=== PATIENT | female | born 1935 | race Caucasian/White ===

== ENCOUNTER 2016-06-13 18:17 | Inpatient (IN) | payer MEDICARE, MEDICAID ==
[~2016-06-13] VITALS: Ht 154.9 cm; Wt 51.2 kg
[~2016-06-13 18:17] MED LIST: ASPI-231 PO; DOCU-94 PO; FLUT110A INH; GABA250S2 PO; LEVA1NEB5 NEB; LEVAAER4 IN; LISI-275 PO; LORA-655 PO; METO-169 PO; OMEP20CA5 PO; SIMV-8 PO
[2016-06-13 19:48] LABS: Basophils # (auto) 0.1 uL; Basophils % (auto) 0.9 % (0.0-2.0); Eosinophils # (auto) 0.6 uL; Eosinophils % (auto) 7.8 % (0.0-7.0); Hematocrit 38.5 % (36.0-46.0); Hemoglobin 12.6 g/dL (12.2-16.2); Lymphocytes # (auto) 1.8 uL; Lymphocytes % (auto) 22.6 % (10.0-50.0); Mean Corpuscular Hgb Conc. 32.9 g/dL (32.0-36.0); Mean Corpuscular Volume 94.3 fL (80.0-100.0); Mean Platelet Volume 8.4 fL (7.4-10.4); Monocytes # (auto) 0.8 uL; Monocytes % (auto) 10.3 % (0.0-12.0); Neutrophils # (auto) 4.7 uL; Neutrophils % (auto) 58.4 % (37.0-80.0); Platelet Count (auto) 281 10^3/uL (140-450)
[2016-06-13] MEDS ORDERED: methylPREDNISolone SOD SUCC 125 MG/2 ML VL IV ONE (20:00)
[2016-06-13 20:02] LABS: Albumin 3.4 g/dL (3.4-5.0); BUN/Creatinine Ratio 13.3; Bilirubin, Total 0.2 mg/dL (0.2-1.0); Calcium 9.2 mg/dL (8.5-10.1); Magnesium 1.9 mg/dL (1.6-2.6); Potassium 3.6 mmol/L (3.5-5.1); Total Protein 6.1 g/dL (6.4-8.2)
[2016-06-13] MEDS: IPRATROPIUM BROM 0.5 MG/2.5ML INH SOL NEB ONE (20:40)
[2016-06-13 20:55] LABS: B-Type Natriuretic Peptide 25.88 pg/mL (0-100)
[2016-06-13 20:57] LABS: Temperature: 22.3 C (20.0-25.0)
[2016-06-13 21:13] LABS: INR 1.02 (0.9-1.15); Partial Thromboplastin Time 27.8 sec (22.64-33.71); Prothrombin Time 10.5 sec (9.37-12.3)
[2016-06-14] VITALS (8 sets, daily range): BP systolic 130–150; BP diastolic 65–81
[2016-06-14] MEDS: IPRATROPIUM BROM 0.5 MG/2.5ML INH SOL NEB ONE
[2016-06-14] MEDS ORDERED: LORazepam 0.5 MG TAB PO ONE (01:00)
[2016-06-14] MEDS ORDERED: cloNIDine HCL 0.1 MG TAB PO PRN (01:30)
[2016-06-14] MEDS ORDERED: IPRATROPIUM BROM 0.5 MG/2.5ML INH SOL NEB PRN (01:30)
[2016-06-14] MEDS ORDERED: AZITHROMYCIN 500MG/D5W 250ML 250 ML IV ONE (01:45)
[2016-06-14] MEDS ORDERED: NITROGLYCERIN 0.4 MG SL TAB SL PRN (01:45)
[2016-06-14] MEDS ORDERED: MORPHINE SULF INJ 2 MG/ML SYRINGE 1ML IV PRN (01:45)
[2016-06-14] MEDS: SODIUM CHLOR 0.9% PF (SALINE LOCK) 10ML VIAL IV SCH ×3 (05:31→22:08)
[2016-06-14] MEDS: GABAPENTIN 300 MG CAP PO SCH ×3 (05:55→22:00)
[2016-06-14] MEDS: cefTRIAXone 1GM/50ML D5W 50 ML IV SCH ×2 (06:44→19:06)
[2016-06-14] MEDS: LEVALBUTEROL HCL 1.25 MG/3 ML NEB NEB SCH ×3 (08:00→22:25)
[2016-06-14] MEDS ORDERED: cefTRIAXone 1GM/50ML D5W 50 ML IV SCH (09:00)
[2016-06-14] MEDS: BISACODYL 5 MG EC TAB PO SCH ×2 (10:08→22:07)
[2016-06-14] MEDS: methylPREDNISolone SOD SUCC 125 MG/2 ML VL IV SCH ×2 (10:08→22:10)
[2016-06-14] MEDS: PANTOPRAZOLE SODIUM 40 MG/10 ML VIAL IV SCH (10:08)
[2016-06-14] MEDS: ASPirin 81 mg TAB PO SCH (10:08)
[2016-06-14] MEDS: FLUoxetine HCL 20 MG CAP PO SCH (10:08)
[2016-06-14] MEDS: METOPROLOL TARTRATE 50 MG TAB PO SCH ×2 (10:09→22:08)
[2016-06-14] MEDS: ENOXAPARIN SOD 30 MG/0.3 ML SYRINGE SC SCH (10:10)
[2016-06-14] MEDS: LISINOPRIL 20 MG TAB PO SCH (10:10)
[2016-06-14] MEDS: LORazepam 0.5 MG TAB PO PRN ×2 (13:59→22:07)
[2016-06-14] MEDS: ATORVASTATIN 20 MG TAB PO SCH (22:08)
[2016-06-15] MEDS ORDERED: AZITHROMYCIN 500MG/D5W 250ML 250 ML IV SCH (02:00)
[2016-06-15 05:25] VITALS: BP 125/65
[2016-06-15 05:43] LABS: Basophils # (auto) 0 uL; Eosinophils # (auto) 0 uL; Hematocrit 36.7 % (36.0-46.0); Hemoglobin 11.9 g/dL (12.2-16.2); Lymphocytes # (auto) 0.6 uL; Lymphocytes % (auto) 5.5 % (10.0-50.0); Mean Corpuscular Hemoglobin 30.6 pg (28.0-32.0); Mean Corpuscular Hgb Conc. 32.4 g/dL (32.0-36.0); Mean Corpuscular Volume 94.6 fL (80.0-100.0); Monocytes # (auto) 0.2 uL; Monocytes % (auto) 2.3 % (0.0-12.0); Neutrophils # (auto) 9.6 uL; Neutrophils % (auto) 92.2 % (37.0-80.0); Platelet Count (auto) 310 10^3/uL (140-450); Red Cell Distribution Width 13.1 % (11.6-16.0); White Blood Cell 10.4 10^3/uL (4.4-10.8)
[2016-06-15] MEDS: SODIUM CHLOR 0.9% PF (SALINE LOCK) 10ML VIAL IV SCH ×3 (05:52→21:33)
[2016-06-15] MEDS: GABAPENTIN 300 MG CAP PO SCH (05:52)
[2016-06-15] MEDS: LEVALBUTEROL HCL 1.25 MG/3 ML NEB NEB SCH ×3 (06:00→22:10)
[2016-06-15 06:07] LABS: Albumin 3.1 g/dL (3.4-5.0); Bilirubin, Total 0.3 mg/dL (0.2-1.0); Potassium 3.7 mmol/L (3.5-5.1); Total Protein 5.8 g/dL (6.4-8.2)
[2016-06-15] MEDS: cefTRIAXone 1GM/50ML D5W 50 ML IV SCH (06:34)
[2016-06-15 08:00] VITALS: BP 120/57
[2016-06-15] MEDS: ENOXAPARIN SOD 30 MG/0.3 ML SYRINGE SC SCH (10:18)
[2016-06-15] MEDS: ASPirin 81 mg TAB PO SCH (10:18)
[2016-06-15] MEDS: methylPREDNISolone SOD SUCC 125 MG/2 ML VL IV SCH ×2 (10:18→21:32)
[2016-06-15] MEDS: PANTOPRAZOLE SODIUM 40 MG/10 ML VIAL IV SCH (10:18)
[2016-06-15] MEDS: FLUoxetine HCL 20 MG CAP PO SCH (10:18)
[2016-06-15] MEDS: BISACODYL 5 MG EC TAB PO SCH ×2 (10:18→21:32)
[2016-06-15] MEDS: METOPROLOL TARTRATE 50 MG TAB PO SCH ×2 (10:19→21:33)
[2016-06-15] MEDS: LISINOPRIL 20 MG TAB PO SCH (10:19)
[2016-06-15 12:00] VITALS: BP 132/72
[2016-06-15 16:00] VITALS: BP 144/72
[2016-06-15] MEDS: ATORVASTATIN 20 MG TAB PO SCH (21:32)
[2016-06-15] MEDS: LORazepam 0.5 MG TAB PO PRN (21:32)
[2016-06-15 21:38] VITALS: BP 146/72
[2016-06-15] MEDS: IPRATROPIUM BROM 0.5 MG/2.5ML INH SOL NEB SCH (22:10)
[2016-06-15] MEDS: BUDESONIDE (INHALATION) 0.5 MG/2 ML NEB NEB SCH (22:10)
[2016-06-16 04:45] VITALS: BP 137/81
[2016-06-16] MEDS: SODIUM CHLOR 0.9% PF (SALINE LOCK) 10ML VIAL IV SCH ×3 (05:55→22:01)
[2016-06-16] MEDS: LEVALBUTEROL HCL 1.25 MG/3 ML NEB NEB SCH ×4 (06:55→19:21)
[2016-06-16] MEDS: IPRATROPIUM BROM 0.5 MG/2.5ML INH SOL NEB SCH ×4 (06:55→19:21)
[2016-06-16] MEDS: BUDESONIDE (INHALATION) 0.5 MG/2 ML NEB NEB SCH ×2 (06:55→19:21)
[2016-06-16 08:00] VITALS: BP 157/77
[2016-06-16] MEDS: LORazepam 0.5 MG TAB PO PRN ×2 (08:53→22:01)
[2016-06-16] MEDS: FLUoxetine HCL 20 MG CAP PO SCH (10:00)
[2016-06-16] MEDS: GABAPENTIN 300 MG CAP PO SCH ×2 (10:00→10:37)
[2016-06-16] MEDS: AZITHROMYCIN 250 MG TAB PO SCH (10:32)
[2016-06-16] MEDS: PANTOPRAZOLE SODIUM 40 MG/10 ML VIAL IV SCH (10:32)
[2016-06-16] MEDS: methylPREDNISolone SOD SUCC 125 MG/2 ML VL IV SCH ×2 (10:32→22:00)
[2016-06-16] MEDS: BISACODYL 5 MG EC TAB PO SCH ×2 (10:33→22:01)
[2016-06-16] MEDS: ASPirin 81 mg TAB PO SCH (10:33)
[2016-06-16] MEDS: METOPROLOL TARTRATE 50 MG TAB PO SCH ×2 (10:34→22:00)
[2016-06-16] MEDS: LISINOPRIL 20 MG TAB PO SCH (10:34)
[2016-06-16] MEDS: ENOXAPARIN SOD 30 MG/0.3 ML SYRINGE SC SCH (10:34)
[2016-06-16 12:00] VITALS: BP 159/70
[2016-06-16 16:00] VITALS: BP 150/74
[2016-06-16] MEDS: ASCORBIC ACID 500 MG TAB PO SCH (17:09)
[2016-06-16] MEDS: MULTIPLE VITAMIN TAB PO SCH (17:09)
[2016-06-16] MEDS: BOOST 8 ounces PO SCH (17:10)
[2016-06-16] MEDS: ACETYLCYSTEINE 10 %(100MG/ML) SOL 4ML NEB SCH (19:21)
[2016-06-16 21:30] VITALS: BP 146/72
[2016-06-16] MEDS: ATORVASTATIN 20 MG TAB PO SCH (22:00)
[2016-06-17] MEDS: LEVALBUTEROL HCL 1.25 MG/3 ML NEB NEB SCH ×4 (01:02→19:45)
[2016-06-17] MEDS: IPRATROPIUM BROM 0.5 MG/2.5ML INH SOL NEB SCH ×4 (01:02→19:45)
[2016-06-17] MEDS: ACETYLCYSTEINE 10 %(100MG/ML) SOL 4ML NEB SCH ×4 (01:02→19:45)
[2016-06-17 02:19] VITALS: BP 150/74
[2016-06-17 05:00] VITALS: BP 143/68
[2016-06-17] MEDS: BUDESONIDE (INHALATION) 0.5 MG/2 ML NEB NEB SCH ×2 (06:23→19:45)
[2016-06-17] MEDS: SODIUM CHLOR 0.9% PF (SALINE LOCK) 10ML VIAL IV SCH ×3 (06:42→22:00)
[2016-06-17] MEDS: BOOST 8 ounces PO SCH ×2 (08:00→18:26)
[2016-06-17 08:44] VITALS: BP 145/78
[2016-06-17] MEDS: LISINOPRIL 20 MG TAB PO SCH (10:00)
[2016-06-17] MEDS: FLUoxetine HCL 20 MG CAP PO SCH (10:00)
[2016-06-17] MEDS: BISACODYL 5 MG EC TAB PO SCH ×2 (10:00→21:36)
[2016-06-17] MEDS: PANTOPRAZOLE SODIUM 40 MG/10 ML VIAL IV SCH (10:45)
[2016-06-17] MEDS: ENOXAPARIN SOD 30 MG/0.3 ML SYRINGE SC SCH (10:46)
[2016-06-17] MEDS: methylPREDNISolone SOD SUCC 125 MG/2 ML VL IV SCH (10:46)
[2016-06-17] MEDS: METOPROLOL TARTRATE 50 MG TAB PO SCH ×2 (10:47→22:00)
[2016-06-17] MEDS: ASCORBIC ACID 500 MG TAB PO SCH (10:47)
[2016-06-17] MEDS: AZITHROMYCIN 250 MG TAB PO SCH (10:48)
[2016-06-17] MEDS: MULTIPLE VITAMIN TAB PO SCH (10:48)
[2016-06-17] MEDS: GABAPENTIN 300 MG CAP PO SCH (10:48)
[2016-06-17] MEDS: ASPirin 81 mg TAB PO SCH (10:50)
[2016-06-17 13:00] VITALS: BP 146/68
[2016-06-17] MEDS: LORazepam 0.5 MG TAB PO PRN ×2 (13:35→21:45)
[2016-06-17] MEDS ORDERED: IBUPROFEN 400 MG TAB PO PRN (14:30)
[2016-06-17] MEDS ORDERED: OSELTAMIVIR 75 MG CAP PO ONE (14:45)
[2016-06-17 17:00] VITALS: BP 150/75
[2016-06-17] MEDS: ATORVASTATIN 20 MG TAB PO SCH (21:44)
[2016-06-17 22:00] VITALS: BP 144/68
[2016-06-17] MEDS ORDERED: OSELTAMIVIR 75 MG CAP PO SCH (22:00)
[2016-06-18] MEDS: ACETYLCYSTEINE 10 %(100MG/ML) SOL 4ML NEB SCH ×3 (01:05→12:00)
[2016-06-18] MEDS: LEVALBUTEROL HCL 1.25 MG/3 ML NEB NEB SCH ×3 (01:05→12:34)
[2016-06-18] MEDS: IPRATROPIUM BROM 0.5 MG/2.5ML INH SOL NEB SCH ×3 (01:05→12:00)
[2016-06-18 05:30] VITALS: BP 136/71
[2016-06-18] MEDS: SODIUM CHLOR 0.9% PF (SALINE LOCK) 10ML VIAL IV SCH ×2 (06:03→14:00)
[2016-06-18] MEDS: BOOST 8 ounces PO SCH (08:00)
[2016-06-18 09:00] VITALS: BP 147/77
[2016-06-18] MEDS ORDERED: predniSONE 20 MG TAB PO SCH (10:00)
[2016-06-18] MEDS: FLUoxetine HCL 20 MG CAP PO SCH (10:00)
[2016-06-18] MEDS: BUDESONIDE (INHALATION) 0.5 MG/2 ML NEB NEB SCH (10:00)
[2016-06-18] MEDS: MULTIPLE VITAMIN TAB PO SCH (11:06)
[2016-06-18] MEDS: ENOXAPARIN SOD 30 MG/0.3 ML SYRINGE SC SCH (11:06)
[2016-06-18] MEDS: PANTOPRAZOLE SODIUM 40 MG/10 ML VIAL IV SCH (11:06)
[2016-06-18] MEDS: GABAPENTIN 300 MG CAP PO SCH (11:06)
[2016-06-18] MEDS: ASPirin 81 mg TAB PO SCH (11:06)
[2016-06-18] MEDS: ASCORBIC ACID 500 MG TAB PO SCH (11:07)
[2016-06-18] MEDS: BISACODYL 5 MG EC TAB PO SCH (11:07)
[2016-06-18] MEDS: AZITHROMYCIN 250 MG TAB PO SCH (11:07)
[2016-06-18] MEDS: LISINOPRIL 20 MG TAB PO SCH (11:11)
[2016-06-18] MEDS: METOPROLOL TARTRATE 50 MG TAB PO SCH (11:11)
[2016-06-18 12:47] VITALS: BP 146/84
[2016-06-18 13:40] VITALS: BP 146/84
== END 2016-06-18 14:50 | disposition home or self-care (01) | DRG 189 ==
LOC: EDBD 18:17 → EDUNIT# 18:17 → ER 18:22 → TELE 18:23 → TELE-WESTW 06-14 02:10 → WEST WING 06-17 11:33
PROVIDERS: ADMIT Family Medicine; ATTEND Internal Medicine Pulmonary Disease
DX: J96.00 Acute respiratory failure, unspecified whether with hypoxia or hypercapnia (principal); J44.0 Chronic obstructive pulmonary disease with (acute) lower respiratory infection; E44.0 Moderate protein-calorie malnutrition; J44.1 Chronic obstructive pulmonary disease with (acute) exacerbation; J20.9 Acute bronchitis, unspecified; I11.9 Hypertensive heart disease without heart failure; K21.9 Gastro-esophageal reflux disease without esophagitis; E78.5 Hyperlipidemia, unspecified; E86.0 Dehydration; K44.9 Diaphragmatic hernia without obstruction or gangrene; F32.9 Major depressive disorder, single episode, unspecified; F41.9 Anxiety disorder, unspecified; I25.10 Atherosclerotic heart disease of native coronary artery without angina pectoris; I50.9 Heart failure, unspecified; M19.90 Unspecified osteoarthritis, unspecified site; Z82.3 Family history of stroke; Z87.11 Personal history of peptic ulcer disease; Z86.73 Personal history of transient ischemic attack (TIA), and cerebral infarction without residual deficits; Z90.49 Acquired absence of other specified parts of digestive tract; I25.2 Old myocardial infarction; Z95.5 Presence of coronary angioplasty implant and graft; Z98.890 Other specified postprocedural states; Z82.49 Family history of ischemic heart disease and other diseases of the circulatory system; Z83.6 Family history of other diseases of the respiratory system; Z80.9 Family history of malignant neoplasm, unspecified; Z68.21 Body mass index [BMI] 21.0-21.9, adult
CPT/HCPCS: 36415; 71010; 80053; 80061; 83735; 83880; 85025; 85049; 85379; 85610; 85730; 87040; 87070; 87081; 87205; 87400; 93005; 94640; 96374; C9113; J0696

== ENCOUNTER → 2016-07-25 | Outpatient (CLI) | payer MEDICARE, MEDICAID ==
[~2016-07-25] MED LIST changes: +FLUO10CA15 PO
[2016-07-25 12:42] LABS: Albumin 3.6 g/dL (3.4-5.0); Basophils # (auto) 0 uL; Basophils % (auto) 0.2 % (0.0-2.0); Bilirubin, Total 0.4 mg/dL (0.2-1.0); Calcium 9.7 mg/dL (8.5-10.1); Eosinophils # (auto) 0.1 uL; Eosinophils % (auto) 0.7 % (0.0-7.0); Hematocrit 41.4 % (36.0-46.0); Hemoglobin 13.4 g/dL (12.2-16.2); Lymphocytes # (auto) 1.5 uL; Mean Corpuscular Hemoglobin 30.9 pg (28.0-32.0); Mean Corpuscular Hgb Conc. 32.3 g/dL (32.0-36.0); Mean Corpuscular Volume 95.7 fL (80.0-100.0); Mean Platelet Volume 8.2 fL (7.4-10.4); Monocytes # (auto) 0.6 uL; Monocytes % (auto) 4.1 % (0.0-12.0); Neutrophils # (auto) 12.9 uL; Platelet Count (auto) 453 10^3/uL (140-450); Potassium 3.7 mmol/L (3.5-5.1); Red Cell Distribution Width 14.6 % (11.6-16.0); Total Protein 6.5 g/dL (6.4-8.2); White Blood Cell 15.2 10^3/uL (4.4-10.8)
== END | disposition home or self-care (01) ==
LOC: LAB 10:52
DX: Z79.899 Other long term (current) drug therapy (principal); M81.0 Age-related osteoporosis without current pathological fracture; M25.50 Pain in unspecified joint; D64.9 Anemia, unspecified; I10 Essential (primary) hypertension; M19.90 Unspecified osteoarthritis, unspecified site; E03.9 Hypothyroidism, unspecified
CPT/HCPCS: 36415; 80053; 84443; 85025; 85652; 86141

== ENCOUNTER 2016-08-20 12:08 | Observation (INO) | payer MEDICARE, MEDICAID ==
[~2016-08-20] VITALS: Ht 154.9 cm; Wt 44.0 kg
[2016-08-20] MEDS ORDERED: SODIUM CHLORIDE 0.9% 1,000 ML IV ONE (14:06)
[2016-08-20 16:05] VITALS: BP 150/77
[2016-08-20 16:45] LABS: Albumin 3.5 g/dL (3.4-5.0); BUN/Creatinine Ratio 14.1; Magnesium 1.9 mg/dL (1.6-2.6); Potassium 4.1 mmol/L (3.5-5.1)
[2016-08-20 16:48] LABS: Basophils # (auto) 0.1 uL; Bilirubin, Total 0.6 mg/dL (0.2-1.0); Eosinophils # (auto) 0.2 uL; Eosinophils % (auto) 1.9 % (0.0-7.0); Hematocrit 38.5 % (36.0-46.0); Hemoglobin 12.9 g/dL (12.2-16.2); Lymphocytes # (auto) 1.8 uL; Lymphocytes % (auto) 17.3 % (10.0-50.0); Mean Corpuscular Hgb Conc. 33.4 g/dL (32.0-36.0); Mean Corpuscular Volume 92.8 fL (80.0-100.0); Monocytes % (auto) 9.6 % (0.0-12.0); Neutrophils # (auto) 7.3 uL; Neutrophils % (auto) 70.2 % (37.0-80.0); Platelet Count (auto) 378 10^3/uL (140-450); Red Cell Distribution Width 15.3 % (11.6-16.0); SUSPECT VIEW TRANSMISSION; Total Protein 6.6 g/dL (6.4-8.2); White Blood Cell 10.3 10^3/uL (4.4-10.8)
[2016-08-20 17:24] LABS: Platelet Estimate Adequate; RBC Morphology Normal
== END 2016-08-20 18:29 | disposition home or self-care (01) | DRG 603 ==
LOC: ER 12:08 → OVERFLOW 12:09 → UNDOADMOB 12:09 → UNDODISOB 18:29 → OVERFLOW 18:29 → ER 18:29
PROVIDERS: ADMIT Emergency Medicine; ATTEND Emergency Medicine
DX: L03.115 Cellulitis of right lower limb (principal); I11.0 Hypertensive heart disease with heart failure; I50.9 Heart failure, unspecified; I25.10 Atherosclerotic heart disease of native coronary artery without angina pectoris; F41.9 Anxiety disorder, unspecified; J44.9 Chronic obstructive pulmonary disease, unspecified; Z85.9 Personal history of malignant neoplasm, unspecified; Z86.73 Personal history of transient ischemic attack (TIA), and cerebral infarction without residual deficits; F32.9 Major depressive disorder, single episode, unspecified; K21.9 Gastro-esophageal reflux disease without esophagitis; E78.5 Hyperlipidemia, unspecified; I25.2 Old myocardial infarction; Z87.11 Personal history of peptic ulcer disease; Z98.890 Other specified postprocedural states; Z79.899 Other long term (current) drug therapy; Z79.82 Long term (current) use of aspirin
CPT/HCPCS: 36415; 80053; 83735; 85025; 93971; 96360; 96361; G0378

== ENCOUNTER 2016-09-07 12:36 | Emergency (ER) | payer MEDICARE, MEDICAID ==
[~2016-09-07] VITALS: Ht 154.9 cm; Wt 45.4 kg
[2016-09-07] MEDS ORDERED: SODIUM CHLORIDE 0.9% 250 ML IV ONE (13:24)
[2016-09-07] MEDS ORDERED: KETOROLAC TROMETH 30 MG/ML 1ML VIAL IV ONE (13:30)
[2016-09-07] MEDS ORDERED: ALBUTEROL SULF 2.5 MG/0.5ML(0.5%) NEB SOLN NEB ONE (13:30)
[2016-09-07] MEDS ORDERED: ONDANSETRON HCL 4 MG/2 ML VIAL IV ONE (13:30)
[2016-09-07] MEDS ORDERED: IPRATROPIUM BROM 0.5 MG/2.5ML INH SOL NEB ONE (13:30)
[2016-09-07 14:07] LABS: Basophils # (auto) 0.1 uL; Eosinophils # (auto) 0.3 uL; Eosinophils % (auto) 3.7 % (0.0-7.0); Hematocrit 37.7 % (36.0-46.0); Hemoglobin 12.3 g/dL (12.2-16.2); Lymphocytes # (auto) 1.6 uL; Lymphocytes % (auto) 22.5 % (10.0-50.0); Mean Corpuscular Hemoglobin 30.6 pg (28.0-32.0); Mean Corpuscular Hgb Conc. 32.5 g/dL (32.0-36.0); Mean Corpuscular Volume 94.1 fL (80.0-100.0); Mean Platelet Volume 7.9 fL (7.4-10.4); Monocytes # (auto) 0.6 uL; Neutrophils # (auto) 4.6 uL; Neutrophils % (auto) 63.8 % (37.0-80.0); Platelet Count (auto) 395 10^3/uL (140-450); Red Cell Distribution Width 14.9 % (11.6-16.0); White Blood Cell 7.2 10^3/uL (4.4-10.8)
[2016-09-07 14:25] LABS: Albumin 3.6 g/dL (3.4-5.0); BUN/Creatinine Ratio 12.4; Bilirubin, Total 0.6 mg/dL (0.2-1.0); Calcium 9.2 mg/dL (8.5-10.1); Potassium 3.9 mmol/L (3.5-5.1); Total Protein 6.4 g/dL (6.4-8.2)
[2016-09-07 15:12] LABS: Urine Bilirubin Negative (Negative); Urine Blood Negative /uL (Negative); Urine Color Yellow (Yellow); Urine Glucose Normal (Normal); Urine Ketone Negative (Negative); Urine Nitrite Negative (Negative); Urine RBC <1 /hpf (0 - 4); Urine Squamous Epithelial Cell FEW /hpf (<5); Urine Urobilinogen Normal (Negative); Urine pH 6.5 (5.0-8.0)
[2016-09-07 15:46] VITALS: BP 143/67
[2016-09-07] MEDS ORDERED: ACETAMINOPHEN 325 MG TAB PO ONE (17:00)
[2016-09-07] MEDS ORDERED: LORazepam 0.5 MG TAB PO ONE (17:00)
== END 2016-09-07 17:17 | disposition home or self-care (01) ==
LOC: EDUNIT# 12:36 → EDBD 12:36 → ER 12:45
DX: J44.9 Chronic obstructive pulmonary disease, unspecified (principal); F41.9 Anxiety disorder, unspecified; I11.0 Hypertensive heart disease with heart failure; I50.9 Heart failure, unspecified; E11.9 Type 2 diabetes mellitus without complications; M19.90 Unspecified osteoarthritis, unspecified site; K21.9 Gastro-esophageal reflux disease without esophagitis; E78.5 Hyperlipidemia, unspecified; I25.2 Old myocardial infarction; I25.810 Atherosclerosis of coronary artery bypass graft(s) without angina pectoris; Z95.1 Presence of aortocoronary bypass graft; Z98.61 Coronary angioplasty status
CPT/HCPCS: 36415; 71020; 80053; 81001; 83735; 85025; 93005; 94761; 96374; 99285; J1885; J7050

== ENCOUNTER 2016-10-24 17:41 | Emergency (ER) | payer MEDICARE, MEDICAID ==
[~2016-10-24] VITALS: Ht 172.7 cm; Wt 40.8 kg
[2016-10-24 17:57] VITALS: BP 168/74
[2016-10-24 18:49] LABS: Basophils # (auto) 0.1 uL; Basophils % (auto) 1.2 % (0.0-2.0); Eosinophils # (auto) 0.3 uL; Eosinophils % (auto) 4.1 % (0.0-7.0); Hematocrit 41.2 % (36.0-46.0); Hemoglobin 13.5 g/dL (12.2-16.2); Lymphocytes # (auto) 1.7 uL; Lymphocytes % (auto) 27.2 % (10.0-50.0); Mean Corpuscular Hemoglobin 30.5 pg (28.0-32.0); Mean Corpuscular Hgb Conc. 32.7 g/dL (32.0-36.0); Mean Corpuscular Volume 93.2 fL (80.0-100.0); Mean Platelet Volume 7.8 fL (7.4-10.4); Monocytes # (auto) 0.7 uL; Monocytes % (auto) 10.3 % (0.0-12.0); Neutrophils # (auto) 3.6 uL; Neutrophils % (auto) 57.2 % (37.0-80.0); Platelet Count (auto) 369 10^3/uL (140-450); Red Cell Distribution Width 13.6 % (11.6-16.0); White Blood Cell 6.4 10^3/uL (4.4-10.8)
[2016-10-24 19:26] LABS: Albumin 3.7 g/dL (3.4-5.0); BUN/Creatinine Ratio 16.1; Bilirubin, Total 0.2 mg/dL (0.2-1.0); Calcium 9.5 mg/dL (8.5-10.1); Potassium 3.8 mmol/L (3.5-5.1); Total Protein 6.9 g/dL (6.4-8.2)
[2016-10-24] MEDS ORDERED: LORazepam 0.5 MG TAB PO ONE (19:30)
[2016-10-24] MEDS ORDERED: cloNIDine HCL 0.1 MG TAB PO ONE (19:30)
== END 2016-10-24 20:47 | disposition home or self-care (01) ==
LOC: EDBD 17:41 → ER 17:50
DX: I11.0 Hypertensive heart disease with heart failure (principal); F41.9 Anxiety disorder, unspecified; I50.9 Heart failure, unspecified; M19.90 Unspecified osteoarthritis, unspecified site; J44.9 Chronic obstructive pulmonary disease, unspecified; F32.9 Major depressive disorder, single episode, unspecified; K21.9 Gastro-esophageal reflux disease without esophagitis; E78.5 Hyperlipidemia, unspecified; I25.2 Old myocardial infarction; Z87.11 Personal history of peptic ulcer disease; Z90.89 Acquired absence of other organs; Z95.1 Presence of aortocoronary bypass graft; Z98.61 Coronary angioplasty status; Z88.1 Allergy status to other antibiotic agents; Z88.8 Allergy status to other drugs, medicaments and biological substances
CPT/HCPCS: 36415; 80053; 85025; 93005

== ENCOUNTER 2016-12-12 23:07 | Inpatient (IN) | payer MEDICARE, MEDICAID ==
[~2016-12-12] VITALS: Ht 154.9 cm; Wt 50.5 kg
[~2016-12-12 23:07] MED LIST changes: +CLON0.1T PO; -DOCU-94 PO; -FLUO10CA15 PO; +GABA-497 PO; -GABA250S2 PO; -OMEP20CA5 PO; +OMEP20CA74 PO
[2016-12-13 00:24] LABS: Basophils # (auto) 0.1 uL; Basophils % (auto) 1.3 % (0.0-2.0); Eosinophils # (auto) 0.3 uL; Hemoglobin 12.4 g/dL (12.2-16.2); Mean Corpuscular Hemoglobin 30.3 pg (28.0-32.0); Mean Corpuscular Hgb Conc. 33.3 g/dL (32.0-36.0); Mean Corpuscular Volume 90.7 fL (80.0-100.0); Mean Platelet Volume 7.8 fL (7.4-10.4); Monocytes # (auto) 0.9 uL; Monocytes % (auto) 11.7 % (0.0-12.0); Neutrophils # (auto) 4.1 uL; Platelet Count (auto) 337 10^3/uL (140-450); Red Cell Distribution Width 14.6 % (11.6-16.0); White Blood Cell 7.4 10^3/uL (4.4-10.8)
[2016-12-13 00:38] LABS: Albumin 3.3 g/dL (3.4-5.0); Anion Gap 8 (5-15); Aspartate Aminotransferase 15 U/L (15-37); BUN/Creatinine Ratio 20.7; Blood Urea Nitrogen 18 mg/dL (7-18); Calcium 8.8 mg/dL (8.5-10.1); Carbon Dioxide 25 mmol/L (21-32); Chloride 108 mmol/L (98-107); GFR African American 80 mL/min; GFR Non-African American 66 mL/min; Glucose 85 mg/dL (74-106); Magnesium 1.9 mg/dL (1.6-2.6); Potassium 3.6 mmol/L (3.5-5.1); Sodium 141 mmol/L (136-145)
[2016-12-13 00:42] LABS: Alkaline Phosphatase 83 U/L (45-117); Bilirubin, Total 0.3 mg/dL (0.2-1.0); Total Protein 6.2 g/dL (6.4-8.2)
[2016-12-13 00:49] LABS: B-Type Natriuretic Peptide 26.2 pg/mL (0-100)
[2016-12-13] MEDS ORDERED: NITROGLYCERIN 0.4 MG SL TAB SL PRN (06:30)
[2016-12-13] MEDS ORDERED: ONDANSETRON HCL 4 MG/2 ML VIAL IV PRN (06:30)
[2016-12-13] MEDS ORDERED: ASPirin 81 mg TAB PO ONE (06:30)
[2016-12-13] MEDS ORDERED: cloNIDine HCL 0.1 MG TAB PO PRN (06:30)
[2016-12-13] MEDS ORDERED: MORPHINE SULF INJ 2 MG/ML SYRINGE 1ML IV PRN (06:30)
[2016-12-13] MEDS ORDERED: HYDROmorphone HCL 2 MG/ML VL IV PRN (06:30)
[2016-12-13] MEDS ORDERED: LACTULOSE 20Gm/30ML SOLN PO PRN (06:30)
[2016-12-13] MEDS: SODIUM CHLORIDE 0.9% 1,000 ML IV SCH ×2 (06:57→17:31)
[2016-12-13 08:54] VITALS: BP 146/80
[2016-12-13] MEDS ORDERED: PANTOPRAZOLE SODIUM 40 MG/10 ML VIAL IV SCH (10:00)
[2016-12-13] MEDS ORDERED: GABAPENTIN 300 MG CAP PO SCH (10:00)
[2016-12-13] MEDS: PANTOPRAZOLE 40 MG TAB PO SCH (11:01)
[2016-12-13] MEDS: METOPROLOL TARTRATE 25 MG TAB PO SCH ×2 (11:01→21:30)
[2016-12-13] MEDS: ENALAPRIL MALEATE 10 MG TAB PO SCH (11:02)
[2016-12-13] MEDS: ENOXAPARIN SOD 30 MG/0.3 ML SYRINGE SC SCH (11:03)
[2016-12-13 13:00] VITALS: BP 134/65
[2016-12-13] MEDS: LEVALBUTEROL HCL 1.25 MG/3 ML NEB NEB SCH ×2 (13:22→19:18)
[2016-12-13 16:50] VITALS: BP 125/62
[2016-12-13] MEDS: LORazepam 0.5 MG TAB PO PRN (20:28)
[2016-12-13 21:05] VITALS: BP 141/79
[2016-12-13] MEDS: ATORVASTATIN 20 MG TAB PO SCH (21:30)
[2016-12-13] MEDS ORDERED: FLUO20CA19 PO (21:47)
[2016-12-13] MEDS: TEMAZEPAM 15 MG CAP PO PRN (22:29)
[2016-12-13] MEDS ORDERED: GABAPENTIN 300 MG CAP PO ONE (22:30)
[2016-12-14] MEDS: LEVALBUTEROL HCL 1.25 MG/3 ML NEB NEB SCH ×5 (00:51→23:36)
[2016-12-14 05:00] VITALS: BP 127/58
[2016-12-14 05:31] LABS: Basophils # (auto) 0.1 uL; Basophils % (auto) 1.6 % (0.0-2.0); CONDITION Y; Eosinophils # (auto) 0.4 uL; Eosinophils % (auto) 8.1 % (0.0-7.0); Hematocrit 36.7 % (36.0-46.0); Hemoglobin 12.1 g/dL (12.2-16.2); Lymphocytes # (auto) 1.6 uL; Lymphocytes % (auto) 31.9 % (10.0-50.0); Mean Corpuscular Hemoglobin 30.8 pg (28.0-32.0); Mean Corpuscular Hgb Conc. 33.1 g/dL (32.0-36.0); Mean Corpuscular Volume 93.2 fL (80.0-100.0); Mean Platelet Volume 8.2 fL (7.4-10.4); Monocytes # (auto) 0.5 uL; Monocytes % (auto) 10.4 % (0.0-12.0); Neutrophils # (auto) 2.4 uL; Platelet Count (auto) 320 10^3/uL (140-450); Red Cell Distribution Width 15.4 % (11.6-16.0); White Blood Cell 5.1 10^3/uL (4.4-10.8)
[2016-12-14 06:04] LABS: Albumin 3.1 g/dL (3.4-5.0); BUN/Creatinine Ratio 18.6; Bilirubin, Total 0.5 mg/dL (0.2-1.0); Calcium 9.4 mg/dL (8.5-10.1); Potassium 3.6 mmol/L (3.5-5.1); Total Protein 5.8 g/dL (6.4-8.2)
[2016-12-14] MEDS: SODIUM CHLORIDE 0.9% 1,000 ML IV SCH ×2 (07:17→20:39)
[2016-12-14 08:54] VITALS: BP 115/60
[2016-12-14 09:48] VITALS: BP 115/60
[2016-12-14] MEDS: ASPirin 81 mg TAB PO SCH (10:00)
[2016-12-14] MEDS: ENOXAPARIN SOD 30 MG/0.3 ML SYRINGE SC SCH (10:00)
[2016-12-14] MEDS: ENALAPRIL MALEATE 10 MG TAB PO SCH (10:15)
[2016-12-14] MEDS: METOPROLOL TARTRATE 25 MG TAB PO SCH ×2 (10:16→22:18)
[2016-12-14] MEDS: PANTOPRAZOLE 40 MG TAB PO SCH (10:17)
[2016-12-14 10:53] LABS: INR 0.99 (0.9-1.15); Partial Thromboplastin Time 28.5 sec (22.64-33.71); Prothrombin Time 10.8 sec (9.37-12.3)
[2016-12-14] MEDS ORDERED: IOHEXOL 350 MG/ML 100ML IJ ONE (10:56)
[2016-12-14 12:24] VITALS: BP 105/51
[2016-12-14] MEDS ORDERED: ACETAMINOPHEN 500 MG TAB PO PRN (16:15)
[2016-12-14 16:56] VITALS: BP 108/61
[2016-12-14] MEDS: LORazepam 0.5 MG TAB PO PRN (20:39)
[2016-12-14 22:00] VITALS: BP 127/77
[2016-12-14] MEDS: ATORVASTATIN 20 MG TAB PO SCH (22:18)
[2016-12-14] MEDS: GABAPENTIN 300 MG CAP PO SCH (22:18)
[2016-12-15 04:00] VITALS: BP 126/58
[2016-12-15] MEDS: SODIUM CHLORIDE 0.9% 1,000 ML IV SCH ×2 (06:25→21:02)
[2016-12-15] MEDS: LEVALBUTEROL HCL 1.25 MG/3 ML NEB NEB SCH ×4 (06:41→23:59)
[2016-12-15] MEDS ORDERED: LIDOCAINE 2%HCL (LOCAL ANESTH.) INJ 20ML MDV ONE (07:41)
[2016-12-15] MEDS ORDERED: IOHEXOL 350 MG/ML 100ML IJ ONE (07:41)
[2016-12-15 08:17] VITALS: BP 129/67
[2016-12-15] MEDS: PANTOPRAZOLE 40 MG TAB PO SCH (09:50)
[2016-12-15] MEDS: METOPROLOL TARTRATE 25 MG TAB PO SCH ×2 (09:51→21:30)
[2016-12-15] MEDS: ENALAPRIL MALEATE 10 MG TAB PO SCH (09:51)
[2016-12-15] MEDS: ASPirin 81 mg TAB PO SCH (09:52)
[2016-12-15] MEDS: ENOXAPARIN SOD 30 MG/0.3 ML SYRINGE SC SCH (09:52)
[2016-12-15 12:11] VITALS: BP 110/54
[2016-12-15] MEDS ORDERED: MIDAZOLAM HCL 1MG/1ML-2 ML VIAL ONE (14:04)
[2016-12-15] MEDS ORDERED: fentaNYL CITRATE 100 MCG/2 ML VL ONE (14:04)
[2016-12-15] MEDS ORDERED: ANGIOMAX 250 MG VIAL IV ONE (14:04)
[2016-12-15] MEDS ORDERED: EPTIFIBATIDE INJ (2MG/ML) 10ML VIAL IV ONE (14:05)
[2016-12-15] MEDS ORDERED: SODIUM CHL 0.9% 0 ML ONE (14:05)
[2016-12-15 16:55] VITALS: BP 134/86
[2016-12-15 20:00] VITALS: BP 130/66
[2016-12-15] MEDS: SODIUM CHLOR 0.9% PF (SALINE LOCK) 10ML VIAL IV SCH (21:25)
[2016-12-15] MEDS: ATORVASTATIN 20 MG TAB PO SCH (21:30)
[2016-12-15] MEDS: GABAPENTIN 300 MG CAP PO SCH (21:30)
[2016-12-15] MEDS: TEMAZEPAM 15 MG CAP PO PRN (21:35)
[2016-12-15 22:00] VITALS: BP 130/66
[2016-12-16 05:00] VITALS: BP 110/60
[2016-12-16] MEDS: SODIUM CHLOR 0.9% PF (SALINE LOCK) 10ML VIAL IV SCH ×2 (05:15→14:31)
[2016-12-16] MEDS: LEVALBUTEROL HCL 1.25 MG/3 ML NEB NEB SCH ×2 (05:58→11:15)
[2016-12-16 09:00] VITALS: BP 108/54
[2016-12-16] MEDS: SODIUM CHLORIDE 0.9% 1,000 ML IV SCH (09:01)
[2016-12-16] MEDS: METOPROLOL TARTRATE 25 MG TAB PO SCH (09:31)
[2016-12-16] MEDS: ENALAPRIL MALEATE 10 MG TAB PO SCH (09:32)
[2016-12-16] MEDS: PANTOPRAZOLE 40 MG TAB PO SCH (09:32)
[2016-12-16] MEDS: ASPirin 81 mg TAB PO SCH (09:32)
[2016-12-16 13:00] VITALS: BP 121/68
[2016-12-16 13:07] VITALS: BP 108/54
[2016-12-16 13:27] VITALS: BP 121/68
[2016-12-16] MEDS: LORazepam 0.5 MG TAB PO PRN (15:29)
[2016-12-16 16:47] VITALS: BP 135/77
== END 2016-12-16 17:30 | disposition home or self-care (01) | DRG 287 ==
LOC: EDBD 23:07 → ER 23:20 → TELE 23:21 → TELE-E-ADS 12-13 08:22 → TELE-CENTR 12-13 10:31
PROVIDERS: ADMIT Family Medicine; ATTEND Internal Medicine
PROC: B2111ZZ Fluoroscopy of Multiple Coronary Arteries using Low Osmolar Contrast (ICD-10-PCS; principal; 2016-12-15)
PROC: 4A023N7 Measurement of Cardiac Sampling and Pressure, Left Heart, Percutaneous Approach (ICD-10-PCS; 2016-12-15)
PROC: B2131ZZ Fluoroscopy of Multiple Coronary Artery Bypass Grafts using Low Osmolar Contrast (ICD-10-PCS; 2016-12-15)
PROC: B2151ZZ Fluoroscopy of Left Heart using Low Osmolar Contrast (ICD-10-PCS; 2016-12-15)
DX: I25.10 Atherosclerotic heart disease of native coronary artery without angina pectoris (principal); J96.10 Chronic respiratory failure, unspecified whether with hypoxia or hypercapnia; J98.11 Atelectasis; I13.0 Hypertensive heart and chronic kidney disease with heart failure and stage 1 through stage 4 chronic kidney disease, or unspecified chronic kidney disease; K21.9 Gastro-esophageal reflux disease without esophagitis; J44.9 Chronic obstructive pulmonary disease, unspecified; M81.0 Age-related osteoporosis without current pathological fracture; F32.9 Major depressive disorder, single episode, unspecified; F41.9 Anxiety disorder, unspecified; M19.90 Unspecified osteoarthritis, unspecified site; N18.2 Chronic kidney disease, stage 2 (mild); I70.0 Atherosclerosis of aorta; I73.9 Peripheral vascular disease, unspecified; K44.9 Diaphragmatic hernia without obstruction or gangrene; Z82.3 Family history of stroke; Z82.49 Family history of ischemic heart disease and other diseases of the circulatory system; Z82.5 Family history of asthma and other chronic lower respiratory diseases; Z82.62 Family history of osteoporosis; Z87.11 Personal history of peptic ulcer disease; Z86.73 Personal history of transient ischemic attack (TIA), and cerebral infarction without residual deficits; Z87.891 Personal history of nicotine dependence; Z95.1 Presence of aortocoronary bypass graft; Z95.5 Presence of coronary angioplasty implant and graft; Z84.89 Family history of other specified conditions; Z80.1 Family history of malignant neoplasm of trachea, bronchus and lung; Z88.6 Allergy status to analgesic agent; Z88.1 Allergy status to other antibiotic agents; Z88.5 Allergy status to narcotic agent; Z88.8 Allergy status to other drugs, medicaments and biological substances; Z90.49 Acquired absence of other specified parts of digestive tract; Z90.89 Acquired absence of other organs
CPT/HCPCS: 36415; 71010; 71275; 80053; 80061; 83735; 83880; 84443; 84484; 85025; 85379; 85610; 85730; 86850; 86900; 86901; 87081; 93005; 93459; 94640; 96361; 96372; 99152; J2250

== ENCOUNTER 2017-01-03 08:12 | Emergency (ER) | payer MEDICARE, MEDICAID ==
[~2017-01-03] VITALS: Ht 154.9 cm; Wt 44.9 kg
[~2017-01-03 08:12] MED LIST changes: +FLUO20CA19 PO
[2017-01-03] MEDS ORDERED: SODIUM CHLORIDE 0.9% 1,000 ML IV ONE (08:57)
[2017-01-03] MEDS ORDERED: METOPROLOL TARTRATE 50 MG TAB PO ONE (09:30)
[2017-01-03] MEDS ORDERED: LISINOPRIL 10 MG TAB PO ONE (09:30)
[2017-01-03 09:35] LABS: Basophils # (auto) 0.1 uL; CONDITION Y; Eosinophils # (auto) 0.2 uL; Eosinophils % (auto) 4.6 % (0.0-7.0); Hemoglobin 13.9 g/dL (12.2-16.2); Lymphocytes # (auto) 1.4 uL; Lymphocytes % (auto) 25.7 % (10.0-50.0); Mean Corpuscular Hemoglobin 32.2 pg (28.0-32.0); Mean Corpuscular Hgb Conc. 33.9 g/dL (32.0-36.0); Mean Corpuscular Volume 95.1 fL (80.0-100.0); Mean Platelet Volume 8.3 fL (7.4-10.4); Monocytes # (auto) 0.6 uL; Neutrophils # (auto) 3.1 uL; Neutrophils % (auto) 57.7 % (37.0-80.0); Platelet Count (auto) 328 10^3/uL (140-450); Red Cell Distribution Width 15.8 % (11.6-16.0); White Blood Cell 5.3 10^3/uL (4.4-10.8)
[2017-01-03 10:03] LABS: Magnesium 2.4 mg/dL (1.6-2.6)
[2017-01-03 10:17] LABS: Albumin 3.5 g/dL (3.4-5.0); Alkaline Phosphatase 79 U/L (45-117); Anion Gap 7 (5-15); Aspartate Aminotransferase 19 U/L (15-37); Bilirubin, Total 0.5 mg/dL (0.2-1.0); Blood Urea Nitrogen 15 mg/dL (7-18); Carbon Dioxide 26 mmol/L (21-32); Chloride 106 mmol/L (98-107); GFR African American 79 mL/min; GFR Non-African American 65 mL/min; Glucose 82 mg/dL (74-106); Potassium 3.9 mmol/L (3.5-5.1); Sodium 139 mmol/L (136-145); Total Protein 6.7 g/dL (6.4-8.2)
[2017-01-03] MEDS ORDERED: ACETAMINOPHEN 500 MG TAB PO ONE (10:45)
[2017-01-03 12:32] LABS: Urine Bilirubin Negative (Negative); Urine Blood Negative /uL (Negative); Urine Color Yellow (Yellow); Urine Glucose Normal (Normal); Urine Ketone Negative (Negative); Urine Nitrite Negative (Negative); Urine RBC <1 /hpf (0 - 4); Urine Urobilinogen Normal (Negative); Urine pH 6.5 (5.0-8.0)
[2017-01-03 13:15] VITALS: BP 143/66
== END 2017-01-03 14:14 | disposition home or self-care (01) ==
LOC: ER 08:12 → EDBD 08:12 → ER 14:14
DX: K40.90 Unilateral inguinal hernia, without obstruction or gangrene, not specified as recurrent (principal); K57.90 Diverticulosis of intestine, part unspecified, without perforation or abscess without bleeding; M19.90 Unspecified osteoarthritis, unspecified site; J44.9 Chronic obstructive pulmonary disease, unspecified; I13.0 Hypertensive heart and chronic kidney disease with heart failure and stage 1 through stage 4 chronic kidney disease, or unspecified chronic kidney disease; I50.9 Heart failure, unspecified; N18.9 Chronic kidney disease, unspecified; K21.9 Gastro-esophageal reflux disease without esophagitis; E78.5 Hyperlipidemia, unspecified; I25.810 Atherosclerosis of coronary artery bypass graft(s) without angina pectoris; Z95.1 Presence of aortocoronary bypass graft; Z95.0 Presence of cardiac pacemaker; Z88.8 Allergy status to other drugs, medicaments and biological substances; Z88.1 Allergy status to other antibiotic agents; Z79.82 Long term (current) use of aspirin; Z79.899 Other long term (current) drug therapy; Z90.49 Acquired absence of other specified parts of digestive tract; Z87.891 Personal history of nicotine dependence
CPT/HCPCS: 36415; 74176; 80053; 81001; 83690; 83735; 84484; 85025; 93005

== ENCOUNTER → 2017-03-10 | Outpatient (CLI) | payer MEDICARE, MEDICAID ==
[2017-03-10 16:24] LABS: BUN/Creatinine Ratio 16.2; Calcium 9.6 mg/dL (8.5-10.1); Potassium 3.6 mmol/L (3.5-5.1)
== END | disposition home or self-care (01) ==
LOC: LAB 16:01
PROVIDERS: ATTEND Internal Medicine
DX: K59.00 Constipation, unspecified (principal); I25.10 Atherosclerotic heart disease of native coronary artery without angina pectoris; J44.9 Chronic obstructive pulmonary disease, unspecified; I13.0 Hypertensive heart and chronic kidney disease with heart failure and stage 1 through stage 4 chronic kidney disease, or unspecified chronic kidney disease; I50.9 Heart failure, unspecified; N18.9 Chronic kidney disease, unspecified; Z95.1 Presence of aortocoronary bypass graft
CPT/HCPCS: 36415; 80048; 84439; 84443

== ENCOUNTER → 2017-04-16 | Outpatient (CLI) | payer MEDICARE, MEDICAID ==
[~2017-04-16] MED LIST changes: +LEVO25TA6 PO
[2017-04-16 14:34] LABS: Allen Test No; Base Excess -0.9 mmol/L (-2.0-2.0); Blood 02Sat 90.4 % (96-100); Blood COHb 0.2 % (0.5-1.5); Blood MetHb 0.4 % (0.0-1.5); HCO3 23.5 mmol/L (22-26.0); HHb 9.5 % (0.0-5.0); MODE ROOM AIR; O2Hb 89.9 % (94.0-97.0); PCO2 38.6 mmHg (35.0-45.0); PCO2(T) 38.6 mmHg (35.0-45.0); PO2 60.4 mmHg (80.0-100.0); PO2(T) 60.4 mmHg (80.0-100.0); Sample Type Arterial; pH 7.403 (7.350-7.450)
== END | disposition home or self-care (01) ==
LOC: RT 14:12
PROVIDERS: ATTEND Internal Medicine Pulmonary Disease
DX: J44.9 Chronic obstructive pulmonary disease, unspecified (principal)
CPT/HCPCS: 36600; 82805

== ENCOUNTER 2017-04-27 11:27 | Emergency (ER) | payer MEDICARE, MEDICAID ==
[~2017-04-27] VITALS: Ht 157.5 cm; Wt 44.5 kg
[2017-04-27 12:07] VITALS: BP 133/86
[2017-04-27] MEDS ORDERED: diphenhdrAMINE HCL 50 MG/1 ML VL IM ONE (12:30)
[2017-04-27] MEDS ORDERED: methylPREDNISolone SOD SUCC 125 MG/2 ML VL IM ONE (12:30)
== END 2017-04-27 13:03 | disposition home or self-care (01) ==
LOC: ER 11:27
DX: T78.1XXA Other adverse food reactions, not elsewhere classified, initial encounter (principal); M19.90 Unspecified osteoarthritis, unspecified site; J44.9 Chronic obstructive pulmonary disease, unspecified; K21.9 Gastro-esophageal reflux disease without esophagitis; I13.0 Hypertensive heart and chronic kidney disease with heart failure and stage 1 through stage 4 chronic kidney disease, or unspecified chronic kidney disease; I50.9 Heart failure, unspecified; N18.9 Chronic kidney disease, unspecified; E78.5 Hyperlipidemia, unspecified; I25.2 Old myocardial infarction; I25.810 Atherosclerosis of coronary artery bypass graft(s) without angina pectoris; Z90.49 Acquired absence of other specified parts of digestive tract; Z95.1 Presence of aortocoronary bypass graft; Z95.0 Presence of cardiac pacemaker; Z88.1 Allergy status to other antibiotic agents; Z88.8 Allergy status to other drugs, medicaments and biological substances; Z79.82 Long term (current) use of aspirin; Z87.891 Personal history of nicotine dependence
CPT/HCPCS: 96372; 99284; J1200; J2930

== ENCOUNTER 2017-05-19 10:08 | Emergency (ER) | payer MEDICARE, MEDICAID ==
[~2017-05-19] VITALS: Ht 152.4 cm; Wt 44.5 kg
[2017-05-19 10:49] LABS: Basophils # (auto) 0 uL; Basophils % (auto) 0.7 % (0.0-2.0); Eosinophils # (auto) 0.3 uL; Eosinophils % (auto) 4.2 % (0.0-7.0); Hematocrit 41.8 % (36.0-46.0); Hemoglobin 13.8 g/dL (12.2-16.2); Lymphocytes # (auto) 1.4 uL; Mean Corpuscular Hemoglobin 32.3 pg (28.0-32.0); Mean Corpuscular Hgb Conc. 33.1 g/dL (32.0-36.0); Mean Corpuscular Volume 97.6 fL (80.0-100.0); Monocytes # (auto) 0.6 uL; Monocytes % (auto) 9.1 % (0.0-12.0); Neutrophils # (auto) 4.2 uL; Nucleated Red Blood Cells % 0.1 %; Platelet Count (auto) 324 10^3/uL (140-450); Red Cell Distribution Width 14.1 % (11.8-14.3); White Blood Cell 6.5 10^3/uL (4.4-10.8)
[2017-05-19] MEDS ORDERED: IPRATROPIUM BROM 0.5 MG/2.5ML INH SOL NEB ONE (11:00)
[2017-05-19] MEDS ORDERED: ALBUTEROL SULF 2.5 MG/0.5ML(0.5%) NEB SOLN NEB ONE (11:00)
[2017-05-19 11:16] LABS: Albumin 3.6 g/dL (3.4-5.0); Alkaline Phosphatase 55 U/L (45-117); Anion Gap 8 (5-15); Aspartate Aminotransferase 19 U/L (15-37); BUN/Creatinine Ratio 13.3; Bilirubin, Total 0.7 mg/dL (0.2-1.0); Blood Urea Nitrogen 12 mg/dL (7-18); Carbon Dioxide 25 mmol/L (21-32); Chloride 107 mmol/L (98-107); GFR African American 77 mL/min; GFR Non-African American 64 mL/min; Glucose 85 mg/dL (74-106); Potassium 3.9 mmol/L (3.5-5.1); Sodium 140 mmol/L (136-145); Total Protein 6.4 g/dL (6.4-8.2)
[2017-05-19 12:18] LABS: Urine RBC None Seen /hpf (0 - 4)
[2017-05-19 12:29] VITALS: BP 132/61
[2017-05-19 12:44] LABS: Urine Bilirubin Negative (Negative); Urine Blood Negative /uL (Negative); Urine Color Yellow (Yellow); Urine Glucose Normal (Normal); Urine Ketone Negative (Negative); Urine Nitrite Negative (Negative); Urine Squamous Epithelial Cell FEW /hpf (<5); Urine Urobilinogen Normal (Negative)
== END 2017-05-19 14:14 | disposition home or self-care (01) ==
LOC: EDBD 10:08 → ER 10:08
DX: J44.1 Chronic obstructive pulmonary disease with (acute) exacerbation (principal); J45.901 Unspecified asthma with (acute) exacerbation; K21.9 Gastro-esophageal reflux disease without esophagitis; I50.9 Heart failure, unspecified; I11.0 Hypertensive heart disease with heart failure; I25.10 Atherosclerotic heart disease of native coronary artery without angina pectoris; I25.2 Old myocardial infarction; E78.5 Hyperlipidemia, unspecified; Z87.11 Personal history of peptic ulcer disease; Z86.73 Personal history of transient ischemic attack (TIA), and cerebral infarction without residual deficits; Z87.891 Personal history of nicotine dependence; Z95.1 Presence of aortocoronary bypass graft; Z95.0 Presence of cardiac pacemaker
CPT/HCPCS: 36415; 71020; 80053; 81001; 84484; 85025; 93005; 94640

== ENCOUNTER 2017-06-09 11:38 | Emergency (ER) | payer MEDICARE, MEDICAID ==
[~2017-06-09] VITALS: Ht 154.9 cm; Wt 89.8 kg
[~2017-06-09 11:38] MED LIST changes: -GABA-497 PO; +GABA300C10 PO
[2017-06-09 13:30] VITALS: BP 125/80
== END 2017-06-09 13:55 | disposition home or self-care (01) ==
LOC: EDBD 11:38 → ER 11:38
DX: S83.92XA Sprain of unspecified site of left knee, initial encounter (principal); J44.9 Chronic obstructive pulmonary disease, unspecified; I25.10 Atherosclerotic heart disease of native coronary artery without angina pectoris; I13.0 Hypertensive heart and chronic kidney disease with heart failure and stage 1 through stage 4 chronic kidney disease, or unspecified chronic kidney disease; N18.9 Chronic kidney disease, unspecified; I50.9 Heart failure, unspecified; K21.9 Gastro-esophageal reflux disease without esophagitis; I25.2 Old myocardial infarction; Z86.73 Personal history of transient ischemic attack (TIA), and cerebral infarction without residual deficits; Z95.1 Presence of aortocoronary bypass graft; Z87.891 Personal history of nicotine dependence; Z79.82 Long term (current) use of aspirin; Z88.1 Allergy status to other antibiotic agents; Z88.8 Allergy status to other drugs, medicaments and biological substances; X58.XXXA Exposure to other specified factors, initial encounter; Y93.89 Activity, other specified; Y92.89 Other specified places as the place of occurrence of the external cause; Y99.8 Other external cause status
CPT/HCPCS: 73562

== ENCOUNTER 2017-06-14 13:16 | Emergency (ER) | payer MEDICARE, MEDICAID ==
[~2017-06-14] VITALS: Ht 154.9 cm; Wt 40.8 kg
[2017-06-14 13:39] VITALS: BP 155/78
[2017-06-14 15:13] LABS: Alanine Aminotransferase 23 U/L (13-56); Albumin 3.5 g/dL (3.4-5.0); Alkaline Phosphatase 73 U/L (45-117); Anion Gap 8 (5-15); Aspartate Aminotransferase 19 U/L (15-37); BUN/Creatinine Ratio 19.1; Bilirubin, Total 0.3 mg/dL (0.2-1.0); Blood Urea Nitrogen 17 mg/dL (7-18); Carbon Dioxide 28 mmol/L (21-32); Chloride 105 mmol/L (98-107); GFR African American 78 mL/min; GFR Non-African American 64 mL/min; Glucose 65 mg/dL (74-106); Magnesium 2.2 mg/dL (1.6-2.6); Sodium 141 mmol/L (136-145); Total Protein 6.8 g/dL (6.4-8.2)
[2017-06-14 20:01] LABS: Basophils # (auto) 0.1 uL; Basophils % (auto) 1.1 % (0.0-2.0); Eosinophils # (auto) 0.3 uL; Eosinophils % (auto) 5.1 % (0.0-7.0); Hematocrit 42.8 % (36.0-46.0); Hemoglobin 14.3 g/dL (12.2-16.2); Lymphocytes # (auto) 1.6 uL; Lymphocytes % (auto) 27.6 % (10.0-50.0); Mean Corpuscular Hemoglobin 32.5 pg (28.0-32.0); Mean Corpuscular Hgb Conc. 33.4 g/dL (32.0-36.0); Mean Corpuscular Volume 97.3 fL (80.0-100.0); Monocytes # (auto) 0.5 uL; Monocytes % (auto) 8.4 % (0.0-12.0); Neutrophils # (auto) 3.3 uL; Neutrophils % (auto) 57.8 % (37.0-80.0); Platelet Count (auto) 333 10^3/uL (140-450); Red Cell Distribution Width 13.1 % (11.8-14.3); White Blood Cell 5.6 10^3/uL (4.4-10.8)
[2017-09-08] MEDS ORDERED: TIOT17SP IN (22:23)
== END 2017-06-14 15:07 | disposition left against medical advice (07) ==
LOC: EDBD 13:16 → ER 13:16
DX: R55 Syncope and collapse (principal); Z53.21 Procedure and treatment not carried out due to patient leaving prior to being seen by health care provider
CPT/HCPCS: 36415; 70450; 80053; 83735; 84484; 85025

== ENCOUNTER 2017-06-14 18:34 | Inpatient (IN) | payer MEDICARE, MEDICAID ==
[~2017-06-14] VITALS: Ht 152.4 cm; Wt 46.3 kg
[2017-06-15] MEDS ORDERED: ONDANSETRON HCL 4 MG/2 ML VIAL IV PRN (06:15)
[2017-06-15] MEDS ORDERED: HYDROcodone-ACET 5/325MG TAB PO PRN (06:15)
[2017-06-15] MEDS ORDERED: ACETAMINOPHEN 500 MG TAB PO PRN (06:15)
[2017-06-15 06:49] LABS: Basophils # (auto) 0.1 uL; Basophils % (auto) 1.5 % (0.0-2.0); Eosinophils # (auto) 0.4 uL; Eosinophils % (auto) 8.8 % (0.0-7.0); Hemoglobin 13.4 g/dL (12.2-16.2); Lymphocytes # (auto) 1.4 uL; Lymphocytes % (auto) 30.3 % (10.0-50.0); Mean Corpuscular Hemoglobin 32.3 pg (28.0-32.0); Mean Corpuscular Hgb Conc. 33.4 g/dL (32.0-36.0); Mean Corpuscular Volume 96.5 fL (80.0-100.0); Monocytes # (auto) 0.6 uL; Monocytes % (auto) 12.2 % (0.0-12.0); Neutrophils # (auto) 2.2 uL; Neutrophils % (auto) 47.2 % (37.0-80.0); Nucleated Red Blood Cells % 0.1 %; Platelet Count (auto) 309 10^3/uL (140-450); Red Blood Cells 4.15 10^6/uL (4.0-5.20); Red Cell Distribution Width 13.5 % (11.8-14.3); White Blood Cell 4.8 10^3/uL (4.4-10.8)
[2017-06-15 07:06] LABS: BUN/Creatinine Ratio 18.9; Calcium 8.6 mg/dL (8.5-10.1); Potassium 3.8 mmol/L (3.5-5.1)
[2017-06-15] MEDS ORDERED: LORazepam 0.5 MG TAB PO PRN (07:30)
[2017-06-15] MEDS ORDERED: FUROSEMIDE 20 MG/2 ML VIAL IV ONE (07:30)
[2017-06-15 08:38] VITALS: BP 117/56
[2017-06-15] MEDS: LISINOPRIL 10 MG TAB PO SCH (10:12)
[2017-06-15] MEDS ORDERED: ALBUTEROL SULF 2.5 MG/0.5ML(0.5%) NEB SOLN NEB SCH (12:00)
[2017-06-15 12:24] VITALS: BP 149/82
[2017-06-15] MEDS: LEVALBUTEROL HCL 1.25 MG/3 ML NEB IN SCH ×2 (13:53→19:19)
[2017-06-15] MEDS: IPRATROPIUM BROM 0.5 MG/2.5ML INH SOL NEB SCH ×2 (13:53→19:19)
[2017-06-15] MEDS ORDERED: LACTULOSE 20Gm/30ML SOLN PO PRN (15:00)
[2017-06-15] MEDS ORDERED: FUROSEMIDE 20 MG TAB PO ONE (15:00)
[2017-06-15] MEDS ORDERED: METOPROLOL SUCCINATE XL 50 MG TAB PO ONE (15:00)
[2017-06-15] MEDS ORDERED: POTASSIUM CHL 10 Meq TABLET PO ONE (15:00)
[2017-06-15] MEDS: GABAPENTIN 300 MG CAP PO SCH ×2 (15:24→21:48)
[2017-06-15 16:34] VITALS: BP 139/73
[2017-06-15 20:00] VITALS: BP 103/66
[2017-06-15] MEDS: ATORVASTATIN 20 MG TAB PO SCH (21:48)
[2017-06-15 22:00] VITALS: BP 103/66
[2017-06-16] MEDS: LEVALBUTEROL HCL 1.25 MG/3 ML NEB IN SCH ×5 (00:12→23:44)
[2017-06-16 05:00] VITALS: BP 107/53
[2017-06-16] MEDS: GABAPENTIN 300 MG CAP PO SCH ×3 (05:57→21:55)
[2017-06-16] MEDS: IPRATROPIUM BROM 0.5 MG/2.5ML INH SOL NEB SCH ×5 (06:00→23:44)
[2017-06-16] MEDS: LEVOTHYROXINE SODIUM 25 MCG TAB PO SCH (06:32)
[2017-06-16 08:00] VITALS: BP 97/54
[2017-06-16] MEDS: FLUoxetine HCL 20 MG CAP PO SCH (09:38)
[2017-06-16] MEDS: METOPROLOL SUCCINATE XL 50 MG TAB PO SCH ×2 (09:39→10:14)
[2017-06-16] MEDS: POTASSIUM CHL 10 Meq TABLET PO SCH (09:39)
[2017-06-16] MEDS: FUROSEMIDE 20 MG TAB PO SCH (09:39)
[2017-06-16] MEDS: ASPirin 81 mg TAB PO SCH (09:39)
[2017-06-16] MEDS: LISINOPRIL 10 MG TAB PO SCH (09:40)
[2017-06-16] MEDS: AZITHROMYCIN 250 MG TAB PO SCH (10:14)
[2017-06-16 12:00] VITALS: BP 91/55
[2017-06-16 16:23] VITALS: BP 101/59
[2017-06-16 20:00] VITALS: BP 108/59
[2017-06-16] MEDS: ATORVASTATIN 20 MG TAB PO SCH (21:55)
[2017-06-16 22:00] VITALS: BP 108/59
[2017-06-17 05:00] VITALS: BP 117/56
[2017-06-17] MEDS: IPRATROPIUM BROM 0.5 MG/2.5ML INH SOL NEB SCH ×2 (05:52→11:20)
[2017-06-17] MEDS: LEVALBUTEROL HCL 1.25 MG/3 ML NEB IN SCH ×2 (05:53→11:20)
[2017-06-17] MEDS: GABAPENTIN 300 MG CAP PO SCH (06:23)
[2017-06-17] MEDS: LEVOTHYROXINE SODIUM 25 MCG TAB PO SCH (06:32)
[2017-06-17 07:43] VITALS: BP 105/56
[2017-06-17 08:00] VITALS: BP 105/56
[2017-06-17] MEDS: AZITHROMYCIN 250 MG TAB PO SCH (09:57)
[2017-06-17] MEDS: LISINOPRIL 10 MG TAB PO SCH (09:57)
[2017-06-17] MEDS: ASPirin 81 mg TAB PO SCH (09:58)
[2017-06-17] MEDS: FUROSEMIDE 20 MG TAB PO SCH (09:58)
[2017-06-17] MEDS: POTASSIUM CHL 10 Meq TABLET PO SCH (09:58)
[2017-06-17] MEDS: FLUoxetine HCL 20 MG CAP PO SCH (09:58)
[2017-06-17] MEDS: METOPROLOL SUCCINATE XL 50 MG TAB PO SCH (09:59)
[2017-06-17 10:16] VITALS: BP 113/56
[2017-06-17 11:32] VITALS: BP 111/69
[2017-09-08] MEDS ORDERED: TIOT17SP IN (22:23)
== END 2017-06-17 11:50 | disposition home or self-care (01) | DRG 291 ==
LOC: ER 18:34 → EDBD 18:34 → TELE 18:35 → TELE-WESTW 06-15 08:27 → TELE-CENTR 06-15 12:25
PROVIDERS: ADMIT Nurse Practitioner Family; ATTEND Internal Medicine
DX: I13.0 Hypertensive heart and chronic kidney disease with heart failure and stage 1 through stage 4 chronic kidney disease, or unspecified chronic kidney disease (principal); I50.33 Acute on chronic diastolic (congestive) heart failure; J96.10 Chronic respiratory failure, unspecified whether with hypoxia or hypercapnia; J44.0 Chronic obstructive pulmonary disease with (acute) lower respiratory infection; J20.9 Acute bronchitis, unspecified; I16.1 Hypertensive emergency; J44.1 Chronic obstructive pulmonary disease with (acute) exacerbation; I67.2 Cerebral atherosclerosis; I25.10 Atherosclerotic heart disease of native coronary artery without angina pectoris; E78.5 Hyperlipidemia, unspecified; Z87.891 Personal history of nicotine dependence; F32.81 Premenstrual dysphoric disorder; F32.9 Major depressive disorder, single episode, unspecified; F41.9 Anxiety disorder, unspecified; K21.9 Gastro-esophageal reflux disease without esophagitis; M19.90 Unspecified osteoarthritis, unspecified site; N18.9 Chronic kidney disease, unspecified; Z79.51 Long term (current) use of inhaled steroids; Z79.899 Other long term (current) drug therapy; Z82.3 Family history of stroke; Z82.49 Family history of ischemic heart disease and other diseases of the circulatory system; Z82.5 Family history of asthma and other chronic lower respiratory diseases; Z82.62 Family history of osteoporosis; Z86.73 Personal history of transient ischemic attack (TIA), and cerebral infarction without residual deficits; Z87.11 Personal history of peptic ulcer disease; Z95.1 Presence of aortocoronary bypass graft; Z88.8 Allergy status to other drugs, medicaments and biological substances; Z88.1 Allergy status to other antibiotic agents; Z88.5 Allergy status to narcotic agent; Z90.49 Acquired absence of other specified parts of digestive tract
CPT/HCPCS: 36415; 70450; 71045; 80048; 80053; 83735; 83880; 84484; 85025; 93005; 94640; 97163; J2405

== ENCOUNTER 2017-07-01 17:52 | Emergency (ER) | payer MEDICARE, MEDICAID ==
[~2017-07-01] VITALS: Ht 154.9 cm; Wt 44.0 kg
[2017-07-01 18:48] LABS: Basophils # (auto) 0.1 uL; Basophils % (auto) 1.5 % (0.0-2.0); Eosinophils # (auto) 0.2 uL; Eosinophils % (auto) 2.1 % (0.0-7.0); Hematocrit 42.2 % (36.0-46.0); Lymphocytes # (auto) 2.2 uL; Lymphocytes % (auto) 22.1 % (10.0-50.0); Mean Corpuscular Hemoglobin 32.4 pg (28.0-32.0); Mean Corpuscular Hgb Conc. 33.1 g/dL (32.0-36.0); Mean Corpuscular Volume 97.8 fL (80.0-100.0); Monocytes # (auto) 0.8 uL; Monocytes % (auto) 8.2 % (0.0-12.0); Neutrophils # (auto) 6.6 uL; Neutrophils % (auto) 66.1 % (37.0-80.0); Platelet Count (auto) 348 10^3/uL (140-450); Red Blood Cells 4.32 10^6/uL (4.0-5.20); Red Cell Distribution Width 13.3 % (11.8-14.3)
[2017-07-01 19:02] LABS: Albumin 3.4 g/dL (3.4-5.0); Anion Gap 10 (5-15); Blood Urea Nitrogen 24 mg/dL (7-18); Calcium 9.5 mg/dL (8.5-10.1); Carbon Dioxide 25 mmol/L (21-32); Chloride 105 mmol/L (98-107); Glucose 72 mg/dL (74-106); Magnesium 1.9 mg/dL (1.6-2.6); Potassium 3.8 mmol/L (3.5-5.1); Sodium 140 mmol/L (136-145)
[2017-07-01 19:04] LABS: Alanine Aminotransferase 20 U/L (13-56); Aspartate Aminotransferase 18 U/L (15-37); BUN/Creatinine Ratio 25.8; GFR African American 74 mL/min; GFR Non-African American 61 mL/min
[2017-07-01 19:09] LABS: Alkaline Phosphatase 60 U/L (45-117); Bilirubin, Total 0.2 mg/dL (0.2-1.0); Total Protein 6.3 g/dL (6.4-8.2)
[2017-07-01 21:13] VITALS: BP 124/64
[2017-09-08] MEDS ORDERED: TIOT17SP IN (22:23)
== END 2017-07-01 22:46 | disposition home or self-care (01) ==
LOC: ER 17:52 → EDBD 17:52 → ER 22:46
DX: J44.1 Chronic obstructive pulmonary disease with (acute) exacerbation (principal); I13.0 Hypertensive heart and chronic kidney disease with heart failure and stage 1 through stage 4 chronic kidney disease, or unspecified chronic kidney disease; N18.9 Chronic kidney disease, unspecified; I50.9 Heart failure, unspecified; I25.2 Old myocardial infarction; Z90.89 Acquired absence of other organs; Z95.1 Presence of aortocoronary bypass graft; Z98.61 Coronary angioplasty status; Z87.891 Personal history of nicotine dependence
CPT/HCPCS: 36415; 71045; 80053; 83735; 83880; 84484; 85025; 93005

== ENCOUNTER 2017-07-17 11:09 | Inpatient (IN) | payer MEDICARE, MEDICAID ==
[~2017-07-17] VITALS: Ht 154.9 cm; Wt 53.0 kg
[2017-07-17 12:13] LABS: Basophils # (auto) 0 uL; Basophils % (auto) 0.3 % (0.0-2.0); Eosinophils # (auto) 0.1 uL; Eosinophils % (auto) 0.4 % (0.0-7.0); Hematocrit 42.2 % (36.0-46.0); Hemoglobin 13.8 g/dL (12.2-16.2); Lymphocytes # (auto) 0.8 uL; Lymphocytes % (auto) 5.8 % (10.0-50.0); Mean Corpuscular Hemoglobin 31.6 pg (28.0-32.0); Mean Corpuscular Hgb Conc. 32.7 g/dL (32.0-36.0); Mean Corpuscular Volume 96.9 fL (80.0-100.0); Monocytes # (auto) 0.6 uL; Monocytes % (auto) 4.2 % (0.0-12.0); Neutrophils % (auto) 89.3 % (37.0-80.0); Nucleated Red Blood Cells % 0.1 %; Platelet Count (auto) 284 10^3/uL (140-450); Red Blood Cells 4.36 10^6/uL (4.0-5.20); Red Cell Distribution Width 13.5 % (11.8-14.3); White Blood Cell 13.4 10^3/uL (4.4-10.8)
[2017-07-17 12:34] LABS: Albumin 3.5 g/dL (3.4-5.0); BUN/Creatinine Ratio 19.8; Potassium 3.4 mmol/L (3.5-5.1)
[2017-07-17 12:36] LABS: Bilirubin, Total 1.1 mg/dL (0.2-1.0); Total Protein 7.3 g/dL (6.4-8.2)
[2017-07-17] MEDS ORDERED: cefTRIAXone 1GM/10ml IVPUSH 10 ML IV ONE (13:30)
[2017-07-17] MEDS: SODIUM CHLORIDE 0.9% 1,000 ML IV SCH (13:48)
[2017-07-17] MEDS ORDERED: PROMETHAZINE HCL 25 MG/ML 1ML IV PRN (14:00)
[2017-07-17] MEDS ORDERED: ACETAMINOPHEN 500 MG TAB PO PRN (14:00)
[2017-07-17] MEDS ORDERED: LACTULOSE 20Gm/30ML SOLN PO PRN ×2 (14:00)
[2017-07-17] MEDS: CLINDAMYCIN 600MG IV 50 ML IV SCH ×2 (14:00→20:22)
[2017-07-17] MEDS ORDERED: ENOXAPARIN SOD 40 MG/0.4 ML SYRINGE SC SCH (14:30)
[2017-07-17 14:36] VITALS: BP 131/65
[2017-07-17 15:02] VITALS: BP 124/64
[2017-07-17 16:13] LABS: INR 0.93 (0.9-1.15); Prothrombin Time 10.1 sec (9.37-12.3)
[2017-07-17 17:00] VITALS: BP 124/64
[2017-07-17] MEDS: LEVALBUTEROL HCL 1.25 MG/3 ML NEB IN SCH (18:42)
[2017-07-17] MEDS: IPRATROPIUM BROM 0.5 MG/2.5ML INH SOL NEB SCH (18:42)
[2017-07-17] MEDS: ENOXAPARIN SOD 30 MG/0.3 ML SYRINGE SC SCH (18:51)
[2017-07-17 20:00] VITALS: BP 124/59
[2017-07-17 21:14] VITALS: BP 124/99
[2017-07-17 22:45] VITALS: BP 124/59
[2017-07-17] MEDS: TEMAZEPAM 15 MG CAP PO PRN (22:46)
[2017-07-18] MEDS: SODIUM CHLORIDE 0.9% 1,000 ML IV SCH (00:15)
[2017-07-18] MEDS: IPRATROPIUM BROM 0.5 MG/2.5ML INH SOL NEB SCH ×4 (00:31→19:06)
[2017-07-18] MEDS: LEVALBUTEROL HCL 1.25 MG/3 ML NEB IN SCH ×4 (00:32→19:06)
[2017-07-18 05:07] VITALS: BP 107/56
[2017-07-18 05:54] LABS: Basophils # (auto) 0 uL; Basophils % (auto) 0.7 % (0.0-2.0); Eosinophils # (auto) 0.3 uL; Eosinophils % (auto) 4.3 % (0.0-7.0); Hematocrit 36.3 % (36.0-46.0); Hemoglobin 12.1 g/dL (12.2-16.2); Lymphocytes # (auto) 0.8 uL; Lymphocytes % (auto) 12.4 % (10.0-50.0); Mean Corpuscular Hemoglobin 32.4 pg (28.0-32.0); Mean Corpuscular Hgb Conc. 33.4 g/dL (32.0-36.0); Mean Corpuscular Volume 97.2 fL (80.0-100.0); Monocytes # (auto) 0.5 uL; Neutrophils # (auto) 4.7 uL; Neutrophils % (auto) 74.6 % (37.0-80.0); Nucleated Red Blood Cells % 0.1 %; Platelet Count (auto) 241 10^3/uL (140-450); Red Blood Cells 3.73 10^6/uL (4.0-5.20); Red Cell Distribution Width 13.1 % (11.8-14.3); White Blood Cell 6.3 10^3/uL (4.4-10.8)
[2017-07-18] MEDS: CLINDAMYCIN 600MG IV 50 ML IV SCH ×3 (06:00→22:21)
[2017-07-18 06:22] LABS: Albumin 2.7 g/dL (3.4-5.0); BUN/Creatinine Ratio 21.1; Bilirubin, Total 0.8 mg/dL (0.2-1.0); Calcium 8.1 mg/dL (8.5-10.1); Potassium 3.2 mmol/L (3.5-5.1)
[2017-07-18 08:18] VITALS: BP 109/51
[2017-07-18] MEDS: ENOXAPARIN SOD 30 MG/0.3 ML SYRINGE SC SCH (09:40)
[2017-07-18] MEDS: cefTRIAXone 1GM/10ml IVPUSH 10 ML IV SCH (09:41)
[2017-07-18] MEDS ORDERED: POTASSIUM CHL 20 Meq TABLET PO ONE (10:15)
[2017-07-18] MEDS: LEVOTHYROXINE SODIUM 25 MCG TAB PO SCH (10:30)
[2017-07-18 11:42] VITALS: BP 111/63
[2017-07-18] MEDS: ASPirin 81 mg TAB PO SCH (12:07)
[2017-07-18] MEDS: MORPHINE SULFATE 4 MG/ML SYR/VIAL IV PRN ×2 (12:07→19:47)
[2017-07-18] MEDS: PANTOPRAZOLE 40 MG TAB PO SCH (12:08)
[2017-07-18] MEDS: LORazepam 0.5 MG TAB PO PRN (14:28)
[2017-07-18 16:54] VITALS: BP 129/67
[2017-07-18 20:00] VITALS: BP 121/66
[2017-07-18 22:05] VITALS: BP 121/66
[2017-07-18] MEDS: ATORVASTATIN 20 MG TAB PO SCH (22:21)
[2017-07-18] MEDS: TEMAZEPAM 15 MG CAP PO PRN (22:36)
[2017-07-19] MEDS: LEVALBUTEROL HCL 1.25 MG/3 ML NEB IN SCH ×4 (00:50→19:22)
[2017-07-19] MEDS: LORazepam 0.5 MG TAB PO PRN ×3 (01:07→21:40)
[2017-07-19 04:39] VITALS: BP 111/57
[2017-07-19] MEDS: CLINDAMYCIN 600MG IV 50 ML IV SCH ×3 (05:50→21:40)
[2017-07-19] MEDS: IPRATROPIUM BROM 0.5 MG/2.5ML INH SOL NEB SCH ×4 (05:58→19:22)
[2017-07-19] MEDS: LEVOTHYROXINE SODIUM 25 MCG TAB PO SCH (06:56)
[2017-07-19 07:29] LABS: BUN/Creatinine Ratio 12.5; Calcium 7.8 mg/dL (8.5-10.1)
[2017-07-19 07:30] LABS: Basophils # (auto) 0 uL; Basophils % (auto) 0.6 % (0.0-2.0); Eosinophils # (auto) 0.4 uL; Eosinophils % (auto) 8.8 % (0.0-7.0); Hematocrit 35.1 % (36.0-46.0); Hemoglobin 11.7 g/dL (12.2-16.2); Lymphocytes # (auto) 0.6 uL; Lymphocytes % (auto) 12.7 % (10.0-50.0); Mean Corpuscular Hemoglobin 32.2 pg (28.0-32.0); Mean Corpuscular Hgb Conc. 33.3 g/dL (32.0-36.0); Mean Corpuscular Volume 96.8 fL (80.0-100.0); Monocytes # (auto) 0.6 uL; Monocytes % (auto) 11.1 % (0.0-12.0); Neutrophils # (auto) 3.4 uL; Neutrophils % (auto) 66.8 % (37.0-80.0); Nucleated Red Blood Cells % 0.1 %; Platelet Count (auto) 292 10^3/uL (140-450); Red Blood Cells 3.63 10^6/uL (4.0-5.20); Red Cell Distribution Width 12.9 % (11.8-14.3)
[2017-07-19 07:46] VITALS: BP 106/59
[2017-07-19] MEDS: ASPirin 81 mg TAB PO SCH (10:39)
[2017-07-19] MEDS: PANTOPRAZOLE 40 MG TAB PO SCH (10:39)
[2017-07-19] MEDS: ENOXAPARIN SOD 30 MG/0.3 ML SYRINGE SC SCH (10:40)
[2017-07-19] MEDS: cefTRIAXone 1GM/10ml IVPUSH 10 ML IV SCH (10:40)
[2017-07-19 12:13] VITALS: BP 107/65
[2017-07-19] MEDS ORDERED: BISACODYL 10 MG RECT SUPP PR ONE (12:45)
[2017-07-19] MEDS: GABAPENTIN 100 MG CAP PO SCH ×2 (15:01→21:40)
[2017-07-19 16:31] VITALS: BP 135/70
[2017-07-19 20:00] VITALS: BP 113/59
[2017-07-19] MEDS: TEMAZEPAM 15 MG CAP PO PRN (21:40)
[2017-07-19] MEDS: ATORVASTATIN 20 MG TAB PO SCH (21:40)
[2017-07-19 22:06] VITALS: BP 113/59
[2017-07-20] MEDS: LEVALBUTEROL HCL 1.25 MG/3 ML NEB IN SCH ×4 (00:36→18:30)
[2017-07-20] MEDS: IPRATROPIUM BROM 0.5 MG/2.5ML INH SOL NEB SCH ×4 (00:36→18:30)
[2017-07-20 05:10] VITALS: BP 116/51
[2017-07-20] MEDS: CLINDAMYCIN 600MG IV 50 ML IV SCH ×3 (05:45→21:47)
[2017-07-20] MEDS: LEVOTHYROXINE SODIUM 25 MCG TAB PO SCH (06:57)
[2017-07-20 09:00] VITALS: BP 121/64
[2017-07-20 09:30] VITALS: BP 116/51
[2017-07-20] MEDS: MORPHINE SULFATE 4 MG/ML SYR/VIAL IV PRN ×4 (09:36→22:45)
[2017-07-20] MEDS: cefTRIAXone 1GM/10ml IVPUSH 10 ML IV SCH (09:46)
[2017-07-20] MEDS: PANTOPRAZOLE 40 MG TAB PO SCH (09:47)
[2017-07-20] MEDS: ASPirin 81 mg TAB PO SCH (09:47)
[2017-07-20] MEDS: GABAPENTIN 100 MG CAP PO SCH ×2 (09:48→21:47)
[2017-07-20] MEDS: ENOXAPARIN SOD 30 MG/0.3 ML SYRINGE SC SCH (09:49)
[2017-07-20 13:00] VITALS: BP 140/78
[2017-07-20 17:00] VITALS: BP 121/72
[2017-07-20 21:47] VITALS: BP 126/79
[2017-07-20] MEDS: ATORVASTATIN 20 MG TAB PO SCH (21:47)
[2017-07-20] MEDS: NITROGLYCERIN 0.4 MG SL TAB SL PRN (22:35)
[2017-07-21] MEDS: LEVALBUTEROL HCL 1.25 MG/3 ML NEB IN SCH ×5 (00:18→23:56)
[2017-07-21] MEDS: IPRATROPIUM BROM 0.5 MG/2.5ML INH SOL NEB SCH ×5 (00:18→23:55)
[2017-07-21] MEDS: LORazepam 0.5 MG TAB PO PRN ×2 (03:36→10:51)
[2017-07-21 05:00] VITALS: BP 145/75
[2017-07-21] MEDS: LEVOTHYROXINE SODIUM 25 MCG TAB PO SCH (06:23)
[2017-07-21] MEDS: CLINDAMYCIN 600MG IV 50 ML IV SCH (06:23)
[2017-07-21] MEDS: NITROGLYCERIN 0.4 MG SL TAB SL PRN (07:00)
[2017-07-21] MEDS: MORPHINE SULFATE 4 MG/ML SYR/VIAL IV PRN (07:47)
[2017-07-21 08:00] VITALS: BP 131/71
[2017-07-21 08:34] VITALS: BP 131/71
[2017-07-21] MEDS: cefTRIAXone 1GM/10ml IVPUSH 10 ML IV SCH (10:46)
[2017-07-21] MEDS: GABAPENTIN 100 MG CAP PO SCH ×2 (10:46→21:57)
[2017-07-21] MEDS: PANTOPRAZOLE 40 MG TAB PO SCH (10:47)
[2017-07-21] MEDS: ASPirin 81 mg TAB PO SCH (10:47)
[2017-07-21 12:25] VITALS: BP_SYST 118; BP_SYST 131; BP_DIAS 74
[2017-07-21] MEDS: CLINDAMYCIN HCL 150 MG CAP PO SCH ×2 (13:24→21:58)
[2017-07-21] MEDS: FLORASTOR (S. BOULARDII) 250 MG CAP PO SCH (13:24)
[2017-07-21 17:09] VITALS: BP 118/62
[2017-07-21] MEDS: HYDROcodone-ACET 5/325MG TAB PO PRN (21:58)
[2017-07-21] MEDS: TEMAZEPAM 15 MG CAP PO PRN (21:58)
[2017-07-21 22:00] VITALS: BP 136/69
[2017-07-21] MEDS: ATORVASTATIN 20 MG TAB PO SCH (22:00)
[2017-07-22 05:00] VITALS: BP 126/66
[2017-07-22] MEDS: LEVOTHYROXINE SODIUM 25 MCG TAB PO SCH (06:05)
[2017-07-22] MEDS: CLINDAMYCIN HCL 150 MG CAP PO SCH ×3 (06:05→21:45)
[2017-07-22] MEDS: LORazepam 0.5 MG TAB PO PRN (06:05)
[2017-07-22 07:10] LABS: Calcium 8.7 mg/dL (8.5-10.1); Potassium 4.2 mmol/L (3.5-5.1)
[2017-07-22] MEDS: LEVALBUTEROL HCL 1.25 MG/3 ML NEB IN SCH ×3 (07:40→19:37)
[2017-07-22] MEDS: IPRATROPIUM BROM 0.5 MG/2.5ML INH SOL NEB SCH ×3 (07:40→19:37)
[2017-07-22 09:00] VITALS: BP 119/66
[2017-07-22] MEDS: cefTRIAXone 1GM/10ml IVPUSH 10 ML IV SCH (09:47)
[2017-07-22] MEDS: FLORASTOR (S. BOULARDII) 250 MG CAP PO SCH (09:48)
[2017-07-22] MEDS: GABAPENTIN 100 MG CAP PO SCH ×2 (09:48→21:45)
[2017-07-22] MEDS: PANTOPRAZOLE 40 MG TAB PO SCH (09:48)
[2017-07-22] MEDS: ASPirin 81 mg TAB PO SCH (09:49)
[2017-07-22] MEDS: MORPHINE SULFATE 4 MG/ML SYR/VIAL IV PRN ×3 (12:34→22:45)
[2017-07-22 13:00] VITALS: BP_SYST 113; BP_SYST 130; BP_DIAS 104; BP_DIAS 69
[2017-07-22 17:00] VITALS: BP 124/96
[2017-07-22] MEDS: ATORVASTATIN 20 MG TAB PO SCH (21:45)
[2017-07-22] MEDS: TEMAZEPAM 15 MG CAP PO PRN (21:45)
[2017-07-22] MEDS: HYDROcodone-ACET 5/325MG TAB PO PRN (21:46)
[2017-07-22 21:51] VITALS: BP 146/77
[2017-07-23] VITALS (7 sets, daily range): BP systolic 103–145; BP diastolic 55–80
[2017-07-23] MEDS: LEVALBUTEROL HCL 1.25 MG/3 ML NEB IN SCH ×4 (00:43→19:00)
[2017-07-23] MEDS: MORPHINE SULFATE 4 MG/ML SYR/VIAL IV PRN ×3 (03:20→20:39)
[2017-07-23] MEDS: LEVOTHYROXINE SODIUM 25 MCG TAB PO SCH (05:39)
[2017-07-23] MEDS: CLINDAMYCIN HCL 150 MG CAP PO SCH (05:39)
[2017-07-23] MEDS: IPRATROPIUM BROM 0.5 MG/2.5ML INH SOL NEB SCH ×4 (06:58→18:00)
[2017-07-23 09:02] LABS: Basophils % (auto) 0.7 % (0.0-2.0); Eosinophils # (auto) 0.4 uL; Lymphocytes # (auto) 1.2 uL; Monocytes # (auto) 0.8 uL
[2017-07-23 09:03] LABS: Basophils # (auto) 0.1 uL; Eosinophils % (auto) 5.2 % (0.0-7.0); Hematocrit 38.8 % (36.0-46.0); Lymphocytes % (auto) 16.4 % (10.0-50.0); Mean Corpuscular Hemoglobin 32.2 pg (28.0-32.0); Mean Corpuscular Hgb Conc. 33.4 g/dL (32.0-36.0); Mean Corpuscular Volume 96.5 fL (80.0-100.0); Monocytes % (auto) 11.5 % (0.0-12.0); Neutrophils # (auto) 4.7 uL; Neutrophils % (auto) 66.2 % (37.0-80.0); Nucleated Red Blood Cells % 0.1 %; Platelet Count (auto) 474 10^3/uL (140-450); Red Blood Cells 4.02 10^6/uL (4.0-5.20); Red Cell Distribution Width 13.1 % (11.8-14.3); White Blood Cell 7.1 10^3/uL (4.4-10.8)
[2017-07-23] MEDS: cefTRIAXone 1GM/10ml IVPUSH 10 ML IV SCH (09:09)
[2017-07-23 09:14] LABS: BUN/Creatinine Ratio 9.9; Calcium 8.5 mg/dL (8.5-10.1)
[2017-07-23] MEDS: PANTOPRAZOLE 40 MG TAB PO SCH (09:54)
[2017-07-23] MEDS: ASPirin 81 mg TAB PO SCH (09:55)
[2017-07-23] MEDS: GABAPENTIN 100 MG CAP PO SCH ×2 (09:55→22:02)
[2017-07-23] MEDS: FLORASTOR (S. BOULARDII) 250 MG CAP PO SCH (09:55)
[2017-07-23] MEDS: LORazepam 0.5 MG TAB PO PRN ×2 (10:05→22:03)
[2017-07-23] MEDS: CLINDAMYCIN 600MG IV 50 ML IV SCH ×2 (14:27→22:03)
[2017-07-23] MEDS: BOOST PLUS 8 ounce PO SCH (18:27)
[2017-07-23] MEDS: ASCORBIC ACID 500 MG TAB PO SCH (22:03)
[2017-07-23] MEDS: ATORVASTATIN 20 MG TAB PO SCH (22:03)
[2017-07-23] MEDS: TEMAZEPAM 15 MG CAP PO PRN (22:03)
[2017-07-24] MEDS: LEVALBUTEROL HCL 1.25 MG/3 ML NEB IN SCH ×2 (00:40→06:56)
[2017-07-24 05:00] VITALS: BP 117/57
[2017-07-24] MEDS: CLINDAMYCIN 600MG IV 50 ML IV SCH ×2 (06:05→13:35)
[2017-07-24] MEDS: LEVOTHYROXINE SODIUM 25 MCG TAB PO SCH (06:50)
[2017-07-24] MEDS: IPRATROPIUM BROM 0.5 MG/2.5ML INH SOL NEB SCH ×2 (06:56)
[2017-07-24 08:00] VITALS: BP 102/52
[2017-07-24 08:27] VITALS: BP 102/52
[2017-07-24] MEDS: BOOST PLUS 8 ounce PO SCH ×2 (08:45→13:36)
[2017-07-24] MEDS: cefTRIAXone 1GM/10ml IVPUSH 10 ML IV SCH (08:46)
[2017-07-24] MEDS: ASPirin 81 mg TAB PO SCH (09:38)
[2017-07-24] MEDS: PANTOPRAZOLE 40 MG TAB PO SCH (09:39)
[2017-07-24] MEDS: FLORASTOR (S. BOULARDII) 250 MG CAP PO SCH (09:39)
[2017-07-24] MEDS: GABAPENTIN 100 MG CAP PO SCH (09:40)
[2017-07-24] MEDS: ASCORBIC ACID 500 MG TAB PO SCH (09:40)
[2017-07-24] MEDS ORDERED: MULTIPLE VITAMINS W/ MINERALS TAB PO SCH (10:00)
[2017-07-24] MEDS ORDERED: BISACODYL 10 MG RECT SUPP PR ONE ×2 (11:30→12:15)
[2017-07-24] MEDS ORDERED: BUDESONIDE (INHALATION) 0.5 MG/2 ML NEB ONE (11:44)
[2017-07-24 12:05] VITALS: BP 106/58
[2017-07-24 16:47] VITALS: BP 135/65
[2017-09-08] MEDS ORDERED: TIOT17SP IN (22:23)
== END 2017-07-24 17:25 | disposition home or self-care (01) | DRG 871 ==
LOC: ER 11:09 → TELE 11:10 → TELE-EAST 15:09
PROVIDERS: ADMIT Internal Medicine; ATTEND Internal Medicine
DX: A41.9 Sepsis, unspecified organism (principal); N17.0 Acute kidney failure with tubular necrosis; E44.0 Moderate protein-calorie malnutrition; J96.10 Chronic respiratory failure, unspecified whether with hypoxia or hypercapnia; I13.0 Hypertensive heart and chronic kidney disease with heart failure and stage 1 through stage 4 chronic kidney disease, or unspecified chronic kidney disease; L03.116 Cellulitis of left lower limb; I50.9 Heart failure, unspecified; N18.3 Chronic kidney disease, stage 3 (moderate); E78.5 Hyperlipidemia, unspecified; F41.9 Anxiety disorder, unspecified; I25.10 Atherosclerotic heart disease of native coronary artery without angina pectoris; F32.9 Major depressive disorder, single episode, unspecified; M19.90 Unspecified osteoarthritis, unspecified site; J44.9 Chronic obstructive pulmonary disease, unspecified; K59.00 Constipation, unspecified; K21.9 Gastro-esophageal reflux disease without esophagitis; Z82.3 Family history of stroke; Z82.49 Family history of ischemic heart disease and other diseases of the circulatory system; Z82.5 Family history of asthma and other chronic lower respiratory diseases; I25.2 Old myocardial infarction; Z82.62 Family history of osteoporosis; Z86.73 Personal history of transient ischemic attack (TIA), and cerebral infarction without residual deficits; Z87.11 Personal history of peptic ulcer disease; Z95.1 Presence of aortocoronary bypass graft; Z99.81 Dependence on supplemental oxygen; Z88.1 Allergy status to other antibiotic agents; Z88.8 Allergy status to other drugs, medicaments and biological substances; Z90.49 Acquired absence of other specified parts of digestive tract; Z87.891 Personal history of nicotine dependence
CPT/HCPCS: 36415; 73590; 80048; 80053; 82962; 83605; 85025; 85610; 85652; 87040; 87081; 93971; 94640; 94761; 96374; 97116; 97163; 97530; J3490

== ENCOUNTER 2017-08-25 14:46 | Emergency (ER) | payer MEDICARE, MEDICAID ==
[~2017-08-25] VITALS: Ht 154.9 cm; Wt 39.9 kg
[~2017-08-25 14:46] MED LIST changes: -FLUO20CA19 PO
[2017-08-25 16:45] LABS: Albumin 3.8 g/dL (3.4-5.0); Anion Gap 4 (5-15); BUN/Creatinine Ratio 24.2; Blood Urea Nitrogen 24 mg/dL (7-18); Calcium 9.8 mg/dL (8.5-10.1); Carbon Dioxide 28 mmol/L (21-32); Chloride 107 mmol/L (98-107); GFR African American 69 mL/min; GFR Non-African American 57 mL/min; Glucose 79 mg/dL (74-106); Potassium 3.9 mmol/L (3.5-5.1); Sodium 139 mmol/L (136-145)
[2017-08-25 16:53] LABS: Alanine Aminotransferase 24 U/L (13-56); Alkaline Phosphatase 72 U/L (45-117); Aspartate Aminotransferase 23 U/L (15-37); Bilirubin, Total 0.4 mg/dL (0.2-1.0); Total Protein 7.1 g/dL (6.4-8.2)
[2017-08-25 16:56] LABS: Basophils # (auto) 0.1 uL; Basophils % (auto) 1.3 % (0.0-2.0); Eosinophils # (auto) 0.4 uL; Hematocrit 42.9 % (36.0-46.0); Hemoglobin 14.4 g/dL (12.2-16.2); Lymphocytes # (auto) 1.9 uL; Mean Corpuscular Hemoglobin 32.5 pg (28.0-32.0); Mean Corpuscular Hgb Conc. 33.5 g/dL (32.0-36.0); Monocytes # (auto) 0.7 uL; Neutrophils # (auto) 5.1 uL; Neutrophils % (auto) 61.7 % (37.0-80.0); Nucleated Red Blood Cells % 0.1 %; Platelet Count (auto) 322 10^3/uL (140-450); Red Blood Cells 4.42 10^6/uL (4.0-5.20); Red Cell Distribution Width 13.9 % (11.8-14.3); White Blood Cell 8.3 10^3/uL (4.4-10.8)
[2017-08-25] MEDS ORDERED: LEVALBUTEROL HCL 1.25 MG/3 ML NEB NEB ONE (17:15)
[2017-08-25] MEDS ORDERED: XOPENEX IN ONE (17:15)
[2017-08-25 17:38] VITALS: BP 131/65
[2017-08-25 17:49] LABS: Urine Bacteria NONE SEEN /hpf (None Seen); Urine Blood Negative /uL (Negative); Urine Specific Gravity 1.015 (1.001-1.035); Urine WBC 5 /hpf (0 - 5)
[2017-08-25 17:57] LABS: INR 0.95 (0.9-1.15); Partial Thromboplastin Time 26.8 sec (22.64-33.71); Prothrombin Time 10.3 sec (9.37-12.3)
== END 2017-08-25 18:21 | disposition home or self-care (01) ==
LOC: ER 14:46 → EDUNIT# 14:46 → EDBD 14:46 → ER 18:21
DX: F41.9 Anxiety disorder, unspecified (principal); I13.0 Hypertensive heart and chronic kidney disease with heart failure and stage 1 through stage 4 chronic kidney disease, or unspecified chronic kidney disease; N18.9 Chronic kidney disease, unspecified; I50.9 Heart failure, unspecified; J44.9 Chronic obstructive pulmonary disease, unspecified; K21.9 Gastro-esophageal reflux disease without esophagitis; I25.2 Old myocardial infarction; Z86.73 Personal history of transient ischemic attack (TIA), and cerebral infarction without residual deficits; Z90.89 Acquired absence of other organs; Z95.1 Presence of aortocoronary bypass graft; Z95.0 Presence of cardiac pacemaker; Z79.899 Other long term (current) drug therapy; Z88.1 Allergy status to other antibiotic agents; Z88.8 Allergy status to other drugs, medicaments and biological substances
CPT/HCPCS: 36415; 71045; 80053; 81001; 83880; 84484; 85025; 85610; 85730; 93005; 94640; 99285; J7612

== ENCOUNTER 2017-09-26 17:06 | Emergency (ER) | payer MEDICARE, MEDICAID ==
[~2017-09-26] VITALS: Ht 157.5 cm; Wt 49.9 kg
[~2017-09-26 17:06] MED LIST changes: +TIOT17SP IN
[2017-09-26 17:33] VITALS: BP 176/88
[2017-09-26 19:13] LABS: Basophils # (auto) 0.2 uL; Eosinophils # (auto) 0.4 uL; Eosinophils % (auto) 4.2 % (0.0-7.0); Hematocrit 40.1 % (36.0-46.0); Hemoglobin 13.3 g/dL (12.2-16.2); Lymphocytes # (auto) 2.1 uL; Lymphocytes % (auto) 23.2 % (10.0-50.0); Mean Corpuscular Hemoglobin 31.5 pg (28.0-32.0); Mean Corpuscular Hgb Conc. 33.1 g/dL (32.0-36.0); Mean Corpuscular Volume 95.2 fL (80.0-100.0); Monocytes # (auto) 0.8 uL; Monocytes % (auto) 8.8 % (0.0-12.0); Neutrophils # (auto) 5.6 uL; Neutrophils % (auto) 61.8 % (37.0-80.0); Platelet Count (auto) 459 10^3/uL (140-450); Red Blood Cells 4.21 10^6/uL (4.0-5.20); Red Cell Distribution Width 13.3 % (11.8-14.3)
[2017-09-26 19:18] LABS: Albumin 3.6 g/dL (3.4-5.0); BUN/Creatinine Ratio 16.3; Potassium 3.3 mmol/L (3.5-5.1)
[2017-09-26 19:20] LABS: Bilirubin, Total 0.5 mg/dL (0.2-1.0)
== END 2017-09-27 01:12 | disposition left against medical advice (07) ==
LOC: ER 17:06 → EDBD 17:06 → ER 09-27 01:12
DX: I10 Essential (primary) hypertension (principal); Z53.21 Procedure and treatment not carried out due to patient leaving prior to being seen by health care provider
CPT/HCPCS: 36415; 71046; 80053; 83735; 85025; 85379; 93005

== ENCOUNTER 2017-12-23 10:48 | Inpatient (IN) | payer MEDICARE, MEDICAID ==
[~2017-12-23] VITALS: Ht 152.4 cm; Wt 53.8 kg
[2017-12-23] MEDS: LEVALBUTEROL HCL 1.25 MG/3 ML NEB NEB SCH ×2 (00:33→22:00)
[2017-12-23 11:44] LABS: Basophils # (auto) 0 uL; Basophils % (auto) 0.2 % (0.0-2.0); Eosinophils # (auto) 0.1 uL; Eosinophils % (auto) 0.4 % (0.0-7.0); Hematocrit 41.3 % (36.0-46.0); Hemoglobin 13.6 g/dL (12.2-16.2); Lymphocytes # (auto) 1.1 uL; Lymphocytes % (auto) 7.8 % (10.0-50.0); Mean Corpuscular Hemoglobin 30.7 pg (28.0-32.0); Monocytes # (auto) 1.4 uL; Monocytes % (auto) 10.3 % (0.0-12.0); Neutrophils # (auto) 11.2 uL; Neutrophils % (auto) 81.3 % (37.0-80.0); Platelet Count (auto) 400 10^3/uL (140-450); Red Blood Cells 4.44 10^6/uL (4.0-5.20); Red Cell Distribution Width 15.4 % (11.8-14.3); White Blood Cell 13.7 10^3/uL (4.4-10.8)
[2017-12-23 12:03] LABS: Alanine Aminotransferase 23 U/L (13-56); Albumin 3.1 g/dL (3.4-5.0); Alkaline Phosphatase 68 U/L (45-117); Anion Gap 8 (5-15); Aspartate Aminotransferase 17 U/L (15-37); BUN/Creatinine Ratio 15.3; Bilirubin, Total 1.4 mg/dL (0.2-1.0); Blood Urea Nitrogen 19 mg/dL (7-18); Calcium 9.3 mg/dL (8.5-10.1); Carbon Dioxide 26 mmol/L (21-32); Chloride 102 mmol/L (98-107); GFR African American 53 mL/min; GFR Non-African American 44 mL/min; Glucose 82 mg/dL (74-106); Potassium 3.7 mmol/L (3.5-5.1); Sodium 136 mmol/L (136-145); Total Protein 6.6 g/dL (6.4-8.2)
[2017-12-23] MEDS ORDERED: cefTRIAXone 1GM/10ml IVPUSH 10 ML IV ONE (16:15)
[2017-12-23] MEDS ORDERED: ACETAMINOPHEN 325 MG TAB PO ONE (16:15)
[2017-12-23] MEDS ORDERED: SODIUM CHLORIDE 0.9% 500 ML IVB ONE (16:49)
[2017-12-23] MEDS ORDERED: LORazepam 0.5 MG TAB PO PRN (18:00)
[2017-12-23] MEDS ORDERED: PROMETHAZINE HCL 25 MG/ML 1ML IV PRN (18:00)
[2017-12-23] MEDS ORDERED: VANCOMYCIN PER PHARMACY 0 MG IV SCH (18:00)
[2017-12-23] MEDS ORDERED: ACETAMINOPHEN 500 MG TAB PO PRN (18:00)
[2017-12-23] MEDS ORDERED: NITROGLYCERIN 0.4 MG SL TAB SL PRN (18:00)
[2017-12-23] MEDS ORDERED: MORPHINE SULF INJ 2 MG/ML SYRINGE 1ML IV PRN (18:00)
[2017-12-23] MEDS ORDERED: LACTULOSE 20Gm/30ML SOLN PO PRN (18:00)
[2017-12-23] MEDS ORDERED: FURO20TA3 PO (18:10)
[2017-12-23] MEDS ORDERED: CILO50TA PO (18:10)
[2017-12-23] MEDS ORDERED: PIPERACILLIN-TAZOB 2.25GM 50 ML IV ONE (18:45)
[2017-12-23] MEDS: SODIUM CHLORIDE 0.9% 1,000 ML IV SCH (18:46)
[2017-12-23] MEDS: IPRATROPIUM BROM 0.5 MG/2.5ML INH SOL NEB SCH (18:59)
[2017-12-23 19:27] VITALS: BP 116/52
[2017-12-23] MEDS ORDERED: LEVALBUTEROL TARTRATE IN SCH (19:45)
[2017-12-23] MEDS ORDERED: cloNIDine HCL 0.1 MG TAB PO PRN (19:45)
[2017-12-23] MEDS ORDERED: VANCOMYCIN 1GM/250ML 250 ML IV ONE (20:00)
[2017-12-23] MEDS: CILOSTAZOL 100 MG TAB PO SCH ×2 (20:30→22:21)
[2017-12-23 21:50] VITALS: BP 110/54
[2017-12-23 22:00] VITALS: BP 110/54
[2017-12-23] MEDS ORDERED: LEVALBUTEROL IN SCH (22:00)
[2017-12-23] MEDS: BUDESONIDE (INHALATION) 0.5 MG/2 ML NEB NEB SCH (22:00)
[2017-12-23] MEDS ORDERED: ASPirin-EC 81 mg tab PO SCH (22:00)
[2017-12-23] MEDS: ATORVASTATIN 20 MG TAB PO SCH (22:21)
[2017-12-23] MEDS: GABAPENTIN 300 MG CAP PO SCH (22:21)
[2017-12-24] MEDS: TEMAZEPAM 15 MG CAP PO PRN (00:26)
[2017-12-24] MEDS: PIPERACILLIN-TAZOB 2.25GM 50 ML IV SCH ×5 (00:27→23:47)
[2017-12-24] MEDS: IPRATROPIUM BROM 0.5 MG/2.5ML INH SOL NEB SCH ×4 (00:33→19:30)
[2017-12-24 05:00] VITALS: BP 101/50
[2017-12-24] MEDS: LEVOTHYROXINE SODIUM 25 MCG TAB PO SCH (06:55)
[2017-12-24] MEDS: SODIUM CHLORIDE 0.9% 1,000 ML IV SCH ×2 (06:55→18:06)
[2017-12-24 07:35] LABS: Basophils # (auto) 0.1 uL; Basophils % (auto) 0.9 % (0.0-2.0); Eosinophils # (auto) 0.4 uL; Hematocrit 36.5 % (36.0-46.0); Hemoglobin 11.9 g/dL (12.2-16.2); Lymphocytes # (auto) 0.9 uL; Mean Corpuscular Hemoglobin 30.4 pg (28.0-32.0); Mean Corpuscular Hgb Conc. 32.6 g/dL (32.0-36.0); Mean Corpuscular Volume 93.1 fL (80.0-100.0); Monocytes # (auto) 0.9 uL; Monocytes % (auto) 11.6 % (0.0-12.0); Neutrophils # (auto) 5.3 uL; Neutrophils % (auto) 70.5 % (37.0-80.0); Platelet Count (auto) 325 10^3/uL (140-450); Red Blood Cells 3.92 10^6/uL (4.0-5.20); Red Cell Distribution Width 15.4 % (11.8-14.3); White Blood Cell 7.6 10^3/uL (4.4-10.8)
[2017-12-24] MEDS: LEVALBUTEROL HCL 1.25 MG/3 ML NEB NEB SCH ×3 (07:37→22:51)
[2017-12-24 07:49] LABS: Albumin 2.4 g/dL (3.4-5.0); BUN/Creatinine Ratio 18.1; Calcium 7.7 mg/dL (8.5-10.1); Potassium 3.3 mmol/L (3.5-5.1)
[2017-12-24 07:51] LABS: Bilirubin, Total 0.5 mg/dL (0.2-1.0); Total Protein 5.2 g/dL (6.4-8.2)
[2017-12-24 08:03] VITALS: BP 99/51
[2017-12-24] MEDS ORDERED: LISINOPRIL 10 MG TAB PO SCH (10:00)
[2017-12-24] MEDS: BUDESONIDE (INHALATION) 0.5 MG/2 ML NEB NEB SCH ×2 (10:00→22:51)
[2017-12-24] MEDS ORDERED: PANTOPRAZOLE 40 MG TAB PO SCH (10:00)
[2017-12-24] MEDS ORDERED: METOPROLOL SUCCINATE XL 50 MG TAB PO SCH (10:00)
[2017-12-24] MEDS: ENOXAPARIN SOD 30 MG/0.3 ML SYRINGE SC SCH (10:11)
[2017-12-24] MEDS: CILOSTAZOL 100 MG TAB PO SCH ×2 (10:12→20:56)
[2017-12-24] MEDS: ASPirin 81 mg TAB PO SCH (10:13)
[2017-12-24] MEDS: GABAPENTIN 300 MG CAP PO SCH ×2 (10:13→20:56)
[2017-12-24] MEDS: MORPHINE SULF INJ 2 MG/ML SYRINGE 1ML IV PRN ×2 (11:45→20:57)
[2017-12-24 13:00] VITALS: BP 92/51
[2017-12-24] MEDS ORDERED: PANTOPRAZOLE 40 MG TAB PO ONE (13:00)
[2017-12-24] MEDS ORDERED: POTASSIUM CHL 20 Meq TABLET PO ONE (13:00)
[2017-12-24 16:11] VITALS: BP 95/47
[2017-12-24] MEDS ORDERED: MEPERIDINE HCL (50 MG/ML) 1 ML VIAL IV ONE (18:00)
[2017-12-24] MEDS: ATORVASTATIN 20 MG TAB PO SCH (20:56)
[2017-12-24] MEDS ORDERED: VANCOMYCIN 750 MG in D5W 5% 250 ML IV SCH (21:00)
[2017-12-24 21:30] VITALS: BP 115/58
[2017-12-24] MEDS: HYDROcodone-ACET 5/325MG TAB PO PRN (22:04)
[2017-12-25] MEDS: SODIUM CHLORIDE 0.9% 1,000 ML IV SCH (03:34)
[2017-12-25 05:00] VITALS: BP 110/60
[2017-12-25 06:10] LABS: Basophils # (auto) 0.1 uL; Basophils % (auto) 1.1 % (0.0-2.0); Eosinophils # (auto) 0.6 uL; Hematocrit 36.9 % (36.0-46.0); Hemoglobin 12.2 g/dL (12.2-16.2); Mean Corpuscular Hemoglobin 31.1 pg (28.0-32.0); Mean Corpuscular Hgb Conc. 33.1 g/dL (32.0-36.0); Monocytes # (auto) 0.8 uL; Monocytes % (auto) 11.1 % (0.0-12.0); Neutrophils # (auto) 4.6 uL; Neutrophils % (auto) 65.8 % (37.0-80.0); Platelet Count (auto) 371 10^3/uL (140-450); Red Blood Cells 3.93 10^6/uL (4.0-5.20); Red Cell Distribution Width 15.4 % (11.8-14.3)
[2017-12-25] MEDS: PIPERACILLIN-TAZOB 2.25GM 50 ML IV SCH ×4 (06:22→23:55)
[2017-12-25] MEDS: LEVOTHYROXINE SODIUM 25 MCG TAB PO SCH (06:22)
[2017-12-25] MEDS: MORPHINE SULF INJ 2 MG/ML SYRINGE 1ML IV PRN (06:23)
[2017-12-25 06:33] LABS: Calcium 7.8 mg/dL (8.5-10.1); Potassium 3.4 mmol/L (3.5-5.1)
[2017-12-25 06:35] LABS: BUN/Creatinine Ratio 9.3
[2017-12-25] MEDS: IPRATROPIUM BROM 0.5 MG/2.5ML INH SOL NEB SCH ×4 (07:06→17:45)
[2017-12-25] MEDS: LEVALBUTEROL HCL 1.25 MG/3 ML NEB NEB SCH ×3 (07:07→22:35)
[2017-12-25] MEDS: BUDESONIDE (INHALATION) 0.5 MG/2 ML NEB NEB SCH ×2 (07:09→22:34)
[2017-12-25 09:00] VITALS: BP 112/51
[2017-12-25] MEDS: PANTOPRAZOLE 40 MG TAB PO SCH (09:29)
[2017-12-25] MEDS: ENOXAPARIN SOD 30 MG/0.3 ML SYRINGE SC SCH (09:29)
[2017-12-25] MEDS: ASPirin 81 mg TAB PO SCH (09:30)
[2017-12-25] MEDS: CILOSTAZOL 100 MG TAB PO SCH ×2 (09:30→21:11)
[2017-12-25] MEDS: GABAPENTIN 300 MG CAP PO SCH ×2 (09:30→21:10)
[2017-12-25] MEDS: HYDROcodone-ACET 5/325MG TAB PO PRN (09:34)
[2017-12-25 13:00] VITALS: BP 120/60
[2017-12-25] MEDS ORDERED: POTASSIUM EFFERVESENT TAB 25 MEQ PO ONE (15:00)
[2017-12-25] MEDS ORDERED: ENOXAPARIN SOD 30 MG/0.3 ML SYRINGE SC ONE (15:00)
[2017-12-25] MEDS ORDERED: KETOROLAC TROMETH 30 MG/ML 1ML VIAL IV ONE (15:00)
[2017-12-25 16:41] VITALS: BP 111/67
[2017-12-25] MEDS: ATORVASTATIN 20 MG TAB PO SCH (21:09)
[2017-12-25] MEDS: TEMAZEPAM 15 MG CAP PO PRN (21:12)
[2017-12-25 22:15] VITALS: BP 106/53
[2017-12-26] VITALS (8 sets, daily range): BP systolic 97–120; BP diastolic 58–71
[2017-12-26] MEDS: IPRATROPIUM BROM 0.5 MG/2.5ML INH SOL NEB SCH ×6 (00:39→22:48)
[2017-12-26] MEDS: PIPERACILLIN-TAZOB 2.25GM 50 ML IV SCH ×3 (06:17→17:34)
[2017-12-26] MEDS: LEVOTHYROXINE SODIUM 25 MCG TAB PO SCH (06:18)
[2017-12-26 06:19] LABS: BUN/Creatinine Ratio 8.7; Calcium 7.9 mg/dL (8.5-10.1); Potassium 3.8 mmol/L (3.5-5.1)
[2017-12-26] MEDS: LEVALBUTEROL HCL 1.25 MG/3 ML NEB NEB SCH ×3 (07:02→22:46)
[2017-12-26] MEDS: BUDESONIDE (INHALATION) 0.5 MG/2 ML NEB NEB SCH ×2 (07:05→22:48)
[2017-12-26] MEDS ORDERED: VANCOMYCIN 1,000 MG in D5W 5% 250 ML IV SCH (10:00)
[2017-12-26] MEDS: GABAPENTIN 300 MG CAP PO SCH ×2 (10:08→21:32)
[2017-12-26] MEDS: CILOSTAZOL 100 MG TAB PO SCH ×2 (10:08→21:32)
[2017-12-26] MEDS: PANTOPRAZOLE 40 MG TAB PO SCH (10:08)
[2017-12-26] MEDS: ENOXAPARIN SOD 30 MG/0.3 ML SYRINGE SC SCH (10:09)
[2017-12-26] MEDS: ASPirin 81 mg TAB PO SCH (10:09)
[2017-12-26] MEDS: HYDROcodone-ACET 5/325MG TAB PO PRN (11:33)
[2017-12-26] MEDS ORDERED: diphenhdrAMINE HCL 50 MG/1 ML VL ONE (16:49)
[2017-12-26] MEDS ORDERED: diphenhdrAMINE HCL 50 MG/1 ML VL IM ONE (17:00)
[2017-12-26] MEDS ORDERED: diphenhdrAMINE HCL 50 MG/1 ML VL IV ONE (17:30)
[2017-12-26] MEDS: Ensure Enlive Chocolate 8oz Bottle PO SCH (18:19)
[2017-12-26] MEDS: methylPREDNISolone SOD SUCC 40 MG/ML VL IV SCH (20:00)
[2017-12-26] MEDS ORDERED: methylPREDNISolone SOD SUCC 40 MG/ML VL ONE (20:06)
[2017-12-26] MEDS ORDERED: VANCOMYCIN 1GM/250ML 250 ML IV SCH (21:00)
[2017-12-26] MEDS: KETOROLAC TROMETH 30 MG/ML 1ML VIAL IV PRN (21:31)
[2017-12-26] MEDS: ATORVASTATIN 20 MG TAB PO SCH (21:32)
[2017-12-26] MEDS: TEMAZEPAM 15 MG CAP PO PRN (23:04)
[2017-12-27] MEDS: methylPREDNISolone SOD SUCC 40 MG/ML VL IV SCH ×4 (01:16→06:48)
[2017-12-27] MEDS: PIPERACILLIN-TAZOB 2.25GM 50 ML IV SCH ×4 (01:17→18:05)
[2017-12-27 05:00] VITALS: BP 108/68
[2017-12-27] MEDS: LEVOTHYROXINE SODIUM 25 MCG TAB PO SCH (06:47)
[2017-12-27] MEDS: LEVALBUTEROL HCL 1.25 MG/3 ML NEB NEB SCH ×3 (06:56→18:52)
[2017-12-27] MEDS: Ensure Enlive Chocolate 8oz Bottle PO SCH ×2 (08:00→18:05)
[2017-12-27 09:14] VITALS: BP 123/69
[2017-12-27] MEDS: CILOSTAZOL 100 MG TAB PO SCH ×2 (09:49→21:54)
[2017-12-27] MEDS: PANTOPRAZOLE 40 MG TAB PO SCH (09:49)
[2017-12-27] MEDS: ASPirin 81 mg TAB PO SCH (09:50)
[2017-12-27] MEDS: ENOXAPARIN SOD 30 MG/0.3 ML SYRINGE SC SCH (09:50)
[2017-12-27] MEDS: GABAPENTIN 300 MG CAP PO SCH ×2 (09:50→21:54)
[2017-12-27] MEDS: BUDESONIDE (INHALATION) 0.5 MG/2 ML NEB NEB SCH ×2 (10:00→18:53)
[2017-12-27] MEDS ORDERED: diphenhdrAMINE HCL 50 MG/1 ML VL ONE (12:12)
[2017-12-27] MEDS ORDERED: diphenhdrAMINE HCL 50 MG/1 ML VL IV ONE (12:15)
[2017-12-27 12:39] VITALS: BP 123/59
[2017-12-27] MEDS: IPRATROPIUM BROM 0.5 MG/2.5ML INH SOL NEB SCH ×2 (14:03→18:52)
[2017-12-27 16:59] VITALS: BP 146/61
[2017-12-27] MEDS: LORazepam 0.5 MG TAB PO PRN (17:00)
[2017-12-27] MEDS: KETOROLAC TROMETH 30 MG/ML 1ML VIAL IV PRN (20:45)
[2017-12-27] MEDS: ATORVASTATIN 20 MG TAB PO SCH (21:54)
[2017-12-27] MEDS: TEMAZEPAM 15 MG CAP PO PRN (21:55)
[2017-12-27 22:00] VITALS: BP 135/70
[2017-12-28] MEDS: PIPERACILLIN-TAZOB 2.25GM 50 ML IV SCH ×2 (00:05→05:55)
[2017-12-28 05:00] VITALS: BP 108/62
[2017-12-28] MEDS: IPRATROPIUM BROM 0.5 MG/2.5ML INH SOL NEB SCH ×4 (06:33→18:43)
[2017-12-28] MEDS: BUDESONIDE (INHALATION) 0.5 MG/2 ML NEB NEB SCH ×2 (06:33→22:53)
[2017-12-28] MEDS: LEVALBUTEROL HCL 1.25 MG/3 ML NEB NEB SCH ×3 (06:33→22:52)
[2017-12-28] MEDS: LEVOTHYROXINE SODIUM 25 MCG TAB PO SCH (07:39)
[2017-12-28] MEDS: Ensure Enlive Chocolate 8oz Bottle PO SCH ×2 (08:53→17:52)
[2017-12-28 09:04] VITALS: BP 126/64
[2017-12-28] MEDS: GABAPENTIN 300 MG CAP PO SCH ×2 (09:53→22:39)
[2017-12-28] MEDS: ENOXAPARIN SOD 30 MG/0.3 ML SYRINGE SC SCH (09:53)
[2017-12-28] MEDS: ASPirin 81 mg TAB PO SCH (09:53)
[2017-12-28] MEDS: PANTOPRAZOLE 40 MG TAB PO SCH (09:53)
[2017-12-28] MEDS: CILOSTAZOL 100 MG TAB PO SCH (09:53)
[2017-12-28] MEDS: diphenhdrAMINE HCL 50 MG/1 ML VL IV PRN ×2 (11:13→18:49)
[2017-12-28] MEDS ORDERED: MORPHINE SULF INJ 2 MG/ML SYRINGE 1ML IV PRN (11:45)
[2017-12-28 13:00] VITALS: BP 151/76
[2017-12-28] MEDS: CEPHALEXIN 250 MG CAP PO SCH ×2 (15:23→18:53)
[2017-12-28 17:28] VITALS: BP 134/66
[2017-12-28 21:03] VITALS: BP 131/55
[2017-12-28] MEDS: TEMAZEPAM 15 MG CAP PO PRN (22:39)
[2017-12-28] MEDS: ATORVASTATIN 20 MG TAB PO SCH (22:39)
[2017-12-29] MEDS: CEPHALEXIN 250 MG CAP PO SCH ×3 (00:12→11:28)
[2017-12-29 05:10] VITALS: BP 153/75
[2017-12-29] MEDS: IPRATROPIUM BROM 0.5 MG/2.5ML INH SOL NEB SCH ×4 (06:00→18:21)
[2017-12-29] MEDS: LEVALBUTEROL HCL 1.25 MG/3 ML NEB NEB SCH ×2 (06:24→14:47)
[2017-12-29] MEDS: BUDESONIDE (INHALATION) 0.5 MG/2 ML NEB NEB SCH (06:25)
[2017-12-29] MEDS: LEVOTHYROXINE SODIUM 25 MCG TAB PO SCH (06:38)
[2017-12-29] MEDS: Ensure Enlive Chocolate 8oz Bottle PO SCH (08:00)
[2017-12-29 09:00] VITALS: BP 136/67
[2017-12-29] MEDS: ENOXAPARIN SOD 30 MG/0.3 ML SYRINGE SC SCH (10:29)
[2017-12-29] MEDS: GABAPENTIN 300 MG CAP PO SCH (10:30)
[2017-12-29] MEDS: PANTOPRAZOLE 40 MG TAB PO SCH (10:30)
[2017-12-29] MEDS: ASPirin 81 mg TAB PO SCH (10:30)
[2017-12-29] MEDS: LORazepam 0.5 MG TAB PO PRN (11:06)
[2017-12-29] MEDS ORDERED: methylPREDNISolone SOD SUCC 125 MG/2 ML VL IV ONE (11:45)
[2017-12-29 13:00] VITALS: BP 144/71
[2017-12-29] MEDS: diphenhdrAMINE HCL 50 MG/1 ML VL IV PRN (13:42)
[2017-12-29 17:00] VITALS: BP 160/83
[2017-12-29 17:06] VITALS: BP 144/71
== END 2017-12-29 19:25 | disposition home or self-care (01) | DRG 872 ==
LOC: ER 10:48 → TELE 10:49 → TELE-WESTW 21:30 → WEST WING 12-25
PROVIDERS: ADMIT Internal Medicine; ATTEND Internal Medicine
PROC: 05HY33Z Insertion of Infusion Device into Upper Vein, Percutaneous Approach (ICD-10-PCS; principal; 2017-12-25)
DX: A41.9 Sepsis, unspecified organism (principal); L03.115 Cellulitis of right lower limb; J96.10 Chronic respiratory failure, unspecified whether with hypoxia or hypercapnia; I13.0 Hypertensive heart and chronic kidney disease with heart failure and stage 1 through stage 4 chronic kidney disease, or unspecified chronic kidney disease; J44.1 Chronic obstructive pulmonary disease with (acute) exacerbation; N18.3 Chronic kidney disease, stage 3 (moderate); I50.9 Heart failure, unspecified; F41.9 Anxiety disorder, unspecified; K21.9 Gastro-esophageal reflux disease without esophagitis; I25.10 Atherosclerotic heart disease of native coronary artery without angina pectoris; E78.5 Hyperlipidemia, unspecified; E03.9 Hypothyroidism, unspecified; S93.401A Sprain of unspecified ligament of right ankle, initial encounter; F32.9 Major depressive disorder, single episode, unspecified; M19.90 Unspecified osteoarthritis, unspecified site; G62.9 Polyneuropathy, unspecified; E78.00 Pure hypercholesterolemia, unspecified; X58.XXXA Exposure to other specified factors, initial encounter; Z99.81 Dependence on supplemental oxygen; I25.2 Old myocardial infarction; Z82.5 Family history of asthma and other chronic lower respiratory diseases; Z82.49 Family history of ischemic heart disease and other diseases of the circulatory system; Z82.3 Family history of stroke; Z82.62 Family history of osteoporosis; Z86.73 Personal history of transient ischemic attack (TIA), and cerebral infarction without residual deficits; Z87.891 Personal history of nicotine dependence; Z87.11 Personal history of peptic ulcer disease; Z95.1 Presence of aortocoronary bypass graft; Z88.1 Allergy status to other antibiotic agents; Z88.8 Allergy status to other drugs, medicaments and biological substances; Z90.49 Acquired absence of other specified parts of digestive tract; Y93.89 Activity, other specified; Y92.89 Other specified places as the place of occurrence of the external cause; Y99.8 Other external cause status
CPT/HCPCS: 36415; 71045; 73610; 80048; 80053; 80202; 83605; 84484; 85025; 85652; 87040; 87081; 93005; 93971; 94640; 94761; 96361; 96374; 96375; 97116; 97163; 97530; J0696; J1885; J2543; J7060

== ENCOUNTER 2017-12-30 10:14 | Emergency (ER) | payer MEDICARE, MEDICAID ==
[~2017-12-30] VITALS: Ht 152.4 cm; Wt 42.6 kg
[~2017-12-30 10:14] MED LIST changes: +CILO50TA PO; +FURO20TA3 PO; -TIOT17SP IN
[2017-12-30 10:39] VITALS: BP 129/67
[2017-12-30 11:44] LABS: Basophils # (auto) 0 uL; Basophils % (auto) 0.3 % (0.0-2.0); Eosinophils # (auto) 0.1 uL; Eosinophils % (auto) 0.9 % (0.0-7.0); Hematocrit 35.9 % (36.0-46.0); Hemoglobin 11.9 g/dL (12.2-16.2); Lymphocytes # (auto) 1.5 uL; Lymphocytes % (auto) 11.9 % (10.0-50.0); Mean Corpuscular Hemoglobin 31.2 pg (28.0-32.0); Mean Corpuscular Hgb Conc. 33.2 g/dL (32.0-36.0); Monocytes # (auto) 1.4 uL; Monocytes % (auto) 10.5 % (0.0-12.0); Neutrophils # (auto) 9.9 uL; Neutrophils % (auto) 76.4 % (37.0-80.0); Platelet Count (auto) 398 10^3/uL (140-450); Red Blood Cells 3.82 10^6/uL (4.0-5.20); Red Cell Distribution Width 15.5 % (11.8-14.3); White Blood Cell 12.9 10^3/uL (4.4-10.8)
[2017-12-30 12:24] LABS: BUN/Creatinine Ratio 14.6; Bilirubin, Total 0.4 mg/dL (0.2-1.0); Calcium 8.9 mg/dL (8.5-10.1); Potassium 3.5 mmol/L (3.5-5.1); Total Protein 6.3 g/dL (6.4-8.2)
[2017-12-30] MEDS ORDERED: cefTRIAXone SOD 1,000 MG VL IM ONE (12:30)
[2017-12-30] MEDS ORDERED: LIDOCAINE 2% (LOCAL ANESTH.) PF 5ml SDV ONE (15:05)
== END 2017-12-30 15:09 | disposition home or self-care (01) ==
LOC: ER 10:17
DX: L03.115 Cellulitis of right lower limb (principal); M19.90 Unspecified osteoarthritis, unspecified site; J44.9 Chronic obstructive pulmonary disease, unspecified; I13.0 Hypertensive heart and chronic kidney disease with heart failure and stage 1 through stage 4 chronic kidney disease, or unspecified chronic kidney disease; I50.9 Heart failure, unspecified; N18.9 Chronic kidney disease, unspecified; I25.810 Atherosclerosis of coronary artery bypass graft(s) without angina pectoris; K21.9 Gastro-esophageal reflux disease without esophagitis; E78.5 Hyperlipidemia, unspecified; I25.2 Old myocardial infarction; Z88.1 Allergy status to other antibiotic agents; Z88.8 Allergy status to other drugs, medicaments and biological substances; Z79.82 Long term (current) use of aspirin; Z79.899 Other long term (current) drug therapy; Z95.1 Presence of aortocoronary bypass graft; Z86.73 Personal history of transient ischemic attack (TIA), and cerebral infarction without residual deficits; Z90.49 Acquired absence of other specified parts of digestive tract; Z95.0 Presence of cardiac pacemaker; Z98.61 Coronary angioplasty status; Z87.891 Personal history of nicotine dependence
CPT/HCPCS: 36415; 80053; 83605; 85025; 87040; J0696; J2001

== ENCOUNTER 2018-03-01 12:01 | Emergency (ER) | payer MEDICAID, MEDICARE ==
[~2018-03-01] VITALS: Ht 152.4 cm; Wt 42.2 kg
[2018-03-01] MEDS ORDERED: methylPREDNISolone SOD SUCC 125 MG/2 ML VL IV ONE (12:45)
[2018-03-01] MEDS ORDERED: IPRATROPIUM BROM 0.5 MG/2.5ML INH SOL NEB ONE (12:45)
[2018-03-01] MEDS ORDERED: ALBUTEROL SULF 2.5 MG/0.5ML(0.5%) NEB SOLN NEB ONE (12:45)
[2018-03-01 13:02] LABS: Basophils # (auto) 0.1 uL; Basophils % (auto) 0.7 % (0.0-2.0); Eosinophils # (auto) 0.4 uL; Eosinophils % (auto) 5.5 % (0.0-7.0); Hematocrit 41.2 % (36.0-46.0); Hemoglobin 13.6 g/dL (12.2-16.2); Lymphocytes # (auto) 1.3 uL; Lymphocytes % (auto) 16.9 % (10.0-50.0); Mean Corpuscular Hemoglobin 31.5 pg (28.0-32.0); Mean Corpuscular Volume 95.4 fL (80.0-100.0); Monocytes # (auto) 0.7 uL; Monocytes % (auto) 8.4 % (0.0-12.0); Neutrophils # (auto) 5.4 uL; Neutrophils % (auto) 68.5 % (37.0-80.0); Nucleated Red Blood Cells % 0.1 %; Platelet Count (auto) 329 10^3/uL (140-450); Red Blood Cells 4.32 10^6/uL (4.0-5.20); White Blood Cell 7.9 10^3/uL (4.4-10.8)
[2018-03-01] MEDS ORDERED: LEVALBUTEROL HCL 1.25 MG/0.5 ML NEB SOLN NEB ONE (13:13)
[2018-03-01 13:18] LABS: INR 0.97 (0.9-1.15); Partial Thromboplastin Time 27.7 sec (23.78-33.04); Prothrombin Time 10.4 sec (9.27-12.13)
[2018-03-01 13:26] VITALS: BP 127/71
[2018-03-01 13:26] LABS: Alanine Aminotransferase 25 U/L (13-56); Albumin 3.7 g/dL (3.4-5.0); Alkaline Phosphatase 63 U/L (45-117); Anion Gap 3 (5-15); Aspartate Aminotransferase 21 U/L (15-37); BUN/Creatinine Ratio 12.4; Bilirubin, Total 0.7 mg/dL (0.2-1.0); Blood Urea Nitrogen 12 mg/dL (7-18); Carbon Dioxide 28 mmol/L (21-32); Chloride 106 mmol/L (98-107); GFR African American 70 mL/min; GFR Non-African American 58 mL/min; Glucose 60 mg/dL (74-106); Potassium 3.9 mmol/L (3.5-5.1); Sodium 137 mmol/L (136-145); Total Protein 6.8 g/dL (6.4-8.2)
== END 2018-03-01 16:05 | disposition home or self-care (01) ==
LOC: ER 12:13
DX: J44.9 Chronic obstructive pulmonary disease, unspecified (principal); I25.10 Atherosclerotic heart disease of native coronary artery without angina pectoris; I10 Essential (primary) hypertension; I25.2 Old myocardial infarction; E78.00 Pure hypercholesterolemia, unspecified; Z87.891 Personal history of nicotine dependence; Z90.49 Acquired absence of other specified parts of digestive tract; Z86.73 Personal history of transient ischemic attack (TIA), and cerebral infarction without residual deficits
CPT/HCPCS: 36415; 71045; 80053; 83880; 84484; 85025; 85610; 85730; 93005; 94640; 96374; 99285; J2930; J7612; J7644

== ENCOUNTER 2018-03-10 18:45 | Emergency (ER) | payer MEDICARE, MEDICAID ==
[~2018-03-10] VITALS: Ht 167.6 cm; Wt 49.9 kg
[2018-03-10 19:01] VITALS: BP 147/86
== END 2018-03-10 21:36 | disposition left against medical advice (07) ==
LOC: EDBD 18:45 → ER 18:47
DX: R06.02 Shortness of breath (principal); Z53.21 Procedure and treatment not carried out due to patient leaving prior to being seen by health care provider

== ENCOUNTER 2018-05-09 11:49 | Emergency (ER) | payer MEDICARE, MEDICAID ==
[~2018-05-09] VITALS: Ht 160 cm; Wt 43.1 kg
[2018-05-09 11:54] VITALS: BP 181/76
[2018-05-09] MEDS ORDERED: IPRATROPIUM BROM 0.5 MG/2.5ML INH SOL NEB ONE (12:45)
[2018-05-09] MEDS ORDERED: ALBUTEROL SULF 2.5 MG/0.5ML(0.5%) NEB SOLN NEB ONE (12:45)
[2018-05-09] MEDS ORDERED: methylPREDNISolone SOD SUCC 125 MG/2 ML VL IV ONE (12:45)
[2018-05-09 12:59] LABS: Basophils # (auto) 0.1 uL; Eosinophils # (auto) 0.6 uL; Eosinophils % (auto) 7.2 % (0.0-7.0); Hematocrit 42.2 % (36.0-46.0); Hemoglobin 14.3 g/dL (12.2-16.2); Lymphocytes # (auto) 1.5 uL; Lymphocytes % (auto) 18.8 % (10.0-50.0); Mean Corpuscular Hemoglobin 32.1 pg (28.0-32.0); Mean Corpuscular Volume 94.5 fL (80.0-100.0); Monocytes # (auto) 0.7 uL; Monocytes % (auto) 8.1 % (0.0-12.0); Neutrophils # (auto) 5.3 uL; Neutrophils % (auto) 64.9 % (37.0-80.0); Platelet Count (auto) 348 10^3/uL (140-450); Red Blood Cells 4.47 10^6/uL (4.0-5.20); Red Cell Distribution Width 14.2 % (11.8-14.3); White Blood Cell 8.1 10^3/uL (4.4-10.8)
[2018-05-09 13:14] LABS: Alanine Aminotransferase 28 U/L (13-56); Albumin 3.9 g/dL (3.4-5.0); Anion Gap 7 (5-15); Aspartate Aminotransferase 23 U/L (15-37); Blood Urea Nitrogen 17 mg/dL (7-18); Calcium 9.5 mg/dL (8.5-10.1); Carbon Dioxide 27 mmol/L (21-32); Chloride 104 mmol/L (98-107); GFR African American 68 mL/min; GFR Non-African American 56 mL/min; Glucose 58 mg/dL (74-106); Magnesium 2.2 mg/dL (1.6-2.6); Potassium 4.1 mmol/L (3.5-5.1); Sodium 138 mmol/L (136-145)
[2018-05-09 13:19] LABS: Alkaline Phosphatase 69 U/L (45-117); Bilirubin, Total 0.8 mg/dL (0.2-1.0); Total Protein 7.4 g/dL (6.4-8.2)
[2018-05-09] MEDS ORDERED: LEVALBUTEROL NEB ONE (13:30)
== END 2018-05-09 14:57 | disposition home or self-care (01) ==
LOC: ER 11:49
DX: J44.9 Chronic obstructive pulmonary disease, unspecified (principal); I11.0 Hypertensive heart disease with heart failure; I50.9 Heart failure, unspecified; I25.2 Old myocardial infarction; E07.89 Other specified disorders of thyroid; Z86.73 Personal history of transient ischemic attack (TIA), and cerebral infarction without residual deficits; Z90.89 Acquired absence of other organs
CPT/HCPCS: 36415; 71045; 80053; 82962; 83735; 84484; 85025; 94640; 96374; 99284; J2930; J7644

== ENCOUNTER 2018-06-19 10:57 | Inpatient (IN) | payer MEDICARE, MEDICAID ==
[~2018-06-19] VITALS: Ht 152.4 cm; Wt 49.6 kg
[~2018-06-19 10:57] MED LIST changes: -CILO50TA PO; -FLUT110A INH; +LEVA1AER IN; -LEVAAER4 IN; -LEVO25TA6 PO; +LORA-622 PO
[2018-06-19 11:46] LABS: Basophils # (auto) 0.1 uL; Basophils % (auto) 1.3 % (0.0-2.0); Eosinophils # (auto) 0.3 uL; Eosinophils % (auto) 4.4 % (0.0-7.0); Hematocrit 41.7 % (36.0-46.0); Lymphocytes # (auto) 1.2 uL; Lymphocytes % (auto) 16.8 % (10.0-50.0); Mean Corpuscular Hemoglobin 31.8 pg (28.0-32.0); Mean Corpuscular Hgb Conc. 33.7 g/dL (32.0-36.0); Mean Corpuscular Volume 94.5 fL (80.0-100.0); Monocytes # (auto) 0.7 uL; Monocytes % (auto) 9.2 % (0.0-12.0); Neutrophils # (auto) 4.9 uL; Neutrophils % (auto) 68.3 % (37.0-80.0); Platelet Count (auto) 322 10^3/uL (140-450); Red Blood Cells 4.41 10^6/uL (4.0-5.20); Red Cell Distribution Width 14.3 % (11.8-14.3); White Blood Cell 7.2 10^3/uL (4.4-10.8)
[2018-06-19 12:06] LABS: Albumin 3.4 g/dL (3.4-5.0); Anion Gap 1 (5-15); Blood Urea Nitrogen 13 mg/dL (7-18); Calcium 9.3 mg/dL (8.5-10.1); Carbon Dioxide 32 mmol/L (21-32); Chloride 106 mmol/L (98-107); Glucose 87 mg/dL (74-106); Magnesium 2.2 mg/dL (1.6-2.6); Potassium 4.3 mmol/L (3.5-5.1); Sodium 139 mmol/L (136-145)
[2018-06-19 12:11] LABS: Alanine Aminotransferase 24 U/L (13-56); Alkaline Phosphatase 71 U/L (45-117); Aspartate Aminotransferase 20 U/L (15-37); BUN/Creatinine Ratio 12.6; Bilirubin, Total 0.6 mg/dL (0.2-1.0); GFR Non-African American 54 mL/min; Total Protein 6.7 g/dL (6.4-8.2)
[2018-06-19 12:13] LABS: GFR African American > 60 mL/min
[2018-06-19] MEDS ORDERED: IPRATROPIUM BROM 0.5 MG/2.5ML INH SOL HHN ONE (12:45)
[2018-06-19] MEDS ORDERED: methylPREDNISolone SOD SUCC 125 MG/2 ML VL IV ONE (12:45)
[2018-06-19] MEDS ORDERED: cefTRIAXone 1GM/50ML D5W 50 ML IV ONE (12:45)
[2018-06-19] MEDS ORDERED: LEVALBUTEROL HCL 1.25 MG/3 ML NEB NEB ONE ×2 (13:00)
[2018-06-19] MEDS ORDERED: methylPREDNISolone SOD SUCC 125 MG/2 ML VL IM ONE (15:00)
[2018-06-19] MEDS ORDERED: cefTRIAXone SOD 1,000 MG VL IM ONE (15:00)
[2018-06-19] MEDS ORDERED: cloNIDine HCL 0.1 MG TAB PO ONE (15:45)
[2018-06-19] MEDS ORDERED: LORazepam 0.5 MG TAB PO ONE (15:45)
[2018-06-19] MEDS ORDERED: MORPHINE SULFATE 10 MG/ML INJ 1ML SDV IV PRN (19:00)
[2018-06-19] MEDS ORDERED: NITROGLYCERIN 0.4 MG SL TAB SL PRN (19:00)
[2018-06-19] MEDS ORDERED: FUROSEMIDE 20 MG TAB PO PRN (19:15)
[2018-06-19 19:44] VITALS: BP 154/82
--- NOTE | 2018-06-19 20:26 | NUR ---
Telemetry admit from ER TERESITA LACKEY admitted to Telemetry unit. Patient oriented to Sylvie chao RN, unit, room, bed, and unit policies regarding patient care and visiting hours. Patient now on continuous telemetry monitoring, tele box # 18. Patient placed on bedside oxygen @ 2L NC, weighed by bedscale and encouraged to call if she needs something. All questions and concerns addressed, patient verbalized understanding.
[2018-06-19 20:30] VITALS: BP 145/77
--- NOTE | 2018-06-19 20:56 | NUR ---
RT paged Patient requesting breathing tx, appears SOB. O2 is 96%, will continue to monitor.
--- NOTE | 2018-06-19 21:46 | NUR ---
RT paged Patient requesting breathing tx, states that she is due for a tx. O2 is 96%, will continue to monitor.
[2018-06-19 22:00] VITALS: BP 145/77
[2018-06-19] MEDS: GABAPENTIN 300 MG CAP PO SCH (22:05)
[2018-06-19] MEDS: ATORVASTATIN 20 MG TAB PO SCH (22:05)
[2018-06-19] MEDS: ASPirin-EC 81 mg tab PO SCH (22:05)
[2018-06-19] MEDS: methylPREDNISolone SOD SUCC 125 MG/2 ML VL IV SCH (22:05)
[2018-06-19] MEDS: LORazepam 0.5 MG TAB PO PRN (22:14)
--- NOTE | 2018-06-19 22:20 | NUR ---
RT at bedside RT at bedside giving breathing tx, will continue to monitor patient.
[2018-06-19] MEDS: IPRATROPIUM BROM 0.5 MG/2.5ML INH SOL NEB SCH (22:23)
[2018-06-19] MEDS: LEVALBUTEROL HCL 1.25 MG/3 ML NEB NEB SCH (22:23)
[2018-06-19] MEDS: BUDESONIDE (INHALATION) 0.5 MG/2 ML NEB NEB SCH (22:23)
[2018-06-20] MEDS ORDERED: IPRIH IN (04:41)
[2018-06-20 04:44] VITALS: BP 108/65
[2018-06-20 05:15] LABS: Basophils # (auto) 0 uL; Basophils % (auto) 0.4 % (0.0-2.0); Eosinophils # (auto) 0 uL; Eosinophils % (auto) 0.1 % (0.0-7.0); Hematocrit 38.6 % (36.0-46.0); Lymphocytes # (auto) 0.5 uL; Lymphocytes % (auto) 11.1 % (10.0-50.0); Mean Corpuscular Hemoglobin 31.7 pg (28.0-32.0); Mean Corpuscular Hgb Conc. 33.8 g/dL (32.0-36.0); Mean Corpuscular Volume 93.9 fL (80.0-100.0); Monocytes # (auto) 0 uL; Neutrophils # (auto) 3.7 uL; Neutrophils % (auto) 87.4 % (37.0-80.0); Platelet Count (auto) 278 10^3/uL (140-450); Red Blood Cells 4.11 10^6/uL (4.0-5.20); Red Cell Distribution Width 14.1 % (11.8-14.3); White Blood Cell 4.2 10^3/uL (4.4-10.8)
[2018-06-20 05:37] LABS: Anion Gap 5 (5-15); BUN/Creatinine Ratio 18.8; Blood Urea Nitrogen 18 mg/dL (7-18); Calcium 8.4 mg/dL (8.5-10.1); Carbon Dioxide 26 mmol/L (21-32); Chloride 105 mmol/L (98-107); GFR African American > 60 mL/min; GFR Non-African American 59 mL/min; Glucose 169 mg/dL (74-106); Potassium 3.9 mmol/L (3.5-5.1); Sodium 136 mmol/L (136-145)
[2018-06-20] MEDS: IPRATROPIUM BROM 0.5 MG/2.5ML INH SOL NEB SCH ×4 (05:59→23:23)
[2018-06-20] MEDS: BUDESONIDE (INHALATION) 0.5 MG/2 ML NEB NEB SCH ×2 (05:59→18:12)
[2018-06-20] MEDS: LEVALBUTEROL HCL 1.25 MG/3 ML NEB NEB SCH ×4 (05:59→23:24)
[2018-06-20] MEDS: GABAPENTIN 300 MG CAP PO SCH ×3 (06:10→21:39)
--- NOTE | 2018-06-20 07:30 | NUR ---
RECEIVED REPORT FROM NIGHT NURSE. PATIENT RESTING IN BED, NO DISTRESS NOTED. WILL CONTINUE TO MONITOR.
[2018-06-20 09:00] VITALS: BP 124/85
[2018-06-20] MEDS: LISINOPRIL 10 MG TAB PO PRN (10:22)
[2018-06-20] MEDS: PANTOPRAZOLE 40 MG/10 ML VIAL IV SCH (10:23)
[2018-06-20] MEDS: methylPREDNISolone SOD SUCC 125 MG/2 ML VL IV SCH (10:23)
--- NOTE | 2018-06-20 11:22 | NUR ---
WOUND CARE NOTE: Wound care in to see patient per wound care request regarding "sacrum,buttock and right leg" skin issue that are noted present on admission. Bedside nurse took photograph of patient's skin issue upon admission for reference. Patient is 83 years old female with admitting diagnosis of Acute on Chronic Resp Failure. Patient is resting in bed in Rm. 276B. Patient is awake, alert and oriented. She's in no stated pain at this time. She's ambulatory and self turn and reposition. Her current Fernando score is 22. Noted multiple dry, intact scabs to patient's arms, legs, sacral and right buttock. Sacral and buttock has mild redness but blanches quickly. Patient garcia snot remember how she got the scabs but states could be from scratching. In addition patient is on Steroid and has thin sensitive skin and so she quickly gets skin tear but heals and scab quickly she states. Patient's education given regarding wound/skin care; verbalized understanding. Patient tolerated well. No further wound care monitoring needed at this time. RECOMMENDATION: BID/PRN cleaning of application of Barrier cream to sacrum, perineum, dry skin to help moisturize skin, redistribute pressure points with pillows. Addendum: 06/20/18 at 1702 by Caterina Vigil RN Amended: Links added.
[2018-06-20 13:00] VITALS: BP 117/64
[2018-06-20] MEDS ORDERED: ACETAMINOPHEN 500 MG TAB PO PRN (14:15)
--- NOTE | 2018-06-20 16:00 | NUR ---
PATIENT AMBULATING IN THE HALLWAY WITH WALKER, O2 AND ASSISTANCE. PATIENT TOLERATED IT WELL.
[2018-06-20 17:00] VITALS: BP 111/63
--- NOTE | 2018-06-20 18:10 | NUR ---
SPOKE TO HYDRO MECHANIC HOSPITALIST. ORDERS RECEIVED, WILL PLACE AND CARRY OUT.
--- NOTE | 2018-06-20 19:10 | NUR ---
Opening Shift Note Assumed care of patient, awake and alert. No S/S of distress/SOB or pain. Instructed on POC and to call for assistance PRN, will continue to monitor for changes Q1hr and PRN.
[2018-06-20] MEDS: TEMAZEPAM 15 MG CAP PO PRN (21:39)
[2018-06-20] MEDS: methylPREDNISolone SOD SUCC 40 MG/ML VL IV SCH (21:39)
[2018-06-20] MEDS: ATORVASTATIN 20 MG TAB PO SCH (21:40)
[2018-06-20] MEDS: ASPirin-EC 81 mg tab PO SCH (21:40)
[2018-06-20 22:00] VITALS: BP 122/64
[2018-06-21 05:00] VITALS: BP 127/65
[2018-06-21 05:21] LABS: Basophils # (auto) 0 uL; Basophils % (auto) 0.4 % (0.0-2.0); Eosinophils # (auto) 0 uL; Eosinophils % (auto) 0.1 % (0.0-7.0); Hematocrit 38.8 % (36.0-46.0); Hemoglobin 12.7 g/dL (12.2-16.2); Lymphocytes # (auto) 0.5 uL; Lymphocytes % (auto) 5.3 % (10.0-50.0); Mean Corpuscular Hemoglobin 31.5 pg (28.0-32.0); Mean Corpuscular Hgb Conc. 32.8 g/dL (32.0-36.0); Mean Corpuscular Volume 96.1 fL (80.0-100.0); Monocytes # (auto) 0.2 uL; Monocytes % (auto) 2.3 % (0.0-12.0); Neutrophils # (auto) 9.3 uL; Neutrophils % (auto) 91.9 % (37.0-80.0); Platelet Count (auto) 260 10^3/uL (140-450); Red Blood Cells 4.04 10^6/uL (4.0-5.20); Red Cell Distribution Width 14.1 % (11.8-14.3); White Blood Cell 10.1 10^3/uL (4.4-10.8)
[2018-06-21 05:28] LABS: Anion Gap 5 (5-15); BUN/Creatinine Ratio 22.9; Blood Urea Nitrogen 22 mg/dL (7-18); Calcium 8.7 mg/dL (8.5-10.1); Carbon Dioxide 26 mmol/L (21-32); Chloride 106 mmol/L (98-107); GFR African American > 60 mL/min; GFR Non-African American 59 mL/min; Glucose 142 mg/dL (74-106); Potassium 4.1 mmol/L (3.5-5.1); Sodium 137 mmol/L (136-145)
[2018-06-21] MEDS: GABAPENTIN 300 MG CAP PO SCH ×3 (06:23→21:48)
[2018-06-21] MEDS: IPRATROPIUM BROM 0.5 MG/2.5ML INH SOL NEB SCH ×3 (06:42→20:10)
[2018-06-21] MEDS: LEVALBUTEROL HCL 1.25 MG/3 ML NEB NEB SCH ×3 (06:42→20:10)
[2018-06-21] MEDS: BUDESONIDE (INHALATION) 0.5 MG/2 ML NEB NEB SCH ×2 (06:42→20:10)
--- NOTE | 2018-06-21 07:30 | NUR ---
RECEIVED REPORT FROM NIGHT NURSE. PATIENT RESTING IN BED, NO DISTRESS NOTED. WILL CONTINUE TO MONITOR.
[2018-06-21 08:26] VITALS: BP 129/72
[2018-06-21] MEDS: methylPREDNISolone SOD SUCC 40 MG/ML VL IV SCH ×2 (10:10→21:48)
[2018-06-21] MEDS: PANTOPRAZOLE 40 MG/10 ML VIAL IV SCH (10:10)
[2018-06-21] MEDS: LISINOPRIL 10 MG TAB PO PRN (10:11)
[2018-06-21] MEDS: LORazepam 0.5 MG TAB PO PRN (11:13)
--- NOTE | 2018-06-21 11:14 | NUR ---
PATIENT COMPLAINING OF TREMORS, REQUESTING GABAPENTIN. SPOKE WITH DENEEN MORALES TO GIVE 1400 DOSE EARLY AND ATIVAN NOW.
[2018-06-21 12:41] VITALS: BP 128/67
[2018-06-21] MEDS ORDERED: DOXYCYCLINE 100 MG TAB/CAP PO ONE (13:15)
[2018-06-21] MEDS ORDERED: LORazepam 2MG/ML-1ML VIAL IV ONE (13:15)
--- NOTE | 2018-06-21 15:21 | NUR ---
assessment Patient is a 83 year old female who is alert and oriented. Patient informed me that prior to admission she lived at home alone and functioned with assistance. Per patient she uses home O2 and a fww for home use. Patient informed me that her PCP is Dr. Kim. Patient has a [facility] caregiver Erika. Patient informed me that she is to return back home to her prior living arrangements post discharge and a friend will transport her home. Patient is on service with [facility]. Patient will benefit from a resumption of care order post discharge. Patient informed me that she does not have an advanced directive. I informed the patient the advantages and benefits of having an advanced directive. I informed the patient that she has a right to privacy. I informed the patient that she has a right to speak to a executive secretary social welfare regarding her care and to participate in her discharge plan. Patient verbalized understanding and agreed with her discharge plan home. Per ss consult patient lives alone in upstairs residence. Patient does live alone and has for years. Patient does not want to leave her apartment. Patient has a caregiver and home health. Addendum: 06/24/18 at 0924 by Ashely RIOS Amended: Links added.
[2018-06-21 16:36] VITALS: BP 124/65
--- NOTE | 2018-06-21 20:00 | NUR ---
OPENING NOTE RECEIVED REPORT FROM DAYSHIFT RN. ASSUMING ROLE OF CARE OF PATIENT AT THIS TIME. PATIENT SHOWING NO SIGN OF DISTRESS, SHORTNESS OF BREATH, AND PATIENT DENIES ANY PAIN. PATIENT EDUCATED ON PLAN OF CARE FOR THE NIGHT. PATIENT VERBALIZED UNDERSTANDING. BED LOWERED, CALL LIGHT WITHIN REACH, AND PATIENT WILL BE ROUNDED ON EVERY HOUR AND NEEDED. WILL CONTINUE TO MONITOR.
[2018-06-21] MEDS: ATORVASTATIN 20 MG TAB PO SCH (21:48)
[2018-06-21] MEDS: TEMAZEPAM 15 MG CAP PO PRN (21:48)
[2018-06-21] MEDS: ASPirin-EC 81 mg tab PO SCH (21:48)
[2018-06-21] MEDS: DOXYCYCLINE 100 MG TAB/CAP PO SCH (21:48)
[2018-06-21 22:00] VITALS: BP 121/66
[2018-06-22] MEDS: LEVALBUTEROL HCL 1.25 MG/3 ML NEB NEB SCH ×3 (04:40→11:07)
[2018-06-22] MEDS: IPRATROPIUM BROM 0.5 MG/2.5ML INH SOL NEB SCH ×3 (04:40→11:07)
[2018-06-22 05:00] VITALS: BP 138/75
[2018-06-22] MEDS: GABAPENTIN 300 MG CAP PO SCH ×2 (05:58→13:42)
[2018-06-22] MEDS: LISINOPRIL 10 MG TAB PO PRN (06:52)
--- NOTE | 2018-06-22 07:05 | NUR ---
OPENING SHIFT NOTE ASSUMED CARE OF PATIENT FROM ELECTRODYNAMICIST JORGE LARIOS. PATIENT IS AWAKE AND ALERT X4. PATIENT HAS NO S/S OF DISTRESS/SOB OR PAIN. INSTRUCTED PATIENT ON POC, PATIENT VERBALIZED UNDERSTANDING. BED IS IN LOWEST POSITION WITH SIDE RAILS RAISED X2, BED WHEELS LOCKED, AND CALL LIGHT WITHIN REACH. WILL CONTINUE TO MONITOR.
[2018-06-22 07:56] VITALS: BP 137/69
[2018-06-22 09:00] VITALS: BP 137/69
[2018-06-22] MEDS ORDERED: PANTOPRAZOLE 40 MG TAB PO SCH (10:00)
[2018-06-22] MEDS: methylPREDNISolone SOD SUCC 40 MG/ML VL IV SCH (10:22)
[2018-06-22] MEDS: DOXYCYCLINE 100 MG TAB/CAP PO SCH (10:22)
[2018-06-22] MEDS: LORazepam 0.5 MG TAB PO PRN (10:36)
[2018-06-22] MEDS: BUDESONIDE (INHALATION) 0.5 MG/2 ML NEB NEB SCH (11:05)
--- NOTE | 2018-06-22 12:30 | NUR ---
MD ODONNELL AT BEDSIDE. UPDATED MD ON PATIENT'S STATUS. MD IS AWARE AND WILL BE DISCHARGING PATIENT HOME. WILL FOLLOW THROUGH WITH ORDERS. PRESCRIPTION IS TO BE FILLED BY [facility]
[2018-06-22 13:00] VITALS: BP 139/77
--- NOTE | 2018-06-22 17:00 | NUR ---
Discharge instructions given as ordered. Encourage to follow up with PMD as instructed. All questions and concerns addressed. Patient verbalized understanding. Medication reconciliation form completed and copy given to patient. IV removed with catheter intact, pressure dressing applied. Telemetry unit returned to ICU. Patient taken to vehicle via wheelchair with patient's O2 and all personal belongings, accompanied by staff and family member. No distress noted at time of departure.
== END 2018-06-22 17:00 | disposition home or self-care (01) | DRG 189 ==
LOC: ER 10:57 → TELE 18:58 → TELE-WESTW 20:26
PROVIDERS: ADMIT Nurse Practitioner Acute Care; ATTEND Internal Medicine
DX: J96.20 Acute and chronic respiratory failure, unspecified whether with hypoxia or hypercapnia (principal); J44.0 Chronic obstructive pulmonary disease with (acute) lower respiratory infection; I50.42 Chronic combined systolic (congestive) and diastolic (congestive) heart failure; J44.1 Chronic obstructive pulmonary disease with (acute) exacerbation; J20.9 Acute bronchitis, unspecified; I11.0 Hypertensive heart disease with heart failure; G20 Parkinson's disease; E87.6 Hypokalemia; F41.9 Anxiety disorder, unspecified; I25.10 Atherosclerotic heart disease of native coronary artery without angina pectoris; E03.9 Hypothyroidism, unspecified; E78.5 Hyperlipidemia, unspecified; K21.9 Gastro-esophageal reflux disease without esophagitis; K44.9 Diaphragmatic hernia without obstruction or gangrene; M81.0 Age-related osteoporosis without current pathological fracture; Z82.3 Family history of stroke; Z82.49 Family history of ischemic heart disease and other diseases of the circulatory system; Z86.73 Personal history of transient ischemic attack (TIA), and cerebral infarction without residual deficits; Z82.5 Family history of asthma and other chronic lower respiratory diseases; Z82.62 Family history of osteoporosis; Z95.5 Presence of coronary angioplasty implant and graft
CPT/HCPCS: 36415; 71045; 71046; 80048; 80053; 83735; 84484; 85025; 93005; 94640; 94761; 96372; C9113; G0378; J0696

== ENCOUNTER 2018-07-17 07:54 | Inpatient (IN) | payer MEDICARE, MEDICAID | END 2018-07-23 15:20 | LOC: WEST WING 07-19 17:50 → ER 07:54 → TELE 13:47 | DX: J09.X1 Influenza due to identified novel influenza A virus with pneumonia (principal); J96.20 Acute and chronic respiratory failure, unspecified whether with hypoxia or hypercapnia; J44.1 Chronic obstructive pulmonary disease with (acute) exacerbation; I13.0 Hypertensive heart and chronic kidney disease with heart failure and stage 1 through stage 4 chronic kidney disease, or unspecified chronic kidney disease; E44.0 Moderate protein-calorie malnutrition; J45.901 Unspecified asthma with (acute) exacerbation; I50.32 Chronic diastolic (congestive) heart failure; N18.3 Chronic kidney disease, stage 3 (moderate); Z95.5 Presence of coronary angioplasty implant and graft; I25.10 Atherosclerotic heart disease of native coronary artery without angina pectoris ==

== ENCOUNTER 2018-09-03 19:11 | Emergency (ER) | payer MEDICAID, MEDICARE ==
[~2018-09-03] VITALS: Ht 157.5 cm; Wt 59.0 kg
[~2018-09-03 19:11] MED LIST changes: -FURO20TA3 PO; +IPRIH IN
[2018-09-03] MEDS ORDERED: methylPREDNISolone SOD SUCC 125 MG/2 ML VL IV ONE (19:30)
[2018-09-03 20:51] LABS: Basophils # (auto) 0.1 uL; Eosinophils # (auto) 0.8 uL; Eosinophils % (auto) 10.1 % (0.0-7.0); Hematocrit 39.2 % (36.0-46.0); Hemoglobin 12.8 g/dL (12.2-16.2); Lymphocytes # (auto) 1.7 uL; Lymphocytes % (auto) 22.4 % (10.0-50.0); Mean Corpuscular Hemoglobin 31.6 pg (28.0-32.0); Mean Corpuscular Hgb Conc. 32.8 g/dL (32.0-36.0); Mean Corpuscular Volume 96.4 fL (80.0-100.0); Monocytes # (auto) 0.9 uL; Monocytes % (auto) 11.6 % (0.0-12.0); Neutrophils % (auto) 53.9 % (37.0-80.0); Nucleated Red Blood Cells % 0.1 %; Platelet Count (auto) 300 10^3/uL (140-450); Red Blood Cells 4.06 10^6/uL (4.0-5.20); Red Cell Distribution Width 14.1 % (11.8-14.3); White Blood Cell 7.5 10^3/uL (4.4-10.8)
[2018-09-03 21:08] LABS: Albumin 3.6 g/dL (3.4-5.0); Anion Gap 5 (5-15); Blood Urea Nitrogen 13 mg/dL (7-18); Calcium 9.6 mg/dL (8.5-10.1); Carbon Dioxide 28 mmol/L (21-32); Chloride 106 mmol/L (98-107); Glucose 75 mg/dL (74-106); Magnesium 2.2 mg/dL (1.6-2.6); Potassium 3.4 mmol/L (3.5-5.1); Sodium 139 mmol/L (136-145)
[2018-09-03 21:11] LABS: Alanine Aminotransferase 14 U/L (13-56); Alkaline Phosphatase 67 U/L (45-117); Aspartate Aminotransferase 26 U/L (15-37); BUN/Creatinine Ratio 11.9; Bilirubin, Total 0.6 mg/dL (0.2-1.0); GFR African American 61 mL/min; GFR Non-African American 51 mL/min
[2018-09-03] MEDS ORDERED: IPRATROPIUM BROM 0.5 MG/2.5ML INH SOL NEB ONE (22:45)
[2018-09-03] MEDS ORDERED: IODIXANOL 320MG/ML 100ML BTL IV ONE (23:13)
[2018-09-04] MEDS ORDERED: ALPRAZolam 0.5 MG TAB PO ONE (00:45)
[2018-09-04] MEDS ORDERED: NITROGLYCERIN 0.4 MG SL TAB SL ONE (02:15)
[2018-09-04 05:51] VITALS: BP 124/68
== END 2018-09-04 07:45 | disposition home or self-care (01) ==
LOC: ER 19:11
DX: J44.9 Chronic obstructive pulmonary disease, unspecified (principal); I48.91 Unspecified atrial fibrillation; I25.10 Atherosclerotic heart disease of native coronary artery without angina pectoris; K21.9 Gastro-esophageal reflux disease without esophagitis; E78.5 Hyperlipidemia, unspecified; I10 Essential (primary) hypertension; I25.2 Old myocardial infarction; E07.9 Disorder of thyroid, unspecified; Z90.49 Acquired absence of other specified parts of digestive tract; Z87.891 Personal history of nicotine dependence; Z86.73 Personal history of transient ischemic attack (TIA), and cerebral infarction without residual deficits
CPT/HCPCS: 36415; 36600; 71045; 71275; 80053; 82805; 83735; 84484; 85025; 93005; 94640; 96374; 99284; J2930; J7644; Q9967

== ENCOUNTER 2018-09-14 12:36 | Inpatient (IN) | payer MEDICARE, MEDICAID | END 2018-09-17 18:20 | disposition home or self-care (01) | LOC: ER 12:36 → OVERFLOW 14:18 → WEST WING 17:42 | DX: J44.1 Chronic obstructive pulmonary disease with (acute) exacerbation (principal); J96.10 Chronic respiratory failure, unspecified whether with hypoxia or hypercapnia; F41.9 Anxiety disorder, unspecified; Z86.73 Personal history of transient ischemic attack (TIA), and cerebral infarction without residual deficits; I25.10 Atherosclerotic heart disease of native coronary artery without angina pectoris; I10 Essential (primary) hypertension ==

== ENCOUNTER 2018-09-29 12:20 | Inpatient (IN) | payer MEDICARE, MEDICAID ==
[~2018-09-29] VITALS: Ht 152.4 cm; Wt 48.6 kg
[2018-09-29] MEDS ORDERED: methylPREDNISolone SOD SUCC 125 MG/2 ML VL IV ONE (13:00)
[2018-09-29 13:33] LABS: Basophils # (auto) 0.1 uL; Basophils % (auto) 0.8 % (0.0-2.0); Eosinophils # (auto) 1.1 uL; Eosinophils % (auto) 10.2 % (0.0-7.0); Hematocrit 44.4 % (36.0-46.0); Hemoglobin 14.7 g/dL (12.2-16.2); Lymphocytes # (auto) 1.5 uL; Lymphocytes % (auto) 13.9 % (10.0-50.0); Mean Corpuscular Hemoglobin 31.2 pg (28.0-32.0); Mean Corpuscular Volume 94.5 fL (80.0-100.0); Monocytes % (auto) 8.9 % (0.0-12.0); Neutrophils # (auto) 7.1 uL; Neutrophils % (auto) 66.2 % (37.0-80.0); Nucleated Red Blood Cells % 0.1 %; Platelet Count (auto) 223 10^3/uL (140-450); Red Cell Distribution Width 14.2 % (11.8-14.3); White Blood Cell 10.7 10^3/uL (4.4-10.8)
[2018-09-29 13:34] LABS: Albumin 3.3 g/dL (3.4-5.0); Calcium 9.5 mg/dL (8.5-10.1); Magnesium 2.1 mg/dL (1.6-2.6); Potassium 4.3 mmol/L (3.5-5.1)
[2018-09-29 13:37] LABS: BUN/Creatinine Ratio 13.4
[2018-09-29 13:55] LABS: Bilirubin, Total 0.5 mg/dL (0.2-1.0); Total Protein 6.8 g/dL (6.4-8.2)
[2018-09-29] MEDS ORDERED: methylPREDNISolone SOD SUCC 40 MG/ML VL IV ONE (16:30)
[2018-09-29 17:40] VITALS: BP 129/51
--- NOTE | 2018-09-29 17:40 | NUR ---
MS admit from ER TERESITA LACKEY admitted to tele/MS after SBAR received. Patient oriented to Kimberly Goode, primary RN, unit, room, bed, and unit policies regarding patient care and visiting hours. Patient weighed by bed scale and encouraged to call if they need something. All questions and concerns addressed, patient verbalized understanding. Note:
--- NOTE | 2018-09-29 17:45 | NUR ---
PATIENT ARRIVED FROM ER BY WHEELCHAIR, ALERT ORIENTED X4, PT APPEAR VERY WEAK AND FRAIL, 2L OXYGEN NC APPLIED, ABLE TO SELF REPOSITION AND VERBALIS HER DEMANDS, CALL LIGHT WITHIN REACH.
[2018-09-29] MEDS: LEVALBUTEROL HCL 1.25 MG/3 ML NEB NEB SCH (17:51)
[2018-09-29] MEDS: IPRATROPIUM BROM 0.5 MG/2.5ML INH SOL NEB SCH (17:51)
[2018-09-29 17:58] VITALS: BP 115/72
--- NOTE | 2018-09-29 19:09 | NUR ---
REPORT GIVEN TO LANCE PATEL, CONTINUE CARE
[2018-09-29] MEDS: LORazepam 2MG/ML-1ML VIAL IV PRN (19:46)
--- NOTE | 2018-09-29 20:00 | NUR ---
OPENING NOTE RECEIVED REPORT FROM DAYSHIFT RN. ASSUMING ROLE OF CARE OF PATIENT AT THIS TIME. PATIENT EDUCATED ON PLAN OF CARE FOR THE NIGHT. PATIENT VERBALIZED UNDERSTANDING. PATIENT SHOWING NO SIGN OF DISTRESS, SHORTNESS OF BREATH, AND PATIENT DENIES ANY PAIN AT THIS TIME. BED LOWERED, CALL LIGHT WITHIN REACH, AND PATIENT WILL BE ROUNDED ON EVERY HOUR AND NEEDED.
[2018-09-29] MEDS: methylPREDNISolone SOD SUCC 40 MG/ML VL IV SCH (21:13)
[2018-09-29] MEDS: DOXYCYCLINE 100 MG TAB/CAP PO SCH (21:13)
[2018-09-29] MEDS: ATORVASTATIN 20 MG TAB PO SCH (21:13)
[2018-09-29 21:38] VITALS: BP 106/59
[2018-09-30] MEDS: IPRATROPIUM BROM 0.5 MG/2.5ML INH SOL NEB SCH ×4 (00:18→19:01)
[2018-09-30] MEDS: LEVALBUTEROL HCL 1.25 MG/3 ML NEB NEB SCH ×4 (00:18→19:01)
[2018-09-30] MEDS ORDERED: LEVALBUTEROL 1.25 MG NEB PRN (04:45)
[2018-09-30] MEDS ORDERED: IPRATROPIUM BROM 0.5 MG/2.5ML INH SOL NEB PRN (04:45)
[2018-09-30] MEDS ORDERED: LEVALBUTEROL HCL 1.25 MG/3 ML NEB NEB PRN ×2 (05:00)
[2018-09-30 05:06] VITALS: BP 102/56
[2018-09-30 05:37] LABS: Urine Bacteria FEW /hpf (None Seen); Urine Blood Negative /uL (Negative); Urine Mucus FEW (None Seen); Urine Specific Gravity 1.014 (1.001-1.035); Urine WBC 1 /hpf (0 - 5)
[2018-09-30 08:00] VITALS: BP 108/58
--- NOTE | 2018-09-30 09:22 | NUR ---
RECEIVED REPORT FROM STAYING MACHINE OPERATOR NURSE. PT IS RESTING IN BED WITH HOB AT 45 DEGREES ON 3 LITERS NASAL CANULA. BREATH SOUNDS CLEAR ON AUSCULTATION. PT COMPLAINS OF NO PAIN AT THIS TIME. CONSUMED 100 PERCENT OF BREAKFAST. IV 20 GAUGE LEFT FOREARM ON SALINE LOCK. IV SITE SHOWED NO SIGNS OF INFILTRATION, REDNESS OR IRRITATION. IV FLUSHED WITHOUT CONCERNS. BED IN LOWEST POSITION WITH SIDE RAILS UP. PT HAS CALL LIGHT WITHIN REACH Signed: 09/30/18 at 928 by SN Sky <Co-Signature Required> Co-Signed: 09/30/18 at 928 by Kirsten Melendez RN RN
[2018-09-30] MEDS: ASPirin 81 mg TAB PO SCH (09:51)
[2018-09-30] MEDS: PANTOPRAZOLE 40 MG TAB PO SCH (09:51)
[2018-09-30] MEDS: DOXYCYCLINE 100 MG TAB/CAP PO SCH (09:52)
[2018-09-30] MEDS: methylPREDNISolone SOD SUCC 40 MG/ML VL IV SCH (09:54)
[2018-09-30] MEDS ORDERED: LISINOPRIL 10 MG TAB PO SCH (10:00)
[2018-09-30] MEDS: LORazepam 2MG/ML-1ML VIAL IV PRN ×2 (11:22→21:31)
[2018-09-30] MEDS: GABAPENTIN 300 MG CAP PO SCH ×3 (11:24→21:31)
--- NOTE | 2018-09-30 11:44 | NUR ---
AT BEDSIDE. DR PLACING NEW ORDERS FOR NEURONTIN PER PTS HOME MEDS AND ABDOMINAL XRAY FOR PT COMPLAINT OF PAIN IN LOWER LEFT QUADRANT Signed: 09/30/18 at 1153 by SN Sky <Co-Signature Required> Co-Signed: 09/30/18 at 1153 by Kisrten Melendez RN RN
[2018-09-30 12:00] VITALS: BP 131/74
[2018-09-30] MEDS: MORPHINE SULFATE 4 MG/ML SYR/VIAL IV PRN (15:33)
[2018-09-30 16:30] VITALS: BP 123/60
--- NOTE | 2018-09-30 19:05 | NUR ---
Opening Note Assumed care of patient, awake and alertx4. Currently receiving oxygen by 3L/min nasal cannula. No S/S of distress/SOB or pain. Instructed on POC and to call for assist PRN, will continue to monitor for changes Q1hr and PRN.
[2018-09-30] MEDS: ATORVASTATIN 20 MG TAB PO SCH (21:31)
[2018-09-30 22:00] VITALS: BP 98/51
[2018-10-01] MEDS: LEVALBUTEROL HCL 1.25 MG/3 ML NEB NEB SCH ×5 (00:29→23:32)
[2018-10-01] MEDS: IPRATROPIUM BROM 0.5 MG/2.5ML INH SOL NEB SCH ×5 (00:30→23:32)
[2018-10-01 05:00] VITALS: BP 117/66
[2018-10-01] MEDS: GABAPENTIN 300 MG CAP PO SCH ×4 (06:07→21:58)
--- NOTE | 2018-10-01 07:04 | NUR ---
Closing Note Patient is resting in bed. No S/S of distress, pain, or SOB. Will endorse care to dayshift RN.
--- NOTE | 2018-10-01 07:56 | NUR ---
RECEIVED REPORT AND ASSUME CARE OF PT. PT RESTING IN BED. NO S/S ACUTE DISTRESS NOTED. BED AT LOWEST POSITION. CALL LIGHT AND BELONGINGS WITHIN REACH. WILL CONT TO MONITOR.
[2018-10-01 08:00] VITALS: BP 113/58
[2018-10-01] MEDS: ASPirin 81 mg TAB PO SCH ×2 (10:00→10:10)
[2018-10-01] MEDS: PANTOPRAZOLE 40 MG TAB PO SCH (10:10)
[2018-10-01] MEDS: LISINOPRIL 10 MG TAB PO SCH (10:11)
[2018-10-01] MEDS: predniSONE 20 MG TAB PO SCH (10:15)
[2018-10-01 12:00] VITALS: BP 101/62
[2018-10-01] MEDS: MORPHINE SULFATE 4 MG/ML SYR/VIAL IV PRN (14:47)
[2018-10-01] MEDS: LORazepam 2MG/ML-1ML VIAL IV PRN (14:56)
[2018-10-01 16:00] VITALS: BP 93/53
--- NOTE | 2018-10-01 19:08 | NUR ---
Opening Note Assumed care of patient, awake and alertx4. Bed is in lowest position, call light is within reach. No S/S of distress/SOB. Patient is complaining of pain in her abdomen 5/0-10 that is constant and radiates to around her back on the right side. Instructed on POC and to call for assist PRN, will continue to monitor for changes Q1hr and PRN.
[2018-10-01] MEDS: traMADol HCL 50 MG TAB PO PRN (19:39)
--- NOTE | 2018-10-01 19:40 | NUR ---
PT RESTING IN BED. NO S/S ACUTE DISTRESS NOTED.ENDORSED CARE TO NIGHT NURSE.
[2018-10-01] MEDS: ATORVASTATIN 20 MG TAB PO SCH (21:58)
[2018-10-01 22:00] VITALS: BP 97/47
[2018-10-02] MEDS: traMADol HCL 50 MG TAB PO PRN ×4 (03:07→21:42)
[2018-10-02 04:51] VITALS: BP 131/68
[2018-10-02] MEDS: GABAPENTIN 300 MG CAP PO SCH ×4 (06:24→21:41)
[2018-10-02] MEDS: IPRATROPIUM BROM 0.5 MG/2.5ML INH SOL NEB SCH ×3 (06:47→19:27)
[2018-10-02] MEDS: LEVALBUTEROL HCL 1.25 MG/3 ML NEB NEB SCH ×3 (06:47→19:27)
--- NOTE | 2018-10-02 07:14 | NUR ---
Closing note Patient is resting in bed. No S/S of distress, SOB, or pain. Endorsed care to Stefanie siegel RN.
--- NOTE | 2018-10-02 07:45 | NUR ---
OPENING NOTE PATIENT OBSERVED SITTING IN BED. NO ACUTE SOB NOTED. PATIENT REPORTS HEADACHE PAIN 01/08. WILL MEDICATE ACCORDING TO MD ORDER WITH PRN TRAMADOL WHEN MEDICATION IS DUE. PATIENT INFORMED. FALL PRECAUTIONS IN PLACE AND CALL LIGHT WITHIN REACH. WILL CONTINUE TO MONITOR Q1H AND PRN. Signed: 10/02/18 at 1048 by SN Gaby <Co-Signature Required> Co-Signed: 10/02/18 at 1048 by Stefanie Hutton RN RN
[2018-10-02 08:00] VITALS: BP 151/82
[2018-10-02] MEDS: LISINOPRIL 10 MG TAB PO SCH (09:13)
[2018-10-02] MEDS: predniSONE 20 MG TAB PO SCH (09:13)
[2018-10-02] MEDS: PANTOPRAZOLE 40 MG TAB PO SCH (09:15)
[2018-10-02] MEDS: ASPirin 81 mg TAB PO SCH (09:18)
--- NOTE | 2018-10-02 09:18 | NUR ---
PATIENT REFUSED MED PATIENT REFUSED TO TAKE ASPIRIN 81 MG. PATIENT EDUCATED ON PURPOSE OF MEDICATION AND RISKS ASSOCIATED WITH RISK OF NOT TAKING MEDICATION. PATIENT VERBALIZED UNDERSTANDING BUT CONTINUED TO REFUSE. Signed: 10/02/18 at 1045 by SN Gaby <Co-Signature Required> Co-Signed: 10/02/18 at 1045 by Stefanie Hutton RN RN
[2018-10-02] MEDS: LORazepam 0.5 MG TAB PO PRN ×2 (10:06→19:54)
[2018-10-02 12:28] VITALS: BP 126/65
[2018-10-02 16:00] VITALS: BP 123/64
--- NOTE | 2018-10-02 19:05 | NUR ---
Opening Shift Note Assumed care of patient from day shift RN Stefanie. Pt is awake and alert and oriented x4. No S/S of distress/SOB or pain. Safety maintained with bed rails upx2, locked and in lowest position with call carroll within reach. Instructed on POC and to call for assist PRN, will continue to monitor for changes Q1hr and PRN.
--- NOTE | 2018-10-02 19:45 | NUR ---
WOUND CARE LEFT LOWER LEG BAND AID CHANGED, MINIMAL DRIED BLOOD. APPLIED OPTIFOAM GENTLE DRESSING. NO S/S DISTRESS. WILL CONTINUE TO MONITOR.
[2018-10-02 20:35] VITALS: BP 123/64
[2018-10-02] MEDS: ATORVASTATIN 20 MG TAB PO SCH (21:41)
[2018-10-02 22:00] VITALS: BP 120/62
[2018-10-03] MEDS: IPRATROPIUM BROM 0.5 MG/2.5ML INH SOL NEB SCH ×5 (00:06→23:59)
[2018-10-03] MEDS: LEVALBUTEROL HCL 1.25 MG/3 ML NEB NEB SCH ×5 (00:06→23:59)
[2018-10-03 04:56] VITALS: BP 132/67
[2018-10-03] MEDS: GABAPENTIN 300 MG CAP PO SCH ×2 (05:33→21:11)
[2018-10-03 07:01] LABS: Basophils # (auto) 0 uL; Basophils % (auto) 0.3 % (0.0-2.0); Eosinophils # (auto) 0.1 uL; Hematocrit 36.2 % (36.0-46.0); Lymphocytes # (auto) 1.4 uL; Lymphocytes % (auto) 14.8 % (10.0-50.0); Mean Corpuscular Hemoglobin 31.1 pg (28.0-32.0); Mean Corpuscular Hgb Conc. 33.1 g/dL (32.0-36.0); Monocytes # (auto) 0.9 uL; Monocytes % (auto) 9.4 % (0.0-12.0); Neutrophils # (auto) 6.8 uL; Neutrophils % (auto) 74.5 % (37.0-80.0); Platelet Count (auto) 263 10^3/uL (140-450); Red Blood Cells 3.85 10^6/uL (4.0-5.20); Red Cell Distribution Width 14.1 % (11.8-14.3); White Blood Cell 9.1 10^3/uL (4.4-10.8)
[2018-10-03 07:24] LABS: Calcium 8.7 mg/dL (8.5-10.1); Potassium 4.4 mmol/L (3.5-5.1)
--- NOTE | 2018-10-03 07:30 | NUR ---
OPENING NOTE PATIENT OBSERVED SITTING UP IN BED. PATIENT REPORTED PAIN BEHIND THE RIGHT EYE 11/08. WILL MEDICATE ACCORDING TO MD ORDER WITH PRN MEDICATION. SAFETY PRECAUTIONS IN PLACE. CALL LIGHT WITHIN REACH. WILL MONITOR Q1H AND PRN. Signed: 10/03/18 at 0850 by SN Gaby <Co-Signature Required> Co-Signed: 10/03/18 at 0850 by Stefanie Hutton RN RN
[2018-10-03 09:28] VITALS: BP 130/74
[2018-10-03] MEDS: PANTOPRAZOLE 40 MG TAB PO SCH (09:51)
[2018-10-03] MEDS: ASPirin 81 mg TAB PO SCH (09:51)
[2018-10-03] MEDS: LISINOPRIL 10 MG TAB PO SCH (09:51)
[2018-10-03] MEDS: predniSONE 20 MG TAB PO SCH (09:53)
[2018-10-03] MEDS: traMADol HCL 50 MG TAB PO PRN ×2 (09:53→15:31)
[2018-10-03] MEDS ORDERED: GABAPENTIN 300 MG CAP PO SCH (10:00)
--- NOTE | 2018-10-03 10:32 | NUR ---
AT BEDSIDE DR. YOUSIF AT BEDSIDE DISCUSSING POC WITH PT.
--- NOTE | 2018-10-03 12:35 | NUR ---
Nutrition Assessment Notes please see attached link for complete assessment Est. Needs BW [id number] kcal (25-30 kcal/kgBW), 48-57 gms pro (1.0-1.2 gms/kgBW). Will continue to monitor pertinent labs and reassess nutrient need prn Addendum: 10/03/18 at [address] Amended: Links added.
[2018-10-03 13:09] VITALS: BP 137/69
[2018-10-03] MEDS: MORPHINE SULFATE 4 MG/ML SYR/VIAL IV PRN ×2 (13:35→14:13)
--- NOTE | 2018-10-03 14:00 | NUR ---
PHYSICAL THERAPY PT AMBULATED IN HALLWAY WITH FWW, PT AT SIDE FOR STANDBY ASSIST. PT RETURNED TO BED W/O INCIDENT.
--- NOTE | 2018-10-03 14:13 | NUR ---
IV insertion IV access obtained, via clean sterile technique by inserting 22 gauge catheter at left thumb after 1 attempt(s) by metallurgical engineering technician, Hanna. IV secured properly. No trauma to site. Patient tolerated well. NOTE: Previous IV to LUE removed, catheter intact, pressure dressing applied.
[2018-10-03 17:00] VITALS: BP 131/74
[2018-10-03] MEDS: LORazepam 0.5 MG TAB PO PRN (17:17)
--- NOTE | 2018-10-03 18:50 | NUR ---
Respiratory note: PT STATES THAT IF SHE ASLEEP DURING NEXT SCHEDULED MED NEB, SHE WANTS TO REFUSE
--- NOTE | 2018-10-03 19:15 | NUR ---
Opening Shift Note Assumed care of patient from day shift RN Stefanie. Pt is awake and alert and oriented x4. Pt on 2L NC, respirations even equal and unlabored. No S/S of distress/SOB or pain. Safety maintained with bed rails upx2, locked and in lowest position with call carroll within reach. Instructed on POC and to call for assist PRN, will continue to monitor for changes Q1hr and PRN.
[2018-10-03] MEDS: ATORVASTATIN 20 MG TAB PO SCH (21:10)
[2018-10-03 21:36] VITALS: BP 118/63
[2018-10-04] MEDS: traMADol HCL 50 MG TAB PO PRN ×3 (00:20→15:56)
[2018-10-04] MEDS: LEVALBUTEROL HCL 1.25 MG/3 ML NEB NEB SCH ×3 (05:31→18:31)
[2018-10-04] MEDS: IPRATROPIUM BROM 0.5 MG/2.5ML INH SOL NEB SCH ×3 (05:31→18:00)
[2018-10-04 05:48] VITALS: BP 133/67
--- NOTE | 2018-10-04 07:50 | NUR ---
Opening Shift Note Assumed care of patient, awake and alert AND ORIENTED X4. No S/S of distress/SOB or pain. Instructed on POC and to call for assist PRN, will continue to monitor for changes Q1hr and PRN. bed in the lowest position and locked and call light within reach.
[2018-10-04 08:00] VITALS: BP 143/77
[2018-10-04 09:00] VITALS: BP 143/77
[2018-10-04] MEDS: GABAPENTIN 300 MG CAP PO SCH ×2 (09:37→21:35)
[2018-10-04] MEDS: ASPirin 81 mg TAB PO SCH (09:37)
[2018-10-04] MEDS: LISINOPRIL 10 MG TAB PO SCH (09:38)
[2018-10-04] MEDS: PANTOPRAZOLE 40 MG TAB PO SCH (09:42)
[2018-10-04] MEDS ORDERED: predniSONE 20 MG TAB PO SCH (10:00)
[2018-10-04 13:00] VITALS: BP 132/69
--- NOTE | 2018-10-04 14:48 | NUR ---
assessment Patient is a 83 year old female who is alert and oriented. Patient informed me that prior to admission she lived at home alone and functioned with assistance of her caregiver. Per patient she uses home O2 and a fww for home use. Patient informed me that her PCP is Dr. Kim. Patient's [facility] caregiver is Erika. Patient informed me that she is to return back home to her prior living arrangements post discharge and her daughter Steph will transport her home. [facility] Patient will benefit from a resumption of care order on discharge. I informed the patient that she has a right to privacy. I informed the patient that she has a right to speak to a social sciences lecturer regarding her care and to participate in her discharge plan. Patient does not have an advanced directive. I informed the patient of the advantages and benefits of having an advanced directive. Patient verbalized understanding and agreed with her discharge plan home. Per consult hospice consult. Patient is thinking about hospice and will let me know. Addendum: 10/04/18 at 1449 by sAhely RIOS Amended: Links added.
--- NOTE | 2018-10-04 15:00 | NUR ---
PHYSICAL THERAPY PATIENT AMBULATING WITH PHYSICAL THERAPY. NO S/S OF DISTRESS NOTED. WILL CONTINUE TO MONITOR.
[2018-10-04 17:00] VITALS: BP 137/68
--- NOTE | 2018-10-04 17:03 | NUR ---
re-assessment Per patient she is refusing hospice and she is refusing SNF. Patient wants to return home with [facility]. Addendum: 10/04/18 at 1704 by Ashely RIOS Amended: Links added.
--- NOTE | 2018-10-04 18:31 | NUR ---
PT REFUSING HAILY NEB AT THIS TIME.
--- NOTE | 2018-10-04 18:38 | NUR ---
End of shift PATIENT RESTING IN BED. NO S/S OF DISTRESS, INSTRUCTED PT TO CALL PRN. BED IN LOWEST LOCKED POSITION, CALL LIGHT IN REACH. ENDORSED CARE TO NOC RN
--- NOTE | 2018-10-04 20:29 | NUR ---
open note assumed care of pt. upon entering room pt awake and alert. pt denied any pain at this time, no distress noted. pt updated on plan of care. no additional questions at this time. pt call light in reach, encouraged to call nurse station as needed. will round q1hr and prn.
[2018-10-04] MEDS: ATORVASTATIN 20 MG TAB PO SCH (21:34)
[2018-10-04 22:00] VITALS: BP 126/69
--- NOTE | 2018-10-05 00:01 | NUR ---
PT SLEEPING AND DOES NOT WANT TO BE WOKEN UP. REFUSED NEB TX AT THIS TIME.
[2018-10-05 05:09] VITALS: BP 141/71
[2018-10-05] MEDS: IPRATROPIUM BROM 0.5 MG/2.5ML INH SOL NEB SCH ×3 (06:40→12:11)
[2018-10-05] MEDS: LEVALBUTEROL HCL 1.25 MG/3 ML NEB NEB SCH ×3 (06:40→12:11)
--- NOTE | 2018-10-05 07:40 | NUR ---
opening Patient in bed, bed in lowest position, call light within reach. No distress noted at this time WIll f/u with morning assessment. per noc nurse md smith placed consult/orders to find hospice care for this patient. Will f/u on this order
[2018-10-05 08:00] VITALS: BP 146/70
[2018-10-05 08:16] VITALS: BP 146/70
[2018-10-05] MEDS: ASPirin 81 mg TAB PO SCH (09:56)
[2018-10-05] MEDS: PANTOPRAZOLE 40 MG TAB PO SCH (09:57)
[2018-10-05] MEDS: LISINOPRIL 10 MG TAB PO SCH (09:58)
[2018-10-05] MEDS: GABAPENTIN 300 MG CAP PO SCH (09:59)
[2018-10-05] MEDS ORDERED: predniSONE 20 MG TAB PO SCH (10:00)
[2018-10-05] MEDS: traMADol HCL 50 MG TAB PO PRN (10:14)
[2018-10-05 12:54] VITALS: BP 142/75
[2018-10-05 13:01] VITALS: BP 142/75
--- NOTE | 2018-10-05 14:53 | NUR ---
PER SS NOTE PATIENT IS RETURNING ON [facility], INSTEAD OF HOSPICE CARE.
== END 2018-10-05 16:30 | disposition home or self-care (01) | DRG 189 ==
LOC: EDUNIT# 12:20 → EDBD 12:20 → ER 12:28 → OVERFLOW 16:28 → CENTRAL 17:45
PROVIDERS: ADMIT Internal Medicine; ATTEND Internal Medicine
DX: J96.20 Acute and chronic respiratory failure, unspecified whether with hypoxia or hypercapnia (principal); J44.1 Chronic obstructive pulmonary disease with (acute) exacerbation; K44.9 Diaphragmatic hernia without obstruction or gangrene; F41.9 Anxiety disorder, unspecified; I11.0 Hypertensive heart disease with heart failure; I25.10 Atherosclerotic heart disease of native coronary artery without angina pectoris; Z86.73 Personal history of transient ischemic attack (TIA), and cerebral infarction without residual deficits; I48.91 Unspecified atrial fibrillation; I50.9 Heart failure, unspecified; K21.9 Gastro-esophageal reflux disease without esophagitis; Z82.3 Family history of stroke; F32.9 Major depressive disorder, single episode, unspecified; Z88.8 Allergy status to other drugs, medicaments and biological substances; Z88.1 Allergy status to other antibiotic agents; Z91.013 Allergy to seafood
CPT/HCPCS: 36415; 71045; 74018; 80048; 80053; 81001; 83735; 85025; 87081; 93005; 94640; 96374; 97116; 97530; G0378

== ENCOUNTER → 2018-12-15 | Outpatient (CLI) | payer MEDICARE ==
[2018-12-15 11:01] LABS: Alcohol, Urine < 3.0 mg/dL (0-5); Amphetamine Screen, Urine NEGATIVE (NEGATIVE); Barbiturate Scree,Urine NEGATIVE (NEGATIVE); Benzodiazephine Screen, Urine NEGATIVE (NEGATIVE); Cannabinoid Screen, Urine NEGATIVE (NEGATIVE); Cocaine Screen, Urine NEGATIVE (NEGATIVE); Opiate Scree,Urine NEGATIVE (NEGATIVE); Phencyclidine Screen, Urine NEGATIVE (NEGATIVE)
== END | disposition home or self-care (01) ==
LOC: LAB 10:29
PROVIDERS: ATTEND Internal Medicine
DX: F41.9 Anxiety disorder, unspecified (principal); M54.2 Cervicalgia; I11.0 Hypertensive heart disease with heart failure; I50.9 Heart failure, unspecified
CPT/HCPCS: 80307

== ENCOUNTER 2018-12-20 13:31 | Emergency (ER) | payer MEDICARE, MEDICAID ==
[~2018-12-20] VITALS: Ht 152.4 cm; Wt 42.6 kg
[2018-12-20] MEDS ORDERED: SODIUM CHLORIDE 0.9% 500 ML IV ONE (13:59)
[2018-12-20] MEDS ORDERED: methylPREDNISolone SOD SUCC 125 MG/2 ML VL IV ONE (14:00)
[2018-12-20 14:49] LABS: Basophils # (auto) 0.2 uL; Basophils % (auto) 2.8 % (0.0-2.0); Eosinophils # (auto) 0.2 uL; Eosinophils % (auto) 3.8 % (0.0-7.0); Hemoglobin 12.6 g/dL (12.2-16.2); Lymphocytes # (auto) 1.3 uL; Lymphocytes % (auto) 22.1 % (10.0-50.0); Mean Corpuscular Hemoglobin 30.8 pg (28.0-32.0); Mean Corpuscular Hgb Conc. 33.2 g/dL (32.0-36.0); Mean Corpuscular Volume 92.7 fL (80.0-100.0); Monocytes # (auto) 0.6 uL; Monocytes % (auto) 10.7 % (0.0-12.0); Neutrophils # (auto) 3.6 uL; Neutrophils % (auto) 60.6 % (37.0-80.0); Platelet Count (auto) 324 10^3/uL (140-450); Red Cell Distribution Width 15.8 % (11.8-14.3); White Blood Cell 5.9 10^3/uL (4.4-10.8)
[2018-12-20 15:08] LABS: Albumin 3.3 g/dL (3.4-5.0); Anion Gap 6 (5-15); Blood Urea Nitrogen 18 mg/dL (7-18); Carbon Dioxide 27 mmol/L (21-32); Chloride 108 mmol/L (98-107); Glucose 81 mg/dL (74-106); Magnesium 2.1 mg/dL (1.6-2.6); Potassium 3.8 mmol/L (3.5-5.1); Sodium 141 mmol/L (136-145)
[2018-12-20 15:15] LABS: Alanine Aminotransferase 20 U/L (13-56); Alkaline Phosphatase 51 U/L (45-117); Aspartate Aminotransferase 14 U/L (15-37); BUN/Creatinine Ratio 16.5; Bilirubin, Total 0.4 mg/dL (0.2-1.0); GFR African American 61 mL/min; GFR Non-African American 51 mL/min; INR 0.97 (0.9-1.15); Partial Thromboplastin Time 28.5 sec (23.64-32.05); Total Protein 6.2 g/dL (6.4-8.2)
[2018-12-20 16:04] VITALS: BP 121/55
== END 2018-12-20 16:40 | disposition home or self-care (01) ==
LOC: EDBD 13:31 → ER 13:38
DX: T67.5XXA Heat exhaustion, unspecified, initial encounter (principal); J44.9 Chronic obstructive pulmonary disease, unspecified; R55 Syncope and collapse; I11.0 Hypertensive heart disease with heart failure; I50.9 Heart failure, unspecified; K21.9 Gastro-esophageal reflux disease without esophagitis; E78.5 Hyperlipidemia, unspecified; I25.2 Old myocardial infarction; Z87.891 Personal history of nicotine dependence; Z86.73 Personal history of transient ischemic attack (TIA), and cerebral infarction without residual deficits; Z88.6 Allergy status to analgesic agent; Z88.8 Allergy status to other drugs, medicaments and biological substances; Z88.1 Allergy status to other antibiotic agents; Z91.013 Allergy to seafood; Z79.899 Other long term (current) drug therapy; X58.XXXA Exposure to other specified factors, initial encounter; Y93.89 Activity, other specified; Y92.89 Other specified places as the place of occurrence of the external cause; Y99.8 Other external cause status
CPT/HCPCS: 36415; 71045; 80053; 83735; 84484; 85025; 85610; 85730; 93005; 94761; 96361; 96374; 99284; J2930; J7040

== ENCOUNTER 2019-01-05 19:59 | Emergency (ER) | payer MEDICARE, MEDICAID | END 2019-01-05 21:07 | disposition left against medical advice (07) | LOC: ER 19:59 → EDBD 19:59 → ER 21:07 | DX: R53.1 Weakness (principal); Z53.21 Procedure and treatment not carried out due to patient leaving prior to being seen by health care provider ==

== ENCOUNTER 2019-03-21 10:58 | Emergency (ER) | payer MEDICARE, MEDICAID ==
[~2019-03-21] VITALS: Ht 152.4 cm; Wt 42.6 kg
[~2019-03-21 10:58] MED LIST changes: -SIMV-8 PO; +TRAM50TA2 PO
[2019-03-21] MEDS ORDERED: methylPREDNISolone SOD SUCC 125 MG/2 ML VL IM ONE (11:45)
[2019-03-21 13:10] VITALS: BP 158/60
== END 2019-03-21 14:34 | disposition home or self-care (01) ==
LOC: ER 10:58
DX: I16.0 Hypertensive urgency (principal); J44.1 Chronic obstructive pulmonary disease with (acute) exacerbation; I11.0 Hypertensive heart disease with heart failure; I50.9 Heart failure, unspecified; K21.9 Gastro-esophageal reflux disease without esophagitis; E78.5 Hyperlipidemia, unspecified; I25.2 Old myocardial infarction; Z87.891 Personal history of nicotine dependence; Z86.73 Personal history of transient ischemic attack (TIA), and cerebral infarction without residual deficits; Z88.9 Allergy status to unspecified drugs, medicaments and biological substances; Z88.6 Allergy status to analgesic agent; Z91.013 Allergy to seafood; Z79.899 Other long term (current) drug therapy
CPT/HCPCS: 71046; 93005; 96372; 99283; J2930

== ENCOUNTER → 2019-05-26 | Outpatient (CLI) | payer MEDICARE, MEDICAID ==
[~2019-05-26] MED LIST changes: +FURO20TA3 PO; +TIOT1AER IN; +UMEC1AER IN
== END | disposition home or self-care (01) ==
LOC: LAB 10:52
PROVIDERS: ATTEND Internal Medicine
DX: R22.1 Localized swelling, mass and lump, neck (principal)
CPT/HCPCS: 36415; 82565; 84520

== ENCOUNTER → 2019-07-12 | Outpatient (CLI) | payer MEDICARE ==
[~2019-07-12] MED LIST changes: -IPRIH IN; -LEVA1AER IN; -LEVA1NEB5 NEB
== END | disposition home or self-care (01) ==
LOC: LAB 10:48
PROVIDERS: ATTEND Internal Medicine
DX: Z01.818 Encounter for other preprocedural examination (principal)
CPT/HCPCS: 36415; 82565; 84520

== ENCOUNTER → 2019-09-13 | Outpatient (CLI) | payer MEDICARE, MEDICAID ==
[2019-09-13 11:28] LABS: Basophils # (auto) 0 10 ^3/uL (0-0.2); Basophils % (auto) 0.6 % (0.0-2.0); Eosinophils # (auto) 0.5 10 ^3/uL (0-0.8); Eosinophils % (auto) 7.6 % (0.0-7.0); Hematocrit 44.6 % (36.0-46.0); Lymphocytes # (auto) 1.4 10 ^3/uL (0.4-5.4); Lymphocytes % (auto) 19.5 % (10.0-50.0); Mean Corpuscular Hemoglobin 32.3 pg (28.0-32.0); Mean Corpuscular Hgb Conc. 33.6 g/dL (32.0-36.0); Mean Corpuscular Volume 96.2 fL (80.0-100.0); Monocytes # (auto) 0.7 10 ^3/uL (0-1.3); Neutrophils # (auto) 4.4 10 ^3/uL (1.6-8.6); Neutrophils % (auto) 62.3 % (37.0-80.0); Platelet Count (auto) 293 10^3/uL (140-450); Red Blood Cells 4.64 10^6/uL (4.0-5.20); Red Cell Distribution Width 13.8 % (11.8-14.3); White Blood Cell 7.1 10^3/uL (4.4-10.8)
[2019-09-13 11:45] LABS: BUN/Creatinine Ratio 18.1; Calcium 9.1 mg/dL (8.5-10.1); Potassium 3.8 mmol/L (3.5-5.1)
== END | disposition home or self-care (01) ==
LOC: LAB 11:05
PROVIDERS: ATTEND Internal Medicine
DX: I25.119 Atherosclerotic heart disease of native coronary artery with unspecified angina pectoris (principal); I10 Essential (primary) hypertension
CPT/HCPCS: 36415; 80048; 85025

== ENCOUNTER 2019-10-16 12:03 | Emergency (ER) | payer MEDICARE, MEDICAID ==
[~2019-10-16] VITALS: Ht 152.4 cm; Wt 45.4 kg
[2019-10-16 12:22] VITALS: BP 121/83
[2019-10-16] MEDS ORDERED: methylPREDNISolone SOD SUCC 125 MG/2 ML VL IM ONE (13:30)
[2019-11-10] MEDS ORDERED: LORA1TAB23 PO (12:53)
[2019-11-10] MEDS ORDERED: LISI-648 PO (12:59)
== END 2019-10-16 14:39 | disposition home or self-care (01) ==
LOC: ER 12:03
DX: R21 Rash and other nonspecific skin eruption (principal); L08.9 Local infection of the skin and subcutaneous tissue, unspecified
CPT/HCPCS: 96372; 99283; J2930

== ENCOUNTER 2019-11-09 18:37 | Inpatient (IN) | payer MEDICARE, MEDICAID ==
[~2019-11-09] VITALS: Ht 165.1 cm; Wt 48.5 kg
[2019-11-09] MEDS ORDERED: IPRATROPIUM BROM 0.5 MG/2.5ML INH SOL NEB ONE (19:15)
[2019-11-09] MEDS ORDERED: ALBUTEROL SULF 2.5 MG/0.5ML(0.5%) NEB SOLN NEB ONE (19:15)
[2019-11-09 19:43] LABS: Basophils # (auto) 0.1 10 ^3/uL (0-0.2); Eosinophils # (auto) 0.5 10 ^3/uL (0-0.8); Eosinophils % (auto) 5.5 % (0.0-7.0); Hematocrit 42.9 % (36.0-46.0); Hemoglobin 14.2 g/dL (12.2-16.2); Lymphocytes # (auto) 1.1 10 ^3/uL (0.4-5.4); Mean Corpuscular Hemoglobin 32.5 pg (28.0-32.0); Mean Corpuscular Hgb Conc. 33.1 g/dL (32.0-36.0); Mean Corpuscular Volume 98.1 fL (80.0-100.0); Monocytes # (auto) 0.7 10 ^3/uL (0-1.3); Monocytes % (auto) 7.4 % (0.0-12.0); Neutrophils # (auto) 6.7 10 ^3/uL (1.6-8.6); Neutrophils % (auto) 74.1 % (37.0-80.0); Platelet Count (auto) 321 10^3/uL (140-450); Red Blood Cells 4.37 10^6/uL (4.0-5.20); Red Cell Distribution Width 13.5 % (11.8-14.3); White Blood Cell 9.1 10^3/uL (4.4-10.8)
[2019-11-09] MEDS ORDERED: LEVALBUTEROL HCL 1.25 MG/3 ML NEB NEB ONE (19:45)
[2019-11-09 19:59] LABS: Alanine Aminotransferase 28 U/L (13-56); Albumin 3.2 g/dL (3.4-5.0); Anion Gap 4 (5-15); Aspartate Aminotransferase 23 U/L (15-37); BUN/Creatinine Ratio 14.6; Blood Urea Nitrogen 13 mg/dL (7-18); Calcium 8.6 mg/dL (8.5-10.1); Carbon Dioxide 28 mmol/L (21-32); Chloride 106 mmol/L (98-107); GFR African American 77 mL/min; GFR Non-African American 64 mL/min; Glucose 84 mg/dL (74-106); Potassium 4.1 mmol/L (3.5-5.1); Sodium 138 mmol/L (136-145)
[2019-11-09 20:00] LABS: Partial Thromboplastin Time 27.7 sec (23.64-32.05)
[2019-11-09 20:03] LABS: Alkaline Phosphatase 58 U/L (45-117); Bilirubin, Total 0.4 mg/dL (0.2-1.0); Total Protein 6.6 g/dL (6.4-8.2)
[2019-11-09] MEDS ORDERED: ACETAMINOPHEN 325 MG TAB PO PRN (21:30)
[2019-11-09] MEDS ORDERED: cloNIDine HCL 0.1 MG TAB PO PRN (21:30)
[2019-11-09] MEDS ORDERED: TEMAZEPAM 15 MG CAP PO PRN (21:30)
[2019-11-09] MEDS ORDERED: MORPHINE SULF INJ 2 MG/ML SYRINGE 1ML IV PRN (21:30)
[2019-11-09] MEDS ORDERED: NITROGLYCERIN 0.4 MG SL TAB SL PRN (21:30)
[2019-11-09] MEDS ORDERED: ONDANSETRON HCL 4 MG/2 ML VIAL IV PRN (21:30)
[2019-11-09] MEDS ORDERED: IOHEXOL 350 MG/ML 100ML IJ ONE (21:56)
[2019-11-09] MEDS ORDERED: FAMOTIDINE 20 MG TAB PO SCH (22:00)
[2019-11-09] MEDS: GABAPENTIN 300 MG CAP PO SCH (22:28)
[2019-11-09] MEDS: FAMOTIDINE 20 MG TAB PO SCH (22:28)
[2019-11-09 22:30] VITALS: BP 142/72
--- NOTE | 2019-11-09 22:40 | NUR ---
Telemetry admit from ER DARYATERESITA admitted to Telemetry unit after SBAR received. Patient oriented to Cheryl Austin primary RN, unit, room, bed, and unit policies regarding patient care and visiting hours. Patient now on continuous telemetry monitoring, tele box # 75 and telemetry reading on arrival to unit is SR 75. Patient placed on bedside oxygen 2L, weighed by bedscale and encouraged to call if they need something. All questions and concerns addressed, patient verbalized understanding.
[2019-11-10] VITALS (8 sets, daily range): BP systolic 110–142; BP diastolic 53–72
--- NOTE | 2019-11-10 | NUR ---
MD nichols Patient takes Ativan 1mg TID PRN. Calling MD for order. Will wait for call back.
--- NOTE | 2019-11-10 01:00 | NUR ---
SOW FARM BARN TECHNICIAN called. No new orders at this time. Restoril to be given if needed. Will continue to monitor patient.
[2019-11-10] MEDS: IPRATROPIUM BROM 0.5 MG/2.5ML INH SOL NEB SCH ×4 (06:00→18:00)
[2019-11-10 06:39] LABS: Basophils # (auto) 0.1 10 ^3/uL (0-0.2); Basophils % (auto) 1.3 % (0.0-2.0); Eosinophils # (auto) 0.6 10 ^3/uL (0-0.8); Eosinophils % (auto) 9.8 % (0.0-7.0); Hematocrit 40.3 % (36.0-46.0); Hemoglobin 13.4 g/dL (12.2-16.2); Lymphocytes # (auto) 0.9 10 ^3/uL (0.4-5.4); Lymphocytes % (auto) 13.7 % (10.0-50.0); Mean Corpuscular Hemoglobin 32.4 pg (28.0-32.0); Mean Corpuscular Hgb Conc. 33.3 g/dL (32.0-36.0); Mean Corpuscular Volume 97.4 fL (80.0-100.0); Monocytes # (auto) 0.8 10 ^3/uL (0-1.3); Monocytes % (auto) 12.1 % (0.0-12.0); Neutrophils % (auto) 63.1 % (37.0-80.0); Nucleated Red Blood Cells % 0.1 %; Platelet Count (auto) 294 10^3/uL (140-450); Red Blood Cells 4.14 10^6/uL (4.0-5.20); Red Cell Distribution Width 13.4 % (11.8-14.3); White Blood Cell 6.3 10^3/uL (4.4-10.8)
[2019-11-10 06:58] LABS: BUN/Creatinine Ratio 15.2; Calcium 8.4 mg/dL (8.5-10.1); Potassium 3.6 mmol/L (3.5-5.1)
--- NOTE | 2019-11-10 07:30 | NUR ---
Opening Note Received report from power and recovery shift engineer RN. Patient resting in bed with eyes closed, no signs or symptoms of distress noted at this time. Patient is 2L O2 via NC, respirations even and unlabored. Bed in low and locked position, call light within reach. Will continue to monitor Q1 hour and PRN.
[2019-11-10] MEDS: LEVALBUTEROL HCL 1.25 MG/3 ML NEB NEB SCH ×2 (08:03→12:48)
[2019-11-10] MEDS: METOPROLOL SUCCINATE XL 50 MG TAB PO SCH (10:00)
[2019-11-10] MEDS: LISINOPRIL 10 MG TAB PO SCH (10:00)
[2019-11-10] MEDS ORDERED: ENOXAPARIN SOD 40 MG/0.4 ML SYRINGE SC SCH (10:00)
[2019-11-10] MEDS: FAMOTIDINE 20 MG TAB PO SCH (10:00)
[2019-11-10] MEDS: GABAPENTIN 300 MG CAP PO SCH ×3 (10:23→21:56)
[2019-11-10] MEDS: FUROSEMIDE 20 MG TAB PO SCH (10:23)
[2019-11-10] MEDS: ASPirin 81 mg TAB PO SCH (10:24)
[2019-11-10] MEDS ORDERED: LORA1TAB12 PO (12:53)
[2019-11-10] MEDS ORDERED: DENO60SO SC (12:57)
[2019-11-10] MEDS ORDERED: LISI10TA6 PO (12:59)
[2019-11-10] MEDS ORDERED: OMEP-260 PO (13:04)
--- NOTE | 2019-11-10 15:00 | NUR ---
paged Dr Mark nichols. Patient requesting Ativan 1mg PO TID PRN as per home medications. Patient also requesting Gabapentin 300mg QID as per home medications. New orders received at this time for Ativan 1 mg PO TID PRN and Gabapentin 300 mg PO QID. Will implement orders and continue care.
--- NOTE | 2019-11-10 16:00 | NUR ---
Urine collected and sent to lab.
[2019-11-10 16:06] LABS: Urine Bacteria NONE SEEN /hpf (None Seen); Urine Blood Negative /uL (Negative); Urine Specific Gravity 1.013 (1.001-1.035); Urine WBC <1 /hpf (0 - 5)
[2019-11-10] MEDS ORDERED: LORazepam 0.5 MG TAB PO PRN (16:15)
--- NOTE | 2019-11-10 18:35 | NUR ---
Respiratory note: PT REFUSED MED NEB TX AT THIS TIME. PT MADE AWARE TO HAVE RT PAGED IF NEEDED. PT PRESENTING NO RESPIRATORY DISTRESS AT THIS TIME. WILL CONTINUE TO MONITOR.
--- NOTE | 2019-11-10 19:00 | NUR ---
Opening Shift Note Assumed care of patient, awake and alert. No S/S of distress/SOB or pain at this time. Patient in lowest possible position with bed rails up x2 and call light within reach. Instructed on POC and to call for assist PRN, will continue to monitor for changes Q1hr and PRN.
[2019-11-11 05:00] VITALS: BP 116/70
[2019-11-11] MEDS: GABAPENTIN 300 MG CAP PO SCH ×2 (05:19→12:56)
--- NOTE | 2019-11-11 07:00 | NUR ---
Opening Shift Note Received report on the patient. Awake lying in bed. Patient shows no signs of distress at this time. Discussed plan of care with the patient. Bed in lowest position, side rails up x2, and the call light is within reach.
[2019-11-11] MEDS: IPRATROPIUM BROM 0.5 MG/2.5ML INH SOL NEB SCH ×2 (08:03)
--- NOTE | 2019-11-11 08:03 | NUR ---
PT. REFUSED MN. TX. THIS AM. PT. STATED THAT SHE DOESN'T TAKE THEM ANYMORE, AND THAT SHE TAKES ONLY AN INHALER AT HOME ONCE A DAY. NO RESP. DISTRESS OR SOB NOTED. HR=65,RR=18,SP02=97% ON 3LPM NC. NO TX. GIVEN AT THIS TIME. Addendum: 11/11/19 at 0809 by Melony Avilez RT Amended: Links added.
[2019-11-11 09:00] VITALS: BP 114/72
[2019-11-11] MEDS: METOPROLOL SUCCINATE XL 50 MG TAB PO SCH (10:00)
[2019-11-11] MEDS: FAMOTIDINE 20 MG TAB PO SCH (10:00)
[2019-11-11] MEDS: ASPirin 81 mg TAB PO SCH (10:10)
[2019-11-11] MEDS: FUROSEMIDE 20 MG TAB PO SCH (10:13)
[2019-11-11] MEDS: LISINOPRIL 10 MG TAB PO SCH (10:45)
[2019-11-11 13:00] VITALS: BP 112/58
[2019-11-11 13:05] VITALS: BP 112/58
[2019-11-11] MEDS ORDERED: GABAPENTIN 300 MG CAP PO SCH (22:00)
== END 2019-11-11 14:20 | disposition home or self-care (01) | DRG 190 ==
LOC: EDBD 18:37 → ER 18:37 → TELE 18:38 → TELE-WESTW 22:32
PROVIDERS: ADMIT Nurse Practitioner; ATTEND Internal Medicine
DX: J44.1 Chronic obstructive pulmonary disease with (acute) exacerbation (principal); J18.9 Pneumonia, unspecified organism; J45.901 Unspecified asthma with (acute) exacerbation; J96.10 Chronic respiratory failure, unspecified whether with hypoxia or hypercapnia; J44.0 Chronic obstructive pulmonary disease with (acute) lower respiratory infection; I10 Essential (primary) hypertension; F32.9 Major depressive disorder, single episode, unspecified; K21.9 Gastro-esophageal reflux disease without esophagitis; I25.10 Atherosclerotic heart disease of native coronary artery without angina pectoris; E78.5 Hyperlipidemia, unspecified; F41.9 Anxiety disorder, unspecified; Z82.49 Family history of ischemic heart disease and other diseases of the circulatory system; Z82.5 Family history of asthma and other chronic lower respiratory diseases; Z86.73 Personal history of transient ischemic attack (TIA), and cerebral infarction without residual deficits; Z87.11 Personal history of peptic ulcer disease; Z82.62 Family history of osteoporosis; Z88.1 Allergy status to other antibiotic agents; Z88.8 Allergy status to other drugs, medicaments and biological substances
CPT/HCPCS: 36415; 71045; 71275; 80048; 80053; 81001; 83605; 83880; 84484; 85025; 85379; 85610; 85730; 87040; 93005; G0378; J2405

== ENCOUNTER 2019-11-21 11:18 | Emergency (ER) | payer MEDICARE, MEDICAID ==
[~2019-11-21] VITALS: Ht 152.4 cm; Wt 42.6 kg
[~2019-11-21 11:18] MED LIST changes: +DENO60SO SC; -LISI-275 PO; +LISI-648 PO; -LORA-655 PO; +LORA1TAB23 PO; +OMEP-260 PO; -OMEP20CA74 PO; -TRAM50TA2 PO; -UMEC1AER IN
[2019-11-21 12:13] LABS: Basophils # (auto) 0.1 10 ^3/uL (0-0.2); Eosinophils # (auto) 0.4 10 ^3/uL (0-0.8); Monocytes # (auto) 1.1 10 ^3/uL (0-1.3)
[2019-11-21 12:15] LABS: Basophils % (auto) 0.7 % (0.0-2.0); Eosinophils % (auto) 3.8 % (0.0-7.0); Hematocrit 43.2 % (36.0-46.0); Hemoglobin 14.6 g/dL (12.2-16.2); Lymphocytes # (auto) 1.5 10 ^3/uL (0.4-5.4); Lymphocytes % (auto) 15.3 % (10.0-50.0); Mean Corpuscular Hemoglobin 32.7 pg (28.0-32.0); Mean Corpuscular Hgb Conc. 33.7 g/dL (32.0-36.0); Mean Corpuscular Volume 97.1 fL (80.0-100.0); Monocytes % (auto) 10.5 % (0.0-12.0); Neutrophils % (auto) 69.7 % (37.0-80.0); Nucleated Red Blood Cells % 0.1 %; Platelet Count (auto) 560 10^3/uL (140-450); Red Blood Cells 4.45 10^6/uL (4.0-5.20); Red Cell Distribution Width 13.4 % (11.8-14.3)
[2019-11-21 12:26] LABS: Albumin 2.9 g/dL (3.4-5.0); BUN/Creatinine Ratio 22.2; Potassium 3.8 mmol/L (3.5-5.1)
[2019-11-21 12:29] LABS: Bilirubin, Total 0.4 mg/dL (0.2-1.0); Total Protein 6.5 g/dL (6.4-8.2)
[2019-11-21 14:36] VITALS: BP 135/62
== END 2019-11-21 14:38 | disposition home or self-care (01) ==
LOC: ER 11:18
DX: L03.115 Cellulitis of right lower limb (principal); J44.9 Chronic obstructive pulmonary disease, unspecified; I10 Essential (primary) hypertension; I25.2 Old myocardial infarction; E78.5 Hyperlipidemia, unspecified; Z90.89 Acquired absence of other organs; Z98.61 Coronary angioplasty status; Z88.1 Allergy status to other antibiotic agents; Z88.8 Allergy status to other drugs, medicaments and biological substances; Z91.013 Allergy to seafood
CPT/HCPCS: 36415; 80053; 83880; 85025; 93005

== ENCOUNTER → 2019-11-25 | Outpatient (CLI) | payer MEDICARE, MEDICAID ==
[~2019-11-25] MED LIST changes: -LISI-648 PO; +LISI10TA6 PO; +LORA1TAB12 PO; -LORA1TAB23 PO
[2019-11-25 16:05] LABS: Basophils # (auto) 0.1 10 ^3/uL (0-0.2); Basophils % (auto) 1.1 % (0.0-2.0); Eosinophils # (auto) 0.3 10 ^3/uL (0-0.8); Hematocrit 40.6 % (36.0-46.0); Hemoglobin 13.4 g/dL (12.2-16.2); Lymphocytes # (auto) 1.1 10 ^3/uL (0.4-5.4); Lymphocytes % (auto) 12.1 % (10.0-50.0); Mean Corpuscular Hemoglobin 32.1 pg (28.0-32.0); Mean Corpuscular Hgb Conc. 33.1 g/dL (32.0-36.0); Monocytes # (auto) 0.9 10 ^3/uL (0-1.3); Monocytes % (auto) 9.9 % (0.0-12.0); Neutrophils % (auto) 73.9 % (37.0-80.0); Platelet Count (auto) 432 10^3/uL (140-450); Red Blood Cells 4.19 10^6/uL (4.0-5.20); Red Cell Distribution Width 13.6 % (11.8-14.3); White Blood Cell 9.4 10^3/uL (4.4-10.8)
== END | disposition home or self-care (01) ==
LOC: LAB 15:45
PROVIDERS: ATTEND Internal Medicine
DX: D47.3 Essential (hemorrhagic) thrombocythemia (principal); M25.473 Effusion, unspecified ankle
CPT/HCPCS: 36415; 84550; 85025; 86200; 86431

== ENCOUNTER → 2019-11-27 | Emergency (ER) | payer MEDICARE, MEDICAID ==
[~2019-11-27] VITALS: Ht 152.4 cm; Wt 43.1 kg
[~2019-11-27] MED LIST changes: +IPRATROPIUM BROM 0.5 MG/2.5ML INH SOL NEB ONE; +SODIUM CHLORIDE 0.9% 1,000 ML IV ONE; +cefTRIAXone 1GM/50ML D5W 50 ML IV ONE; +methylPREDNISolone SOD SUCC 125 MG/2 ML VL IV ONE
[2019-11-27 08:54] LABS: Basophils # (auto) 0.1 10 ^3/uL (0-0.2); Basophils % (auto) 0.6 % (0.0-2.0); Eosinophils # (auto) 0.2 10 ^3/uL (0-0.8); Hematocrit 43.9 % (36.0-46.0); Hemoglobin 14.3 g/dL (12.2-16.2); Lymphocytes # (auto) 0.9 10 ^3/uL (0.4-5.4); Lymphocytes % (auto) 4.3 % (10.0-50.0); Mean Corpuscular Hgb Conc. 32.5 g/dL (32.0-36.0); Mean Corpuscular Volume 98.2 fL (80.0-100.0); Monocytes # (auto) 1.1 10 ^3/uL (0-1.3); Monocytes % (auto) 5.4 % (0.0-12.0); Neutrophils # (auto) 17.7 10 ^3/uL (1.6-8.6); Neutrophils % (auto) 88.7 % (37.0-80.0); Platelet Count (auto) 444 10^3/uL (140-450); Red Blood Cells 4.46 10^6/uL (4.0-5.20); Red Cell Distribution Width 13.5 % (11.8-14.3)
[2019-11-27 09:17] LABS: Albumin 2.9 g/dL (3.4-5.0); Anion Gap 5 (5-15); Blood Urea Nitrogen 11 mg/dL (7-18); Calcium 8.6 mg/dL (8.5-10.1); Carbon Dioxide 27 mmol/L (21-32); Chloride 106 mmol/L (98-107); Glucose 106 mg/dL (74-106); Sodium 138 mmol/L (136-145)
[2019-11-27 09:23] LABS: Alanine Aminotransferase 22 U/L (13-56); Alkaline Phosphatase 69 U/L (45-117); Aspartate Aminotransferase 23 U/L (15-37); BUN/Creatinine Ratio 12.4; Bilirubin, Total 0.5 mg/dL (0.2-1.0); GFR African American 77 mL/min; GFR Non-African American 64 mL/min; Total Protein 6.3 g/dL (6.4-8.2)
[2019-11-27 12:54] LABS: Urine Bacteria NONE SEEN /hpf (None Seen); Urine Blood Negative /uL (Negative); Urine Specific Gravity 1.008 (1.001-1.035); Urine WBC 3 /hpf (0 - 5)
[2019-11-27 14:00] VITALS: BP 120/56
== END | disposition home or self-care (01) ==
LOC: EDUNIT# 08:01 → EDBD 08:09 → ER 08:09
DX: J44.1 Chronic obstructive pulmonary disease with (acute) exacerbation (principal); K44.9 Diaphragmatic hernia without obstruction or gangrene; E44.0 Moderate protein-calorie malnutrition; D72.828 Other elevated white blood cell count; I25.10 Atherosclerotic heart disease of native coronary artery without angina pectoris; K21.9 Gastro-esophageal reflux disease without esophagitis; E78.5 Hyperlipidemia, unspecified; I10 Essential (primary) hypertension; I25.2 Old myocardial infarction
CPT/HCPCS: 36415; 71045; 80053; 81001; 83735; 84443; 84484; 85025; 87040; 93005; 94640; 96365; 96375; 99285; J0696; J2930; J7644

== ENCOUNTER → 2019-11-28 | Outpatient (CLI) | payer MEDICARE ==
[~2019-11-28] MED LIST changes: -IPRATROPIUM BROM 0.5 MG/2.5ML INH SOL NEB ONE; -SODIUM CHLORIDE 0.9% 1,000 ML IV ONE; -cefTRIAXone 1GM/50ML D5W 50 ML IV ONE; -methylPREDNISolone SOD SUCC 125 MG/2 ML VL IV ONE
[2019-11-28 15:16] LABS: Eosinophils # (auto) 0 10 ^3/uL (0-0.8); Eosinophils % (auto) 0.2 % (0.0-7.0); Lymphocytes # (auto) 1.4 10 ^3/uL (0.4-5.4); Lymphocytes % (auto) 7.1 % (10.0-50.0)
[2019-11-28 15:17] LABS: Basophils # (auto) 0.1 10 ^3/uL (0-0.2); Basophils % (auto) 0.6 % (0.0-2.0); Hematocrit 39.9 % (36.0-46.0); Mean Corpuscular Hemoglobin 31.7 pg (28.0-32.0); Mean Corpuscular Hgb Conc. 32.7 g/dL (32.0-36.0); Monocytes # (auto) 1.3 10 ^3/uL (0-1.3); Monocytes % (auto) 6.3 % (0.0-12.0); Neutrophils # (auto) 17.1 10 ^3/uL (1.6-8.6); Neutrophils % (auto) 85.8 % (37.0-80.0); Platelet Count (auto) 479 10^3/uL (140-450); Red Blood Cells 4.12 10^6/uL (4.0-5.20); Red Cell Distribution Width 13.7 % (11.8-14.3); White Blood Cell 19.9 10^3/uL (4.4-10.8)
[2019-11-28 15:35] LABS: Urine Bacteria NONE SEEN /hpf (None Seen); Urine Blood Negative /uL (Negative); Urine Specific Gravity 1.017 (1.001-1.035); Urine WBC 1 /hpf (0 - 5)
== END | disposition home or self-care (01) ==
LOC: LAB 14:59
PROVIDERS: ATTEND Internal Medicine
DX: J44.9 Chronic obstructive pulmonary disease, unspecified (principal); M25.579 Pain in unspecified ankle and joints of unspecified foot; I10 Essential (primary) hypertension
CPT/HCPCS: 36415; 81001; 85025

== ENCOUNTER → 2020-01-11 | Emergency (ER) | payer MEDICARE, MEDICAID ==
[~2020-01-11] VITALS: Ht 154.9 cm; Wt 42.6 kg
[~2020-01-11] MED LIST changes: +ALBUTEROL SULF 2.5 MG/0.5ML(0.5%) NEB SOLN ONE; +AZITHROMYCIN 500MG/ 250ML 250 ML IV ONE; +LISI-648 PO; -LISI10TA6 PO; -LORA1TAB12 PO; +LORA1TAB23 PO; +LORazepam 0.5 MG TAB PO ONE; +methylPREDNISolone SOD SUCC 125 MG/2 ML VL IV ONE
[2020-01-11 11:24] LABS: Basophils # (auto) 0.1 10 ^3/uL (0-0.2); Basophils % (auto) 1.2 % (0.0-2.0); Eosinophils # (auto) 0.2 10 ^3/uL (0-0.8); Eosinophils % (auto) 3.8 % (0.0-7.0); Hemoglobin 13.8 g/dL (12.2-16.2); Lymphocytes # (auto) 1.1 10 ^3/uL (0.4-5.4); Lymphocytes % (auto) 16.6 % (10.0-50.0); Mean Corpuscular Hemoglobin 31.9 pg (28.0-32.0); Mean Corpuscular Hgb Conc. 32.8 g/dL (32.0-36.0); Mean Corpuscular Volume 97.3 fL (80.0-100.0); Monocytes # (auto) 0.6 10 ^3/uL (0-1.3); Monocytes % (auto) 9.2 % (0.0-12.0); Neutrophils # (auto) 4.5 10 ^3/uL (1.6-8.6); Neutrophils % (auto) 69.2 % (37.0-80.0); Nucleated Red Blood Cells % 0.2 %; Platelet Count (auto) 318 10^3/uL (140-450); Red Blood Cells 4.32 10^6/uL (4.0-5.20); Red Cell Distribution Width 13.5 % (11.8-14.3); White Blood Cell 6.5 10^3/uL (4.4-10.8)
[2020-01-11 11:38] LABS: Albumin 3.3 g/dL (3.4-5.0); Anion Gap 3 (5-15); Blood Urea Nitrogen 12 mg/dL (7-18); Calcium 8.9 mg/dL (8.5-10.1); Carbon Dioxide 30 mmol/L (21-32); Chloride 108 mmol/L (98-107); Glucose 85 mg/dL (74-106); Potassium 3.6 mmol/L (3.5-5.1); Sodium 141 mmol/L (136-145)
[2020-01-11 11:44] LABS: Alanine Aminotransferase 17 U/L (13-56); Alkaline Phosphatase 66 U/L (45-117); Aspartate Aminotransferase 16 U/L (15-37); BUN/Creatinine Ratio 12.5; Bilirubin, Total 0.5 mg/dL (0.2-1.0); GFR African American 71 mL/min; GFR Non-African American 59 mL/min; Total Protein 6.3 g/dL (6.4-8.2)
[2020-01-11 15:02] VITALS: BP 140/62
== END | disposition home or self-care (01) ==
LOC: EDBD 10:32 → ER 10:32 → EDUNIT# 10:32
DX: J44.1 Chronic obstructive pulmonary disease with (acute) exacerbation (principal); E44.1 Mild protein-calorie malnutrition; K44.9 Diaphragmatic hernia without obstruction or gangrene; F41.9 Anxiety disorder, unspecified; I25.10 Atherosclerotic heart disease of native coronary artery without angina pectoris; K21.9 Gastro-esophageal reflux disease without esophagitis; E78.5 Hyperlipidemia, unspecified; I10 Essential (primary) hypertension; I25.2 Old myocardial infarction; Z20.828 Contact with and (suspected) exposure to other viral communicable diseases; Z86.73 Personal history of transient ischemic attack (TIA), and cerebral infarction without residual deficits; Z87.11 Personal history of peptic ulcer disease; Z68.1 Body mass index [BMI] 19.9 or less, adult
CPT/HCPCS: 36415; 71045; 80053; 83735; 84443; 84484; 85025; 87426; 93005; 96365; 96366; 96375; 99285; J0456; J2930

== ENCOUNTER 2020-01-16 12:12 | Emergency (ER) | payer MEDICARE, MEDICAID ==
[~2020-01-16] VITALS: Ht 152.4 cm; Wt 43.1 kg
[~2020-01-16 12:12] MED LIST changes: -ALBUTEROL SULF 2.5 MG/0.5ML(0.5%) NEB SOLN ONE; -AZITHROMYCIN 500MG/ 250ML 250 ML IV ONE; -LORazepam 0.5 MG TAB PO ONE; -methylPREDNISolone SOD SUCC 125 MG/2 ML VL IV ONE
[2020-01-16 12:30] VITALS: BP 101/80
[2020-01-16 14:18] LABS: Basophils # (auto) 0.1 10 ^3/uL (0-0.2); Basophils % (auto) 0.6 % (0.0-2.0); Eosinophils # (auto) 0.3 10 ^3/uL (0-0.8); Eosinophils % (auto) 2.3 % (0.0-7.0); Hematocrit 46.8 % (36.0-46.0); Hemoglobin 14.9 g/dL (12.2-16.2); Lymphocytes # (auto) 1.4 10 ^3/uL (0.4-5.4); Lymphocytes % (auto) 12.2 % (10.0-50.0); Mean Corpuscular Hemoglobin 31.5 pg (28.0-32.0); Mean Corpuscular Hgb Conc. 31.9 g/dL (32.0-36.0); Mean Corpuscular Volume 98.8 fL (80.0-100.0); Monocytes # (auto) 0.8 10 ^3/uL (0-1.3); Monocytes % (auto) 7.1 % (0.0-12.0); Neutrophils % (auto) 77.8 % (37.0-80.0); Platelet Count (auto) 361 10^3/uL (140-450); Red Blood Cells 4.73 10^6/uL (4.0-5.20); Red Cell Distribution Width 13.6 % (11.8-14.3); White Blood Cell 11.6 10^3/uL (4.4-10.8)
[2020-01-16 14:44] LABS: Chloride 104 mmol/L (98-107); Potassium 3.7 mmol/L (3.5-5.1); Sodium 139 mmol/L (136-145)
[2020-01-16 14:48] LABS: Alanine Aminotransferase 21 U/L (13-56); Albumin 3.5 g/dL (3.4-5.0); Anion Gap 5 (5-15); Aspartate Aminotransferase 15 U/L (15-37); BUN/Creatinine Ratio 14.6; Blood Urea Nitrogen 14 mg/dL (7-18); Calcium 9.3 mg/dL (8.5-10.1); Carbon Dioxide 30 mmol/L (21-32); GFR African American 71 mL/min; GFR Non-African American 59 mL/min; Glucose 79 mg/dL (74-106)
[2020-01-16 14:50] LABS: Alkaline Phosphatase 63 U/L (45-117); Bilirubin, Total 0.9 mg/dL (0.2-1.0); Total Protein 6.7 g/dL (6.4-8.2)
[2020-01-16] MEDS ORDERED: SODIUM CHLORIDE 0.9% 1,000 ML IV ONE (14:54)
[2020-01-16] MEDS ORDERED: cefTRIAXone 1GM/50ML D5W 50 ML IV ONE (15:00)
== END 2020-01-16 15:27 | disposition left against medical advice (07) ==
LOC: ER 12:12
DX: R55 Syncope and collapse (principal); F41.9 Anxiety disorder, unspecified; E86.0 Dehydration; M19.90 Unspecified osteoarthritis, unspecified site; Z86.73 Personal history of transient ischemic attack (TIA), and cerebral infarction without residual deficits; Z88.6 Allergy status to analgesic agent; Z88.8 Allergy status to other drugs, medicaments and biological substances
CPT/HCPCS: 36415; 70450; 71045; 80053; 83880; 84484; 85025; 93005

== ENCOUNTER → 2020-02-16 | Outpatient (CLI) | payer MEDICARE, MEDICAID ==
[2020-02-16 18:09] LABS: Potassium 4.1 mmol/L (3.5-5.1)
[2020-02-16 18:42] LABS: Albumin 3.7 g/dL (3.4-5.0); BUN/Creatinine Ratio 15.4; Bilirubin, Total 0.6 mg/dL (0.2-1.0); Calcium 9.2 mg/dL (8.5-10.1); Total Protein 6.8 g/dL (6.4-8.2)
== END | disposition home or self-care (01) ==
LOC: LAB 10:37
PROVIDERS: ATTEND Internal Medicine
DX: E78.00 Pure hypercholesterolemia, unspecified (principal)
CPT/HCPCS: 36415; 80053; 80061

== ENCOUNTER → 2020-02-28 | Outpatient (CLI) | payer MEDICARE, MEDICAID ==
[~2020-02-28] MED LIST changes: +ALBUTEROL SULF 2.5 MG/0.5ML(0.5%) NEB SOLN ONE
== END | disposition home or self-care (01) ==
LOC: RT 08:02
PROVIDERS: ATTEND Internal Medicine
DX: J44.9 Chronic obstructive pulmonary disease, unspecified (principal)
CPT/HCPCS: 94060; 94618; 94727; 94729

== ENCOUNTER → 2020-03-01 | Outpatient (CLI) | payer MEDICARE, MEDICAID ==
[~2020-03-01] MED LIST changes: -ALBUTEROL SULF 2.5 MG/0.5ML(0.5%) NEB SOLN ONE
== END | disposition home or self-care (01) ==
LOC: XYW 09:07
PROVIDERS: ATTEND Internal Medicine
DX: I10 Essential (primary) hypertension (principal)
CPT/HCPCS: 93306

== ENCOUNTER → 2020-04-03 | Outpatient (CLI) | payer MEDICARE, MEDICAID ==
[~2020-04-03] VITALS: Ht 152.4 cm; Wt 40.8 kg
[~2020-04-03] MED LIST changes: +DOBUTamine 1000MCG/ML 100 ML IV ONE
[2020-04-03 12:22] VITALS: BP 150/69
[2020-04-03 12:23] VITALS: BP 150/69
== END | disposition home or self-care (01) ==
LOC: XY 08:24
PROVIDERS: ATTEND Internal Medicine
DX: I73.9 Peripheral vascular disease, unspecified (principal); I10 Essential (primary) hypertension; R07.89 Other chest pain
CPT/HCPCS: 78452; 93017; A9500; J1250

== ENCOUNTER → 2020-04-17 | Outpatient (CLI) | payer MEDICARE, MEDICAID ==
[~2020-04-17] MED LIST changes: -DOBUTamine 1000MCG/ML 100 ML IV ONE; +SIMV10TA84 PO
[2020-04-17 12:54] LABS: Basophils # (auto) 0.1 10 ^3/uL (0-0.2); Eosinophils # (auto) 0.4 10 ^3/uL (0-0.8); Eosinophils % (auto) 5.8 % (0.0-7.0); Hematocrit 44.6 % (36.0-46.0); Hemoglobin 14.6 g/dL (12.2-16.2); Lymphocytes # (auto) 1.1 10 ^3/uL (0.4-5.4); Lymphocytes % (auto) 18.3 % (10.0-50.0); Mean Corpuscular Hemoglobin 31.7 pg (28.0-32.0); Mean Corpuscular Hgb Conc. 32.9 g/dL (32.0-36.0); Mean Corpuscular Volume 96.5 fL (80.0-100.0); Monocytes # (auto) 0.6 10 ^3/uL (0-1.3); Neutrophils % (auto) 64.9 % (37.0-80.0); Nucleated Red Blood Cells % 0.1 %; Platelet Count (auto) 312 10^3/uL (140-450); Red Blood Cells 4.62 10^6/uL (4.0-5.20); Red Cell Distribution Width 13.5 % (11.8-14.3); White Blood Cell 6.1 10^3/uL (4.4-10.8)
[2020-04-17 13:20] LABS: INR 0.97 (0.9-1.15); Partial Thromboplastin Time 29.2 sec (23.0-31.2)
[2020-04-17 13:30] LABS: Albumin 3.7 g/dL (3.4-5.0); Calcium 9.4 mg/dL (8.5-10.1); Potassium 3.8 mmol/L (3.5-5.1)
[2020-04-17 13:35] LABS: BUN/Creatinine Ratio 16.8; Total Protein 7.3 g/dL (6.4-8.2)
== END | disposition home or self-care (01) ==
LOC: LAB 12:19
PROVIDERS: ATTEND Internal Medicine
DX: Z01.812 Encounter for preprocedural laboratory examination (principal); I10 Essential (primary) hypertension; I25.10 Atherosclerotic heart disease of native coronary artery without angina pectoris
CPT/HCPCS: 36415; 80053; 85025; 85610; 85730

== ENCOUNTER 2020-04-20 08:50 | Day surgery (SDC) | payer MEDICARE, MEDICAID ==
[~2020-04-20] VITALS: Ht 152.4 cm; Wt 44.5 kg
[~2020-04-20 08:50] MED LIST changes: -DENO60SO SC; -LISI-648 PO; -LORA1TAB23 PO; -OMEP-260 PO
[2020-04-20] MEDS ORDERED: LIDOCAINE 2%HCL (LOCAL ANESTH.) INJ 20ML MDV ONE (10:20)
[2020-04-20] MEDS ORDERED: IODIXANOL 320MG/ML 100ML BTL IV ONE ×2 (10:20→11:40)
[2020-04-20] MEDS ORDERED: HEPARIN SODIUM (PORCINE) 5000 UNITS/ML 1ML VIAL ONE (10:54)
[2020-04-20] MEDS ORDERED: ANGIOMAX 250 MG VIAL IV ONE (10:54)
[2020-04-20] MEDS ORDERED: MIDAZOLAM HCL 1MG/1ML-2 ML VIAL ONE (10:55)
[2020-04-20] MEDS ORDERED: fentaNYL CITRATE 100 MCG/2 ML VL ONE (10:55)
[2020-04-20] MEDS ORDERED: VERAPAMIL 2.5MG/ML INJ 2ML VIAL IV ONE (10:55)
[2020-04-20] MEDS ORDERED: SODIUM CHL 0.9% 0 ML ONE (10:55)
--- NOTE | 2020-04-20 11:55 | NUR ---
Pt. received in Managed Care Director Post-Op awake but drowsy, awakens easily and is oriented to person, place and event. Respirations even and unlabored. RIGHT groin soft with no hematoma or bleeding noted, dressing is CDI. RIGHT wrist pressure dressing also CDI with no bleeding or oozing noted; palpable RIGHT radial pulse, states has intermittent minimal numbness and tingling to RIGHT hand. Moves all extremities spontaneously but keeps RIGHT leg straight, as instructed. RT pedal pulses palpable @ DP and PT. IV to RIGHT forearm intact; site benign. Pt. instructed re: procedure outcome and plan of care; verbalized understanding and is compliant. Currently denies discomfort, NAD noted.
--- NOTE | 2020-04-20 12:23 | NUR ---
Asleep with even and deep respirations. RIGHT wrist and RIGHT groin unchanged. NAD noted.
--- NOTE | 2020-04-20 13:00 | NUR ---
Awakens easily, RIGHT groin and RIGHT wrist benign. Tolerates water well. NAD.
--- NOTE | 2020-04-20 13:22 | NUR ---
RIGHT groin dressing and RIGHT wrist dressing CDI. States feels "okay" and is anxious to go home. NAD noted.
[2020-04-20] MEDS ORDERED: ACETAMINOPHEN 325 MG TAB PO PRN (14:00)
--- NOTE | 2020-04-20 14:00 | NUR ---
HOB elevated elevated 30 degrees for comfort. RIGHT groin and RIGHT wrist unchanged.
--- NOTE | 2020-04-20 14:10 | NUR ---
C/O soreness at RIGHT wrist and asking for pain med. RIGHT radial pulse is palpable; pt. states has minimal numbness to RIGHT fingers but has full ROM to RIGHT hand and fingers, skin warm, dry and pink with quick capillary refill to nail beds.
[2020-04-20] MEDS ORDERED: ACETAMINOPHEN 325 MG TAB PO ONE (14:19)
--- NOTE | 2020-04-20 14:30 | NUR ---
Caregiver Shanna called re: pt. will be ready to be picked up soon; states she will arrive shortly. Caregiver verbalized understanding re: discharge instructions. Pt. also verbalized understanding re: sd/c instructions and states will comply and follow-up with Dr. Duong as instructed.
--- NOTE | 2020-04-20 14:40 | NUR ---
Discharged via w/c to POV driven by caregiver. Pt. discharged to home in stable condition; no problems anticipated.
== END 2020-04-20 14:40 | disposition home or self-care (01) ==
LOC: CATH 08:50
PROVIDERS: ATTEND Internal Medicine
DX: I25.708 Atherosclerosis of coronary artery bypass graft(s), unspecified, with other forms of angina pectoris (principal); I10 Essential (primary) hypertension; E78.5 Hyperlipidemia, unspecified; I25.2 Old myocardial infarction; M19.90 Unspecified osteoarthritis, unspecified site; J43.9 Emphysema, unspecified; I62.9 Nontraumatic intracranial hemorrhage, unspecified; Z20.828 Contact with and (suspected) exposure to other viral communicable diseases; Z98.890 Other specified postprocedural states; Z79.899 Other long term (current) drug therapy; Z95.5 Presence of coronary angioplasty implant and graft; Z87.891 Personal history of nicotine dependence; Z88.8 Allergy status to other drugs, medicaments and biological substances; Z88.1 Allergy status to other antibiotic agents
CPT/HCPCS: 93458; C1760; C1769; C1894; J1644; J2250; J3010; J7030; Q9967; U0003; 99152; 99153

== ENCOUNTER 2020-08-31 17:21 | Inpatient (IN) | payer MEDICARE, MEDICAID ==
[~2020-08-31] VITALS: Ht 162.6 cm; Wt 49.9 kg
[2020-08-31] MEDS ORDERED: levoFLOXacin 500MG 100 ML IV ONE (18:30)
[2020-08-31] MEDS ORDERED: methylPREDNISolone SOD SUCC 125 MG/2 ML VL IV ONE (18:30)
[2020-08-31] MEDS ORDERED: cefTRIAXone 1GM/50ML D5W 50 ML IV ONE (19:00)
[2020-08-31 19:42] LABS: Basophils # (auto) 0.1 10 ^3/uL (0-0.2); Eosinophils # (auto) 0.3 10 ^3/uL (0-0.8); Eosinophils % (auto) 3.2 % (0.0-7.0); Hematocrit 38.8 % (36.0-46.0); Hemoglobin 13.2 g/dL (12.2-16.2); Lymphocytes # (auto) 1.5 10 ^3/uL (0.4-5.4); Lymphocytes % (auto) 16.8 % (10.0-50.0); Mean Corpuscular Hemoglobin 32.8 pg (28.0-32.0); Mean Corpuscular Hgb Conc. 34.1 g/dL (32.0-36.0); Mean Corpuscular Volume 96.3 fL (80.0-100.0); Monocytes # (auto) 0.7 10 ^3/uL (0-1.3); Monocytes % (auto) 8.1 % (0.0-12.0); Neutrophils # (auto) 6.5 10 ^3/uL (1.6-8.6); Neutrophils % (auto) 70.9 % (37.0-80.0); Nucleated Red Blood Cells % 0.1 %; Platelet Count (auto) 287 10^3/uL (140-450); Red Blood Cells 4.03 10^6/uL (4.0-5.20); Red Cell Distribution Width 14.5 % (11.8-14.3); White Blood Cell 9.1 10^3/uL (4.4-10.8)
[2020-08-31 20:04] LABS: INR 1.01 (0.9-1.15)
[2020-08-31 20:16] LABS: Alanine Aminotransferase 20 U/L (13-56); Albumin 3.5 g/dL (3.4-5.0); Anion Gap 6 (5-15); Aspartate Aminotransferase 22 U/L (15-37); BUN/Creatinine Ratio 21.4; Blood Urea Nitrogen 21 mg/dL (7-18); Calcium 8.8 mg/dL (8.5-10.1); Carbon Dioxide 27 mmol/L (21-32); Chloride 106 mmol/L (98-107); GFR African American 69 mL/min; GFR Non-African American 57 mL/min; Glucose 84 mg/dL (74-106); Potassium 3.9 mmol/L (3.5-5.1); Sodium 139 mmol/L (136-145)
[2020-08-31 20:21] LABS: Alkaline Phosphatase 69 U/L (45-117); Bilirubin, Total 0.3 mg/dL (0.2-1.0); Total Protein 6.3 g/dL (6.4-8.2)
[2020-08-31 23:06] LABS: Urine Bacteria NONE SEEN /hpf (None Seen); Urine Blood Negative /uL (Negative); Urine Specific Gravity 1.013 (1.001-1.035); Urine WBC 1 /hpf (0 - 5)
[2020-09-01] MEDS ORDERED: MORPHINE SULF INJ 2 MG/ML SYRINGE 1ML IV PRN (00:30)
[2020-09-01] MEDS ORDERED: HYDROcodone-ACET 5/325MG TAB PO PRN (00:30)
[2020-09-01] MEDS ORDERED: NITROGLYCERIN 0.4 MG SL TAB SL PRN (00:30)
[2020-09-01] MEDS ORDERED: ACETAMINOPHEN 325 MG TAB PO PRN (00:30)
[2020-09-01] MEDS ORDERED: ONDANSETRON HCL 4 MG/2 ML VIAL IV PRN (00:30)
[2020-09-01] MEDS ORDERED: DOCUSATE SOD 100 MG CAP PO PRN (00:30)
[2020-09-01] MEDS: D5W/SOD CHL 0.45% 1,000 ML IV SCH ×2 (00:49→03:19)
[2020-09-01 01:50] VITALS: BP 133/78
[2020-09-01] MEDS ORDERED: FLUT1AER3 IN (03:04)
[2020-09-01] MEDS ORDERED: LORA0.5T20 PO (03:11)
[2020-09-01] MEDS ORDERED: FAMO20TA10 PO (03:11)
[2020-09-01 04:48] VITALS: BP 126/70
[2020-09-01] MEDS: ZINC SULFATE 220mg CAP or TAB PO SCH (08:41)
[2020-09-01] MEDS: MULTIPLE VITAMIN TAB PO SCH (08:41)
[2020-09-01] MEDS: FAMOTIDINE (10MG/ML) 2ML VL IV SCH (08:41)
[2020-09-01] MEDS: methylPREDNISolone SOD SUCC 40 MG/ML VL IV SCH ×2 (08:41→21:51)
[2020-09-01] MEDS: ASCORBIC ACID 500 MG TAB PO SCH ×2 (08:42→21:51)
[2020-09-01 09:00] VITALS: BP 126/71
[2020-09-01] MEDS ORDERED: cefTRIAXone 1GM/50ML D5W 50 ML IV SCH (09:00)
[2020-09-01 09:17] LABS: Basophils # (auto) 0 10 ^3/uL (0-0.2); Basophils % (auto) 0.3 % (0.0-2.0); Eosinophils # (auto) 0 10 ^3/uL (0-0.8); Hematocrit 40.6 % (36.0-46.0); Hemoglobin 13.7 g/dL (12.2-16.2); Lymphocytes # (auto) 0.7 10 ^3/uL (0.4-5.4); Lymphocytes % (auto) 7.8 % (10.0-50.0); Mean Corpuscular Hemoglobin 32.3 pg (28.0-32.0); Mean Corpuscular Hgb Conc. 33.7 g/dL (32.0-36.0); Mean Corpuscular Volume 95.8 fL (80.0-100.0); Monocytes # (auto) 0.1 10 ^3/uL (0-1.3); Monocytes % (auto) 1.5 % (0.0-12.0); Neutrophils # (auto) 7.5 10 ^3/uL (1.6-8.6); Neutrophils % (auto) 90.4 % (37.0-80.0); Nucleated Red Blood Cells % 0.1 %; Platelet Count (auto) 281 10^3/uL (140-450); Red Blood Cells 4.24 10^6/uL (4.0-5.20); Red Cell Distribution Width 14.1 % (11.8-14.3); White Blood Cell 8.3 10^3/uL (4.4-10.8)
[2020-09-01 09:29] LABS: Albumin 3.3 g/dL (3.4-5.0); BUN/Creatinine Ratio 21.3; Calcium 8.4 mg/dL (8.5-10.1); Potassium 3.9 mmol/L (3.5-5.1)
[2020-09-01 09:32] LABS: Bilirubin, Total 0.5 mg/dL (0.2-1.0); Total Protein 6.3 g/dL (6.4-8.2)
[2020-09-01] MEDS ORDERED: ENOXAPARIN SOD 40 MG/0.4 ML SYRINGE SC SCH (10:00)
[2020-09-01 13:00] VITALS: BP 131/65
[2020-09-01] MEDS: AZITHROMYCIN 250 MG TAB PO SCH (13:24)
[2020-09-01] MEDS: GABAPENTIN 300 MG CAP PO SCH ×2 (13:25→21:51)
[2020-09-01] MEDS ORDERED: IOHEXOL 350 MG/ML 100ML IJ ONE (15:45)
[2020-09-01 17:00] VITALS: BP 133/85
[2020-09-01] MEDS: LORazepam 0.5 MG TAB PO PRN (21:52)
[2020-09-01 22:00] VITALS: BP 115/64
[2020-09-02 05:00] VITALS: BP 120/68
[2020-09-02] MEDS: GABAPENTIN 300 MG CAP PO SCH ×3 (06:15→22:04)
[2020-09-02 06:56] LABS: Basophils # (auto) 0.1 10 ^3/uL (0-0.2); Basophils % (auto) 0.8 % (0.0-2.0); Eosinophils # (auto) 0 10 ^3/uL (0-0.8); Hematocrit 37.8 % (36.0-46.0); Lymphocytes # (auto) 0.7 10 ^3/uL (0.4-5.4); Lymphocytes % (auto) 9.2 % (10.0-50.0); Mean Corpuscular Hemoglobin 32.8 pg (28.0-32.0); Mean Corpuscular Hgb Conc. 34.3 g/dL (32.0-36.0); Mean Corpuscular Volume 95.7 fL (80.0-100.0); Monocytes # (auto) 0.3 10 ^3/uL (0-1.3); Monocytes % (auto) 4.1 % (0.0-12.0); Neutrophils # (auto) 6.7 10 ^3/uL (1.6-8.6); Neutrophils % (auto) 85.9 % (37.0-80.0); Nucleated Red Blood Cells % 0.1 %; Platelet Count (auto) 281 10^3/uL (140-450); Red Blood Cells 3.95 10^6/uL (4.0-5.20); Red Cell Distribution Width 14.3 % (11.8-14.3); White Blood Cell 7.7 10^3/uL (4.4-10.8)
[2020-09-02 07:10] LABS: Albumin 3.1 g/dL (3.4-5.0); Calcium 9.2 mg/dL (8.5-10.1); Potassium 4.1 mmol/L (3.5-5.1)
[2020-09-02 07:14] LABS: BUN/Creatinine Ratio 22.5; Bilirubin, Total 0.4 mg/dL (0.2-1.0)
[2020-09-02 08:32] VITALS: BP 131/64
[2020-09-02] MEDS: ASCORBIC ACID 500 MG TAB PO SCH ×2 (09:29→22:04)
[2020-09-02] MEDS: FAMOTIDINE (10MG/ML) 2ML VL IV SCH (09:29)
[2020-09-02] MEDS: ZINC SULFATE 220mg CAP or TAB PO SCH (09:29)
[2020-09-02] MEDS: TRELEGY ELLIPTA IN SCH (09:29)
[2020-09-02] MEDS: methylPREDNISolone SOD SUCC 40 MG/ML VL IV SCH ×2 (09:29→22:04)
[2020-09-02] MEDS: MULTIPLE VITAMIN TAB PO SCH (09:29)
[2020-09-02] MEDS: ENOXAPARIN SOD 30 MG/0.3 ML SYRINGE SC SCH (09:30)
[2020-09-02] MEDS: AZITHROMYCIN 250 MG TAB PO SCH (09:30)
[2020-09-02] MEDS: NYSTATIN (MOUTH-THROAT) 500,000 UNITS/5 ML SUSP MT SCH ×3 (12:10→22:04)
[2020-09-02 12:43] VITALS: BP 146/62
[2020-09-02] MEDS ORDERED: cloNIDine HCL 0.1 MG TAB PO ONE (16:00)
[2020-09-02 16:57] VITALS: BP 150/93
[2020-09-02 22:00] VITALS: BP 107/72
[2020-09-03 05:00] VITALS: BP 131/65
[2020-09-03] MEDS: NYSTATIN (MOUTH-THROAT) 500,000 UNITS/5 ML SUSP MT SCH ×2 (06:17→12:14)
[2020-09-03] MEDS: GABAPENTIN 300 MG CAP PO SCH ×2 (06:17→14:00)
[2020-09-03 07:14] LABS: Basophils # (auto) 0.1 10 ^3/uL (0-0.2); Basophils % (auto) 0.8 % (0.0-2.0); Eosinophils # (auto) 0 10 ^3/uL (0-0.8); Eosinophils % (auto) 0.1 % (0.0-7.0); Hemoglobin 14.2 g/dL (12.2-16.2); Lymphocytes # (auto) 0.8 10 ^3/uL (0.4-5.4); Lymphocytes % (auto) 9.5 % (10.0-50.0); Mean Corpuscular Hemoglobin 32.5 pg (28.0-32.0); Mean Corpuscular Hgb Conc. 33.8 g/dL (32.0-36.0); Monocytes # (auto) 0.4 10 ^3/uL (0-1.3); Monocytes % (auto) 4.3 % (0.0-12.0); Neutrophils # (auto) 6.9 10 ^3/uL (1.6-8.6); Neutrophils % (auto) 85.3 % (37.0-80.0); Nucleated Red Blood Cells % 0.1 %; Platelet Count (auto) 311 10^3/uL (140-450); Red Blood Cells 4.38 10^6/uL (4.0-5.20); Red Cell Distribution Width 14.4 % (11.8-14.3); White Blood Cell 8.1 10^3/uL (4.4-10.8)
[2020-09-03 07:33] LABS: Calcium 9.3 mg/dL (8.5-10.1); Potassium 4.1 mmol/L (3.5-5.1)
[2020-09-03 08:41] VITALS: BP 137/74
[2020-09-03] MEDS: methylPREDNISolone SOD SUCC 40 MG/ML VL IV SCH (10:00)
[2020-09-03] MEDS: FAMOTIDINE (10MG/ML) 2ML VL IV SCH (10:00)
[2020-09-03] MEDS ORDERED: LORazepam 2MG/ML-1ML VIAL ONE (10:21)
[2020-09-03] MEDS: ZINC SULFATE 220mg CAP or TAB PO SCH (10:42)
[2020-09-03] MEDS: ENOXAPARIN SOD 30 MG/0.3 ML SYRINGE SC SCH (10:43)
[2020-09-03] MEDS: MULTIPLE VITAMIN TAB PO SCH (10:43)
[2020-09-03] MEDS: AZITHROMYCIN 250 MG TAB PO SCH (10:43)
[2020-09-03] MEDS: ASCORBIC ACID 500 MG TAB PO SCH (10:43)
[2020-09-03] MEDS ORDERED: LORazepam 0.5 MG TAB PO ONE (10:45)
[2020-09-03] MEDS ORDERED: PRED20TA2 PO (11:08)
[2020-09-03] MEDS ORDERED: AZIT500T66 PO (11:09)
[2020-09-03] MEDS: LORazepam 0.5 MG TAB PO PRN (12:10)
[2020-09-03] MEDS: TRELEGY ELLIPTA IN SCH (12:15)
[2020-09-03 12:47] VITALS: BP 139/75
== END 2020-09-03 15:02 | disposition home or self-care (01) | DRG 189 ==
LOC: ER 17:21 → EDBD 17:21 → TELE 09-01 00:35 → TELE-EAST 09-01 01:37
PROVIDERS: ADMIT Nurse Practitioner Family; ATTEND Internal Medicine
DX: J96.21 Acute and chronic respiratory failure with hypoxia (principal); J44.1 Chronic obstructive pulmonary disease with (acute) exacerbation; J44.0 Chronic obstructive pulmonary disease with (acute) lower respiratory infection; Z20.822 Contact with and (suspected) exposure to COVID-19; E78.5 Hyperlipidemia, unspecified; I10 Essential (primary) hypertension; J20.9 Acute bronchitis, unspecified; F32.9 Major depressive disorder, single episode, unspecified; K21.9 Gastro-esophageal reflux disease without esophagitis; I73.9 Peripheral vascular disease, unspecified; F41.9 Anxiety disorder, unspecified; I25.10 Atherosclerotic heart disease of native coronary artery without angina pectoris; Z90.49 Acquired absence of other specified parts of digestive tract; Z88.1 Allergy status to other antibiotic agents; Z88.8 Allergy status to other drugs, medicaments and biological substances; I25.2 Old myocardial infarction; Z82.49 Family history of ischemic heart disease and other diseases of the circulatory system; Z82.62 Family history of osteoporosis; Z87.11 Personal history of peptic ulcer disease; Z82.5 Family history of asthma and other chronic lower respiratory diseases; Z86.73 Personal history of transient ischemic attack (TIA), and cerebral infarction without residual deficits
CPT/HCPCS: 36415; 36600; 71045; 71275; 80048; 80053; 81001; 82805; 83605; 83735; 83880; 84484; 85025; 85379; 85610; 87040; 87426; 93970; 96365; 96366; 96367; 96375; G0378; J0696; J1956; J3490

== ENCOUNTER 2020-10-07 21:30 | Emergency (ER) | payer MEDICARE, MEDICAID ==
[~2020-10-07] VITALS: Ht 152.4 cm; Wt 44.5 kg
[~2020-10-07 21:30] MED LIST changes: -ASPI-231 PO; +ASPI1TAB20 PO; +AZIT500T66 PO; +FAMO20TA10 PO; +FLUT1AER3 IN; +LORA0.5T20 PO; -METO-169 PO; +METO-289 PO; +PRED20TA2 PO; -SIMV10TA84 PO; -TIOT1AER IN
[2020-10-07 22:25] LABS: Basophils # (auto) 0.2 10 ^3/uL (0-0.2); Basophils % (auto) 2.4 % (0.0-2.0); Eosinophils # (auto) 0.3 10 ^3/uL (0-0.8); Eosinophils % (auto) 4.1 % (0.0-7.0); Hematocrit 40.8 % (36.0-46.0); Hemoglobin 13.7 g/dL (12.2-16.2); Lymphocytes # (auto) 1.9 10 ^3/uL (0.4-5.4); Lymphocytes % (auto) 24.7 % (10.0-50.0); Mean Corpuscular Hemoglobin 33.1 pg (28.0-32.0); Mean Corpuscular Hgb Conc. 33.6 g/dL (32.0-36.0); Mean Corpuscular Volume 98.5 fL (80.0-100.0); Monocytes # (auto) 0.9 10 ^3/uL (0-1.3); Monocytes % (auto) 11.7 % (0.0-12.0); Neutrophils # (auto) 4.4 10 ^3/uL (1.6-8.6); Neutrophils % (auto) 57.1 % (37.0-80.0); Nucleated Red Blood Cells % 0.2 %; Red Blood Cells 4.15 10^6/uL (4.0-5.20); Red Cell Distribution Width 13.6 % (11.8-14.3); White Blood Cell 7.7 10^3/uL (4.4-10.8)
[2020-10-07 22:44] LABS: INR 1.02 (0.9-1.15); Partial Thromboplastin Time 29.2 sec (23.0-31.2)
[2020-10-07 22:51] LABS: Albumin 3.5 g/dL (3.4-5.0); Anion Gap 9 (5-15); Blood Urea Nitrogen 17 mg/dL (7-18); Calcium 9.5 mg/dL (8.5-10.1); Carbon Dioxide 26 mmol/L (21-32); Chloride 103 mmol/L (98-107); Glucose 90 mg/dL (74-106); Potassium 3.8 mmol/L (3.5-5.1); Sodium 138 mmol/L (136-145)
[2020-10-07 22:53] LABS: Alanine Aminotransferase 19 U/L (13-56); Aspartate Aminotransferase 22 U/L (15-37); BUN/Creatinine Ratio 17.3; GFR African American 69 mL/min; GFR Non-African American 57 mL/min
[2020-10-07 22:58] LABS: Alkaline Phosphatase 79 U/L (45-117); Bilirubin, Total 0.3 mg/dL (0.2-1.0); Total Protein 6.5 g/dL (6.4-8.2)
[2020-10-08] MEDS ORDERED: IPRATROPIUM BROM 0.5 MG/2.5ML INH SOL NEB ONE (06:30)
[2020-10-08] MEDS ORDERED: methylPREDNISolone SOD SUCC 125 MG/2 ML VL IV ONE (06:30)
[2020-10-08 07:56] VITALS: BP 144/64
[2020-10-08] MEDS ORDERED: FUROSEMIDE 40 MG/4 ML VIAL IV ONE (08:15)
[2020-10-26] MEDS ORDERED: NITR1SPR TL (15:52)
[2020-10-26] MEDS ORDERED: LISI20TA28 PO (15:52)
[2020-10-26] MEDS ORDERED: OMEP20TA PO (15:52)
[2020-10-26] MEDS ORDERED: DENO60SO SC (15:52)
[2020-10-26] MEDS ORDERED: SIMV10TA84 PO (15:52)
[2020-10-26] MEDS ORDERED: TRIA0.1O (15:52)
[2020-11-16] MEDS ORDERED: LORA2TAB89 PO (09:47)
== END 2020-10-08 08:50 | disposition home or self-care (01) ==
LOC: ER 21:33
DX: J44.1 Chronic obstructive pulmonary disease with (acute) exacerbation (principal); I11.0 Hypertensive heart disease with heart failure; I50.9 Heart failure, unspecified; I25.2 Old myocardial infarction; E78.00 Pure hypercholesterolemia, unspecified; F41.9 Anxiety disorder, unspecified; I25.10 Atherosclerotic heart disease of native coronary artery without angina pectoris; F32.9 Major depressive disorder, single episode, unspecified; K21.9 Gastro-esophageal reflux disease without esophagitis; E78.5 Hyperlipidemia, unspecified; Z86.73 Personal history of transient ischemic attack (TIA), and cerebral infarction without residual deficits; Z87.11 Personal history of peptic ulcer disease; Z90.89 Acquired absence of other organs; Z98.890 Other specified postprocedural states
CPT/HCPCS: 36415; 71045; 80053; 83880; 84484; 85025; 85610; 85730; 93005; 94640; 96374; 96375; 99285; J1940; J2930; J7644

== ENCOUNTER 2020-10-31 11:49 | Day surgery (SDC) | payer MEDICARE, MEDICAID ==
[2020-10-26 14:35] LABS: Basophils % (auto) 1.1 % (0.0-2.0); Eosinophils % (auto) 1.7 % (0.0-7.0); Lymphocytes % (auto) 9.6 % (10.0-50.0); Monocytes % (auto) 6.9 % (0.0-12.0); Neutrophils % (auto) 80.7 % (37.0-80.0); White Blood Cell 13.8 10^3/uL (4.4-10.8)
[2020-10-26 14:36] LABS: Basophils # (auto) 0.1 10 ^3/uL (0-0.2); Eosinophils # (auto) 0.2 10 ^3/uL (0-0.8); Hemoglobin 14.2 g/dL (12.2-16.2); Lymphocytes # (auto) 1.3 10 ^3/uL (0.4-5.4); Mean Corpuscular Hemoglobin 33.4 pg (28.0-32.0); Mean Corpuscular Hgb Conc. 33.8 g/dL (32.0-36.0); Monocytes # (auto) 0.9 10 ^3/uL (0-1.3); Neutrophils # (auto) 11.1 10 ^3/uL (1.6-8.6); Nucleated Red Blood Cells % 0.1 %; Platelet Count (auto) 297 10^3/uL (140-450); Red Blood Cells 4.25 10^6/uL (4.0-5.20); Red Cell Distribution Width 13.3 % (11.8-14.3)
[2020-10-26 14:46] LABS: Alanine Aminotransferase 22 U/L (13-56); Albumin 3.6 g/dL (3.4-5.0); Anion Gap 7 (5-15); Aspartate Aminotransferase 23 U/L (15-37); BUN/Creatinine Ratio 11.6; Blood Urea Nitrogen 11 mg/dL (7-18); Carbon Dioxide 27 mmol/L (21-32); Chloride 106 mmol/L (98-107); GFR African American 72 mL/min; GFR Non-African American 59 mL/min; Glucose 85 mg/dL (74-106); INR 0.97 (0.9-1.15); Partial Thromboplastin Time 28.2 sec (23.0-31.2); Potassium 4.2 mmol/L (3.5-5.1); Sodium 140 mmol/L (136-145)
[2020-10-26 14:49] LABS: Alkaline Phosphatase 77 U/L (45-117); Bilirubin, Total 0.6 mg/dL (0.2-1.0)
[~2020-10-31] VITALS: Ht 152.4 cm; Wt 45.4 kg
[~2020-10-31 11:49] MED LIST changes: +ASPI-231 PO; -ASPI1TAB20 PO; +DENO60SO SC; -FAMO20TA10 PO; +LISI20TA28 PO; +NITR1SPR TL; +OMEP20TA PO; +SIMV10TA84 PO; +TRIA0.1O
[2020-10-31] MEDS ORDERED: SODIUM CHLORIDE LOCK 10 ML ONE (12:11)
[2020-10-31] MEDS ORDERED: LIDOCAINE VISCOUS 2% 15ML UD ONE (12:11)
[2020-10-31] MEDS ORDERED: diphenhdrAMINE HCL 50 MG/1 ML VL ONE (12:11)
[2020-10-31] MEDS: MIDAZOLAM HCL 5 MG/ML-1ML VIAL ONE ×2 (13:28→13:31)
[2020-10-31] MEDS: fentaNYL CITRATE 100 MCG/2 ML VL ONE ×2 (13:28→13:31)
[2020-10-31 15:03] VITALS: BP 127/58
== END 2020-10-31 15:30 | disposition home or self-care (01) ==
LOC: GI 11:49
PROVIDERS: ATTEND Internal Medicine Gastroenterology
DX: R10.13 Epigastric pain (principal); K44.9 Diaphragmatic hernia without obstruction or gangrene; K29.70 Gastritis, unspecified, without bleeding; K31.89 Other diseases of stomach and duodenum; J43.9 Emphysema, unspecified; I25.810 Atherosclerosis of coronary artery bypass graft(s) without angina pectoris; R09.1 Pleurisy; Z91.013 Allergy to seafood; Z20.822 Contact with and (suspected) exposure to COVID-19; Z90.10 Acquired absence of unspecified breast and nipple; Z90.49 Acquired absence of other specified parts of digestive tract; Z88.1 Allergy status to other antibiotic agents; Z88.8 Allergy status to other drugs, medicaments and biological substances; Z79.899 Other long term (current) drug therapy; Z87.891 Personal history of nicotine dependence; Z95.1 Presence of aortocoronary bypass graft
CPT/HCPCS: 36415; 43239; 80053; 85025; 85610; 85730; 88305; 88342; J1200; J2250; J3010; U0003; G0500

== ENCOUNTER 2020-12-07 14:39 | Emergency (ER) | payer MEDICARE, MEDICAID ==
[~2020-12-07] VITALS: Ht 152.4 cm; Wt 43.1 kg
[~2020-12-07 14:39] MED LIST changes: -AZIT500T66 PO; -LORA0.5T20 PO; +LORA2TAB89 PO; -PRED20TA2 PO
[2020-12-07 14:41] VITALS: BP 121/58
[2020-12-07 15:58] LABS: Basophils # (auto) 0 10 ^3/uL (0-0.2); Basophils % (auto) 0.5 % (0.0-2.0); Eosinophils # (auto) 0.3 10 ^3/uL (0-0.8); Eosinophils % (auto) 4.1 % (0.0-7.0); Hematocrit 38.1 % (36.0-46.0); Hemoglobin 13.4 g/dL (12.2-16.2); Lymphocytes # (auto) 1.3 10 ^3/uL (0.4-5.4); Lymphocytes % (auto) 18.7 % (10.0-50.0); Mean Corpuscular Hgb Conc. 35.1 g/dL (32.0-36.0); Monocytes # (auto) 0.7 10 ^3/uL (0-1.3); Neutrophils # (auto) 4.8 10 ^3/uL (1.6-8.6); Neutrophils % (auto) 66.7 % (37.0-80.0); Platelet Count (auto) 238 10^3/uL (140-450); Red Blood Cells 3.93 10^6/uL (4.0-5.20); Red Cell Distribution Width 13.5 % (11.8-14.3); White Blood Cell 7.2 10^3/uL (4.4-10.8)
[2020-12-07 16:19] LABS: Alanine Aminotransferase 21 U/L (13-56); Anion Gap 9 (5-15); Aspartate Aminotransferase 22 U/L (15-37); Blood Urea Nitrogen 10 mg/dL (7-18); Calcium 9.1 mg/dL (8.5-10.1); Carbon Dioxide 25 mmol/L (21-32); Chloride 104 mmol/L (98-107); GFR African American 84 mL/min; GFR Non-African American 69 mL/min; Glucose 72 mg/dL (74-106); Lipase 168 U/L (73-393); Potassium 3.9 mmol/L (3.5-5.1); Sodium 138 mmol/L (136-145)
[2020-12-07 16:22] LABS: Alkaline Phosphatase 57 U/L (45-117); Bilirubin, Total 0.5 mg/dL (0.2-1.0); Total Protein 6.3 g/dL (6.4-8.2)
== END 2020-12-07 16:33 | disposition left against medical advice (07) ==
LOC: ER 14:39
DX: K44.9 Diaphragmatic hernia without obstruction or gangrene (principal); K57.30 Diverticulosis of large intestine without perforation or abscess without bleeding; I25.10 Atherosclerotic heart disease of native coronary artery without angina pectoris; J44.9 Chronic obstructive pulmonary disease, unspecified; Z86.73 Personal history of transient ischemic attack (TIA), and cerebral infarction without residual deficits; K21.9 Gastro-esophageal reflux disease without esophagitis; E78.5 Hyperlipidemia, unspecified; I10 Essential (primary) hypertension; I25.2 Old myocardial infarction; Z90.49 Acquired absence of other specified parts of digestive tract; Z79.82 Long term (current) use of aspirin; Z79.899 Other long term (current) drug therapy; Z88.8 Allergy status to other drugs, medicaments and biological substances; Z88.1 Allergy status to other antibiotic agents; Z91.018 Allergy to other foods
CPT/HCPCS: 36415; 74176; 80053; 83690; 85025; 85049

== ENCOUNTER 2020-12-10 11:19 | Inpatient (IN) | payer MEDICARE, MEDICAID ==
[~2020-12-10] VITALS: Ht 154.9 cm; Wt 55.9 kg
[2020-12-10 12:25] LABS: Basophils # (auto) 0.1 10 ^3/uL (0-0.2); Basophils % (auto) 1.4 % (0.0-2.0); Eosinophils # (auto) 0.2 10 ^3/uL (0-0.8); Hematocrit 39.1 % (36.0-46.0); Hemoglobin 13.4 g/dL (12.2-16.2); Lymphocytes # (auto) 1.1 10 ^3/uL (0.4-5.4); Lymphocytes % (auto) 17.1 % (10.0-50.0); Mean Corpuscular Hemoglobin 33.1 pg (28.0-32.0); Mean Corpuscular Hgb Conc. 34.3 g/dL (32.0-36.0); Mean Corpuscular Volume 96.6 fL (80.0-100.0); Monocytes # (auto) 0.6 10 ^3/uL (0-1.3); Monocytes % (auto) 9.1 % (0.0-12.0); Neutrophils # (auto) 4.3 10 ^3/uL (1.6-8.6); Neutrophils % (auto) 69.4 % (37.0-80.0); Nucleated Red Blood Cells % 0.1 %; Red Blood Cells 4.05 10^6/uL (4.0-5.20); Red Cell Distribution Width 13.5 % (11.8-14.3); White Blood Cell 6.1 10^3/uL (4.4-10.8)
[2020-12-10] MEDS ORDERED: LORazepam 2MG/ML-1ML VIAL IV ONE (12:45)
[2020-12-10 13:00] LABS: Chloride 104 mmol/L (98-107); Potassium 3.8 mmol/L (3.5-5.1); Sodium 137 mmol/L (136-145)
[2020-12-10 13:10] LABS: Alanine Aminotransferase 20 U/L (13-56); Albumin 3.3 g/dL (3.4-5.0); Alkaline Phosphatase 63 U/L (45-117); Anion Gap 3 (5-15); Aspartate Aminotransferase 21 U/L (15-37); BUN/Creatinine Ratio 10.5; Bilirubin, Total 0.5 mg/dL (0.2-1.0); Blood Urea Nitrogen 8 mg/dL (7-18); Calcium 8.6 mg/dL (8.5-10.1); Carbon Dioxide 30 mmol/L (21-32); GFR African American 93 mL/min; GFR Non-African American 77 mL/min; Glucose 91 mg/dL (74-106); Total Protein 6.5 g/dL (6.4-8.2)
[2020-12-10] MEDS ORDERED: cloNIDine HCL 0.1 MG TAB PO PRN (13:15)
[2020-12-10] MEDS ORDERED: LORATADINE 10 MG TAB PO PRN (13:15)
[2020-12-10] MEDS ORDERED: MORPHINE SULF INJ 2 MG/ML SYRINGE 1ML IV PRN (13:15)
[2020-12-10] MEDS ORDERED: NITROGLYCERIN 0.4 MG SL TAB SL PRN (13:15)
[2020-12-10] MEDS ORDERED: METOPROLOL SUCCINATE XL 50 MG TAB PO PRN (13:15)
[2020-12-10] MEDS ORDERED: SODIUM CHLORIDE 0.9% 1,000 ML IV SCH (13:15)
[2020-12-10 13:51] VITALS: BP 152/66
[2020-12-10] MEDS ORDERED: GABAPENTIN 300 MG CAP PO SCH (14:00)
[2020-12-10 16:00] VITALS: BP 156/82
[2020-12-10] MEDS ORDERED: LORazepam 2MG/ML-1ML VIAL IV PRN (19:15)
[2020-12-10] MEDS: IPRATROPIUM BROM 0.5 MG/2.5ML INH SOL NEB SCH ×2 (19:18→21:12)
[2020-12-10] MEDS ORDERED: IPRATROPIUM BROM 0.5 MG/2.5ML INH SOL NEB ONE (21:00)
[2020-12-10] MEDS ORDERED: LEVALBUTEROL HCL 1.25 MG/3 ML NEB NEB ONE (21:00)
[2020-12-10] MEDS: LORazepam 0.5 MG TAB PO SCH (21:16)
[2020-12-10] MEDS: ASPirin-EC 81 mg tab PO SCH ×2 (21:16→21:31)
[2020-12-10] MEDS: GABAPENTIN 300 MG CAP PO SCH (21:16)
[2020-12-10] MEDS: PRAVASTATIN SODIUM 20 MG TAB PO SCH ×2 (21:17→21:31)
[2020-12-10 22:00] VITALS: BP 144/66
[2020-12-11] MEDS ORDERED: TEMAZEPAM 15 MG CAP PO ONE (00:15)
[2020-12-11 05:00] VITALS: BP 119/70
[2020-12-11] MEDS: Fluticasone-Umeclidinium-Vilan (Trelegy Ellipta 100-62.5-25 Mcg/I IN SCH (06:10)
[2020-12-11] MEDS: LEVALBUTEROL HCL 1.25 MG/3 ML NEB NEB SCH ×3 (06:57→19:17)
[2020-12-11] MEDS: IPRATROPIUM BROM 0.5 MG/2.5ML INH SOL NEB SCH ×3 (06:57→19:17)
[2020-12-11] MEDS ORDERED: LORazepam 0.5 MG TAB PO SCH ×2 (07:00→10:00)
[2020-12-11 08:30] VITALS: BP 125/72
[2020-12-11] MEDS: GABAPENTIN 300 MG CAP PO SCH ×2 (11:09→20:51)
[2020-12-11] MEDS: PANTOPRAZOLE 40 MG TAB PO SCH (11:10)
[2020-12-11] MEDS: LISINOPRIL 10 MG TAB PO SCH (11:11)
[2020-12-11 11:28] LABS: Urine Bacteria FEW /hpf (None Seen); Urine Blood Negative /uL (Negative); Urine Specific Gravity 1.006 (1.001-1.035); Urine WBC 1 /hpf (0 - 5)
[2020-12-11 12:40] VITALS: BP 142/75
[2020-12-11 16:40] VITALS: BP 122/73
[2020-12-11] MEDS: traMADol HCL 50 MG TAB PO PRN (20:51)
[2020-12-11] MEDS: PRAVASTATIN SODIUM 20 MG TAB PO SCH (20:57)
[2020-12-11] MEDS: LORazepam 0.5 MG TAB PO SCH (21:58)
[2020-12-11 22:00] VITALS: BP 151/82
[2020-12-11] MEDS: TEMAZEPAM 15 MG CAP PO PRN (23:41)
[2020-12-12] MEDS: TEMAZEPAM 15 MG CAP PO PRN ×2 (01:05→22:51)
[2020-12-12 05:00] VITALS: BP 108/51
[2020-12-12] MEDS: IPRATROPIUM BROM 0.5 MG/2.5ML INH SOL NEB SCH ×3 (06:00→18:35)
[2020-12-12] MEDS: LEVALBUTEROL HCL 1.25 MG/3 ML NEB NEB SCH ×3 (06:00→18:35)
[2020-12-12] MEDS: Fluticasone-Umeclidinium-Vilan (Trelegy Ellipta 100-62.5-25 Mcg/I IN SCH (06:37)
[2020-12-12 06:58] LABS: Basophils # (auto) 0.1 10 ^3/uL (0-0.2); Basophils % (auto) 1.6 % (0.0-2.0); Eosinophils # (auto) 0.3 10 ^3/uL (0-0.8); Eosinophils % (auto) 6.6 % (0.0-7.0); Hematocrit 37.4 % (36.0-46.0); Hemoglobin 12.5 g/dL (12.2-16.2); Lymphocytes # (auto) 1.1 10 ^3/uL (0.4-5.4); Lymphocytes % (auto) 22.5 % (10.0-50.0); Mean Corpuscular Hemoglobin 32.9 pg (28.0-32.0); Mean Corpuscular Hgb Conc. 33.5 g/dL (32.0-36.0); Mean Corpuscular Volume 98.2 fL (80.0-100.0); Monocytes # (auto) 0.5 10 ^3/uL (0-1.3); Monocytes % (auto) 11.4 % (0.0-12.0); Neutrophils # (auto) 2.7 10 ^3/uL (1.6-8.6); Neutrophils % (auto) 57.9 % (37.0-80.0); Red Blood Cells 3.81 10^6/uL (4.0-5.20); Red Cell Distribution Width 13.6 % (11.8-14.3); White Blood Cell 4.7 10^3/uL (4.4-10.8)
[2020-12-12 07:12] LABS: INR 1.02 (0.9-1.15); Partial Thromboplastin Time 28.9 sec (23.0-31.2)
[2020-12-12 07:39] LABS: Albumin 2.7 g/dL (3.4-5.0); Calcium 7.9 mg/dL (8.5-10.1); Potassium 4.2 mmol/L (3.5-5.1)
[2020-12-12 07:42] LABS: BUN/Creatinine Ratio 12.5; Bilirubin, Total 0.7 mg/dL (0.2-1.0); Total Protein 5.6 g/dL (6.4-8.2)
[2020-12-12 08:58] VITALS: BP 105/49
[2020-12-12] MEDS: GABAPENTIN 300 MG CAP PO SCH ×2 (10:10→21:15)
[2020-12-12] MEDS: LISINOPRIL 10 MG TAB PO SCH (10:11)
[2020-12-12] MEDS: PANTOPRAZOLE 40 MG TAB PO SCH (10:11)
[2020-12-12] MEDS: LORazepam 0.5 MG TAB PO SCH ×2 (10:12→21:14)
[2020-12-12] MEDS ORDERED: LACTULOSE 20Gm/30ML SOLN PO ONE (10:15)
[2020-12-12] MEDS ORDERED: DOCUSATE ORAL LIQUID 100 MG/10 ML UD PO ONE (10:15)
[2020-12-12 13:00] VITALS: BP 126/80
[2020-12-12 17:00] VITALS: BP 142/77
[2020-12-12] MEDS: traMADol HCL 50 MG TAB PO PRN (19:27)
[2020-12-12] MEDS: PRAVASTATIN SODIUM 20 MG TAB PO SCH (21:12)
[2020-12-12 22:00] VITALS: BP 139/58
[2020-12-13 05:00] VITALS: BP 114/67
[2020-12-13] MEDS: LEVALBUTEROL HCL 1.25 MG/3 ML NEB NEB SCH ×3 (06:00→18:55)
[2020-12-13] MEDS: IPRATROPIUM BROM 0.5 MG/2.5ML INH SOL NEB SCH ×3 (06:00→18:55)
[2020-12-13] MEDS: Fluticasone-Umeclidinium-Vilan (Trelegy Ellipta 100-62.5-25 Mcg/I IN SCH (06:10)
[2020-12-13 08:30] VITALS: BP 98/63
[2020-12-13] MEDS: LISINOPRIL 10 MG TAB PO SCH (10:00)
[2020-12-13] MEDS: GABAPENTIN 300 MG CAP PO SCH ×2 (10:45→20:37)
[2020-12-13] MEDS: LORazepam 0.5 MG TAB PO SCH ×2 (10:45→20:36)
[2020-12-13] MEDS: PANTOPRAZOLE 40 MG TAB PO SCH ×2 (10:46→20:37)
[2020-12-13 12:30] VITALS: BP 96/62
[2020-12-13 17:00] VITALS: BP 119/67
[2020-12-13] MEDS: traMADol HCL 50 MG TAB PO PRN (20:05)
[2020-12-13] MEDS: FAMOTIDINE 20 MG TAB PO SCH (20:30)
[2020-12-13] MEDS: PRAVASTATIN SODIUM 20 MG TAB PO SCH (20:37)
[2020-12-13] MEDS: TEMAZEPAM 15 MG CAP PO PRN (21:57)
[2020-12-13 22:00] VITALS: BP 137/78
[2020-12-14 05:00] VITALS: BP 104/56
[2020-12-14] MEDS: IPRATROPIUM BROM 0.5 MG/2.5ML INH SOL NEB SCH ×2 (05:48→11:54)
[2020-12-14] MEDS: LEVALBUTEROL HCL 1.25 MG/3 ML NEB NEB SCH ×2 (05:48→11:54)
[2020-12-14] MEDS: Fluticasone-Umeclidinium-Vilan (Trelegy Ellipta 100-62.5-25 Mcg/I IN SCH (06:45)
[2020-12-14 08:45] VITALS: BP 104/52
[2020-12-14] MEDS: LORazepam 0.5 MG TAB PO SCH (09:43)
[2020-12-14] MEDS: GABAPENTIN 300 MG CAP PO SCH (09:44)
[2020-12-14] MEDS: FAMOTIDINE 20 MG TAB PO SCH (09:44)
[2020-12-14] MEDS: LISINOPRIL 10 MG TAB PO SCH (10:00)
[2020-12-14 11:55] VITALS: BP 98/63
[2020-12-14 12:54] VITALS: BP 113/62
== END 2020-12-14 13:04 | disposition home health service (06) | DRG 312 ==
LOC: EDBD 11:19 → ER 11:19 → TELE 13:03 → TELE-CENTR 15:56
PROVIDERS: ADMIT Internal Medicine; ATTEND Internal Medicine
PROC: 05HC33Z Insertion of Infusion Device into Left Basilic Vein, Percutaneous Approach (ICD-10-PCS; principal; 2020-12-11)
PROC: B54NZZA Ultrasonography of Left Upper Extremity Veins, Guidance (ICD-10-PCS; 2020-12-11)
DX: R55 Syncope and collapse (principal); J96.10 Chronic respiratory failure, unspecified whether with hypoxia or hypercapnia; J44.9 Chronic obstructive pulmonary disease, unspecified; K21.9 Gastro-esophageal reflux disease without esophagitis; K29.70 Gastritis, unspecified, without bleeding; Z20.822 Contact with and (suspected) exposure to COVID-19; K59.00 Constipation, unspecified; K44.9 Diaphragmatic hernia without obstruction or gangrene; F41.9 Anxiety disorder, unspecified; E86.0 Dehydration; D64.9 Anemia, unspecified; E03.9 Hypothyroidism, unspecified; E78.5 Hyperlipidemia, unspecified; F32.9 Major depressive disorder, single episode, unspecified; M19.90 Unspecified osteoarthritis, unspecified site; G89.29 Other chronic pain; I25.10 Atherosclerotic heart disease of native coronary artery without angina pectoris; M81.0 Age-related osteoporosis without current pathological fracture; I10 Essential (primary) hypertension; Z88.1 Allergy status to other antibiotic agents; Z91.013 Allergy to seafood; Z88.8 Allergy status to other drugs, medicaments and biological substances; Z79.82 Long term (current) use of aspirin; Z79.899 Other long term (current) drug therapy; I25.2 Old myocardial infarction; Z80.1 Family history of malignant neoplasm of trachea, bronchus and lung; Z82.49 Family history of ischemic heart disease and other diseases of the circulatory system; Z82.5 Family history of asthma and other chronic lower respiratory diseases; Z82.62 Family history of osteoporosis; Z85.3 Personal history of malignant neoplasm of breast; Z86.73 Personal history of transient ischemic attack (TIA), and cerebral infarction without residual deficits; Z87.11 Personal history of peptic ulcer disease; Z87.891 Personal history of nicotine dependence; Z90.13 Acquired absence of bilateral breasts and nipples
CPT/HCPCS: 36415; 70450; 74176; 80053; 81001; 82270; 83690; 84484; 85025; 85610; 85730; 87081; 87426; 93005; 96361; 96374; 97163; 99291; G0378

== ENCOUNTER 2021-01-03 12:08 | Emergency (ER) | payer MEDICARE, MEDICAID ==
[~2021-01-03] VITALS: Ht 160 cm; Wt 44.5 kg
[2021-01-03 12:25] VITALS: BP 154/77
[2021-01-03] MEDS ORDERED: OXYMETAZOLINE HCL 0.05 % NASAL SPRAY 15ML EACHNOSTRI ONE (14:00)
== END 2021-01-03 16:24 | disposition left against medical advice (07) ==
LOC: EDBD 12:08 → ER 12:08
DX: R04.0 Epistaxis (principal); J44.9 Chronic obstructive pulmonary disease, unspecified; K21.9 Gastro-esophageal reflux disease without esophagitis; E78.5 Hyperlipidemia, unspecified; I10 Essential (primary) hypertension; Z86.73 Personal history of transient ischemic attack (TIA), and cerebral infarction without residual deficits; Z88.1 Allergy status to other antibiotic agents; Z88.8 Allergy status to other drugs, medicaments and biological substances; Z88.6 Allergy status to analgesic agent

== ENCOUNTER 2021-01-05 15:01 | Emergency (ER) | payer MEDICARE, MEDICAID ==
[~2021-01-05] VITALS: Ht 160 cm; Wt 44.5 kg
[2021-01-05] MEDS ORDERED: SODIUM CHLORIDE 0.9% 500 ML IV ONE (15:15)
[2021-01-05] MEDS ORDERED: diphenhdrAMINE HCL 50 MG/1 ML VL ONE (15:29)
[2021-01-05] MEDS ORDERED: diphenhdrAMINE HCL 50 MG/1 ML VL IV ONE (16:15)
[2021-01-05 16:27] LABS: Basophils # (auto) 0.1 10 ^3/uL (0-0.2); Basophils % (auto) 2.2 % (0.0-2.0); Eosinophils # (auto) 0.2 10 ^3/uL (0-0.8); Eosinophils % (auto) 3.2 % (0.0-7.0); Hematocrit 37.7 % (36.0-46.0); Hemoglobin 12.6 g/dL (12.2-16.2); Lymphocytes # (auto) 1.2 10 ^3/uL (0.4-5.4); Lymphocytes % (auto) 17.7 % (10.0-50.0); Mean Corpuscular Hemoglobin 32.7 pg (28.0-32.0); Mean Corpuscular Hgb Conc. 33.5 g/dL (32.0-36.0); Mean Corpuscular Volume 97.4 fL (80.0-100.0); Monocytes # (auto) 0.5 10 ^3/uL (0-1.3); Monocytes % (auto) 8.4 % (0.0-12.0); Neutrophils # (auto) 4.5 10 ^3/uL (1.6-8.6); Neutrophils % (auto) 68.5 % (37.0-80.0); Red Blood Cells 3.87 10^6/uL (4.0-5.20); Red Cell Distribution Width 13.8 % (11.8-14.3); White Blood Cell 6.5 10^3/uL (4.4-10.8)
[2021-01-05 16:43] LABS: Albumin 2.9 g/dL (3.4-5.0); Anion Gap 8 (5-15); Blood Urea Nitrogen 12 mg/dL (7-18); Calcium 8.3 mg/dL (8.5-10.1); Carbon Dioxide 26 mmol/L (21-32); Chloride 107 mmol/L (98-107); Glucose 74 mg/dL (74-106); Magnesium 1.7 mg/dL (1.6-2.6); Potassium 3.2 mmol/L (3.5-5.1); Sodium 141 mmol/L (136-145)
[2021-01-05 16:45] LABS: Alanine Aminotransferase 15 U/L (13-56); Aspartate Aminotransferase 14 U/L (15-37); BUN/Creatinine Ratio 15.4; GFR African American 90 mL/min; GFR Non-African American 74 mL/min
[2021-01-05 16:50] LABS: Alkaline Phosphatase 50 U/L (45-117); Bilirubin, Total 0.7 mg/dL (0.2-1.0); Total Protein 5.9 g/dL (6.4-8.2)
[2021-01-05 17:04] LABS: INR 1.1 (0.9-1.15); Partial Thromboplastin Time 28.6 sec (23.6-33.0)
[2021-01-05] MEDS ORDERED: POTASSIUM EFFERVESENT TAB 25 MEQ PO ONE (18:15)
[2021-01-05 20:38] VITALS: BP 147/76
[2021-01-05 20:44] LABS: Urine Bacteria NONE SEEN /hpf (None Seen); Urine Blood Negative /uL (Negative); Urine Specific Gravity 1.011 (1.001-1.035); Urine WBC 2 /hpf (0 - 5)
== END 2021-01-05 21:16 | disposition left against medical advice (07) ==
LOC: ER 15:04
DX: I95.89 Other hypotension (principal); E87.6 Hypokalemia; E44.0 Moderate protein-calorie malnutrition; K44.9 Diaphragmatic hernia without obstruction or gangrene; J44.9 Chronic obstructive pulmonary disease, unspecified; F41.9 Anxiety disorder, unspecified; I25.10 Atherosclerotic heart disease of native coronary artery without angina pectoris; F32.9 Major depressive disorder, single episode, unspecified; K21.9 Gastro-esophageal reflux disease without esophagitis; E78.5 Hyperlipidemia, unspecified; I25.2 Old myocardial infarction; Z68.1 Body mass index [BMI] 19.9 or less, adult; Z20.822 Contact with and (suspected) exposure to COVID-19; Z88.8 Allergy status to other drugs, medicaments and biological substances; Z91.013 Allergy to seafood; Z88.1 Allergy status to other antibiotic agents; Z88.6 Allergy status to analgesic agent; Z79.82 Long term (current) use of aspirin; Z79.899 Other long term (current) drug therapy; Z86.73 Personal history of transient ischemic attack (TIA), and cerebral infarction without residual deficits; Z87.11 Personal history of peptic ulcer disease; Z90.89 Acquired absence of other organs; Z98.890 Other specified postprocedural states
CPT/HCPCS: 36415; 71045; 80053; 81001; 83735; 83880; 84484; 85025; 85610; 85730; 87426; 93005; 96374; 99285; J1200

== ENCOUNTER → 2021-01-08 | Outpatient (CLI) | payer MEDICARE, MEDICAID ==
[2021-01-08 12:21] LABS: Basophils # (auto) 0 10 ^3/uL (0-0.2); Basophils % (auto) 0.4 % (0.0-2.0); Eosinophils # (auto) 0.3 10 ^3/uL (0-0.8); Eosinophils % (auto) 4.9 % (0.0-7.0); Hematocrit 39.8 % (36.0-46.0); Hemoglobin 13.5 g/dL (12.2-16.2); Lymphocytes # (auto) 1.4 10 ^3/uL (0.4-5.4); Lymphocytes % (auto) 19.4 % (10.0-50.0); Mean Corpuscular Hemoglobin 33.1 pg (28.0-32.0); Mean Corpuscular Hgb Conc. 33.8 g/dL (32.0-36.0); Mean Corpuscular Volume 97.8 fL (80.0-100.0); Monocytes # (auto) 0.7 10 ^3/uL (0-1.3); Monocytes % (auto) 9.7 % (0.0-12.0); Neutrophils # (auto) 4.6 10 ^3/uL (1.6-8.6); Neutrophils % (auto) 65.6 % (37.0-80.0); Nucleated Red Blood Cells % 0.4 %; Red Blood Cells 4.08 10^6/uL (4.0-5.20); Red Cell Distribution Width 13.6 % (11.8-14.3)
[2021-01-08 12:39] LABS: INR 1.06 (0.9-1.15)
[2021-01-08 13:06] LABS: Chloride 108 mmol/L (98-107); Sodium 139 mmol/L (136-145)
[2021-01-08 13:16] LABS: Alanine Aminotransferase 16 U/L (13-56); Albumin 3.3 g/dL (3.4-5.0); Alkaline Phosphatase 61 U/L (45-117); Anion Gap 1 (5-15); Aspartate Aminotransferase 19 U/L (15-37); BUN/Creatinine Ratio 15.2; Bilirubin, Total 0.6 mg/dL (0.2-1.0); Blood Urea Nitrogen 14 mg/dL (7-18); Calcium 9.3 mg/dL (8.5-10.1); Carbon Dioxide 30 mmol/L (21-32); GFR African American 74 mL/min; GFR Non-African American 61 mL/min; Glucose 64 mg/dL (74-106); Total Protein 6.8 g/dL (6.4-8.2)
== END | disposition home or self-care (01) ==
LOC: LAB 11:27
PROVIDERS: ATTEND Internal Medicine Gastroenterology
DX: K44.9 Diaphragmatic hernia without obstruction or gangrene (principal); D64.9 Anemia, unspecified; I50.32 Chronic diastolic (congestive) heart failure
CPT/HCPCS: 36415; 80053; 84484; 85025; 85610

== ENCOUNTER 2021-01-23 12:45 | Day surgery (SDC) | payer MEDICARE, MEDICAID ==
[2021-01-18 15:39] LABS: Basophils # (auto) 0.1 10 ^3/uL (0-0.2); Basophils % (auto) 0.9 % (0.0-2.0); Eosinophils # (auto) 0.2 10 ^3/uL (0-0.8); Eosinophils % (auto) 3.3 % (0.0-7.0); Hematocrit 42.1 % (36.0-46.0); Hemoglobin 13.9 g/dL (12.2-16.2); Lymphocytes # (auto) 1.3 10 ^3/uL (0.4-5.4); Lymphocytes % (auto) 18.3 % (10.0-50.0); Mean Corpuscular Hemoglobin 31.9 pg (28.0-32.0); Mean Corpuscular Volume 96.6 fL (80.0-100.0); Monocytes # (auto) 0.6 10 ^3/uL (0-1.3); Monocytes % (auto) 9.1 % (0.0-12.0); Neutrophils # (auto) 4.8 10 ^3/uL (1.6-8.6); Neutrophils % (auto) 68.4 % (37.0-80.0); Nucleated Red Blood Cells % 0.1 %; Red Blood Cells 4.35 10^6/uL (4.0-5.20); Red Cell Distribution Width 13.6 % (11.8-14.3)
[2021-01-18 15:53] LABS: INR 1.03 (0.9-1.15); Partial Thromboplastin Time 27.7 sec (23.6-33.0)
[2021-01-18 16:16] LABS: Albumin 3.5 g/dL (3.4-5.0); Calcium 9.7 mg/dL (8.5-10.1); Potassium 4.1 mmol/L (3.5-5.1)
[2021-01-18 16:19] LABS: BUN/Creatinine Ratio 15.6; Bilirubin, Total 0.6 mg/dL (0.2-1.0); Total Protein 6.7 g/dL (6.4-8.2)
[~2021-01-23] VITALS: Ht 152.4 cm; Wt 45.4 kg
[~2021-01-23 12:45] MED LIST changes: -DENO60SO SC; -SIMV10TA84 PO; -TRIA0.1O
[2021-01-23] MEDS: diphenhdrAMINE HCL 50 MG/1 ML VL ONE ×2 (14:09→14:12)
[2021-01-23] MEDS: fentaNYL CITRATE 100 MCG/2 ML VL ONE ×3 (14:09→14:25)
[2021-01-23] MEDS: MIDAZOLAM HCL 5 MG/ML-1ML VIAL ONE ×2 (14:09→14:12)
[2021-01-23 15:25] VITALS: BP 160/67
== END 2021-01-23 15:40 | disposition home or self-care (01) ==
LOC: GI 12:45
PROVIDERS: ATTEND Internal Medicine Gastroenterology
DX: R19.4 Change in bowel habit (principal); K57.30 Diverticulosis of large intestine without perforation or abscess without bleeding; K63.89 Other specified diseases of intestine; I78.1 Nevus, non-neoplastic; K64.0 First degree hemorrhoids; I25.799 Atherosclerosis of other coronary artery bypass graft(s) with unspecified angina pectoris; R23.0 Cyanosis; J43.9 Emphysema, unspecified; R09.1 Pleurisy; Z91.013 Allergy to seafood; Z88.1 Allergy status to other antibiotic agents; Z88.8 Allergy status to other drugs, medicaments and biological substances; F41.9 Anxiety disorder, unspecified; Z20.822 Contact with and (suspected) exposure to COVID-19; Z90.49 Acquired absence of other specified parts of digestive tract; Z90.10 Acquired absence of unspecified breast and nipple; Z98.890 Other specified postprocedural states; Z79.899 Other long term (current) drug therapy; Z79.82 Long term (current) use of aspirin; Z87.891 Personal history of nicotine dependence
CPT/HCPCS: 36415; 45380; 80053; 85025; 85610; 85730; 88305; J1200; J2250; J3010; J7030; U0003; G0500

== ENCOUNTER 2021-01-26 19:33 | Emergency (ER) | payer MEDICARE, MEDICAID ==
[~2021-01-26] VITALS: Ht 162.6 cm; Wt 52.2 kg
[2021-01-26] MEDS ORDERED: cloNIDine HCL 0.1 MG TAB PO ONE ×2 (20:00→22:00)
[2021-01-26 20:15] LABS: Basophils # (auto) 0.1 10 ^3/uL (0-0.2); Basophils % (auto) 1.3 % (0.0-2.0); Eosinophils # (auto) 0.4 10 ^3/uL (0-0.8); Eosinophils % (auto) 5.3 % (0.0-7.0); Hematocrit 41.2 % (36.0-46.0); Hemoglobin 13.9 g/dL (12.2-16.2); Lymphocytes # (auto) 1.6 10 ^3/uL (0.4-5.4); Lymphocytes % (auto) 23.9 % (10.0-50.0); Mean Corpuscular Hemoglobin 32.8 pg (28.0-32.0); Mean Corpuscular Hgb Conc. 33.7 g/dL (32.0-36.0); Mean Corpuscular Volume 97.2 fL (80.0-100.0); Monocytes # (auto) 0.6 10 ^3/uL (0-1.3); Monocytes % (auto) 9.4 % (0.0-12.0); Neutrophils # (auto) 4.1 10 ^3/uL (1.6-8.6); Neutrophils % (auto) 60.1 % (37.0-80.0); Nucleated Red Blood Cells % 0.3 %; Red Blood Cells 4.24 10^6/uL (4.0-5.20); Red Cell Distribution Width 13.4 % (11.8-14.3); White Blood Cell 6.8 10^3/uL (4.4-10.8)
[2021-01-26 20:44] LABS: Albumin 3.5 g/dL (3.4-5.0); Anion Gap 5 (5-15); Blood Urea Nitrogen 17 mg/dL (7-18); Calcium 9.3 mg/dL (8.5-10.1); Carbon Dioxide 26 mmol/L (21-32); Chloride 108 mmol/L (98-107); Glucose 74 mg/dL (74-106); Potassium 3.9 mmol/L (3.5-5.1); Sodium 139 mmol/L (136-145)
[2021-01-26 20:48] LABS: Alanine Aminotransferase 17 U/L (13-56); Alkaline Phosphatase 65 U/L (45-117); Aspartate Aminotransferase 24 U/L (15-37); BUN/Creatinine Ratio 21.3; Bilirubin, Total 0.4 mg/dL (0.2-1.0); GFR African American 87 mL/min; GFR Non-African American 72 mL/min; Total Protein 6.6 g/dL (6.4-8.2)
[2021-01-26 23:22] VITALS: BP 103/59
== END 2021-01-26 23:50 | disposition home or self-care (01) ==
LOC: EDBD 19:33 → ER 19:37
DX: I10 Essential (primary) hypertension (principal); R51.9 Headache, unspecified; I25.2 Old myocardial infarction; J44.9 Chronic obstructive pulmonary disease, unspecified; Z86.73 Personal history of transient ischemic attack (TIA), and cerebral infarction without residual deficits; Z90.89 Acquired absence of other organs; Z98.61 Coronary angioplasty status; Z79.899 Other long term (current) drug therapy; Z88.1 Allergy status to other antibiotic agents; Z91.013 Allergy to seafood
CPT/HCPCS: 36415; 80053; 83880; 84484; 85025; 93005

== ENCOUNTER 2021-02-16 09:53 | Inpatient (IN) | payer MEDICARE, MEDICAID ==
[~2021-02-16] VITALS: Ht 152.4 cm; Wt 49.4 kg
[~2021-02-16 09:53] MED LIST changes: -ASPI-231 PO; +ASPI1TAB20 PO
[2021-02-16 10:52] LABS: Basophils # (auto) 0.1 10 ^3/uL (0-0.2); Basophils % (auto) 0.9 % (0.0-2.0); Eosinophils # (auto) 0.2 10 ^3/uL (0-0.8); Hematocrit 39.4 % (36.0-46.0); Hemoglobin 13.1 g/dL (12.2-16.2); Lymphocytes % (auto) 9.1 % (10.0-50.0); Mean Corpuscular Hgb Conc. 33.2 g/dL (32.0-36.0); Mean Corpuscular Volume 96.4 fL (80.0-100.0); Monocytes # (auto) 0.9 10 ^3/uL (0-1.3); Neutrophils # (auto) 8.3 10 ^3/uL (1.6-8.6); Nucleated Red Blood Cells % 0.1 %; Red Blood Cells 4.09 10^6/uL (4.0-5.20); Red Cell Distribution Width 13.5 % (11.8-14.3); White Blood Cell 10.5 10^3/uL (4.4-10.8)
[2021-02-16 11:59] LABS: Chloride 106 mmol/L (98-107); Potassium 3.6 mmol/L (3.5-5.1); Sodium 139 mmol/L (136-145)
[2021-02-16 12:12] LABS: Alanine Aminotransferase 16 U/L (13-56); Albumin 3.4 g/dL (3.4-5.0); Alkaline Phosphatase 68 U/L (45-117); Anion Gap 7 (5-15); Aspartate Aminotransferase 20 U/L (15-37); BUN/Creatinine Ratio 16.8; Bilirubin, Total 0.8 mg/dL (0.2-1.0); Blood Urea Nitrogen 16 mg/dL (7-18); Calcium 9.8 mg/dL (8.5-10.1); Carbon Dioxide 26 mmol/L (21-32); GFR African American 72 mL/min; GFR Non-African American 59 mL/min; Glucose 84 mg/dL (74-106); Total Protein 6.6 g/dL (6.4-8.2)
[2021-02-16 14:33] LABS: Urine Bacteria NONE SEEN /hpf (None Seen); Urine Blood Negative /uL (Negative); Urine WBC 10 /hpf (0 - 5)
[2021-02-16] MEDS ORDERED: METOPROLOL SUCCINATE XL 50 MG TAB PO SCH (15:00)
[2021-02-16] MEDS ORDERED: MORPHINE SULFATE INJECTION 2 MG/ML SYRG IV PRN (15:00)
[2021-02-16] MEDS ORDERED: NITROGLYCERIN 0.4 MG SL TAB SL PRN (15:00)
[2021-02-16] MEDS ORDERED: cefTRIAXone 1GM/50ML D5W 50 ML IV ONE (15:00)
[2021-02-16] MEDS ORDERED: ONDANSETRON HCL 4 MG/2 ML VIAL IV PRN (15:00)
[2021-02-16] MEDS ORDERED: cloNIDine HCL 0.1 MG TAB PO PRN (15:00)
[2021-02-16] MEDS ORDERED: LORATADINE 10 MG TAB PO PRN (15:00)
[2021-02-16] MEDS ORDERED: metroNIDAZOLE 500MG/100ML 100 ML IV ONE (15:00)
[2021-02-16] MEDS: SODIUM CHLORIDE 0.9% 1,000 ML IV SCH (16:48)
[2021-02-16] MEDS: ASPirin-EC 81 mg tab PO SCH (22:00)
[2021-02-16] MEDS: MORPHINE SULFATE INJECTION 2 MG/ML SYRG IV PRN (22:25)
[2021-02-16] MEDS: DOCUSATE SOD 100 MG CAP PO SCH (22:32)
[2021-02-16] MEDS: GABAPENTIN 300 MG CAP PO SCH (22:33)
[2021-02-16] MEDS: LISINOPRIL 20 MG TAB PO SCH (22:35)
[2021-02-16] MEDS: metroNIDAZOLE 500MG/100ML 100 ML IV SCH (22:36)
[2021-02-17 01:53] VITALS: BP 159/76
[2021-02-17] MEDS: MORPHINE SULFATE INJECTION 2 MG/ML SYRG IV PRN ×3 (03:10→22:23)
[2021-02-17] MEDS: SODIUM CHLORIDE 0.9% 1,000 ML IV SCH ×2 (04:20→17:52)
[2021-02-17 05:00] VITALS: BP 121/62
[2021-02-17] MEDS: metroNIDAZOLE 500MG/100ML 100 ML IV SCH ×3 (06:46→22:16)
[2021-02-17] MEDS ORDERED: SUCRALFATE 1 GM/10 ML ORAL SUSP GT SCH (07:00)
[2021-02-17] MEDS ORDERED: LORA1TAB23 PO (07:07)
[2021-02-17] MEDS ORDERED: LISI-716 PO (07:37)
[2021-02-17] MEDS: SUCRALFATE 1 GM/10 ML ORAL SUSP PO SCH ×2 (08:44→17:52)
[2021-02-17 09:00] VITALS: BP 121/71
[2021-02-17] MEDS: cefTRIAXone 1GM/50ML D5W 50 ML IV SCH (09:04)
[2021-02-17] MEDS: DOCUSATE SOD 100 MG CAP PO SCH ×2 (09:48→22:17)
[2021-02-17] MEDS: PANTOPRAZOLE 40 MG/10 ML VIAL INJ IV SCH (09:48)
[2021-02-17] MEDS: GABAPENTIN 300 MG CAP PO SCH ×2 (09:48→22:17)
[2021-02-17] MEDS: METOPROLOL SUCCINATE XL 50 MG TAB PO SCH (09:49)
[2021-02-17 13:00] VITALS: BP 124/81
[2021-02-17] MEDS: LORazepam 0.5 MG TAB PO PRN (13:14)
[2021-02-17 17:00] VITALS: BP 144/76
[2021-02-17 22:00] VITALS: BP 134/73
[2021-02-17] MEDS: ASPirin-EC 81 mg tab PO SCH (22:00)
[2021-02-17] MEDS: LISINOPRIL 20 MG TAB PO SCH (22:18)
[2021-02-18] MEDS: LORazepam 0.5 MG TAB PO PRN (01:48)
[2021-02-18 05:00] VITALS: BP 142/81
[2021-02-18] MEDS: metroNIDAZOLE 500MG/100ML 100 ML IV SCH ×3 (05:59→21:51)
[2021-02-18] MEDS: SODIUM CHLORIDE 0.9% 1,000 ML IV SCH (06:04)
[2021-02-18 06:22] LABS: Basophils # (auto) 0 10 ^3/uL (0-0.2); Basophils % (auto) 0.6 % (0.0-2.0); Eosinophils # (auto) 0.4 10 ^3/uL (0-0.8); Eosinophils % (auto) 6.9 % (0.0-7.0); Hematocrit 37.4 % (36.0-46.0); Hemoglobin 12.7 g/dL (12.2-16.2); Lymphocytes % (auto) 16.5 % (10.0-50.0); Mean Corpuscular Hemoglobin 33.1 pg (28.0-32.0); Mean Corpuscular Volume 97.2 fL (80.0-100.0); Monocytes # (auto) 0.7 10 ^3/uL (0-1.3); Monocytes % (auto) 11.5 % (0.0-12.0); Neutrophils % (auto) 64.5 % (37.0-80.0); Nucleated Red Blood Cells % 0.1 %; Red Blood Cells 3.85 10^6/uL (4.0-5.20); Red Cell Distribution Width 13.4 % (11.8-14.3); White Blood Cell 6.3 10^3/uL (4.4-10.8)
[2021-02-18] MEDS: SUCRALFATE 1 GM/10 ML ORAL SUSP PO SCH ×2 (06:29→18:10)
[2021-02-18 06:31] LABS: Potassium 3.4 mmol/L (3.5-5.1)
[2021-02-18 06:42] LABS: Albumin 2.7 g/dL (3.4-5.0); BUN/Creatinine Ratio 10.8; Bilirubin, Total 0.5 mg/dL (0.2-1.0); Calcium 8.2 mg/dL (8.5-10.1); Total Protein 5.6 g/dL (6.4-8.2)
[2021-02-18 08:54] VITALS: BP 140/52
[2021-02-18] MEDS: PANTOPRAZOLE 40 MG/10 ML VIAL INJ IV SCH (09:05)
[2021-02-18] MEDS: METOPROLOL SUCCINATE XL 50 MG TAB PO SCH (09:07)
[2021-02-18] MEDS: DOCUSATE SOD 100 MG CAP PO SCH ×3 (09:08→21:51)
[2021-02-18] MEDS: GABAPENTIN 300 MG CAP PO SCH ×2 (09:09→21:52)
[2021-02-18] MEDS: cefTRIAXone 1GM/50ML D5W 50 ML IV SCH (09:11)
[2021-02-18 13:00] VITALS: BP 144/68
[2021-02-18] MEDS ORDERED: POTASSIUM CHL 20 Meq TABLET PO ONE (13:15)
[2021-02-18] MEDS ORDERED: MULTIPLE VITAMIN TAB PO ONE (13:15)
[2021-02-18] MEDS ORDERED: LORazepam 0.5 MG TAB PO PRN (15:00)
[2021-02-18] MEDS: LORazepam 2MG/ML-1ML VIAL IV PRN (15:35)
[2021-02-18] MEDS: MORPHINE SULFATE INJECTION 2 MG/ML SYRG IV PRN ×2 (16:41→21:54)
[2021-02-18 16:50] VITALS: BP 157/80
[2021-02-18] MEDS: ASPirin-EC 81 mg tab PO SCH (21:52)
[2021-02-18] MEDS: LISINOPRIL 20 MG TAB PO SCH (21:53)
[2021-02-18 22:00] VITALS: BP 160/99
[2021-02-18 22:50] VITALS: BP 130/68
[2021-02-18] MEDS ORDERED: hydrALAZINE HCL 20 MG/ML VL IV ONE (23:15)
[2021-02-19] MEDS: ACETAMINOPHEN 500 MG TAB PO PRN ×2 (01:35→15:05)
[2021-02-19 05:30] VITALS: BP 153/77
[2021-02-19] MEDS: metroNIDAZOLE 500MG/100ML 100 ML IV SCH ×3 (06:27→21:19)
[2021-02-19] MEDS: SUCRALFATE 1 GM/10 ML ORAL SUSP PO SCH ×2 (06:27→17:43)
[2021-02-19] MEDS: LORazepam 2MG/ML-1ML VIAL IV PRN (06:28)
[2021-02-19 07:24] LABS: Potassium 3.5 mmol/L (3.5-5.1)
[2021-02-19 07:29] LABS: BUN/Creatinine Ratio 9.3; Calcium 8.3 mg/dL (8.5-10.1)
[2021-02-19 09:00] VITALS: BP 144/73
[2021-02-19] MEDS: cefTRIAXone 1GM/50ML D5W 50 ML IV SCH (09:36)
[2021-02-19] MEDS: GABAPENTIN 300 MG CAP PO SCH ×3 (09:37→21:19)
[2021-02-19] MEDS: MULTIPLE VITAMIN TAB PO SCH (09:37)
[2021-02-19] MEDS: DOCUSATE SOD 100 MG CAP PO SCH ×2 (09:37→21:19)
[2021-02-19] MEDS: METOPROLOL SUCCINATE XL 50 MG TAB PO SCH (09:38)
[2021-02-19] MEDS: PANTOPRAZOLE 40 MG TAB PO SCH (09:38)
[2021-02-19] MEDS: MORPHINE SULFATE INJECTION 2 MG/ML SYRG IV PRN ×2 (11:23→23:08)
[2021-02-19] MEDS ORDERED: cloNIDine HCL 0.1 MG TAB PO PRN (11:45)
[2021-02-19] MEDS ORDERED: LORazepam 2MG/ML-1ML VIAL IV PRN (12:00)
[2021-02-19 17:00] VITALS: BP 150/78
[2021-02-19] MEDS: LORazepam 0.5 MG TAB PO PRN (21:19)
[2021-02-19] MEDS: LISINOPRIL 20 MG TAB PO SCH (21:27)
[2021-02-19 22:00] VITALS: BP 148/73
[2021-02-19] MEDS ORDERED: MILK OF MAGNESIA 30ML SUSP PO ONE (22:00)
[2021-02-20 05:00] VITALS: BP 139/64
[2021-02-20] MEDS: metroNIDAZOLE 500MG/100ML 100 ML IV SCH (05:29)
[2021-02-20] MEDS: GABAPENTIN 300 MG CAP PO SCH ×3 (05:30→21:44)
[2021-02-20] MEDS: SUCRALFATE 1 GM/10 ML ORAL SUSP PO SCH ×2 (06:09→16:28)
[2021-02-20] MEDS: cefTRIAXone 1GM/50ML D5W 50 ML IV SCH (08:53)
[2021-02-20] MEDS: DOCUSATE SOD 100 MG CAP PO SCH ×2 (08:54→21:43)
[2021-02-20] MEDS: METOPROLOL SUCCINATE XL 50 MG TAB PO SCH (08:54)
[2021-02-20] MEDS: MULTIPLE VITAMIN TAB PO SCH (08:54)
[2021-02-20] MEDS: PANTOPRAZOLE 40 MG TAB PO SCH (08:54)
[2021-02-20 09:00] VITALS: BP 153/88
[2021-02-20 13:00] VITALS: BP 149/79
[2021-02-20] MEDS: MORPHINE SULFATE INJECTION 2 MG/ML SYRG IV PRN ×2 (14:03→20:24)
[2021-02-20] MEDS: metroNIDAZOLE 500 MG TAB PO SCH ×2 (14:03→21:44)
[2021-02-20 17:00] VITALS: BP 157/71
[2021-02-20] MEDS: TEMAZEPAM 15 MG CAP PO PRN (21:44)
[2021-02-20] MEDS: LISINOPRIL 20 MG TAB PO SCH (21:49)
[2021-02-20 22:00] VITALS: BP 152/78
[2021-02-21 05:00] VITALS: BP 143/83
[2021-02-21] MEDS: GABAPENTIN 300 MG CAP PO SCH ×3 (05:56→21:45)
[2021-02-21] MEDS: metroNIDAZOLE 500 MG TAB PO SCH ×4 (05:56→21:45)
[2021-02-21] MEDS: SUCRALFATE 1 GM/10 ML ORAL SUSP PO SCH ×2 (06:00→17:00)
[2021-02-21] MEDS: MORPHINE SULFATE INJECTION 2 MG/ML SYRG IV PRN (06:04)
[2021-02-21] MEDS: cefTRIAXone 1GM/50ML D5W 50 ML IV SCH (09:00)
[2021-02-21 09:11] VITALS: BP 163/74
[2021-02-21] MEDS: PANTOPRAZOLE 40 MG TAB PO SCH (10:00)
[2021-02-21] MEDS: MULTIPLE VITAMIN TAB PO SCH (10:00)
[2021-02-21] MEDS: DOCUSATE SOD 100 MG CAP PO SCH ×2 (10:00→21:45)
[2021-02-21] MEDS ORDERED: IOHEXOL 300 MG/ML 100ML BOTTLE IJ ONE (11:01)
[2021-02-21] MEDS ORDERED: HYDROcodone-ACET 5/325MG TAB PO PRN (12:00)
[2021-02-21] MEDS ORDERED: HYOSCYAMINE SULF 0.125 MG ODT TAB PO ONE (12:00)
[2021-02-21 12:34] VITALS: BP_SYST 138; BP_SYST 140; BP_DIAS 42; BP_DIAS 69
[2021-02-21] MEDS: METOPROLOL SUCCINATE XL 50 MG TAB PO SCH (14:45)
[2021-02-21 17:00] VITALS: BP 157/73
[2021-02-21] MEDS: LORazepam 0.5 MG TAB PO PRN (20:07)
[2021-02-21] MEDS: TEMAZEPAM 15 MG CAP PO PRN (21:46)
[2021-02-21] MEDS: LISINOPRIL 20 MG TAB PO SCH (21:46)
[2021-02-21 22:00] VITALS: BP 121/64
[2021-02-22 05:00] VITALS: BP 122/70
[2021-02-22] MEDS: SUCRALFATE 1 GM/10 ML ORAL SUSP PO SCH (06:03)
[2021-02-22] MEDS: GABAPENTIN 300 MG CAP PO SCH ×2 (06:03→15:06)
[2021-02-22] MEDS: metroNIDAZOLE 500 MG TAB PO SCH ×2 (06:03→15:06)
[2021-02-22 06:29] LABS: Basophils # (auto) 0.1 10 ^3/uL (0-0.2); Basophils % (auto) 0.6 % (0.0-2.0); Eosinophils # (auto) 0.4 10 ^3/uL (0-0.8); Eosinophils % (auto) 3.6 % (0.0-7.0); Hematocrit 40.4 % (36.0-46.0); Hemoglobin 13.9 g/dL (12.2-16.2); Lymphocytes # (auto) 1.2 10 ^3/uL (0.4-5.4); Mean Corpuscular Hemoglobin 33.1 pg (28.0-32.0); Mean Corpuscular Hgb Conc. 34.4 g/dL (32.0-36.0); Monocytes % (auto) 9.8 % (0.0-12.0); Neutrophils # (auto) 7.2 10 ^3/uL (1.6-8.6); Nucleated Red Blood Cells % 0.1 %; Red Blood Cells 4.21 10^6/uL (4.0-5.20); Red Cell Distribution Width 13.3 % (11.8-14.3); White Blood Cell 9.7 10^3/uL (4.4-10.8)
[2021-02-22 06:32] LABS: Calcium 9.6 mg/dL (8.5-10.1); Potassium 4.1 mmol/L (3.5-5.1)
[2021-02-22 09:00] VITALS: BP 118/69
[2021-02-22] MEDS: MULTIPLE VITAMIN TAB PO SCH (09:47)
[2021-02-22] MEDS: PANTOPRAZOLE 40 MG TAB PO SCH (09:47)
[2021-02-22] MEDS: cefTRIAXone 1GM/50ML D5W 50 ML IV SCH (09:47)
[2021-02-22] MEDS: METOPROLOL SUCCINATE XL 50 MG TAB PO SCH (09:48)
[2021-02-22] MEDS: LORazepam 0.5 MG TAB PO PRN (09:48)
[2021-02-22] MEDS: DOCUSATE SOD 100 MG CAP PO SCH (09:53)
[2021-02-22 13:00] VITALS: BP 118/78
[2021-02-22 15:11] VITALS: BP 118/78
[2021-02-22 16:46] VITALS: BP 126/71
== END 2021-02-22 16:45 | disposition home or self-care (01) | DRG 392 ==
LOC: ER 09:53 → EDBD 09:53 → EDSEX 09:53 → TELE 14:52 → TELE-WESTW 02-17 01:09 → WEST WING 02-18 19:12
PROVIDERS: ADMIT Nurse Practitioner Acute Care; ATTEND Internal Medicine
PROC: 05HA33Z Insertion of Infusion Device into Left Brachial Vein, Percutaneous Approach (ICD-10-PCS; principal; 2021-02-16)
PROC: B54NZZA Ultrasonography of Left Upper Extremity Veins, Guidance (ICD-10-PCS; 2021-02-16)
DX: K57.32 Diverticulitis of large intestine without perforation or abscess without bleeding (principal); R64 Cachexia; J96.10 Chronic respiratory failure, unspecified whether with hypoxia or hypercapnia; Z68.1 Body mass index [BMI] 19.9 or less, adult; Z20.822 Contact with and (suspected) exposure to COVID-19; J44.9 Chronic obstructive pulmonary disease, unspecified; K44.9 Diaphragmatic hernia without obstruction or gangrene; I25.10 Atherosclerotic heart disease of native coronary artery without angina pectoris; E78.5 Hyperlipidemia, unspecified; I11.0 Hypertensive heart disease with heart failure; E03.9 Hypothyroidism, unspecified; F32.9 Major depressive disorder, single episode, unspecified; K21.9 Gastro-esophageal reflux disease without esophagitis; I50.9 Heart failure, unspecified; F41.9 Anxiety disorder, unspecified; Z79.899 Other long term (current) drug therapy; Z82.49 Family history of ischemic heart disease and other diseases of the circulatory system; Z86.73 Personal history of transient ischemic attack (TIA), and cerebral infarction without residual deficits; Z82.5 Family history of asthma and other chronic lower respiratory diseases; Z82.62 Family history of osteoporosis; Z87.11 Personal history of peptic ulcer disease; Z95.1 Presence of aortocoronary bypass graft; Z88.8 Allergy status to other drugs, medicaments and biological substances; Z90.49 Acquired absence of other specified parts of digestive tract; Z88.1 Allergy status to other antibiotic agents; Z91.013 Allergy to seafood
CPT/HCPCS: 36415; 74176; 74177; 80048; 80053; 81001; 84484; 85025; 87426; 93005; 96365; 96366; 96375; C9113; G0378; J0696; J2405; J3490

== ENCOUNTER 2021-04-13 10:15 | Emergency (ER) | payer MEDICARE, MEDICAID ==
[~2021-04-13] VITALS: Ht 157.5 cm; Wt 45.4 kg
[~2021-04-13 10:15] MED LIST changes: +LISI-716 PO; -LISI20TA28 PO; +LORA1TAB23 PO; -LORA2TAB89 PO
[2021-04-13 11:14] LABS: Basophils # (auto) 0 10 ^3/uL (0-0.2); Basophils % (auto) 0.4 % (0.0-2.0); Eosinophils # (auto) 0.2 10 ^3/uL (0-0.8); Eosinophils % (auto) 2.6 % (0.0-7.0); Hematocrit 38.4 % (36.0-46.0); Hemoglobin 12.6 g/dL (12.2-16.2); Lymphocytes # (auto) 1.2 10 ^3/uL (0.4-5.4); Lymphocytes % (auto) 17.4 % (10.0-50.0); Mean Corpuscular Hemoglobin 31.4 pg (28.0-32.0); Mean Corpuscular Volume 95.3 fL (80.0-100.0); Monocytes # (auto) 0.6 10 ^3/uL (0-1.3); Monocytes % (auto) 9.1 % (0.0-12.0); Neutrophils # (auto) 4.8 10 ^3/uL (1.6-8.6); Neutrophils % (auto) 70.5 % (37.0-80.0); Nucleated Red Blood Cells % 0.1 %; Red Blood Cells 4.02 10^6/uL (4.0-5.20); Red Cell Distribution Width 13.1 % (11.8-14.3); White Blood Cell 6.9 10^3/uL (4.4-10.8)
[2021-04-13 11:24] LABS: INR 0.99 (0.9-1.15); Partial Thromboplastin Time 29.3 sec (23.6-33.0)
[2021-04-13 11:27] LABS: Albumin 3.2 g/dL (3.4-5.0); Magnesium 1.9 mg/dL (1.6-2.6); Potassium 3.6 mmol/L (3.5-5.1)
[2021-04-13 11:32] LABS: BUN/Creatinine Ratio 20.2; Bilirubin, Total 0.5 mg/dL (0.2-1.0); Total Protein 6.6 g/dL (6.4-8.2)
[2021-04-13 14:00] VITALS: BP 121/55
[2021-04-13 15:56] LABS: Urine Bacteria NONE SEEN /hpf (None Seen); Urine Blood 3+ /uL (Negative); Urine Specific Gravity 1.011 (1.001-1.035); Urine WBC 31 /hpf (0 - 5)
[2021-04-13] MEDS ORDERED: cefTRIAXone 1GM/50ML D5W 50 ML IV ONE (16:15)
== END 2021-04-13 16:47 | disposition home or self-care (01) ==
LOC: ER 10:15 → EDBD 10:15 → ER 16:47
DX: F41.8 Other specified anxiety disorders (principal); N39.0 Urinary tract infection, site not specified; E03.9 Hypothyroidism, unspecified; I25.10 Atherosclerotic heart disease of native coronary artery without angina pectoris; J44.9 Chronic obstructive pulmonary disease, unspecified; K21.9 Gastro-esophageal reflux disease without esophagitis; E78.5 Hyperlipidemia, unspecified; I10 Essential (primary) hypertension; I25.2 Old myocardial infarction; Z86.73 Personal history of transient ischemic attack (TIA), and cerebral infarction without residual deficits; Z90.49 Acquired absence of other specified parts of digestive tract; Z95.1 Presence of aortocoronary bypass graft
CPT/HCPCS: 36415; 70450; 71045; 80053; 81001; 83735; 84443; 84484; 85025; 85610; 85730; 93005; 96365; 99285; J0696; J7030

== ENCOUNTER → 2021-07-11 | Outpatient (CLI) | payer MEDICARE, MEDICAID ==
[2021-07-11 12:41] LABS: Cholesterol 166 mg/dL (< 200); HDL Cholesterol 68 mg/dL (40-59); LDL Cholesterol 78 mg/dL (< 100); Triglycerides 98 mg/dL (< 150)
== END | disposition home or self-care (01) ==
LOC: LAB 10:37
PROVIDERS: ATTEND Internal Medicine
DX: I25.10 Atherosclerotic heart disease of native coronary artery without angina pectoris (principal); I10 Essential (primary) hypertension
CPT/HCPCS: 36415; 80061; 84439; 84443

== ENCOUNTER 2021-08-29 12:42 | Inpatient (IN) | payer MEDICARE, MEDICAID ==
[~2021-08-29] VITALS: Ht 144.8 cm; Wt 52.7 kg
[2021-08-29] MEDS ORDERED: LORazepam 2MG/ML-1ML VIAL IV ONE (13:00)
[2021-08-29] MEDS ORDERED: methylPREDNISolone SOD SUCC 125 MG/2 ML VL IV ONE (13:00)
[2021-08-29 13:53] LABS: Basophils # (auto) 0.1 10 ^3/uL (0-0.2); Eosinophils # (auto) 0.4 10 ^3/uL (0-0.8); Hematocrit 38.8 % (36.0-46.0); Hemoglobin 13.1 g/dL (12.2-16.2); Lymphocytes # (auto) 1.3 10 ^3/uL (0.4-5.4); Lymphocytes % (auto) 15.6 % (10.0-50.0); Mean Corpuscular Hemoglobin 32.9 pg (28.0-32.0); Mean Corpuscular Hgb Conc. 33.7 g/dL (32.0-36.0); Mean Corpuscular Volume 97.4 fL (80.0-100.0); Monocytes # (auto) 0.8 10 ^3/uL (0-1.3); Monocytes % (auto) 9.3 % (0.0-12.0); Neutrophils # (auto) 5.6 10 ^3/uL (1.6-8.6); Neutrophils % (auto) 69.1 % (37.0-80.0); Nucleated Red Blood Cells % 0.1 %; Red Blood Cells 3.99 10^6/uL (4.0-5.20); Red Cell Distribution Width 12.9 % (11.8-14.3); White Blood Cell 8.1 10^3/uL (4.4-10.8)
[2021-08-29 14:10] LABS: Albumin 3.4 g/dL (3.4-5.0); BUN/Creatinine Ratio 16.2; Calcium 9.1 mg/dL (8.5-10.1); Magnesium 2.1 mg/dL (1.6-2.6); Potassium 3.7 mmol/L (3.5-5.1)
[2021-08-29 14:15] LABS: Bilirubin, Total 0.4 mg/dL (0.2-1.0); Total Protein 6.5 g/dL (6.4-8.2)
[2021-08-29] MEDS ORDERED: NITROGLYCERIN 0.4 MG SL TAB SL PRN (15:15)
[2021-08-29] MEDS ORDERED: BUDESONIDE (INHALATION) 0.5 MG/2 ML NEB NEB ONE (17:45)
[2021-08-29] MEDS ORDERED: FAMOTIDINE (10MG/ML) 2ML VL IV ONE (17:45)
[2021-08-29] MEDS ORDERED: NITROGLYCERIN 0.4MG/DOSE SPRAY 4.9GM TL PRN (17:45)
[2021-08-29] MEDS ORDERED: HYDROcodone-ACET 5/325MG TAB PO PRN (17:45)
[2021-08-29] MEDS ORDERED: METOCLOPRAMIDE HCL 5MG/ml INJ 2ml VIAL IV PRN (17:45)
[2021-08-29] MEDS ORDERED: MONTELUKAST SODIUM 10 MG TAB PO ONE (17:45)
[2021-08-29] MEDS ORDERED: FUROSEMIDE 20 MG/2 ML VIAL IV ONE (17:45)
[2021-08-29] MEDS ORDERED: METOPROLOL TARTRATE 1MG/1ML-5ML VIAL IV PRN (17:45)
[2021-08-29] MEDS ORDERED: IPRATROPIUM BROM 0.5 MG/2.5ML INH SOL NEB ONE (17:45)
[2021-08-29] MEDS ORDERED: AZITHROMYCIN 500MG/ 250ML 250 ML IV ONE (17:45)
[2021-08-29] MEDS: D5W/SOD CHLO 0.9% 1,000 ML IV SCH ×2 (17:45→21:25)
[2021-08-29] MEDS ORDERED: DOCUSATE SOD 100 MG CAP PO PRN (17:45)
[2021-08-29] MEDS ORDERED: HYDROcodone-ACET 5/325MG TAB PO ONE (17:45)
[2021-08-29] MEDS ORDERED: LACTULOSE 20Gm/30ML SOLN PO PRN (17:45)
[2021-08-29] MEDS ORDERED: METOPROLOL SUCCINATE XL 50 MG TAB PO PRN (17:45)
[2021-08-29] MEDS ORDERED: IPRATROPIUM BROM 0.5 MG/2.5ML INH SOL NEB SCH (18:00)
[2021-08-29 18:43] LABS: Magnesium 2.2 mg/dL (1.6-2.6); Phosphorus 2.6 mg/dL (2.5-4.90)
[2021-08-29 19:42] LABS: INR 1.03 (0.9-1.15); Partial Thromboplastin Time 28.2 sec (23.6-33.0)
[2021-08-29 21:44] VITALS: BP 155/78
[2021-08-29] MEDS ORDERED: BUDESONIDE (INHALATION) 0.5 MG/2 ML NEB NEB SCH (22:00)
[2021-08-29] MEDS: FLUTICASONE PROP NASAL SPR 0.05 % (50MCG) 16GM EACHNOSTRI SCH (22:26)
[2021-08-29] MEDS: methylPREDNISolone SOD SUCC 40 MG/ML VL IV SCH (22:26)
[2021-08-29] MEDS: ASPirin-EC 81 mg tab PO SCH (22:27)
[2021-08-29] MEDS: GABAPENTIN 300 MG CAP PO SCH (22:27)
[2021-08-29] MEDS: LISINOPRIL 10 MG TAB PO SCH (22:28)
[2021-08-29] MEDS: POTASSIUM CHL 20 Meq TABLET PO SCH (22:28)
[2021-08-30] VITALS (7 sets, daily range): BP systolic 114–155; BP diastolic 59–78
[2021-08-30 04:46] LABS: Alcohol, Urine < 3.0 mg/dL (0-10); Amphetamine Screen, Urine NEGATIVE (NEGATIVE); Barbiturate Scree,Urine NEGATIVE (NEGATIVE); Benzodiazephine Screen, Urine NEGATIVE (NEGATIVE); Cannabinoid Screen, Urine NEGATIVE (NEGATIVE); Cocaine Screen, Urine NEGATIVE (NEGATIVE); Opiate Scree,Urine NEGATIVE (NEGATIVE); Phencyclidine Screen, Urine NEGATIVE (NEGATIVE); Protein, Urine 9.4 mg/dL (0.0-11.9)
[2021-08-30 04:55] LABS: Urine Bacteria NONE SEEN /hpf (None Seen); Urine Blood Negative /uL (Negative); Urine Specific Gravity 1.007 (1.001-1.035); Urine WBC 1 /hpf (0 - 5)
[2021-08-30] MEDS ORDERED: FUROSEMIDE 20 MG/2 ML VIAL IV SCH (06:00)
[2021-08-30] MEDS: LEVOTHYROXINE SODIUM 50 MCG TAB PO SCH (06:39)
[2021-08-30 07:01] LABS: Hematocrit 38.4 % (36.0-46.0); Hemoglobin 13.2 g/dL (12.2-16.2); Mean Corpuscular Hemoglobin 33.2 pg (28.0-32.0); Mean Corpuscular Hgb Conc. 34.3 g/dL (32.0-36.0); Mean Corpuscular Volume 96.8 fL (80.0-100.0); Red Blood Cells 3.97 10^6/uL (4.0-5.20); Red Cell Distribution Width 12.9 % (11.8-14.3); White Blood Cell 9.1 10^3/uL (4.4-10.8)
[2021-08-30 07:16] LABS: INR 1.02 (0.9-1.15); Partial Thromboplastin Time 26.2 sec (23.6-33.0)
[2021-08-30 07:30] LABS: BUN/Creatinine Ratio 14.9; Bilirubin, Total 0.3 mg/dL (0.2-1.0); CRP High Sensitivity 0.51 mg/dL (< 0.3); Calcium 8.9 mg/dL (8.5-10.1); Total Protein 6.3 g/dL (6.4-8.2); Uric Acid 5.5 mg/dL (2.6-6.0)
[2021-08-30 07:57] LABS: Basophils % (manual) 0 (0.0-2.0); Blast Cells 0; Metamyelocytes % 0; Myelocytes % 0; Promyelocytes % 0; Reactive Lymphocytes 0
[2021-08-30 08:29] LABS: Potassium 4.4 mmol/L (3.5-5.1)
[2021-08-30] MEDS: FLUTICASONE PROP NASAL SPR 0.05 % (50MCG) 16GM EACHNOSTRI SCH ×2 (09:13→22:57)
[2021-08-30] MEDS: FLUTICASONE FUROATE IN SCH (09:14)
[2021-08-30] MEDS: methylPREDNISolone SOD SUCC 40 MG/ML VL IV SCH (09:14)
[2021-08-30] MEDS: UMECLIDINIUM IN SCH (09:14)
[2021-08-30] MEDS: VILANTEROL IN SCH (09:14)
[2021-08-30] MEDS: CHOLECALCIFEROL (VITD3) 2,000 UNIT CAP/TAB PO SCH (09:15)
[2021-08-30] MEDS: POTASSIUM CHL 20 Meq TABLET PO SCH (09:15)
[2021-08-30] MEDS: ENOXAPARIN SOD 40 MG/0.4 ML SYRINGE SC SCH (09:15)
[2021-08-30] MEDS: GABAPENTIN 300 MG CAP PO SCH (09:15)
[2021-08-30] MEDS: LISINOPRIL 10 MG TAB PO SCH (09:18)
[2021-08-30] MEDS ORDERED: AZITHROMYCIN 500MG/ 250ML 250 ML IV SCH (10:00)
[2021-08-30] MEDS ORDERED: dilTIAZem 120MG ER CAP PO SCH (10:00)
[2021-08-30 11:20] LABS: Band Neutrophils % (manual) 1; Eosinophils % (manual) 1 (0-7); Lymphocytes % (manual) 8 (10.0-50.0); Monocytes % (manual) 1 (0-12)
[2021-08-30] MEDS: LORazepam 2MG/ML-1ML VIAL IV PRN (16:42)
[2021-08-30] MEDS: D5W/SOD CHLO 0.9% 1,000 ML IV SCH (20:00)
[2021-08-30] MEDS ORDERED: MONTELUKAST SODIUM 10 MG TAB PO SCH (22:00)
[2021-08-30] MEDS: ASPirin-EC 81 mg tab PO SCH (22:57)
[2021-08-31 05:00] VITALS: BP 139/90
[2021-08-31] MEDS: UMECLIDINIUM IN SCH (06:39)
[2021-08-31] MEDS: FLUTICASONE FUROATE IN SCH (06:39)
[2021-08-31] MEDS: LEVOTHYROXINE SODIUM 50 MCG TAB PO SCH (06:39)
[2021-08-31] MEDS: VILANTEROL IN SCH (06:39)
[2021-08-31 08:00] VITALS: BP 128/59
[2021-08-31 09:00] VITALS: BP 114/52
[2021-08-31] MEDS ORDERED: FAMOTIDINE (10MG/ML) 2ML VL IV SCH (10:00)
[2021-08-31] MEDS: CHOLECALCIFEROL (VITD3) 2,000 UNIT CAP/TAB PO SCH (10:28)
[2021-08-31] MEDS: FLUTICASONE PROP NASAL SPR 0.05 % (50MCG) 16GM EACHNOSTRI SCH ×2 (10:28→22:00)
[2021-08-31] MEDS: PANTOPRAZOLE 40 MG TAB PO SCH (10:28)
[2021-08-31] MEDS: LORazepam 2MG/ML-1ML VIAL IV PRN ×2 (10:28→18:40)
[2021-08-31] MEDS: GABAPENTIN 300 MG CAP PO SCH (10:28)
[2021-08-31] MEDS: ENOXAPARIN SOD 40 MG/0.4 ML SYRINGE SC SCH (10:29)
[2021-08-31] MEDS: Ensure HIGH Protein Chocolate 8oz Bottle PO SCH ×2 (11:44→18:23)
[2021-08-31 13:00] VITALS: BP 114/51
[2021-08-31 16:45] VITALS: BP 123/63
[2021-08-31] MEDS: D5W/SOD CHLO 0.9% 1,000 ML IV SCH (17:19)
[2021-08-31 22:00] VITALS: BP 147/68
[2021-08-31] MEDS: ASPirin-EC 81 mg tab PO SCH (22:13)
[2021-09-01 05:00] VITALS: BP 155/79
[2021-09-01] MEDS: LEVOTHYROXINE SODIUM 50 MCG TAB PO SCH (06:09)
[2021-09-01 06:17] VITALS: BP 142/61
[2021-09-01] MEDS: FLUTICASONE FUROATE IN SCH (06:17)
[2021-09-01] MEDS: VILANTEROL IN SCH (06:17)
[2021-09-01] MEDS: UMECLIDINIUM IN SCH (06:17)
[2021-09-01 09:00] VITALS: BP 155/81
[2021-09-01] MEDS ORDERED: guaiFENesin-DM 100/10mg/5ml SYR PO PRN (09:45)
[2021-09-01] MEDS: Ensure HIGH Protein Chocolate 8oz Bottle PO SCH ×3 (09:50→18:59)
[2021-09-01] MEDS: PANTOPRAZOLE 40 MG TAB PO SCH (10:17)
[2021-09-01] MEDS: GABAPENTIN 300 MG CAP PO SCH (10:17)
[2021-09-01] MEDS: CHOLECALCIFEROL (VITD3) 2,000 UNIT CAP/TAB PO SCH (10:17)
[2021-09-01] MEDS: FLUTICASONE PROP NASAL SPR 0.05 % (50MCG) 16GM EACHNOSTRI SCH ×2 (10:17→21:41)
[2021-09-01] MEDS: ENOXAPARIN SOD 40 MG/0.4 ML SYRINGE SC SCH (10:17)
[2021-09-01] MEDS: hydrALAZINE HCL 20 MG/ML VL IV PRN (10:18)
[2021-09-01] MEDS: LORazepam 2MG/ML-1ML VIAL IV PRN ×2 (10:36→20:20)
[2021-09-01 17:00] VITALS: BP 135/71
[2021-09-01] MEDS: ASPirin-EC 81 mg tab PO SCH (21:41)
[2021-09-01 22:00] VITALS: BP 132/74
[2021-09-02] MEDS: hydrALAZINE HCL 20 MG/ML VL IV PRN (04:53)
[2021-09-02 05:00] VITALS: BP 161/74
[2021-09-02] MEDS ORDERED: LORazepam 2MG/ML-1ML VIAL ONE (05:43)
[2021-09-02] MEDS ORDERED: LORazepam 2MG/ML-1ML VIAL IV ONE (06:00)
[2021-09-02] MEDS: LEVOTHYROXINE SODIUM 50 MCG TAB PO SCH (06:31)
[2021-09-02] MEDS: VILANTEROL IN SCH ×2 (07:29→21:49)
[2021-09-02] MEDS: UMECLIDINIUM IN SCH ×2 (07:29→21:49)
[2021-09-02] MEDS: FLUTICASONE FUROATE IN SCH ×2 (07:29→21:49)
[2021-09-02] MEDS: Ensure HIGH Protein Chocolate 8oz Bottle PO SCH ×3 (08:00→16:52)
[2021-09-02 09:00] VITALS: BP 143/80
[2021-09-02] MEDS ORDERED: ENOXAPARIN SOD 30 MG/0.3 ML SYRINGE SC SCH (10:00)
[2021-09-02] MEDS: FLUTICASONE PROP NASAL SPR 0.05 % (50MCG) 16GM EACHNOSTRI SCH ×2 (10:11→21:49)
[2021-09-02] MEDS: PANTOPRAZOLE 40 MG TAB PO SCH (10:11)
[2021-09-02] MEDS: CHOLECALCIFEROL (VITD3) 2,000 UNIT CAP/TAB PO SCH (10:11)
[2021-09-02] MEDS: GABAPENTIN 300 MG CAP PO SCH (10:11)
[2021-09-02] MEDS ORDERED: METOPROLOL SUCCINATE XL 50 MG TAB PO ONE (10:15)
[2021-09-02] MEDS ORDERED: LISINOPRIL 10 MG TAB PO ONE (10:15)
[2021-09-02 11:59] LABS: Basophils # (auto) 0.1 10 ^3/uL (0-0.2); Basophils % (auto) 0.9 % (0.0-2.0); Eosinophils # (auto) 0.7 10 ^3/uL (0-0.8); Eosinophils % (auto) 7.5 % (0.0-7.0); Hematocrit 41.7 % (36.0-46.0); Hemoglobin 14.3 g/dL (12.2-16.2); Lymphocytes # (auto) 1.5 10 ^3/uL (0.4-5.4); Lymphocytes % (auto) 17.7 % (10.0-50.0); Mean Corpuscular Hemoglobin 33.2 pg (28.0-32.0); Mean Corpuscular Hgb Conc. 34.3 g/dL (32.0-36.0); Mean Corpuscular Volume 96.8 fL (80.0-100.0); Monocytes # (auto) 0.8 10 ^3/uL (0-1.3); Monocytes % (auto) 9.5 % (0.0-12.0); Neutrophils # (auto) 5.6 10 ^3/uL (1.6-8.6); Neutrophils % (auto) 64.4 % (37.0-80.0); Nucleated Red Blood Cells % 0.1 %; Red Blood Cells 4.31 10^6/uL (4.0-5.20); White Blood Cell 8.7 10^3/uL (4.4-10.8)
[2021-09-02] MEDS ORDERED: FLUCONAZOLE 100 MG TAB PO ONE (12:00)
[2021-09-02 12:11] LABS: Potassium 3.7 mmol/L (3.5-5.1)
[2021-09-02 12:19] LABS: BUN/Creatinine Ratio 14.3
[2021-09-02 13:00] VITALS: BP 142/66
[2021-09-02] MEDS: MORPHINE SULFATE INJ 2 MG/ml SYRG IV PRN (13:22)
[2021-09-02 16:48] VITALS: BP 125/61
[2021-09-02] MEDS: LORazepam 2MG/ML-1ML VIAL IV PRN (17:02)
[2021-09-02 22:00] VITALS: BP 122/62
[2021-09-02] MEDS: ASPirin-EC 81 mg tab PO SCH (22:00)
[2021-09-03] MEDS: LORazepam 2MG/ML-1ML VIAL IV PRN ×3 (01:12→19:46)
[2021-09-03 05:00] VITALS: BP 133/70
[2021-09-03] MEDS: LEVOTHYROXINE SODIUM 50 MCG TAB PO SCH (06:16)
[2021-09-03] MEDS: UMECLIDINIUM IN SCH (06:16)
[2021-09-03] MEDS: FLUTICASONE FUROATE IN SCH (06:16)
[2021-09-03] MEDS: VILANTEROL IN SCH (06:16)
[2021-09-03 08:00] VITALS: BP 138/66
[2021-09-03] MEDS: Ensure HIGH Protein Chocolate 8oz Bottle PO SCH ×3 (08:00→16:20)
[2021-09-03] MEDS: GABAPENTIN 300 MG CAP PO SCH (09:27)
[2021-09-03] MEDS: FLUCONAZOLE 100 MG TAB PO SCH (09:27)
[2021-09-03] MEDS: PANTOPRAZOLE 40 MG TAB PO SCH (09:27)
[2021-09-03] MEDS: FLUTICASONE PROP NASAL SPR 0.05 % (50MCG) 16GM EACHNOSTRI SCH ×2 (09:27→09:29)
[2021-09-03] MEDS: METOPROLOL SUCCINATE XL 50 MG TAB PO SCH (09:28)
[2021-09-03] MEDS: LISINOPRIL 10 MG TAB PO SCH (09:28)
[2021-09-03] MEDS: CHOLECALCIFEROL (VITD3) 2,000 UNIT CAP/TAB PO SCH (09:28)
[2021-09-03 12:00] VITALS: BP 145/71
[2021-09-03 16:00] VITALS: BP 124/60
[2021-09-03] MEDS: ASPirin-EC 81 mg tab PO SCH (21:07)
[2021-09-03 22:00] VITALS: BP 139/72
[2021-09-04 04:33] VITALS: BP 125/65
[2021-09-04] MEDS: UMECLIDINIUM IN SCH (06:02)
[2021-09-04] MEDS: LEVOTHYROXINE SODIUM 50 MCG TAB PO SCH (06:02)
[2021-09-04] MEDS: FLUTICASONE FUROATE IN SCH (06:02)
[2021-09-04] MEDS: VILANTEROL IN SCH (06:02)
[2021-09-04 08:00] VITALS: BP 112/59
[2021-09-04] MEDS: Ensure HIGH Protein Chocolate 8oz Bottle PO SCH ×2 (08:05→12:25)
[2021-09-04] MEDS: MORPHINE SULFATE INJ 2 MG/ml SYRG IV PRN (08:46)
[2021-09-04 09:00] VITALS: BP 112/59
[2021-09-04] MEDS: METOPROLOL SUCCINATE XL 50 MG TAB PO SCH (10:00)
[2021-09-04] MEDS: LISINOPRIL 10 MG TAB PO SCH (10:00)
[2021-09-04] MEDS: GABAPENTIN 300 MG CAP PO SCH (10:02)
[2021-09-04] MEDS: PANTOPRAZOLE 40 MG TAB PO SCH (10:02)
[2021-09-04] MEDS: FLUCONAZOLE 100 MG TAB PO SCH (10:02)
[2021-09-04] MEDS: FLUTICASONE PROP NASAL SPR 0.05 % (50MCG) 16GM EACHNOSTRI SCH (10:02)
[2021-09-04] MEDS: CHOLECALCIFEROL (VITD3) 2,000 UNIT CAP/TAB PO SCH (10:03)
[2021-09-04] MEDS ORDERED: DOCUSATE SOD 100 MG CAP PO ONE (10:15)
[2021-09-04 11:20] VITALS: BP 112/59
[2021-09-04 13:00] VITALS: BP 123/66
== END 2021-09-04 14:46 | disposition home health service (06) | DRG 190 ==
LOC: ER 12:42 → EDBD 12:42 → TELE 15:15 → TELE-CENTR 19:53
PROVIDERS: ADMIT Hospitalist; ATTEND Internal Medicine
PROC: 05HA33Z Insertion of Infusion Device into Left Brachial Vein, Percutaneous Approach (ICD-10-PCS; principal; 2021-08-30)
DX: J44.1 Chronic obstructive pulmonary disease with (acute) exacerbation (principal); J18.9 Pneumonia, unspecified organism; I48.4 Atypical atrial flutter; J96.10 Chronic respiratory failure, unspecified whether with hypoxia or hypercapnia; I50.42 Chronic combined systolic (congestive) and diastolic (congestive) heart failure; K21.9 Gastro-esophageal reflux disease without esophagitis; I11.0 Hypertensive heart disease with heart failure; I25.5 Ischemic cardiomyopathy; I25.10 Atherosclerotic heart disease of native coronary artery without angina pectoris; I27.20 Pulmonary hypertension, unspecified; G62.9 Polyneuropathy, unspecified; E03.9 Hypothyroidism, unspecified; E78.5 Hyperlipidemia, unspecified; F41.9 Anxiety disorder, unspecified; Z20.822 Contact with and (suspected) exposure to COVID-19; M19.90 Unspecified osteoarthritis, unspecified site; F32.A Depression, unspecified; J30.9 Allergic rhinitis, unspecified; R00.1 Bradycardia, unspecified; M81.0 Age-related osteoporosis without current pathological fracture; Z79.899 Other long term (current) drug therapy; Z82.49 Family history of ischemic heart disease and other diseases of the circulatory system; Z82.5 Family history of asthma and other chronic lower respiratory diseases; Z82.62 Family history of osteoporosis; Z86.73 Personal history of transient ischemic attack (TIA), and cerebral infarction without residual deficits; Z87.11 Personal history of peptic ulcer disease; Z95.1 Presence of aortocoronary bypass graft; Z90.49 Acquired absence of other specified parts of digestive tract; Z95.5 Presence of coronary angioplasty implant and graft
CPT/HCPCS: 36415; 70450; 71045; 80048; 80053; 80061; 80307; 81001; 82270; 82728; 83036; 83615; 83690; 83735; 83880; 84100; 84156; 84443; 84484; 84550; 85007; 85025; 85027; 85379; 85610; 85652; 85730; 86141; 87040; 87070; 87086; 87205; 93005; 93970; 96361; 96365; 96375; 97116; 97163; 97530; 99291; G0378; J3490; J7042

== ENCOUNTER 2021-10-10 11:54 | Emergency (ER) | payer MEDICARE, MEDICAID ==
[~2021-10-10] VITALS: Ht 152.4 cm; Wt 44.5 kg
[2021-10-10 13:29] LABS: Basophils # (auto) 0.2 10 ^3/uL (0-0.2); Basophils % (auto) 2.6 % (0.0-2.0); Eosinophils # (auto) 0.3 10 ^3/uL (0-0.8); Eosinophils % (auto) 3.7 % (0.0-7.0); Hematocrit 40.4 % (36.0-46.0); Hemoglobin 14.1 g/dL (12.2-16.2); Lymphocytes # (auto) 1.3 10 ^3/uL (0.4-5.4); Lymphocytes % (auto) 17.2 % (10.0-50.0); Mean Corpuscular Hemoglobin 33.8 pg (28.0-32.0); Mean Corpuscular Volume 96.8 fL (80.0-100.0); Monocytes # (auto) 0.7 10 ^3/uL (0-1.3); Monocytes % (auto) 9.2 % (0.0-12.0); Neutrophils # (auto) 5.1 10 ^3/uL (1.6-8.6); Neutrophils % (auto) 67.3 % (37.0-80.0); Nucleated Red Blood Cells % 0.1 %; Red Blood Cells 4.18 10^6/uL (4.0-5.20); Red Cell Distribution Width 13.1 % (11.8-14.3); White Blood Cell 7.5 10^3/uL (4.4-10.8)
[2021-10-10] MEDS ORDERED: methylPREDNISolone SOD SUCC 125 MG/2 ML VL IV ONE (13:45)
[2021-10-10 13:47] LABS: Albumin 3.5 g/dL (3.4-5.0); Calcium 9.6 mg/dL (8.5-10.1); Potassium 3.9 mmol/L (3.5-5.1)
[2021-10-10 13:50] LABS: BUN/Creatinine Ratio 10.9
[2021-10-10 13:53] LABS: Bilirubin, Total 0.4 mg/dL (0.2-1.0)
[2021-10-10 17:23] VITALS: BP 153/54
== END 2021-10-10 18:00 | disposition home or self-care (01) ==
LOC: ER 11:54
DX: R06.00 Dyspnea, unspecified (principal); J44.9 Chronic obstructive pulmonary disease, unspecified; K21.9 Gastro-esophageal reflux disease without esophagitis; E78.5 Hyperlipidemia, unspecified; I10 Essential (primary) hypertension; Z86.73 Personal history of transient ischemic attack (TIA), and cerebral infarction without residual deficits
CPT/HCPCS: 36415; 36600; 70450; 71045; 80053; 82805; 83880; 84484; 85025; 93005; 96374; 99285; J2930

== ENCOUNTER 2021-11-01 12:31 | Emergency (ER) | payer MEDICARE, MEDICAID ==
[~2021-11-01] VITALS: Ht 154.9 cm; Wt 54.4 kg
[2021-11-01 14:45] LABS: Basophils # (auto) 0.1 10 ^3/uL (0-0.2); Basophils % (auto) 1.8 % (0.0-2.0); Eosinophils # (auto) 0.2 10 ^3/uL (0-0.8); Eosinophils % (auto) 2.8 % (0.0-7.0); Hematocrit 39.5 % (36.0-46.0); Hemoglobin 13.4 g/dL (12.2-16.2); Lymphocytes % (auto) 14.4 % (10.0-50.0); Mean Corpuscular Hemoglobin 32.8 pg (28.0-32.0); Mean Corpuscular Volume 96.5 fL (80.0-100.0); Monocytes # (auto) 0.5 10 ^3/uL (0-1.3); Monocytes % (auto) 6.8 % (0.0-12.0); Neutrophils # (auto) 5.3 10 ^3/uL (1.6-8.6); Neutrophils % (auto) 74.2 % (37.0-80.0); White Blood Cell 7.1 10^3/uL (4.4-10.8)
[2021-11-01] MEDS ORDERED: SODIUM CHLORIDE 0.9% 500 ML IV ONE (16:15)
[2021-11-01 16:59] VITALS: BP 151/62
[2021-11-01 18:25] LABS: Alanine Aminotransferase 17 U/L (13-56); Albumin 3.6 g/dL (3.4-5.0); Anion Gap 8 (5-15); Aspartate Aminotransferase 20 U/L (15-37); BUN/Creatinine Ratio 14.6; Blood Urea Nitrogen 14 mg/dL (7-18); Calcium 9.3 mg/dL (8.5-10.1); Carbon Dioxide 27 mmol/L (21-32); Chloride 105 mmol/L (98-107); GFR African American 71 mL/min; GFR Non-African American 58 mL/min; Glucose 80 mg/dL (74-106); Magnesium 2.1 mg/dL (1.6-2.6); Potassium 4.5 mmol/L (3.5-5.1); Sodium 140 mmol/L (136-145)
[2021-11-01 18:32] LABS: Alkaline Phosphatase 61 U/L (45-117); Bilirubin, Total 0.4 mg/dL (0.2-1.0); Total Protein 6.5 g/dL (6.4-8.2)
== END 2021-11-01 21:39 | disposition home or self-care (01) ==
LOC: EDBD 12:31 → EDUNIT# 12:31 → ER 12:31
DX: R25.1 Tremor, unspecified (principal); J44.9 Chronic obstructive pulmonary disease, unspecified; K21.9 Gastro-esophageal reflux disease without esophagitis; E78.5 Hyperlipidemia, unspecified; I10 Essential (primary) hypertension; Z86.73 Personal history of transient ischemic attack (TIA), and cerebral infarction without residual deficits
CPT/HCPCS: 36415; 80053; 83735; 84443; 84484; 85025

== ENCOUNTER 2021-11-06 17:38 | Emergency (ER) | payer MEDICARE, MEDICAID ==
[~2021-11-06] VITALS: Ht 160 cm; Wt 45.4 kg
[2021-11-06 17:45] VITALS: BP 145/73
[2021-11-06 19:11] LABS: Basophils # (auto) 0.1 10 ^3/uL (0-0.2); Basophils % (auto) 1.1 % (0.0-2.0); Eosinophils # (auto) 0.4 10 ^3/uL (0-0.8); Eosinophils % (auto) 4.8 % (0.0-7.0); Hematocrit 38.3 % (36.0-46.0); Hemoglobin 13.1 g/dL (12.2-16.2); Lymphocytes # (auto) 1.4 10 ^3/uL (0.4-5.4); Lymphocytes % (auto) 16.9 % (10.0-50.0); Mean Corpuscular Hemoglobin 32.9 pg (28.0-32.0); Mean Corpuscular Hgb Conc. 34.3 g/dL (32.0-36.0); Mean Corpuscular Volume 95.9 fL (80.0-100.0); Monocytes # (auto) 0.7 10 ^3/uL (0-1.3); Monocytes % (auto) 8.5 % (0.0-12.0); Neutrophils # (auto) 5.5 10 ^3/uL (1.6-8.6); Neutrophils % (auto) 68.7 % (37.0-80.0); Nucleated Red Blood Cells % 0.2 %; Red Blood Cells 3.99 10^6/uL (4.0-5.20); Red Cell Distribution Width 13.1 % (11.8-14.3); White Blood Cell 8.1 10^3/uL (4.4-10.8)
[2021-11-06 19:25] LABS: Albumin 3.7 g/dL (3.4-5.0); Calcium 9.3 mg/dL (8.5-10.1); Potassium 3.8 mmol/L (3.5-5.1)
[2021-11-06 19:28] LABS: Bilirubin, Total 0.3 mg/dL (0.2-1.0); Total Protein 6.6 g/dL (6.4-8.2)
== END 2021-11-06 22:35 | disposition left against medical advice (07) ==
LOC: ER 17:38 → EDBD 17:38 → ER 22:35
DX: R53.1 Weakness (principal); I25.10 Atherosclerotic heart disease of native coronary artery without angina pectoris; J44.9 Chronic obstructive pulmonary disease, unspecified; K21.9 Gastro-esophageal reflux disease without esophagitis; E78.5 Hyperlipidemia, unspecified; I10 Essential (primary) hypertension; I25.2 Old myocardial infarction; E03.9 Hypothyroidism, unspecified; Z86.73 Personal history of transient ischemic attack (TIA), and cerebral infarction without residual deficits; Z95.1 Presence of aortocoronary bypass graft; Z90.49 Acquired absence of other specified parts of digestive tract; Z79.82 Long term (current) use of aspirin; Z79.899 Other long term (current) drug therapy; Z88.1 Allergy status to other antibiotic agents; Z88.8 Allergy status to other drugs, medicaments and biological substances
CPT/HCPCS: 36415; 80053; 81001; 84484; 85025

== ENCOUNTER 2021-11-16 06:26 | Inpatient (IN) | payer MEDICARE, MEDICAID ==
[~2021-11-16] VITALS: Ht 160 cm; Wt 51.7 kg
[2021-11-16 08:08] LABS: Basophils # (auto) 0.1 10 ^3/uL (0-0.2); Basophils % (auto) 0.4 % (0.0-2.0); Eosinophils # (auto) 0.2 10 ^3/uL (0-0.8); Eosinophils % (auto) 1.1 % (0.0-7.0); Hematocrit 41.5 % (36.0-46.0); Hemoglobin 13.9 g/dL (12.2-16.2); Lymphocytes # (auto) 0.8 10 ^3/uL (0.4-5.4); Lymphocytes % (auto) 5.1 % (10.0-50.0); Mean Corpuscular Hgb Conc. 33.6 g/dL (32.0-36.0); Mean Corpuscular Volume 98.3 fL (80.0-100.0); Monocytes % (auto) 6.5 % (0.0-12.0); Neutrophils # (auto) 13.7 10 ^3/uL (1.6-8.6); Neutrophils % (auto) 86.9 % (37.0-80.0); Red Blood Cells 4.22 10^6/uL (4.0-5.20); White Blood Cell 15.8 10^3/uL (4.4-10.8)
[2021-11-16] MEDS ORDERED: SODIUM CHLORIDE 0.9% 1,000 ML IV ONE (08:15)
[2021-11-16] MEDS ORDERED: SODIUM CHLORIDE 0.9% 1,000 ML IVB ONE (08:15)
[2021-11-16 08:22] LABS: Albumin 3.8 g/dL (3.4-5.0); BUN/Creatinine Ratio 21.2; Calcium 9.2 mg/dL (8.5-10.1); Potassium 4.3 mmol/L (3.5-5.1)
[2021-11-16 08:25] LABS: Bilirubin, Total 0.3 mg/dL (0.2-1.0); Lactic Acid w/Reflex 2.1 mmol/L (0.4-2.0); Total Protein 6.8 g/dL (6.4-8.2)
[2021-11-16 09:59] LABS: Urine Bacteria FEW /hpf (None Seen); Urine Blood Negative /uL (Negative); Urine Specific Gravity 1.015 (1.001-1.035); Urine WBC <1 /hpf (0 - 5)
[2021-11-16] MEDS ORDERED: IOHEXOL 350 MG/ML 100ML IJ ONE (12:55)
[2021-11-16] MEDS ORDERED: CEFD300C2 PO (15:15)
[2021-11-16] MEDS ORDERED: DEXT1SYP9 PO (15:15)
[2021-11-16] MEDS ORDERED: METO-281 PO (15:33)
[2021-11-16] MEDS ORDERED: ACETAMINOPHEN 325 MG TAB PO ONE (17:00)
[2021-11-16] MEDS ORDERED: NITROGLYCERIN 0.4 MG SL TAB SL PRN (17:00)
[2021-11-16] MEDS ORDERED: MORPHINE SULFATE INJ 2 MG/ml SYRG IV PRN ×2 (17:00→17:15)
[2021-11-16] MEDS ORDERED: LACTULOSE 20Gm/30ML SOLN PO PRN (17:15)
[2021-11-16] MEDS ORDERED: LORATADINE 10 MG TAB PO PRN (17:15)
[2021-11-16] MEDS ORDERED: TEMAZEPAM 15 MG CAP PO PRN (17:15)
[2021-11-16] MEDS: SODIUM CHLORIDE 0.9% 1,000 ML IV SCH (17:15)
[2021-11-16] MEDS ORDERED: ONDANSETRON HCL 4 MG/2 ML VIAL IV PRN ×2 (17:15)
[2021-11-16] MEDS ORDERED: traMADol HCL 50 MG TAB PO PRN (17:15)
[2021-11-16] MEDS ORDERED: cloNIDine HCL 0.1 MG TAB PO PRN (17:15)
[2021-11-16 17:34] VITALS: BP 105/49
[2021-11-16] MEDS: DOXYCYCLINE 100MG/250ML 250 ML IV SCH (17:49)
[2021-11-16] MEDS: ACETAMINOPHEN 500 MG TAB PO PRN (17:50)
[2021-11-16] MEDS ORDERED: LEVALBUTEROL HCL 1.25 MG/3 ML NEB ONE (18:08)
[2021-11-16] MEDS: methylPREDNISolone SOD SUCC 40 MG/ML VL IV SCH (18:14)
[2021-11-16] MEDS: IPRATROPIUM BROM 0.5 MG/2.5ML INH SOL NEB SCH (18:22)
[2021-11-16] MEDS: LEVALBUTEROL HCL 1.25 MG/3 ML NEB NEB SCH (18:22)
[2021-11-16] MEDS: LISINOPRIL 10 MG TAB PO SCH (22:00)
[2021-11-17] MEDS: LEVALBUTEROL HCL 1.25 MG/3 ML NEB NEB SCH ×2 (00:32→06:00)
[2021-11-17] MEDS: IPRATROPIUM BROM 0.5 MG/2.5ML INH SOL NEB SCH ×2 (00:32→06:00)
[2021-11-17] MEDS: DOXYCYCLINE 100MG/250ML 250 ML IV SCH (00:40)
[2021-11-17] MEDS: guaiFENesin-DM 100/10mg/5ml SYR PO SCH ×4 (00:40→22:00)
[2021-11-17] MEDS: ASPirin-EC 81 mg tab PO SCH ×2 (00:44→22:28)
[2021-11-17] MEDS: GABAPENTIN 300 MG CAP PO SCH ×3 (00:44→22:28)
[2021-11-17 05:00] VITALS: BP 98/58
[2021-11-17] MEDS: methylPREDNISolone SOD SUCC 40 MG/ML VL IV SCH (06:09)
[2021-11-17] MEDS: FLUTICASONE UMECLIDINIUM VILAN IN SCH (06:14)
[2021-11-17] MEDS: SODIUM CHLORIDE 0.9% 1,000 ML IV SCH ×2 (06:14→19:55)
[2021-11-17 07:03] VITALS: BP 108/57
[2021-11-17 08:00] VITALS: BP 106/57
[2021-11-17] MEDS: LISINOPRIL 10 MG TAB PO SCH ×2 (09:35→22:30)
[2021-11-17] MEDS: PANTOPRAZOLE 40 MG TAB PO SCH (09:55)
[2021-11-17] MEDS ORDERED: ENOXAPARIN SOD 40 MG/0.4 ML SYRINGE SC SCH (10:00)
[2021-11-17] MEDS ORDERED: METOPROLOL SUCCINATE XL 50 MG TAB PO PRN (10:00)
[2021-11-17] MEDS ORDERED: PATIENTS OWN MEDICATION (Omeprazole (Gnp Omeprazole) 20 MG) PO SCH (10:00)
[2021-11-17 10:25] LABS: Basophils # (auto) 0 10 ^3/uL (0-0.2); Basophils % (auto) 0.3 % (0.0-2.0); Eosinophils # (auto) 0 10 ^3/uL (0-0.8); Hematocrit 38.6 % (36.0-46.0); Hemoglobin 12.8 g/dL (12.2-16.2); Lymphocytes # (auto) 0.5 10 ^3/uL (0.4-5.4); Lymphocytes % (auto) 3.8 % (10.0-50.0); Mean Corpuscular Hemoglobin 32.7 pg (28.0-32.0); Mean Corpuscular Hgb Conc. 33.2 g/dL (32.0-36.0); Mean Corpuscular Volume 98.6 fL (80.0-100.0); Monocytes # (auto) 0.1 10 ^3/uL (0-1.3); Monocytes % (auto) 1.2 % (0.0-12.0); Neutrophils # (auto) 11.5 10 ^3/uL (1.6-8.6); Neutrophils % (auto) 94.7 % (37.0-80.0); Red Blood Cells 3.92 10^6/uL (4.0-5.20); Red Cell Distribution Width 13.2 % (11.8-14.3); White Blood Cell 12.2 10^3/uL (4.4-10.8)
[2021-11-17 12:00] VITALS: BP 107/53
[2021-11-17 16:00] VITALS: BP 114/59
[2021-11-17] MEDS: ACETAMINOPHEN 500 MG TAB PO PRN (17:14)
[2021-11-17] MEDS: FUROSEMIDE 20 MG TAB PO SCH (18:13)
[2021-11-17 22:26] VITALS: BP 129/54
[2021-11-17] MEDS: LORazepam 0.5 MG TAB PO PRN (22:28)
[2021-11-17] MEDS: predniSONE 20 MG TAB PO SCH (22:28)
[2021-11-17] MEDS: DOXYCYCLINE 100 MG TAB/CAP PO SCH (22:29)
[2021-11-18 05:00] VITALS: BP 131/58
[2021-11-18] MEDS: FUROSEMIDE 20 MG TAB PO SCH ×2 (05:33→17:51)
[2021-11-18] MEDS: guaiFENesin-DM 100/10mg/5ml SYR PO SCH ×3 (05:33→21:20)
[2021-11-18] MEDS: FLUTICASONE UMECLIDINIUM VILAN IN SCH ×2 (07:00→18:57)
[2021-11-18 08:00] VITALS: BP 125/64
[2021-11-18] MEDS: predniSONE 20 MG TAB PO SCH ×2 (09:12→21:15)
[2021-11-18] MEDS: DOXYCYCLINE 100 MG TAB/CAP PO SCH ×2 (09:13→21:19)
[2021-11-18] MEDS: GABAPENTIN 300 MG CAP PO SCH ×2 (09:13→21:15)
[2021-11-18] MEDS: PANTOPRAZOLE 40 MG TAB PO SCH (09:13)
[2021-11-18] MEDS: LISINOPRIL 10 MG TAB PO SCH ×2 (09:14→21:19)
[2021-11-18] MEDS: SODIUM CHLORIDE 0.9% 1,000 ML IV SCH (09:15)
[2021-11-18 10:51] LABS: Albumin 3.1 g/dL (3.4-5.0); Calcium 8.8 mg/dL (8.5-10.1); Potassium 3.6 mmol/L (3.5-5.1)
[2021-11-18 10:55] LABS: BUN/Creatinine Ratio 22.1; Bilirubin, Total 0.4 mg/dL (0.2-1.0); Total Protein 6.6 g/dL (6.4-8.2)
[2021-11-18 12:00] VITALS: BP 116/62
[2021-11-18 17:12] VITALS: BP 143/63
[2021-11-18] MEDS: ASPirin-EC 81 mg tab PO SCH (21:15)
[2021-11-18] MEDS: LORazepam 0.5 MG TAB PO PRN (21:20)
[2021-11-18 23:48] VITALS: BP 133/70
[2021-11-19] MEDS: SODIUM CHLORIDE 0.9% 1,000 ML IV SCH (04:01)
[2021-11-19 04:37] VITALS: BP 122/62
[2021-11-19] MEDS: guaiFENesin-DM 100/10mg/5ml SYR PO SCH ×2 (05:34→14:25)
[2021-11-19] MEDS: FUROSEMIDE 20 MG TAB PO SCH (05:34)
[2021-11-19 09:00] VITALS: BP 142/58
[2021-11-19] MEDS: LISINOPRIL 10 MG TAB PO SCH (09:18)
[2021-11-19] MEDS: DOXYCYCLINE 100 MG TAB/CAP PO SCH (09:18)
[2021-11-19] MEDS: predniSONE 20 MG TAB PO SCH (09:18)
[2021-11-19] MEDS: PANTOPRAZOLE 40 MG TAB PO SCH (09:18)
[2021-11-19] MEDS: GABAPENTIN 300 MG CAP PO SCH (09:18)
[2021-11-19 13:00] VITALS: BP 138/70
[2021-11-19] MEDS ORDERED: PRED20TA2 PO (14:29)
[2021-11-19] MEDS ORDERED: DOXY-340 PO (14:30)
== END 2021-11-19 18:00 | disposition home or self-care (01) | DRG 189 ==
LOC: ER 06:26 → EDBD 06:26 → TELE 16:54 → TELE-EAST 23:47
PROVIDERS: ADMIT Internal Medicine; ATTEND Internal Medicine
DX: J96.20 Acute and chronic respiratory failure, unspecified whether with hypoxia or hypercapnia (principal); J44.1 Chronic obstructive pulmonary disease with (acute) exacerbation; J45.901 Unspecified asthma with (acute) exacerbation; N18.31 Chronic kidney disease, stage 3a; K44.9 Diaphragmatic hernia without obstruction or gangrene; K21.9 Gastro-esophageal reflux disease without esophagitis; K27.9 Peptic ulcer, site unspecified, unspecified as acute or chronic, without hemorrhage or perforation; F32.A Depression, unspecified; F41.9 Anxiety disorder, unspecified; I25.119 Atherosclerotic heart disease of native coronary artery with unspecified angina pectoris; I12.9 Hypertensive chronic kidney disease with stage 1 through stage 4 chronic kidney disease, or unspecified chronic kidney disease; Z20.822 Contact with and (suspected) exposure to COVID-19; E03.9 Hypothyroidism, unspecified; E78.5 Hyperlipidemia, unspecified; Z95.1 Presence of aortocoronary bypass graft; Z86.73 Personal history of transient ischemic attack (TIA), and cerebral infarction without residual deficits; I25.2 Old myocardial infarction
CPT/HCPCS: 36415; 71045; 71275; 80053; 81001; 83605; 83735; 83880; 84443; 85025; 85379; 93005; 96361; 96365; 96375; 97163; G0378; J3490

== ENCOUNTER 2021-12-01 12:26 | Emergency (ER) | payer MEDICARE, MEDICAID ==
[~2021-12-01] VITALS: Ht 152.4 cm; Wt 42.6 kg
[~2021-12-01 12:26] MED LIST changes: +CEFD300C2 PO; +DEXT1SYP9 PO; +DOXY-340 PO; +METO-281 PO; +PRED20TA2 PO
[2021-12-01] MEDS ORDERED: diphenhdrAMINE HCL 50 MG/1 ML VL IM ONE (13:00)
[2021-12-01] MEDS ORDERED: methylPREDNISolone SOD SUCC 125 MG/2 ML VL IM ONE (13:00)
[2021-12-01 16:17] VITALS: BP 116/60
== END 2021-12-01 16:22 | disposition home or self-care (01) ==
LOC: ER 12:26
DX: L20.9 Atopic dermatitis, unspecified (principal); J44.9 Chronic obstructive pulmonary disease, unspecified; K21.9 Gastro-esophageal reflux disease without esophagitis; E78.5 Hyperlipidemia, unspecified; I10 Essential (primary) hypertension; Z86.73 Personal history of transient ischemic attack (TIA), and cerebral infarction without residual deficits
CPT/HCPCS: 93005; 96372; 99284; J1200; J2930

== ENCOUNTER 2021-12-28 11:50 | Inpatient (IN) | payer MEDICARE, MEDICAID ==
[~2021-12-28] VITALS: Ht 152.4 cm; Wt 55.3 kg
[2021-12-28] MEDS ORDERED: HYDROmorphone HCL 2 MG/ML VL/or syr IV ONE (13:30)
[2021-12-28] MEDS ORDERED: PROMETHAZINE HCL 25 MG/ML 1ML IV ONE (13:30)
[2021-12-28 14:12] LABS: Basophils # (auto) 0.1 10 ^3/uL (0-0.2); Basophils % (auto) 0.7 % (0.0-2.0); Eosinophils # (auto) 0.1 10 ^3/uL (0-0.8); Eosinophils % (auto) 0.8 % (0.0-7.0); Hematocrit 40.1 % (36.0-46.0); Hemoglobin 13.1 g/dL (12.2-16.2); Lymphocytes # (auto) 0.8 10 ^3/uL (0.4-5.4); Lymphocytes % (auto) 7.2 % (10.0-50.0); Mean Corpuscular Hemoglobin 32.3 pg (28.0-32.0); Mean Corpuscular Hgb Conc. 32.8 g/dL (32.0-36.0); Mean Corpuscular Volume 98.5 fL (80.0-100.0); Monocytes # (auto) 0.7 10 ^3/uL (0-1.3); Monocytes % (auto) 6.9 % (0.0-12.0); Neutrophils # (auto) 9.1 10 ^3/uL (1.6-8.6); Neutrophils % (auto) 84.4 % (37.0-80.0); Nucleated Red Blood Cells % 0.1 %; Red Blood Cells 4.07 10^6/uL (4.0-5.20); Red Cell Distribution Width 13.3 % (11.8-14.3); White Blood Cell 10.8 10^3/uL (4.4-10.8)
[2021-12-28 14:23] LABS: Albumin 3.1 g/dL (3.4-5.0); BUN/Creatinine Ratio 17.9
[2021-12-28 14:26] LABS: Bilirubin, Total 0.7 mg/dL (0.2-1.0)
[2021-12-28] MEDS ORDERED: SODIUM CHLORIDE 0.9% 1,000 ML IV ONE ×2 (17:30)
[2021-12-28 18:38] LABS: Urine Bacteria FEW /hpf (None Seen); Urine Blood Negative /uL (Negative); Urine Hyaline Cast FEW /lpf (0 - 2); Urine Specific Gravity 1.021 (1.001-1.035); Urine WBC 4 /hpf (0 - 5)
[2021-12-28] MEDS ORDERED: MORPHINE SULFATE INJ 2 MG/ml SYRG IV PRN (18:45)
[2021-12-28] MEDS ORDERED: NITROGLYCERIN 0.4 MG SL TAB SL PRN (18:45)
[2021-12-28] MEDS: MORPHINE SULFATE INJ 2 MG/ml SYRG IV PRN (21:51)
[2021-12-28 22:00] VITALS: BP 115/50
[2021-12-28] MEDS: LACTATED RINGER'S 1,000 ML IV SCH (22:00)
[2021-12-28 22:03] LABS: INR 0.96 (0.9-1.15); Partial Thromboplastin Time 26.9 sec (24.6-33.4)
[2021-12-29 05:00] VITALS: BP 103/41
[2021-12-29] MEDS: MORPHINE SULFATE INJ 2 MG/ml SYRG IV PRN ×4 (05:11→23:33)
[2021-12-29 08:39] LABS: Basophils # (auto) 0.1 10 ^3/uL (0-0.2); Basophils % (auto) 0.9 % (0.0-2.0); Eosinophils # (auto) 0.1 10 ^3/uL (0-0.8); Eosinophils % (auto) 0.6 % (0.0-7.0); Hematocrit 34.2 % (36.0-46.0); Hemoglobin 11.2 g/dL (12.2-16.2); Lymphocytes # (auto) 1.1 10 ^3/uL (0.4-5.4); Lymphocytes % (auto) 9.2 % (10.0-50.0); Mean Corpuscular Hemoglobin 31.8 pg (28.0-32.0); Mean Corpuscular Hgb Conc. 32.8 g/dL (32.0-36.0); Mean Corpuscular Volume 96.9 fL (80.0-100.0); Monocytes # (auto) 1.3 10 ^3/uL (0-1.3); Monocytes % (auto) 10.7 % (0.0-12.0); Neutrophils # (auto) 9.3 10 ^3/uL (1.6-8.6); Neutrophils % (auto) 78.6 % (37.0-80.0); Red Blood Cells 3.53 10^6/uL (4.0-5.20); Red Cell Distribution Width 13.4 % (11.8-14.3); White Blood Cell 11.8 10^3/uL (4.4-10.8)
[2021-12-29 08:52] LABS: Albumin 2.7 g/dL (3.4-5.0); Calcium 8.6 mg/dL (8.5-10.1); Potassium 4.3 mmol/L (3.5-5.1)
[2021-12-29 09:00] VITALS: BP 108/44
[2021-12-29 09:06] LABS: BUN/Creatinine Ratio 20.7; Bilirubin, Total 0.9 mg/dL (0.2-1.0); Total Protein 5.4 g/dL (6.4-8.2)
[2021-12-29] MEDS ORDERED: LORazepam 0.5 MG TAB PO PRN ×2 (12:00→12:45)
[2021-12-29] MEDS ORDERED: cloNIDine HCL 0.1 MG TAB PO PRN (12:00)
[2021-12-29] MEDS ORDERED: METOPROLOL SUCCINATE XL 50 MG TAB PO ONE (12:00)
[2021-12-29] MEDS ORDERED: AZITHROMYCIN 500MG/ 250ML 250 ML IV ONE (12:00)
[2021-12-29 13:00] VITALS: BP 95/51
[2021-12-29] MEDS: LORazepam 2MG/ML-1ML VIAL IV SCH ×3 (13:33→22:00)
[2021-12-29] MEDS: LACTATED RINGER'S 1,000 ML IV SCH (13:33)
[2021-12-29] MEDS: GABAPENTIN 300 MG CAP PO SCH (14:37)
[2021-12-29 17:00] VITALS: BP 102/52
[2021-12-29 22:00] VITALS: BP 113/50
[2021-12-29] MEDS: LISINOPRIL 20 MG TAB PO SCH (22:43)
[2021-12-29] MEDS: ATORVASTATIN 20 MG TAB PO SCH (22:43)
[2021-12-30] MEDS: LACTATED RINGER'S 1,000 ML IV SCH (03:29)
[2021-12-30 05:00] VITALS: BP 100/42
[2021-12-30] MEDS: MORPHINE SULFATE INJ 2 MG/ml SYRG IV PRN ×2 (05:15→14:50)
[2021-12-30] MEDS: LORazepam 2MG/ML-1ML VIAL IV SCH ×3 (05:42→22:00)
[2021-12-30 08:00] VITALS: BP 90/42
[2021-12-30 09:00] VITALS: BP 90/42
[2021-12-30] MEDS ORDERED: HYDROcodone-ACET 5/325MG TAB PO PRN (09:00)
[2021-12-30] MEDS: methylPREDNISolone SOD SUCC 125 MG/2 ML VL IV SCH ×3 (09:00→22:05)
[2021-12-30] MEDS ORDERED: BUPIVACAINE 0.25% INJ 50ML VIAL ONE (09:32)
[2021-12-30] MEDS ORDERED: EPINEPHrine HCL 1 MG/1 ML AMP ONE (09:33)
[2021-12-30] MEDS ORDERED: DexAMETHasone SOD PHOS 10MG/1ML VIAL INJ ONE (09:53)
[2021-12-30] MEDS ORDERED: MIDAZOLAM HCL 2MG/2ML 2ml VIAL (1mg/ml) ONE (09:53)
[2021-12-30] MEDS ORDERED: PROPOFOL 10 MG/ML 20 ML IV ONE (09:53)
[2021-12-30] MEDS ORDERED: fentaNYL CITRATE 100 MCG/2 ML VL ONE (09:53)
[2021-12-30] MEDS ORDERED: ceFAZolin 1GM/50ML 50 ML IV ONE (09:54)
[2021-12-30] MEDS: AZITHROMYCIN 500MG/ 250ML 250 ML IV SCH (10:00)
[2021-12-30] MEDS: GABAPENTIN 300 MG CAP PO SCH (10:00)
[2021-12-30] MEDS: FUROSEMIDE 20 MG TAB PO SCH (10:00)
[2021-12-30] MEDS: METOPROLOL SUCCINATE XL 50 MG TAB PO SCH (10:00)
[2021-12-30] MEDS: LISINOPRIL 20 MG TAB PO SCH ×2 (10:00→22:00)
[2021-12-30] MEDS ORDERED: BUPIVACAINE 0.25% INJ 50ML VIAL IJ ONE (10:30)
[2021-12-30] MEDS ORDERED: ONDANSETRON HCL 4 MG/2 ML VIAL IV PRN (10:45)
[2021-12-30] MEDS ORDERED: ePHEDrine SULFATE 50 MG/ML AMP IV PRN (10:45)
[2021-12-30] MEDS ORDERED: MIDAZOLAM HCL 2MG/2ML 2ml VIAL (1mg/ml) IV PRN (10:45)
[2021-12-30] MEDS ORDERED: LABETALOL HCL 5 MG/ML 4ML SYRINGE IV PRN (10:45)
[2021-12-30] MEDS ORDERED: MORPHINE SULFATE 4 MG/ML SYR/VIAL IV PRN (10:45)
[2021-12-30] MEDS ORDERED: hydrALAZINE HCL 20 MG/ML VL IV PRN (10:45)
[2021-12-30] MEDS ORDERED: PHENYLEPHRINE HCL 10 MG/ML VL IV ONE (11:29)
[2021-12-30] MEDS: LEVALBUTEROL HCL 1.25 MG/3 ML NEB NEB SCH ×2 (12:00→18:00)
[2021-12-30 17:00] VITALS: BP 100/48
[2021-12-30 20:00] VITALS: BP 90/42
[2021-12-30 22:00] VITALS: BP 90/46
[2021-12-30] MEDS: ATORVASTATIN 20 MG TAB PO SCH (22:05)
[2021-12-31] VITALS (7 sets, daily range): BP systolic 90–137; BP diastolic 42–66
[2021-12-31] MEDS ORDERED: LEVALBUTEROL HCL 1.25 MG/3 ML NEB NEB PRN
[2021-12-31] MEDS: MORPHINE SULFATE INJ 2 MG/ml SYRG IV PRN ×5 (04:02→23:25)
[2021-12-31] MEDS: LACTATED RINGER'S 1,000 ML IV SCH ×3 (04:03→22:06)
[2021-12-31] MEDS: LORazepam 2MG/ML-1ML VIAL IV SCH ×3 (06:00→21:39)
[2021-12-31] MEDS: LORazepam 0.5 MG TAB PO PRN (06:14)
[2021-12-31] MEDS: methylPREDNISolone SOD SUCC 125 MG/2 ML VL IV SCH ×3 (06:27→21:32)
[2021-12-31] MEDS ORDERED: KETOROLAC TROMETH 30 MG/ML 1ML VIAL IV ONE (06:45)
[2021-12-31] MEDS: AZITHROMYCIN 500MG/ 250ML 250 ML IV SCH (09:02)
[2021-12-31] MEDS: FUROSEMIDE 20 MG TAB PO SCH (09:04)
[2021-12-31] MEDS: METOPROLOL SUCCINATE XL 50 MG TAB PO SCH (09:04)
[2021-12-31] MEDS: GABAPENTIN 300 MG CAP PO SCH (09:04)
[2021-12-31] MEDS: LISINOPRIL 20 MG TAB PO SCH ×2 (09:05→21:38)
[2021-12-31] MEDS ORDERED: ENOXAPARIN SOD 30 MG/0.3 ML SYRINGE SC ONE (10:15)
[2021-12-31] MEDS: HYDROcodone-ACET 5/325MG TAB PO PRN ×2 (10:49→16:58)
[2021-12-31] MEDS: Ensure HIGH Protein Chocolate 8oz Bottle PO SCH (18:00)
[2021-12-31] MEDS: ATORVASTATIN 20 MG TAB PO SCH (21:32)
[2022-01-01] MEDS: HYDROcodone-ACET 5/325MG TAB PO PRN ×2 (00:58→08:07)
[2022-01-01 05:00] VITALS: BP 153/48
[2022-01-01] MEDS: LORazepam 2MG/ML-1ML VIAL IV SCH ×3 (06:00→22:00)
[2022-01-01] MEDS: methylPREDNISolone SOD SUCC 125 MG/2 ML VL IV SCH (06:09)
[2022-01-01 06:11] LABS: Potassium 4.2 mmol/L (3.5-5.1)
[2022-01-01 06:28] LABS: Albumin 2.1 g/dL (3.4-5.0); BUN/Creatinine Ratio 43.9; Bilirubin, Total 0.8 mg/dL (0.2-1.0); Calcium 8.7 mg/dL (8.5-10.1); Total Protein 5.3 g/dL (6.4-8.2)
[2022-01-01 07:34] LABS: Basophils # (auto) 0 10 ^3/uL (0-0.2); Basophils % (auto) 0.1 % (0.0-2.0); Eosinophils # (auto) 0 10 ^3/uL (0-0.8); Hemoglobin 10.3 g/dL (12.2-16.2); Lymphocytes # (auto) 0.4 10 ^3/uL (0.4-5.4); Mean Corpuscular Volume 101.7 fL (80.0-100.0)
[2022-01-01 07:37] LABS: Lymphocytes % (auto) 2.5 % (10.0-50.0); Mean Corpuscular Hemoglobin 31.6 pg (28.0-32.0); Mean Corpuscular Hgb Conc. 31.1 g/dL (32.0-36.0); Monocytes # (auto) 1.4 10 ^3/uL (0-1.3); Neutrophils # (auto) 15.8 10 ^3/uL (1.6-8.6); Neutrophils % (auto) 89.4 % (37.0-80.0); Red Blood Cells 3.25 10^6/uL (4.0-5.20)
[2022-01-01 07:44] LABS: White Blood Cell 17.7 10^3/uL (4.4-10.8)
[2022-01-01 08:00] VITALS: BP 90/42
[2022-01-01] MEDS: Ensure HIGH Protein Chocolate 8oz Bottle PO SCH ×2 (08:00→18:00)
[2022-01-01] MEDS: LISINOPRIL 20 MG TAB PO SCH ×2 (08:05→22:00)
[2022-01-01] MEDS: FUROSEMIDE 20 MG TAB PO SCH (08:05)
[2022-01-01] MEDS: GABAPENTIN 300 MG CAP PO SCH ×2 (08:06→22:00)
[2022-01-01] MEDS: METOPROLOL SUCCINATE XL 50 MG TAB PO SCH (08:06)
[2022-01-01] MEDS: ENOXAPARIN SOD 30 MG/0.3 ML SYRINGE SC SCH (08:06)
[2022-01-01] MEDS: AZITHROMYCIN 500MG/ 250ML 250 ML IV SCH (08:06)
[2022-01-01] MEDS: LORazepam 0.5 MG TAB PO PRN (08:07)
[2022-01-01 09:00] VITALS: BP 126/48
[2022-01-01] MEDS: MORPHINE SULFATE INJ 2 MG/ml SYRG IV PRN ×3 (09:29→17:27)
[2022-01-01] MEDS ORDERED: TPN PER PHARMACY 0 ML IV SCH (09:30)
[2022-01-01] MEDS: predniSONE 5 MG TAB PO SCH (10:00)
[2022-01-01 12:20] LABS: INR 1.06 (0.9-1.15); Partial Thromboplastin Time 30.9 sec (24.6-33.4)
[2022-01-01 15:02] LABS: Magnesium 2.5 mg/dL (1.6-2.6); Phosphorus 1.1 mg/dL (2.5-4.90)
[2022-01-01] MEDS ORDERED: SODIUM PHOSP 40 MEQ in D5W 5% 250 ML IV ONE (15:30)
[2022-01-01 16:36] VITALS: BP 113/54
[2022-01-01] MEDS ORDERED: LIDOCAINE 1% (LOCAL ANESTH.) PF 5ml SDV ID ONE (18:45)
[2022-01-01 20:00] VITALS: BP 90/42
[2022-01-01] MEDS ORDERED: AMINO ACID INFUSION IN D10W 1,000 ML IV NR (20:00)
[2022-01-01 21:41] VITALS: BP 118/54
[2022-01-01] MEDS: ATORVASTATIN 20 MG TAB PO SCH (22:00)
[2022-01-01] MEDS: LACTATED RINGER'S 1,000 ML IV SCH (23:38)
[2022-01-02] VITALS (11 sets, daily range): BP systolic 33–171; BP diastolic 13–101
[2022-01-02] MEDS ORDERED: DEXTROSE (50%) 50ML SYRG IV SCH
[2022-01-02] MEDS: ACCU-CHEK COMFORT CURVE STRIP VI SCH ×4 (00:07→18:00)
[2022-01-02] MEDS: InsuLIN REG 1unit/0.01ml Soln (100units/ml) SC SCH ×4 (00:15→18:36)
[2022-01-02] MEDS: MORPHINE SULFATE INJ 2 MG/ml SYRG IV PRN ×3 (01:21→21:35)
[2022-01-02] MEDS: LORazepam 0.5 MG TAB PO PRN ×2 (01:57→16:26)
[2022-01-02] MEDS: LORazepam 2MG/ML-1ML VIAL IV SCH ×3 (06:00→22:00)
[2022-01-02 06:42] LABS: Basophils # (auto) 0 10 ^3/uL (0-0.2); Basophils % (auto) 0.1 % (0.0-2.0); Eosinophils # (auto) 0 10 ^3/uL (0-0.8); Hematocrit 32.9 % (36.0-46.0); Hemoglobin 10.5 g/dL (12.2-16.2); Lymphocytes # (auto) 0.4 10 ^3/uL (0.4-5.4); Lymphocytes % (auto) 2.5 % (10.0-50.0); Mean Corpuscular Hemoglobin 31.9 pg (28.0-32.0); Mean Corpuscular Hgb Conc. 31.9 g/dL (32.0-36.0); Monocytes # (auto) 1.3 10 ^3/uL (0-1.3); Monocytes % (auto) 7.4 % (0.0-12.0); Neutrophils # (auto) 15.9 10 ^3/uL (1.6-8.6); Red Blood Cells 3.29 10^6/uL (4.0-5.20); Red Cell Distribution Width 13.2 % (11.8-14.3); White Blood Cell 17.7 10^3/uL (4.4-10.8)
[2022-01-02 07:03] LABS: Albumin 2.2 g/dL (3.4-5.0); Calcium 9.1 mg/dL (8.5-10.1); Magnesium 2.5 mg/dL (1.6-2.6); Potassium 3.7 mmol/L (3.5-5.1)
[2022-01-02 07:08] LABS: BUN/Creatinine Ratio 40.9; Bilirubin, Total 0.7 mg/dL (0.2-1.0); Phosphorus 2.3 mg/dL (2.5-4.90); Total Protein 5.8 g/dL (6.4-8.2)
[2022-01-02] MEDS: Ensure HIGH Protein Chocolate 8oz Bottle PO SCH ×2 (08:00→18:00)
[2022-01-02] MEDS ORDERED: POTASSIUM PHOSP 22MEQ(15MMOLE) in NS 100 ML IV ONE (09:15)
[2022-01-02] MEDS ORDERED: AZITHROMYCIN 250 MG TAB PO SCH (10:00)
[2022-01-02] MEDS: predniSONE 5 MG TAB PO SCH (10:00)
[2022-01-02] MEDS ORDERED: LORazepam 2MG/ML-1ML VIAL IV ONE (10:30)
[2022-01-02] MEDS: ENOXAPARIN SOD 30 MG/0.3 ML SYRINGE SC SCH (11:14)
[2022-01-02] MEDS ORDERED: cefTRIAXone 1GM/50ML D5W 50 ML IV ONE (11:30)
[2022-01-02] MEDS: FUROSEMIDE 20 MG TAB PO SCH (11:32)
[2022-01-02] MEDS: GABAPENTIN 300 MG CAP PO SCH ×2 (11:33→22:00)
[2022-01-02] MEDS: LISINOPRIL 20 MG TAB PO SCH ×2 (11:33→22:00)
[2022-01-02] MEDS: METOPROLOL SUCCINATE XL 50 MG TAB PO SCH (11:33)
[2022-01-02] MEDS: LACTATED RINGER'S 1,000 ML IV SCH (15:25)
[2022-01-02] MEDS ORDERED: methylPREDNISolone SOD SUCC 40 MG/ML VL IM ONE (17:30)
[2022-01-02] MEDS ORDERED: hydrALAZINE HCL 20 MG/ML VL IV PRN (18:00)
[2022-01-02] MEDS ORDERED: METOPROLOL TARTRATE 1MG/1ML-5ML VIAL IV ONE (18:00)
[2022-01-02] MEDS ORDERED: ENOXAPARIN SOD 30 MG/0.3 ML SYRINGE SC ONE (18:30)
[2022-01-02] MEDS ORDERED: AMIODARONE HCL 150 MG in D5W 5% 100 ML IV ONE (19:00)
[2022-01-02 19:01] LABS: Hematocrit 33.2 % (36.0-46.0); Hemoglobin 10.7 g/dL (12.2-16.2); Mean Corpuscular Hemoglobin 31.1 pg (28.0-32.0); Mean Corpuscular Hgb Conc. 32.4 g/dL (32.0-36.0); Mean Corpuscular Volume 96.2 fL (80.0-100.0); Red Blood Cells 3.45 10^6/uL (4.0-5.20); Red Cell Distribution Width 13.1 % (11.8-14.3); White Blood Cell 25.8 10^3/uL (4.4-10.8)
[2022-01-02 19:09] LABS: Basophils % (manual) 0 (0.0-2.0); Blast Cells 0; Eosinophils % (manual) 0 (0-7); Metamyelocytes % 0; Myelocytes % 0; Promyelocytes % 0; Reactive Lymphocytes 0
[2022-01-02] MEDS ORDERED: AMIODARONE 450mg/250ml AE 250 ML IV SCH (19:15)
[2022-01-02 19:26] LABS: BUN/Creatinine Ratio 40.9; Calcium 8.8 mg/dL (8.5-10.1); Potassium 3.3 mmol/L (3.5-5.1)
[2022-01-02 19:27] LABS: INR 1.47 (0.9-1.15)
[2022-01-02] MEDS ORDERED: PPN PER PHARMACY IV NR ×17 (20:00)
[2022-01-02 21:02] LABS: Band Neutrophils % (manual) 15; Lymphocytes % (manual) 2 (10.0-50.0); Monocytes % (manual) 9 (0-12)
[2022-01-02] MEDS: ATORVASTATIN 20 MG TAB PO SCH (22:00)
[2022-01-03] VITALS (72 sets, daily range): BP systolic 97–208; BP diastolic 40–122
[2022-01-03] MEDS ORDERED: NOREPINEPHRINE 8 MG/250ML KIT 250 ML IV ONE (00:05)
[2022-01-03] MEDS: ACCU-CHEK COMFORT CURVE STRIP VI SCH ×5 (01:20→23:34)
[2022-01-03] MEDS: InsuLIN REG 1unit/0.01ml Soln (100units/ml) SC SCH ×5 (01:21→23:36)
[2022-01-03] MEDS ORDERED: LABETALOL HCL 5 MG/ML ML 20ML VIAL IV ONE (01:50)
[2022-01-03] MEDS ORDERED: hydrALAZINE HCL 20 MG/ML VL IV PRN (02:00)
[2022-01-03] MEDS ORDERED: LABETALOL HCL 5 MG/ML 4ML SYRINGE IV PRN (02:00)
[2022-01-03] MEDS ORDERED: ACETAMINOPHEN 650 MG RECT SUPP PR PRN (02:00)
[2022-01-03] MEDS: MORPHINE SULFATE INJ 2 MG/ml SYRG IV PRN ×2 (02:19→11:20)
[2022-01-03 05:23] LABS: Albumin 1.9 g/dL (3.4-5.0); Calcium 8.7 mg/dL (8.5-10.1)
[2022-01-03 05:27] LABS: BUN/Creatinine Ratio 37.5; Bilirubin, Total 0.7 mg/dL (0.2-1.0); Phosphorus 1.8 mg/dL (2.5-4.90)
[2022-01-03 05:30] LABS: Basophils # (auto) 0 10 ^3/uL (0-0.2); Basophils % (auto) 0.2 % (0.0-2.0); Eosinophils # (auto) 0 10 ^3/uL (0-0.8); Hematocrit 29.7 % (36.0-46.0); Hemoglobin 9.9 g/dL (12.2-16.2); Lymphocytes # (auto) 0.5 10 ^3/uL (0.4-5.4); Mean Corpuscular Hgb Conc. 33.4 g/dL (32.0-36.0); Mean Corpuscular Volume 95.9 fL (80.0-100.0); Monocytes # (auto) 1.1 10 ^3/uL (0-1.3); Monocytes % (auto) 4.5 % (0.0-12.0); Neutrophils # (auto) 23.4 10 ^3/uL (1.6-8.6); Neutrophils % (auto) 93.3 % (37.0-80.0); White Blood Cell 25.1 10^3/uL (4.4-10.8)
[2022-01-03] MEDS: AMIODARONE 450mg/250ml AE 250 ML IV SCH ×2 (05:43→18:36)
[2022-01-03] MEDS: LORazepam 2MG/ML-1ML VIAL IV SCH ×3 (05:45→21:09)
[2022-01-03 06:50] LABS: Lactic Acid w/Reflex 2.1 mmol/L (0.4-2.0)
[2022-01-03] MEDS: Ensure HIGH Protein Chocolate 8oz Bottle PO SCH ×2 (08:00→18:00)
[2022-01-03] MEDS: POTASSIUM CHL 20MEQ/100ML 100 ML IV SCH ×5 (08:45→21:22)
[2022-01-03] MEDS ORDERED: cefTRIAXone 1GM/50ML D5W 50 ML IV SCH (09:00)
[2022-01-03] MEDS: methylPREDNISolone SOD SUCC 40 MG/ML VL IV SCH (09:42)
[2022-01-03] MEDS: FUROSEMIDE 20 MG TAB PO SCH (09:43)
[2022-01-03] MEDS: predniSONE 5 MG TAB PO SCH (09:43)
[2022-01-03] MEDS: METOPROLOL SUCCINATE XL 50 MG TAB PO SCH (09:44)
[2022-01-03] MEDS: LISINOPRIL 20 MG TAB PO SCH ×2 (09:44→21:10)
[2022-01-03] MEDS: GABAPENTIN 300 MG CAP PO SCH ×2 (09:44→21:16)
[2022-01-03] MEDS: ENOXAPARIN SOD 30 MG/0.3 ML SYRINGE SC SCH (09:45)
[2022-01-03] MEDS ORDERED: AZITHROMYCIN 500MG/ 250ML 250 ML IV SCH (10:00)
[2022-01-03] MEDS ORDERED: PIPERACILLIN-TAZOB 3.375GM 100 ML IV ONE (10:15)
[2022-01-03] MEDS ORDERED: ROCURONIUM 10MG/ML 10ML VIAL IV ONE ×2 (11:39→12:45)
[2022-01-03] MEDS ORDERED: ETOMIDATE (2MG/ML) 20ML VIAL IV ONE ×2 (11:39→12:45)
[2022-01-03] MEDS ORDERED: fentaNYL Drip 2500mCg/250mlNS 250 ML IV ONE (11:39)
[2022-01-03] MEDS ORDERED: PROPOFOL 100 ML IV ONE (11:40)
[2022-01-03] MEDS ORDERED: POTASSIUM PHOSPHATE 44 MEQ in D5W 5% 250 ML IV ONE (11:45)
[2022-01-03] MEDS ORDERED: POTASSIUM PHOSP 26.4MEQ(18MMOL) IN NS 100 ML IV ONE (12:30)
[2022-01-03] MEDS: PROPOFOL 100 ML IV SCH (12:45)
[2022-01-03] MEDS: fentaNYL Drip 2500mCg/250mlNS 250 ML IV SCH (12:49)
[2022-01-03] MEDS ORDERED: TESTOSTERONE CYPIONATE 200 MG/ML 1ML VIAL IM ONE (16:30)
[2022-01-03] MEDS: PIPERACILLIN-TAZOB 3.375GM 100 ML IV SCH (18:36)
[2022-01-03] MEDS ORDERED: PPN PER PHARMACY IV NR ×11 (20:00)
[2022-01-03] MEDS: NOREPINEPHRINE 8 MG/250ML KIT 250 ML IV SCH (20:41)
[2022-01-03] MEDS: ATORVASTATIN 20 MG TAB PO SCH (21:16)
[2022-01-03] MEDS: ACETYLCYSTEINE 20%(200MG/ML) SOL 4ML NEB SCH (21:45)
[2022-01-04] VITALS (98 sets, daily range): BP systolic 88–134; BP diastolic 35–58
[2022-01-04] MEDS: PIPERACILLIN-TAZOB 3.375GM 100 ML IV SCH ×2 (02:08→10:11)
[2022-01-04 05:07] LABS: Hemoglobin 8.9 g/dL (12.2-16.2); Red Cell Distribution Width 13.6 % (11.8-14.3)
[2022-01-04 05:10] LABS: Hematocrit 27.9 % (36.0-46.0); Mean Corpuscular Hemoglobin 32.3 pg (28.0-32.0); Mean Corpuscular Hgb Conc. 32.1 g/dL (32.0-36.0); Mean Corpuscular Volume 100.6 fL (80.0-100.0); Red Blood Cells 2.77 10^6/uL (4.0-5.20)
[2022-01-04 05:30] LABS: Potassium 4.2 mmol/L (3.5-5.1)
[2022-01-04 05:34] LABS: Albumin 1.8 g/dL (3.4-5.0); BUN/Creatinine Ratio 47.5; Calcium 7.9 mg/dL (8.5-10.1); Magnesium 1.9 mg/dL (1.6-2.6)
[2022-01-04 05:38] LABS: Bilirubin, Total 0.5 mg/dL (0.2-1.0); Phosphorus 4.1 mg/dL (2.5-4.90); Total Protein 5.7 g/dL (6.4-8.2)
[2022-01-04 05:45] LABS: White Blood Cell 33.3 10^3/uL (4.4-10.8)
[2022-01-04 05:46] LABS: Basophils % (manual) 0 (0.0-2.0); Blast Cells 0; Eosinophils % (manual) 0 (0-7); Metamyelocytes % 0; Myelocytes % 0; Promyelocytes % 0; Reactive Lymphocytes 0
[2022-01-04] MEDS: LORazepam 2MG/ML-1ML VIAL IV SCH ×3 (06:00→22:00)
[2022-01-04] MEDS: InsuLIN REG 1unit/0.01ml Soln (100units/ml) SC SCH ×3 (06:07→17:58)
[2022-01-04] MEDS: ACCU-CHEK COMFORT CURVE STRIP VI SCH ×3 (06:08→17:35)
[2022-01-04] MEDS: PROPOFOL 100 ML IV SCH ×3 (06:37→22:25)
[2022-01-04] MEDS: LEVALBUTEROL HCL 1.25 MG/3 ML NEB NEB SCH ×3 (07:06→22:10)
[2022-01-04] MEDS: ACETYLCYSTEINE 20%(200MG/ML) SOL 4ML NEB SCH ×3 (07:07→22:11)
[2022-01-04 07:14] LABS: Band Neutrophils % (manual) 59; Lymphocytes % (manual) 3 (10.0-50.0); Monocytes % (manual) 5 (0-12)
[2022-01-04] MEDS: AMIODARONE 450mg/250ml AE 250 ML IV SCH ×2 (07:15→12:35)
[2022-01-04] MEDS: Ensure HIGH Protein Chocolate 8oz Bottle PO SCH ×2 (08:00→18:00)
[2022-01-04] MEDS: LISINOPRIL 20 MG TAB PO SCH ×2 (10:00→22:00)
[2022-01-04] MEDS: METOPROLOL SUCCINATE XL 50 MG TAB PO SCH (10:00)
[2022-01-04] MEDS: methylPREDNISolone SOD SUCC 40 MG/ML VL IV SCH (10:11)
[2022-01-04] MEDS: GABAPENTIN 300 MG CAP PO SCH ×2 (10:12→22:24)
[2022-01-04] MEDS: FUROSEMIDE 20 MG TAB PO SCH (10:12)
[2022-01-04] MEDS: ENOXAPARIN SOD 30 MG/0.3 ML SYRINGE SC SCH (10:13)
[2022-01-04] MEDS: fentaNYL Drip 2500mCg/250mlNS 250 ML IV SCH (10:49)
[2022-01-04] MEDS ORDERED: MEROPENEM 500MG IVPB 50 ML IV ONE (12:00)
[2022-01-04] MEDS: NOREPINEPHRINE 8 MG/250ML KIT 250 ML IV SCH (12:30)
[2022-01-04] MEDS: AZITHROMYCIN 500MG/ 250ML 250 ML IV SCH (13:51)
[2022-01-04] MEDS: MEROPENEM 1GM IVPB 100 ML IV SCH ×2 (15:00→22:24)
[2022-01-04] MEDS ORDERED: TPN PER PHARMACY IV NR ×10 (20:00)
[2022-01-04] MEDS ORDERED: MEROPENEM 500MG IVPB 50 ML IV SCH (22:00)
[2022-01-04] MEDS: ATORVASTATIN 20 MG TAB PO SCH (22:24)
[2022-01-05] VITALS (101 sets, daily range): BP systolic 87–138; BP diastolic 25–65
[2022-01-05] MEDS: ACCU-CHEK COMFORT CURVE STRIP VI SCH ×5 (00:25→23:54)
[2022-01-05] MEDS: InsuLIN REG 1unit/0.01ml Soln (100units/ml) SC SCH ×5 (00:26→23:54)
[2022-01-05] MEDS: NOREPINEPHRINE 8 MG/250ML KIT 250 ML IV SCH (02:12)
[2022-01-05] MEDS: AMIODARONE 450mg/250ml AE 250 ML IV SCH ×2 (04:12→17:39)
[2022-01-05 05:08] LABS: Hematocrit 28.3 % (36.0-46.0); Hemoglobin 8.9 g/dL (12.2-16.2); Mean Corpuscular Hemoglobin 31.3 pg (28.0-32.0); Mean Corpuscular Hgb Conc. 31.5 g/dL (32.0-36.0); Mean Corpuscular Volume 99.2 fL (80.0-100.0); Red Blood Cells 2.86 10^6/uL (4.0-5.20); Red Cell Distribution Width 13.3 % (11.8-14.3)
[2022-01-05 05:13] LABS: White Blood Cell 39.3 10^3/uL (4.4-10.8)
[2022-01-05 05:14] LABS: Basophils % (manual) 0 (0.0-2.0); Blast Cells 0; Eosinophils % (manual) 0 (0-7); Monocytes % (manual) 0 (0-12); Myelocytes % 0; Promyelocytes % 0; Reactive Lymphocytes 0
[2022-01-05] MEDS: LORazepam 2MG/ML-1ML VIAL IV SCH (05:51)
[2022-01-05] MEDS: fentaNYL Drip 2500mCg/250mlNS 250 ML IV SCH ×2 (05:56→21:52)
[2022-01-05] MEDS: PROPOFOL 100 ML IV SCH ×3 (05:58→19:54)
[2022-01-05] MEDS: ACETYLCYSTEINE 20%(200MG/ML) SOL 4ML NEB SCH ×3 (06:10→22:18)
[2022-01-05] MEDS: LEVALBUTEROL HCL 1.25 MG/3 ML NEB NEB SCH ×3 (06:10→22:18)
[2022-01-05 06:39] LABS: Band Neutrophils % (manual) 10; Lymphocytes % (manual) 1 (10.0-50.0); Metamyelocytes % 3
[2022-01-05] MEDS ORDERED: VANCOMYCIN 1GM/250ML 250 ML IV ONE (08:00)
[2022-01-05] MEDS: Ensure HIGH Protein Chocolate 8oz Bottle PO SCH (08:00)
[2022-01-05] MEDS ORDERED: VANCOMYCIN PER PHARMACY 0 MG IV SCH (08:00)
[2022-01-05 09:43] LABS: Anion Gap 15 (5-15); Carbon Dioxide 23 mmol/L (21-32); Chloride 90 mmol/L (98-107); Glucose 172 mg/dL (74-106); Sodium 128 mmol/L (136-145)
[2022-01-05 09:44] LABS: Alanine Aminotransferase 30 U/L (13-56); Albumin 1.9 g/dL (3.4-5.0); Alkaline Phosphatase 120 U/L (45-117); Aspartate Aminotransferase 32 U/L (15-37); BUN/Creatinine Ratio 43.1; Bilirubin, Total 1.1 mg/dL (0.2-1.0); GFR African American 29 mL/min; GFR Non-African American 24 mL/min; Magnesium 2.3 mg/dL (1.6-2.6); Phosphorus 7.3 mg/dL (2.5-4.90); Total Protein 6.8 g/dL (6.4-8.2)
[2022-01-05 09:45] LABS: Potassium 5.6 mmol/L (3.5-5.1)
[2022-01-05 09:46] LABS: Blood Urea Nitrogen 90 mg/dL (7-18)
[2022-01-05] MEDS: NOREPINEPHRINE BITARTRATE 32 MG in SODIUM CHL 0.9% 218 ML IV SCH (10:00)
[2022-01-05] MEDS ORDERED: FUROSEMIDE 20 MG/2 ML VIAL IV SCH (10:00)
[2022-01-05] MEDS: ENOXAPARIN SOD 30 MG/0.3 ML SYRINGE SC SCH (10:00)
[2022-01-05] MEDS: METOPROLOL SUCCINATE XL 50 MG TAB PO SCH (10:00)
[2022-01-05] MEDS: LISINOPRIL 20 MG TAB PO SCH ×2 (10:00→19:58)
[2022-01-05] MEDS: methylPREDNISolone SOD SUCC 40 MG/ML VL IV SCH (10:15)
[2022-01-05] MEDS: GABAPENTIN 300 MG CAP PO SCH ×2 (10:20→20:06)
[2022-01-05] MEDS: MEROPENEM 1GM IVPB 100 ML IV SCH (10:30)
[2022-01-05] MEDS ORDERED: SODIUM BICARBONATE 8.4 % INJ 50ML VIAL IV ONE (10:45)
[2022-01-05] MEDS ORDERED: CALCIUM GLUC 1,000mg/50ml-NS 50 ML IV ONE (11:00)
[2022-01-05] MEDS ORDERED: AMINO ACID INFUSION IN D10W 1,000 ML IV NR (11:15)
[2022-01-05] MEDS ORDERED: AMINO ACID INFUSION IN D5W 1,000 ML IV NR (11:15)
[2022-01-05] MEDS: AZITHROMYCIN 500MG/ 250ML 250 ML IV SCH (11:48)
[2022-01-05] MEDS ORDERED: BUMETANIDE 2.5mg/10ml (0.25 mg/ml) INJ IV ONE (14:15)
[2022-01-05] MEDS: FUROSEMIDE 100 MG/10ML VIAL IV SCH (17:52)
[2022-01-05] MEDS ORDERED: TPN PER PHARMACY IV NR ×6 (20:00)
[2022-01-05] MEDS: MEROPENEM 500MG IVPB 50 ML IV SCH (20:06)
[2022-01-05] MEDS: ATORVASTATIN 20 MG TAB PO SCH (20:06)
[2022-01-06] VITALS (62 sets, daily range): BP systolic 80–126; BP diastolic 23–48
[2022-01-06 04:55] LABS: Hematocrit 23.1 % (36.0-46.0); Hemoglobin 7.7 g/dL (12.2-16.2); Mean Corpuscular Hemoglobin 32.6 pg (28.0-32.0); Mean Corpuscular Hgb Conc. 33.5 g/dL (32.0-36.0); Mean Corpuscular Volume 97.4 fL (80.0-100.0); Red Blood Cells 2.38 10^6/uL (4.0-5.20); Red Cell Distribution Width 13.1 % (11.8-14.3)
[2022-01-06] MEDS: InsuLIN REG 1unit/0.01ml Soln (100units/ml) SC SCH (05:12)
[2022-01-06] MEDS: ACCU-CHEK COMFORT CURVE STRIP VI SCH (05:13)
[2022-01-06] MEDS: PROPOFOL 100 ML IV SCH (05:23)
[2022-01-06] MEDS: FUROSEMIDE 100 MG/10ML VIAL IV SCH (05:24)
[2022-01-06 05:36] LABS: Albumin 1.5 g/dL (3.4-5.0); BUN/Creatinine Ratio 37.5; Calcium 6.9 mg/dL (8.5-10.1); Magnesium 2.1 mg/dL (1.6-2.6); Potassium 5.4 mmol/L (3.5-5.1)
[2022-01-06 05:39] LABS: Bilirubin, Total 0.6 mg/dL (0.2-1.0); Phosphorus 7.6 mg/dL (2.5-4.90); Total Protein 5.4 g/dL (6.4-8.2)
[2022-01-06] MEDS: LEVALBUTEROL HCL 1.25 MG/3 ML NEB NEB SCH (05:51)
[2022-01-06] MEDS: ACETYLCYSTEINE 20%(200MG/ML) SOL 4ML NEB SCH (05:51)
[2022-01-06 06:02] LABS: White Blood Cell 39.4 10^3/uL (4.4-10.8)
[2022-01-06 06:04] LABS: Basophils % (manual) 0 (0.0-2.0); Blast Cells 0; Eosinophils % (manual) 0 (0-7); Myelocytes % 0; Promyelocytes % 0; Reactive Lymphocytes 0
[2022-01-06] MEDS ORDERED: SODIUM BICARBONATE 8.4 % INJ 50ML VIAL IV ONE (06:45)
[2022-01-06 07:50] LABS: Band Neutrophils % (manual) 73; Lymphocytes % (manual) 4 (10.0-50.0); Metamyelocytes % 6; Monocytes % (manual) 8 (0-12)
[2022-01-06] MEDS: NOREPINEPHRINE BITARTRATE 32 MG in SODIUM CHL 0.9% 218 ML IV SCH (09:26)
[2022-01-06] MEDS: METOPROLOL SUCCINATE XL 50 MG TAB PO SCH (09:55)
[2022-01-06] MEDS: LISINOPRIL 20 MG TAB PO SCH (09:55)
[2022-01-06] MEDS: ENOXAPARIN SOD 30 MG/0.3 ML SYRINGE SC SCH (09:55)
[2022-01-06] MEDS ORDERED: PANTOPRAZOLE 40 MG/10 ML VIAL INJ IV SCH (10:00)
[2022-01-06] MEDS: GABAPENTIN 300 MG CAP PO SCH (10:00)
[2022-01-06] MEDS ORDERED: VANCOMYCIN 500 MG in D5W 5% 100 ML IV ONE (10:00)
[2022-01-06] MEDS: MEROPENEM 500MG IVPB 50 ML IV SCH (10:01)
[2022-01-06] MEDS: methylPREDNISolone SOD SUCC 40 MG/ML VL IV SCH (10:06)
[2022-01-06] MEDS ORDERED: MORPHINE SULFATE INJ 2 MG/ml SYRG IV PRN (10:30)
[2022-01-06] MEDS: AZITHROMYCIN 500MG/ 250ML 250 ML IV SCH (11:30)
[2022-01-06] MEDS: MIDAZOLAM HCL 2MG/2ML 2ml VIAL (1mg/ml) IV PRN ×2 (11:54→14:27)
[2022-01-06] MEDS ORDERED: TPN PER PHARMACY IV NR ×12 (20:00)
== END 2022-01-07 01:37 | DRG 853 ==
LOC: ER 11:50 → EDBD 11:50 → TELE-WESTW 18:42 → ICU CENTRL 01-03 00:24
PROVIDERS: ADMIT Registered Nurse; ATTEND Family Medicine
PROC: 0SHB04Z Insertion of Internal Fixation Device into Left Hip Joint, Open Approach (ICD-10-PCS; 2021-12-30)
PROC: BQ111ZZ Fluoroscopy of Left Hip using Low Osmolar Contrast (ICD-10-PCS; 2021-12-30)
PROC: 05H933Z Insertion of Infusion Device into Right Brachial Vein, Percutaneous Approach (ICD-10-PCS; 2021-12-30)
PROC: B54MZZA Ultrasonography of Right Upper Extremity Veins, Guidance (ICD-10-PCS; 2021-12-30)
PROC: 0QUC07Z Supplement Left Lower Femur with Autologous Tissue Substitute, Open Approach (ICD-10-PCS; principal; 2021-12-30 10:18)
PROC: 3E0436Z Introduction of Nutritional Substance into Central Vein, Percutaneous Approach (ICD-10-PCS; 2022-01-01)
PROC: 05HA33Z Insertion of Infusion Device into Left Brachial Vein, Percutaneous Approach (ICD-10-PCS; 2022-01-01)
PROC: B54NZZA Ultrasonography of Left Upper Extremity Veins, Guidance (ICD-10-PCS; 2022-01-01)
PROC: 06HM33Z Insertion of Infusion Device into Right Femoral Vein, Percutaneous Approach (ICD-10-PCS; 2022-01-03)
PROC: 5A1945Z Respiratory Ventilation, 24-96 Consecutive Hours (ICD-10-PCS; 2022-01-03)
PROC: 0BH17EZ Insertion of Endotracheal Airway into Trachea, Via Natural or Artificial Opening (ICD-10-PCS; 2022-01-03)
DX: A41.9 Sepsis, unspecified organism (principal); I50.23 Acute on chronic systolic (congestive) heart failure; S72.142A Displaced intertrochanteric fracture of left femur, initial encounter for closed fracture; J96.21 Acute and chronic respiratory failure with hypoxia; J69.0 Pneumonitis due to inhalation of food and vomit; R65.21 Severe sepsis with septic shock; E44.1 Mild protein-calorie malnutrition; J44.1 Chronic obstructive pulmonary disease with (acute) exacerbation; E87.2 Acidosis; N17.9 Acute kidney failure, unspecified; I13.0 Hypertensive heart and chronic kidney disease with heart failure and stage 1 through stage 4 chronic kidney disease, or unspecified chronic kidney disease; N18.31 Chronic kidney disease, stage 3a; I25.10 Atherosclerotic heart disease of native coronary artery without angina pectoris; E86.0 Dehydration; G62.9 Polyneuropathy, unspecified; D64.9 Anemia, unspecified; E03.9 Hypothyroidism, unspecified; E87.5 Hyperkalemia; E87.6 Hypokalemia; I48.91 Unspecified atrial fibrillation; K21.9 Gastro-esophageal reflux disease without esophagitis; F41.9 Anxiety disorder, unspecified; Z66 Do not resuscitate; R54 Age-related physical debility; F32.A Depression, unspecified; Z20.822 Contact with and (suspected) exposure to COVID-19; E78.5 Hyperlipidemia, unspecified; W01.0XXA Fall on same level from slipping, tripping and stumbling without subsequent striking against object, initial encounter; Y93.01 Activity, walking, marching and hiking; Z82.49 Family history of ischemic heart disease and other diseases of the circulatory system; Z68.21 Body mass index [BMI] 21.0-21.9, adult; Z95.5 Presence of coronary angioplasty implant and graft; I25.2 Old myocardial infarction; Z82.5 Family history of asthma and other chronic lower respiratory diseases; Z82.62 Family history of osteoporosis; Z86.73 Personal history of transient ischemic attack (TIA), and cerebral infarction without residual deficits; Z87.11 Personal history of peptic ulcer disease; Z90.710 Acquired absence of both cervix and uterus; Z99.81 Dependence on supplemental oxygen; Z95.1 Presence of aortocoronary bypass graft; Z88.1 Allergy status to other antibiotic agents; Z88.8 Allergy status to other drugs, medicaments and biological substances; Z91.018 Allergy to other foods; Z90.49 Acquired absence of other specified parts of digestive tract; Y92.098 Other place in other non-institutional residence as the place of occurrence of the external cause; Y99.8 Other external cause status
CPT/HCPCS: 36415; 36600; 70450; 71045; 73502; 76000; 80048; 80053; 80202; 81001; 82805; 82962; 83605; 83735; 84100; 84443; 84478; 84484; 85007; 85025; 85027; 85610; 85730; 86850; 86900; 86901; 87040; 87070; 87077; 87081; 87086; 87186; 87205; 93005; 93306; 93971; 94003; 94640; 96361; 96365; 97110; 97116; 97163; 97530; A4565; C9113; G0378; J0171; J0690; J0696; J1071; J1100; J1815; J1885; J2185; J2250; J2543; J2704; J3480; J3490; J7060; J7131